=== PATIENT | male | born 1965 | race Caucasian/White ===

== ENCOUNTER 2018-01-03 19:57 | Emergency (ER) | payer MEDICAID, SELFPAY ==
[2018-01-03 19:58] VITALS: BP 124/90; PULSE 113; RESP 25; TEMP 35.9; O2SAT 94; BMI 19.5
--- NOTE | 2018-01-03 20:49 | CT_ITS ---
STUDY: CT ABDOMEN AND PELVIS WITH CONTRAST REASON FOR EXAM: Male, 52 years old. Lower umbilical pain for one week RADIATION DOSAGE (If Supplied By Facility): CTDIvol = ( 18.92 ) mGy, DLP = ( 372.63 ) mGycm TECHNIQUE: Transaxial images were obtained from the dome of the diaphragm to the symphysis pubis with oral contrast. 100ML ml of Isovue 300 contrast was administered. Sagittal and coronal images were reconstructed. Individualized dose optimization techniques were used for this CT. COMPARISON: None. FINDINGS: There are moderate volume bilateral effusions with atelectasis. There is mild cardiac enlargement The liver is inhomogeneous. The common duct measures approximately 8.1 mm. The pancreatic duct measures up to 5 mm. There is intra and extrahepatic ductal dilatation. There is mild ascites. There is fluid in the pericolic gutter compatible with mild ascites. Normal spleen. Normal pancreas. Normal bilateral adrenal glands. Normal right kidney. There is a benign-appearing well-circumscribed cyst in the left kidney measuring 1.6 cm. There is a contrast-filled over distended appearance of the stomach. There are contrast filled mildly distended loops of small bowel. There is equal or greater stool filled ascending colon and transverse colon. There is a decompressed particularly the descending colon and sigmoid. There is non-visualization of the appendix. Word is tortuous and partially calcified. The aorta is partially contrast filled and without contrast within the abdomen and pelvis. There few nonspecific perinephric lymph nodes. Normal urinary bladder. The prostate appears enlarged. There is body wall edema. There are diffuse degenerative changes of the visualized lumbar spine. There is a broad disc bulge at the level of L2 L3 L3 L4 L4 L5 and L5-S1 with moderate neural foramina narrowing. CT/Abdomen/Pelvis WITH Contrast IMPRESSION: Inhomogeneous liver with periportal edema and intra- Mild intra and extrahepatic ductal dilatation. Mild ascites. Upper limits of normal distended common duct for patient's age. Bilateral effusions cardiomegaly body anasarca, could consider cardiac origin. Findings are most consistent with ileus. This is in the setting of constipation. There is diverticulosis without diverticulitis. The appendix is not visualized with certainty. Electronically Signed: Heather Llanos MD at 22:59 EDT Tel , Service support ,
[2018-01-03 21:16] LABS: Absolute Lymphocyte Count 1.76 X10^3/ul (0.83-4.51); Absolute Neutrophil Count 3.7 X10^3/uL (2.0-7.7); Basophil# 0.03 X10^3/uL; Basophil% 0.5 % (0-1); Eosinophil# 0.02 X10^3/uL; Eosinophils% 0.3 % (0-5); Hematocrit 40.5 % (40-54); Hemoglobin 14.7 g/dl (13.0-16.5); Lymphocyte # 1.76 X10^3/ul (4.0); Lymphocyte % 28.6 % (19-41); Mean Corp Hgb Conc 36.3 g/gl (32-36); Mean Corpuscular Hgb 33.3 pg (27.0-32.0); Mean Corpuscular Volume 91.6 fL (80-94); Mean Platelet Vol. 10.2 fl (6.2-12.0); Monocyte# 0.61 X10^3/uL; Monocyte% 9.9 % (0-10); Neutrophil # 3.72 X10^3/uL (2.7-7.7); Neutrophil % 60.5 % (47-70); Platelet Count 197 K/mm3 (150-450); RBC Distribution Width CV 13.3 % (11.6-14.6); RBC Distribution Width SD 43.5 fl (35.1-43.9); Red Blood Count 4.42 M/mm3 (4.6-6.2); White Blood Count 6.2 K/mm3 (4.4-11.0)
[2018-01-03 21:17] LABS: POSITIVE COUNT NO; POSITIVE DIFFERENTIAL NO; POSITIVE MORPHOLOGY NO
[2018-01-03 21:31] LABS: ALB/GLOB Ratio 0.9 RATIO (0.9-2.4); AST(SGOT) 47 U/L (15-37); Alanine Aminotransfer ALT/SGPT 63 U/L (16-61); Albumin, Serum 2.9 g/dL (3.2-5.0); Alkaline Phosphatase 82 U/L (45-117); Anion Gap 8 (5-15); BUN 41 mg/dL (7-18); BUN/Creat Ratio 34.7 RATIO (10-20); Calcium,Total 8.5 mg/dL (8.5-10.1); Chloride 104 mmol/L (98-107); Creatinine, Serum 1.18 mg/dL (0.70-1.30); EST Glomerular Filtration Rate 69 mL/min (>60); Est Glom Filt Rate - Afr Amer 83 mL/min (>60); Globulin 3.3 g/dL (2.2-4.2); Glucose 132 mg/dL (74-106); Lipase 105 U/L (73-393); Potassium 4.3 mmol/L (3.5-5.1); Protein, Total 6.2 g/dL (6.4-8.2); Sodium Level 138 mmol/L (136-145)
[2018-01-03 21:43] LABS: Lactic Acid 1.8 mmol/L (0.4-2.0)
[2018-01-03] MEDS: 0.9% Normal Saline 1,000 ML 125 ML IV (21:59)
[2018-01-03] MEDS: Ondansetron 4 MG/2 ML Vial IV (21:59)
[2018-01-03] MEDS: Morphine 4 MG/ML Syringe IV (21:59)
--- NOTE | 2018-01-03 23:32 | ED.DCSUM_ITS ---
- ER Visit Summary Date of Service: 01/03/18 Chief Complaint: [[place] pain] History of Present Illness: The patient is a 52 M [presents the emergency department complaint of abdominal pain that he said for about 2 weeks. Patient states the pain is intermittent and severe at times in the lower abdomen.] P atient rates the pain a 10 out of 10 currently. Patient also states he has not had a good bowel movement in over 3 days. Patient has just passed some small hard stools. Patient denies any fever or vomiting. Nu[place] any chest pain or significant dyspnea. Patient does have a history of hypertension and COPD and history of tachycardia. Patient states that he injured his left rotator cuff last month and is preparing to have surgery on it and is currently following up with pulmonology and cardiology to get cleared for surgery. Patient has been taking Percocet for the pain in his left shoulder. Patient also noticed some redness around his bellybutton today and he became concerned. Patient states that he is lost about 15 pounds in the last month without trying. Patient has had some night sweats. Physical Examination: [HEENT-PERRLA, EOMI. Cranial nerves II through XII grossly intact. TMs clear. Mucous membranes moist. No adenopathy. Patient does have JVD. Cardiovascular-regular rate and rhythm without murmur or ectopy Lungs-breath sounds in the bases with few rales noted. Patient has some faint expiratory wheezes. Mild tachypnea. No accessory muscle use or retractions. Abdomen-normoactive bowel sounds, soft. Patient does have some tenderness over the suprapubic lower abdomen. No masses noted. Patient does have some faint erythema of the umbilicus. There is no rebound, rigidity, or perineal signs. Extremities-intact ?4, normal range of motion, normal pulses, atraumatic]. No edema noted. Test Results: [CBC with differential obtained showed a normal white blood cell count of 6.2, hemoglobin 14.7, hematocrit 40, platelets 197. Chemistries unremarkable. LFTs did show slightly elevated ALT of 63, AST was 47, alk phos was 82. Lipase was normal at 105. CT scan of the abdomen pelvis with IV and p.o. contrast was obtained which showed an homogenous liver with periportal edema. Patient had mild intra-and extrahepatic ductal dilatation with mild ascites. Patient had upper limit of normal distended common bile duct. Patient had bilateral effusions, cardiomegaly, body anasarca and could consider cardiac origin. Patient also has findings consistent with ileus this is in the setting of constipation. There is diverticulosis without diverticulitis. The appendix was not visualized.] Emergency Department Course and Treatment: [Patient was medicated with 4 mg of morphine initially. Patient had good pain relief. I recommended further workup including EKG, chest x-ray, cardiac enzymes and recommended admission for echocardiogram. Patient does not want to be admitted and is refusing any more testing. 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 Patient advised to follow-up with his garment parts cutter hand as he needs further workup and investigation of the pleural effusions and his dyspnea. Patient also has had weight loss and would have concerned about occult malignancy.] Disposition: [Discharged home in stable condition] Impression: [Abdominal pain Constipation Ileus Cellulitis umbilicus] This note was generated with [employer] dictation software. It may contain incorrect words, spelling, and punctuation that were not noted in review of the chart prior to signing ED Disposition - Plan for ED Patient: Chief Complaint: Abd Pain Referrals: Cesar Arcos DO [Primary Care Provider] -
--- NOTE | 2018-01-03 23:40 | DCINST.ED_ITS ---
ED Disposition - Plan for ED Patient: Chief Complaint: Abd Pain Instructions: ED Abdominal Pain Unkn Cause, ED Constipation, ED Infec Skin Cellulitis Prescriptions: Oxycodone HCl/Acetaminophen [Percocet 5/325] 1 tab PO Q6H PRN PRN 3 Days #12 tab PRN Reason: Pain Cephalexin [Keflex] 500 mg PO Q6 #40 cap Referrals: Cesar Arcos DO [Primary Care Provider] - 3-5 Days Additional Instructions: see your flooring machine feeder for concern of heart failure.
[2018-01-03 23:50] VITALS: BP 123/87; PULSE 68; RESP 18; O2SAT 99
== END 2018-01-03 23:58 | disposition home or self-care (01) ==
LOC: ED 20:55
PROVIDERS: Emergency Provider Emergency Medicine; Family Provider Student in an Organized Health Care Education/Training Program; PCP Student in an Organized Health Care Education/Training Program
DX: R10.30 Lower abdominal pain, unspecified (principal); K59.00 Constipation, unspecified; K56.7 Ileus, unspecified; L03.316 Cellulitis of umbilicus; J90 Pleural effusion, not elsewhere classified; K57.90 Diverticulosis of intestine, part unspecified, without perforation or abscess without bleeding; J44.9 Chronic obstructive pulmonary disease, unspecified; I10 Essential (primary) hypertension; Z79.82 Long term (current) use of aspirin; Z79.899 Other long term (current) drug therapy; Z72.0 Tobacco use
CPT/HCPCS: 74177; 80053; 83605; 83690; 85025; 96361; 96374; 96375; 99285; J7030; Q9967; A4216; J2405

== ENCOUNTER 2018-01-13 16:47 | Inpatient (IN) | payer MEDICAID, SELFPAY ==
[2018-01-13] VITALS (8 sets, daily range): BP systolic 107–126; BP diastolic 87–99; PULSE 54–97; RESP 15–21; TEMP 36.4–36.5; O2SAT 92–97; BMI 21.2; BMI 20.8
--- NOTE | 2018-01-13 17:06 | CT_ITS ---
STUDY: CT ABDOMEN AND PELVIS WITHOUT CONTRAST REASON FOR EXAM: Male, 53 years old. Lower abdominal pain. RADIATION DOSAGE (If Supplied By Facility): CTDIvol = ( 6.25 ) mGy, DLP = ( 281.04 ) mGycm TECHNIQUE: Transaxial images were obtained from the dome of the diaphragm to the symphysis pubis without oral contrast, and without intravenous contrast. Sagittal and coronal images were reconstructed. Individualized dose optimization techniques were used for this CT. COMPARISON: 01/03/2018 FINDINGS: Evaluation of the abdominal viscera is limited in the absence of intravenous contrast. There are moderate bilateral pleural effusions with overlying atelectasis. The visualized portions of the heart and pericardium are within normal limits. There are no calcified gallstones present. The liver demonstrates an unremarkable unenhanced appearance. The spleen is normal in size. The pancreas demonstrates an unremarkable unenhanced appearance. The adrenal glands are within normal limits. There are no renal or ureteral stones. There is no hydronephrosis. Normal visualized stomach. There is no bowel obstruction or inflammation. The appendix is not visualized, but there are no findings to suggest acute appendicitis. The aorta is normal in caliber. There is a small amount of free fluid. There is no free air, fluid collection or lymphadenopathy. There are no destructive osseous lesions. CT/Abdomen/Pelvis without Cont IMPRESSION: Limited study. Moderate bilateral pleural effusions with overlying atelectasis. Small amount of ascites. Otherwise, unremarkable noncontrast CT of the abdomen and pelvis. Electronically Signed: Francis Beatty, at 18:28 EDT Tel , Service support ,
--- NOTE | 2018-01-13 17:06 | EKG12_ITS ---
Test Reason : CP Blood Pressure : / mmHG Vent. Rate : 089 BPM Atrial Rate : 089 BPM P-R Int : 120 ms QRS Dur : 092 ms QT Int : 378 ms P-R-T Axes : 078 078 261 degrees QTc Int : 459 ms Normal sinus rhythm Possible Left atrial enlargement Anterior infarct , age undetermined T wave abnormality, consider inferior ischemia Abnormal ECG Confirmed by JONATHAN VARMA, JILLIAN ([id number]), city editor JUSTO MITTAL ([id number]) on 01/17/2018 12:45:26 PM Referred By: CLEVE Confirmed By:JILLIAN CASTILLO MD
[2018-01-13] MEDS: Ondansetron 4 MG/2 ML Vial IV (17:38)
[2018-01-13] MEDS: Morphine 4 MG/ML Syringe IV ×2 (17:39→22:28)
--- NOTE | 2018-01-13 18:10 | RAD_ITS ---
STUDY: X-RAY CHEST REASON FOR EXAM: Male, 53 years old. Chest pain TECHNIQUE: Frontal view of the chest COMPARISON: 09/23/2015 FINDINGS: There are stable severe emphysematous changes with large biapical bulla. There is no definite pneumothorax. There are moderate bilateral pleural effusions with overlying atelectasis. There are no focal infiltrates. The heart is normal in size. The visualized osseous structures are within normal limits. RAD/Chest PA and Lateral IMPRESSION: Stable severe emphysema with large biapical bulla. No definite pneumothorax. Moderate bilateral pleural effusions with overlying atelectasis. Electronically Signed: Francis Beatty, at 18:33 EDT Tel , Service support ,
[2018-01-13 18:24] LABS: Absolute Lymphocyte Count 1.17 X10^3/ul (0.83-4.51); Absolute Neutrophil Count 5.3 X10^3/uL (2.0-7.7); Basophil# 0.01 X10^3/uL; Basophil% 0.1 % (0-1); Eosinophil# 0.03 X10^3/uL; Eosinophils% 0.4 % (0-5); Hematocrit 40.1 % (40-54); Hemoglobin 13.4 g/dl (13.0-16.5); Lymphocyte # 1.17 X10^3/ul (4.0); Lymphocyte % 16.7 % (19-41); Mean Corp Hgb Conc 33.4 g/gl (32-36); Mean Corpuscular Hgb 32.1 pg (27.0-32.0); Mean Corpuscular Volume 95.9 fL (80-94); Mean Platelet Vol. 10.1 fl (6.2-12.0); Monocyte# 0.51 X10^3/uL; Monocyte% 7.3 % (0-10); Neutrophil # 5.27 X10^3/uL (2.7-7.7); Neutrophil % 75.4 % (47-70); Platelet Count 139 K/mm3 (150-450); RBC Distribution Width CV 13.2 % (11.6-14.6); RBC Distribution Width SD 45.7 fl (35.1-43.9); Red Blood Count 4.18 M/mm3 (4.6-6.2)
[2018-01-13 18:26] LABS: POSITIVE COUNT NO; POSITIVE DIFFERENTIAL NO; POSITIVE MORPHOLOGY NO
[2018-01-13 18:50] LABS: AST(SGOT) 30 U/L (15-37); Alanine Aminotransfer ALT/SGPT 52 U/L (16-61); Albumin, Serum 2.6 g/dL (3.2-5.0); Alkaline Phosphatase 66 U/L (45-117); Anion Gap 6 (5-15); BUN 37 mg/dL (7-18); BUN/Creat Ratio 37.8 RATIO (10-20); Bilirubin, Direct 0.31 mg/dL (0.00-0.30); Calcium,Total 7.5 mg/dL (8.5-10.1); Chloride 108 mmol/L (98-107); Creatinine, Serum 0.98 mg/dL (0.70-1.30); EST Glomerular Filtration Rate 86 mL/min (>60); Est Glom Filt Rate - Afr Amer 104 mL/min (>60); Estimated Creatinine Clearance 76.94 ml/min; Globulin 2.9 g/dL (2.2-4.2); Glucose 96 mg/dL (74-106); Lipase 177 U/L (73-393); Potassium 4.4 mmol/L (3.5-5.1); Protein, Total 5.5 g/dL (6.4-8.2); Sodium Level 141 mmol/L (136-145)
--- NOTE | 2018-01-13 19:57 | CT_ITS ---
STUDY: CT CHEST WITHOUT CONTRAST REASON FOR EXAM: Male, 53 years old. Chest pain. Pleural effusion. RADIATION DOSAGE (If Supplied By Facility): CTDIvol = ( 8.77 ) mGy, DLP = ( 326.63 ) mGycm TECHNIQUE: Transaxial imaging was performed without the administration of intravenous contrast material. Coronal and sagittal reformatted images were created. Individualized dose optimization techniques were used for this CT. COMPARISON: None FINDINGS: There are severe emphysematous changes with large biapical bulla. There is no pneumothorax. There are moderate bilateral pleural effusions with overlying atelectasis. There are no focal infiltrates. There are no pulmonary nodules or masses. There is no pneumothorax. The heart and pericardium are within normal limits. There is no thoracic lymphadenopathy. There is no evidence of thoracic aortic aneurysm. Images through the upper abdomen demonstrate no significant abnormality. There are no destructive osseous lesions. CT/Chest without Contrast IMPRESSION: Severe emphysema with large biapical bulla. No pneumothorax. Moderate bilateral pleural effusions with overlying atelectasis. No focal infiltrates. Electronically Signed: Francis Beatty, at 20:59 EDT Tel , Service support ,
[2018-01-13] MEDS: 0.9% Normal Saline 1,000 ML 999 ML IV (20:11)
[2018-01-13] MEDS: Ipratropium/Albuterol Sulfate 3 ML AMPUL.NEB INHALATION (20:14)
[2018-01-13] MEDS: MethylPREDNISolone 125 MG/2 ML Vial IV (20:28)
[2018-01-13] MEDS: Aspirin 81 MG TAB.CHEW 324 MG PO (22:06)
[2018-01-13 22:12] LABS: Color, Urine Yellow (Yellow); Glucose, Dipstick Normal (Normal); Ketone-Dipstick Negative (Negative); Leukocyte Esterase-Dipstick 25 /ul (Negative); Mucous, Urine 0 SEEN /hpf (<or=2+); Nitrite-Dipstick Negative (Negative); Occult Blood-Urine Negative /ul (Negative); Protein-Dipstick 30 mg/dl (Negative); Red Blood Cells-Urine 0 SEEN /hpf (0-5); Specific Gravity, Urine 1.025 (1.002-1.030); Squamous Epithelial Cells - UA 0 SEEN /hpf (0-5); Urine Bilirubin Dipstick Negative (Negative); Urine Clarity Clear (Clear); Urine Urobilinogen 1 mg/dl (Normal); White Blood Cells 0 SEEN /hpf (0-5)
--- NOTE | 2018-01-13 22:14 | PCM.HP.STD ---
Problem List (1) Prostatitis, acute Status: Acute (2) Pulmonary cachexia due to chronic obstructive pulmonary disease Status: Acute History of Present Illness Date of Admission: 01/13/18 Chief Complaint: suprapubic pain The patient is a 53 year old M with a significant history of hypertension, COPD, former smoker, tachycardia who presents with a 2-3 weeks history of suprapubic excruciating abdominal pain. Patient reports that his abdominal pain increases with urination and defecation. He reports sitophobia because of fear of defecation. Also he reports penile pain with urination. Patient was at our hospital 2 weeks ago for the same symptoms however he refused to be admitted at that time. Patient reports that he has right rotator cuff tear and was supposed to be scheduled for surgery. However he was asked to get a cardiac clearance and pulmonary clearance before the surgery. He saw Dr. Goyal who scheduled a stress test. The stress test was scheduled a day before this admission. However because of shortness of breath he could not go for the stress test. He had a pulmonary function test with Dr. Garland at the [facility]. Patient reports that after the pulmonary function test he was cleared for the surgery but needed to do the stress test as stated above. Patient reported that after her pulmonary function test on December 19 he developed shortness of breath a week thereafter. He reports that he is unable to take a deep breath. He is shortness of breath increases with mild exertion. Patient reports that he is a former smoker. He smoked for over 35 years and used to smoke about 2 packs/year. However he cut down to about 5 cigarettes/day and quit about 4 days ago. At emergency department he received about 1500 mL's of normal saline however his bladder scan was about 37mL. He was straight cath for urine specimen. EKG shows ST inversions in inferior leads that are new since August 2015. His troponin was elevated but it trended down. Abdomen and pelvis CT showed moderately bilateral pleural effusion with overlying atelectasis; and small amount of ascites. Past Medical History Allergies naproxen [From Naprosyn] Adverse Reaction (Verified 01/13/18 16:54) Nausea naproxen sodium [From Aleve] Adverse Reaction (Verified 01/13/18 16:54) Nausea tramadol Adverse Reaction (Verified 01/13/18 16:54) Nausea Home Medications: Ambulatory Orders Medication Instructions Recorded Carvedilol [Coreg] 12.5 mg PO BID 05/29/15 Aspirin 325 mg PO DAILY@0800 01/03/18 Lisinopril [Zestril] 30 mg PO DAILY 01/13/18 Surgical History: - - [place] teeth removal Smoking Status: Former smoker Alcohol: Occasional Drugs: None - *Family History Maternal History Items: Cancer - colon, Heart Disease Paternal History Items: COPD - Emphysema, - Review of Systems Constitutional: Denies: Chills, Fever, Weight Change HEENT: Denies: Head Aches, Sinus Congestion, Sinus Drainage Cardiovascular: Denies: Chest Pain, Palpitations Respiratory: Reports: Shortness of Breath, Shortness of breath at rest, Shortness of breath upon exertion. Denies: Sputum production Gastrointestinal: Reports: Abdominal Pain - Suprapubic pain., Nausea. Denies: Vomiting Genitourinary: Reports: Dysuria Musculoskeletal: Denies: Joint Pain, Joint Tenderness Skin: Denies: Rash, Wounds Neurological: Denies: Numbness, Tingling, Focal weakness Psychiatric: Denies: Anxiety, Depression, Homicidal Ideations, Suicidal Ideations Hematologic/ Lymphatic: Denies: Easy Bruising, Easy Bleeding VTE Information - Inpt Only VTE Present on Admission: No VTE Mechan Device Prophylaxis: None VTE Pharm Prophylaxis ordered?: Yes Patient Problems: Active and Suspected Problems Prostatitis, acute (Acute) Pulmonary cachexia due to chronic obstructive pulmonary disease (Acute) - Physical Exam General: Alert, Oriented x3, Cooperative HEENT: Atraumatic, PERRLA, EOMI, Normocephalic Neck: Supple, No JVD, Negative Carotid Bruits Lungs: Normal air movement, Diminished Cardiovascular: Regular rate, No murmurs Abdomen: Bowel Sounds Present - decreased, Soft, - - Tender prostate Extremities: No edema, Capillary Refill Less than 3 Seconds Skin: No rashes, No breakdown Musculoskeletal: No Tenderness to Palpation of Joints or Extremities Neurological: Cranial nerves II-XII grossly intact Psych/Mental Status: Normal Affect, Appropriate Vital Signs Temp Pulse Resp BP Pulse Ox 97.5 F L 75 18 107/89 H 92 01/13/18 16:48 01/13/18 20:16 01/13/18 20:16 01/13/18 20:00 01/13/18 20:25 Oxygen Flow Rate (L/min) 2 Oxygen Delivery Method Nasal Cannula Weight: 61.689 kg Body Mass Index (BMI) 21.2 Laboratory Tests Past 24 Hrs 01/13/18 01/13/18 17:56 17:56 WBC 7.0 RBC 4.18 L Hgb 13.4 Hct 40.1 MCV 95.9 H MCH 32.1 H MCHC 33.4 RDW 13.2 RDW Differential 45.7 H Plt Count 139 L MPV 10.1 Immature Gran % (Auto) 0.100 Neut % (Auto) 75.4 H Lymph % (Auto) 16.7 L [place] % (Auto) 7.3 Eos % (Auto) 0.4 Baso % (Auto) 0.1 Absolute Neuts (auto) 5.3 Absolute Lymphs (auto) 1.17 Total Counted Not Reportable Sodium 141 Potassium 4.4 Chloride 108 H Carbon Dioxide 27.0 Anion Gap 6 BUN 37 H Creatinine 0.98 Estim Creat Clear Calc 76.94 Est GFR (MDRD) Af Amer 104 Est GFR (MDRD) Non-Af 86 BUN/Creatinine Ratio 37.8 H Glucose 96 Calcium 7.5 L Total Bilirubin 0.90 Direct Bilirubin 0.31 H AST 30 ALT 52 Alkaline Phosphatase 66 Troponin I 0.053 H Total Protein 5.5 L Albumin 2.6 L Globulin 2.9 Lipase 177 Assessment/Plan All Active Problems Prostatitis, acute (Acute) Pulmonary cachexia due to chronic obstructive pulmonary disease (Acute) The patient is a 53 year old M with a significant history of hypertension, COPD, former smoker, tachycardia who presents with suprapubic excruciating abdominal pain; and dyspnea; and found to have radiographic findings of severe emphysema with large biapical bullae; moderate bilateral pleural effusion; abnormal EKG changes and initial elevation of troponin.. Intractable abdominal pain The etiology of his suprapubic pain is unclear at this time. However differential diagnosis includes prostatitis; functional abdominal pain; tumor or other. Urinalysis and urine culture ordered. Discussed with the ED doctor and patient was started on ceftriaxone for probable prostatitis. Patient is 53 years old and he has not had a colonoscopy yet. If his symptoms does not improve consider surgery evaluation for colonoscopy Pulmonary cachexia due to COPD Acute DuoNeb scheduled and albuterol as needed. Importantly patient reports hemoptysis with previous use of Ventolin. Received Solumedrol 125 mg at emergency department. Prednisone 40 mg daily ordered. Rapid flu and respiratory pathogen panel ordered. Mucinex ordered. PEP therapy. Pulmonary consult to optimize management.. Abnormal EKG and elevated troponin Will trend troponin. Due to his poor pulmonary function will consult cardiology to consider whether patient would be a candidate for pharmacological stress test. Received ASA 324 at ED ASA 81mg daily. High intensity statin started Bilateral pleural effusion Looks slightly worse than previous Will defer to Pulmonary recommendations. Hypertension On admission systolic blood pressure is fairly controlled. However diastolic blood pressure is uncontrolled. Lisinopril and Coreg continued. DVT prophylaxis Subcutaneous heparin. Code Visit Inpatient E&M: 79174 Init Hosp L3
--- NOTE | 2018-01-13 22:24 | ED.VISSUMM ---
- ER Visit Summary Date of Service: 01/13/18 Chief Complaint: Abdominal pain and shortness of breath History of Present Illness: The patient is a [address] Arcos, Dr. Goyal, and has seen Dr. Garland once. He reports that his abdominal pain began approximately 2 weeks ago. States this is suprapubic in location. Some aching pain is 10 out of 10 severity. Is worsened by nothing relieved by nothing. He had nausea without vomiting. His last bowel was today. He reports that the there was a small, loose bowel movement. No blood in stools or black tarry stools. Does have dysuria and frequency with small volumes as well. Also complains of subjective fever and chills. Patient complains of chest pain. However, he is a poor informant is unable to define when this began or what it feels like. He has a chronic cough that he reports that 2 weeks ago he is coughing up blood within this is now resolved. He reports that the hemoptysis was after using a Ventolin MDI. He has moderate shortness of breath. States that this is worsened by ambulation or coughing. Physical Examination: Vitals: Stable. Afebrile. General: Well-nourished and well-developed. Head: Normocephalic atraumatic. Neck: Supple, no lymphadenopathy. No JVD. Nontender. Cardiovascular: Regular rate and rhythm. No murmurs. Respiratory: No respiratory distress. Mild diffuse wheezing with decreased air movement.. Abdominal: Soft, mild diffuse tenderness palpation and moderate suprapubic tenderness, nondistended, normal bowel sounds. No guarding, rebound, or peritoneal signs. Back: Nontender. Extremities: Nontender, no edema. Skin: Normal color, no rash. Neurologic: Alert and oriented ?3. Cranial nerves II through XII are intact. Normal strength and sensation. Psych: Normal affect. Test Results: EKG is sinus at 89 with inferolateral T wave inversions that are new since August 2015. CBC is more for platelets 139, 7 neutrophils 75, lymphocytes 17. Chem-7 more for chloride 108, BUN 37, calcium 7.5. LFTs marked for total protein of 5.5, albumin 2.6, direct bili of 0.31, and lipase of 177. Troponin is 0.053. Chest x-ray shows severe emphysematous changes moderate bilateral pleural effusions. CT flank shows moderate bilateral pleural effusions with atelectasis and a small amount of ascites. CT chest shows severe emphysematous changes without a pneumothorax. Does have bilateral pleural effusions. Emergency Department Course and Treatment: Patient was treated with morphine and Zofran IV. He was given albuterol Atrovent aerosols. Is given Solu-Medrol IV. He is given aspirin p.o. A rectal exam was performed by the hospitalist and he feels the patient has prostatitis. He is given a dose of Rocephin IV. He was straight cathed for urine and this is pending. Treatment Plan: Patient will be admitted to the hospital for further evaluation and treatment. Disposition: Admitted in serious condition. Impression: 1. COPD exacerbation. 2. Bilateral pleural effusions. 3. Abdominal pain, uncertain cause. 4. Ascites. 5. Atypical chest pain. This note was generated with [employer] software. It may contain incorrect words, spelling, and punctuation that were not noted in review of the chart prior to signing <Eric Randhawa - Last Filed: 01/13/18 22:27> - ER Visit Summary Date of Service: 01/13/18 Chief Complaint: [] History of Present Illness: The patient is a 53 M [] Physical Examination: [] Test Results: [] Emergency Department Course and Treatment: [] Treatment Plan: [] Disposition: [] Impression: [] This note was generated with [employer] software. It may contain incorrect words, spelling, and punctuation that were not noted in review of the chart prior to signing <Oscar Shrestha - Last Filed: 01/13/18 22:32> ED Disposition <Eric Randhawa - Last Filed: 01/13/18 22:27> <Oscar Shrestha - Last Filed: 01/13/18 22:32> - Plan for ED Patient: Chief Complaint: Abd Pain
[2018-01-13 22:46] LABS: Bacteria RARE /hpf (None Seen)
[2018-01-14] VITALS (12 sets, daily range): BP systolic 110–123; BP diastolic 73–83; PULSE 65–108; RESP 16–30; TEMP 36.5–37.2; O2SAT 86–97
[2018-01-14] MEDS: Ipratropium/Albuterol Sulfate 3 ML AMPUL.NEB INHALATION ×4 (00:19→13:59)
--- NOTE | 2018-01-14 00:20 | EKG12_ITS ---
Test Reason : AM EKG Blood Pressure : / mmHG Vent. Rate : 085 BPM Atrial Rate : 085 BPM P-R Int : 124 ms QRS Dur : 098 ms QT Int : 374 ms P-R-T Axes : 074 079 251 degrees QTc Int : 445 ms Normal sinus rhythm Possible Left atrial enlargement Anterior infarct , age undetermined T wave abnormality, consider inferolateral ischemia Abnormal ECG Confirmed by JONATHAN VARMA, JILLIAN ([id number]), film editor supervisor KIMBERLY MADDOX ([id number]) on 01/19/2018 2:17:22 PM Referred By: DANIEL Confirmed By:JILLIAN CASTILLO MD
[2018-01-14] MEDS: oxyCODONE 5 MG Tablet PO ×3 (03:05→11:43)
[2018-01-14] MEDS: Aspirin 325 MG Tablet PO (05:34)
[2018-01-14] MEDS: Lisinopril 10 MG Tablet 30 MG PO (05:34)
[2018-01-14 05:55] LABS: Absolute Lymphocyte Count 0.52 X10^3/ul (0.83-4.51); Absolute Neutrophil Count 4.9 X10^3/uL (2.0-7.7); Hematocrit 42.5 % (40-54); Hemoglobin 14.2 g/dl (13.0-16.5); Lymphocyte # 0.52 X10^3/ul (4.0); Lymphocyte % 9.6 % (19-41); Mean Corp Hgb Conc 33.4 g/gl (32-36); Mean Corpuscular Hgb 31.9 pg (27.0-32.0); Mean Corpuscular Volume 95.5 fL (80-94); Mean Platelet Vol. 10.5 fl (6.2-12.0); Monocyte# 0.02 X10^3/uL; Monocyte% 0.4 % (0-10); Neutrophil # 4.89 X10^3/uL (2.7-7.7); Platelet Count 155 K/mm3 (150-450); RBC Distribution Width CV 13.2 % (11.6-14.6); RBC Distribution Width SD 45.7 fl (35.1-43.9); Red Blood Count 4.45 M/mm3 (4.6-6.2); White Blood Count 5.4 K/mm3 (4.4-11.0)
--- NOTE | 2018-01-14 05:55 | EKG12_ITS ---
Test Reason : ADMISSION EKG Blood Pressure : / mmHG Vent. Rate : 079 BPM Atrial Rate : 079 BPM P-R Int : 116 ms QRS Dur : 098 ms QT Int : 388 ms P-R-T Axes : 073 079 252 degrees QTc Int : 444 ms Normal sinus rhythm Possible Left atrial enlargement Anterior infarct , age undetermined T wave abnormality, consider inferolateral ischemia Abnormal ECG Confirmed by JONATHAN VARMA, JILLIAN ([id number]), editor sound KIMBERLY MADDOX ([id number]) on 01/19/2018 2:18:57 PM Referred By: DANIEL Confirmed By:JILLIAN CASTILLO MD
[2018-01-14 05:56] LABS: Differential Indicated SCAN CRITERIA MET; POSITIVE COUNT NO; POSITIVE DIFFERENTIAL YES; POSITIVE MORPHOLOGY NO
[2018-01-14 05:58] LABS: Partial Thromboplast Time 35.1 Seconds (24.1-36.2)
[2018-01-14 06:16] LABS: Anion Gap 8 (5-15); BUN 41 mg/dL (7-18); BUN/Creat Ratio 39.4 RATIO (10-20); Calcium,Total 8.3 mg/dL (8.5-10.1); Chloride 107 mmol/L (98-107); Creatinine, Serum 1.04 mg/dL (0.70-1.30); EST Glomerular Filtration Rate 80 mL/min (>60); Est Glom Filt Rate - Afr Amer 96 mL/min (>60); Estimated Creatinine Clearance 70.87 ml/min; Glucose 117 mg/dL (74-106); Sodium Level 139 mmol/L (136-145)
[2018-01-14 06:17] LABS: Differential Comment SCANNED
[2018-01-14 06:36] LABS: International Normalized Ratio 1.7; Prothrombin Time (Protime)PT. 20.4 SECONDS (11.7-14.9)
--- NOTE | 2018-01-14 07:29 | ECHOCS_ITS ---
Reason For Study: Abn EKG Procedure This was a 2D Doppler, Color Flow transthoracic echocardiogram. The exam was of good technical quality. Exam performed portable in patient room. Left Ventricle Severely dilated left ventricle. Apical false tendon noted. Severe segmental systolic dysfunction (see wall motion). The estimated ejection fraction is 10 %. There is evidence of diastolic dysfunction. Anterio-Basal: Severely hypokinetic. Lateral-Basal: Hypokinetic. Posterior-Basal: Severely hypokinetic. Infero-Basal: Severely Hypokinetic. Basal inferoseptal: Akinetic. Basal anteroseptal: Severely Hypokinetic. Mid-Anterior : Akinetic. Mid-Lateral : Akinetic. Mid-Posterior: Akinetic. Mid-Inferior: Severely Hypokinetic. Mid-inferoseptal : Akinetic. Mid-anteroseptal : Severely Hypokinetic. Anterior [place] : Akinetic. Inferior [place] : Severely Hypokinetic. Lateral [place] : Akinetic. Septal [place] : Akinetic. Right Ventricle Normal RV size. Mild global right ventricular systolic dysfunction. Atria The left atrium is moderately enlarged. The right atrium is mildly enlarged. No doppler evidence for ASD. Mitral Valve There is no mitral annular calcification. Moderate papillary muscle dysfunction of the mitral valve. Moderately severe (3+) eccentric mitral valve insufficiency. Tricuspid Valve Normal tricuspid valve. Mild tricuspid valve insufficiency. Right ventricular systolic pressure estimated to be 45 mmHg. Aortic Valve Trisinus/trileaflet aortic valve. Mild diffuse aortic valve thickening. Mild (1+) aortic valve insufficiency. Pulmonic Valve The pulmonic valve is not well visualized. Mild (1+) pulmonic valve insufficiency. Great Vessels Normal sized aortic root. Pericardium/Pleural Trivial pericardial effusion. There are no echocardiographic indications of cardiac tamponade. Echolucency c/w a pleural effusion. Medication Definity0.4ml given slow IV push to enhance endocardial definition. MMode/2D Measurements & Calculations LVIDd: 6.5 cm IVSd: 1.1 cm Ao root diam: 3.2 cm LVIDs: 6.3 cm LVPWd: 0.64 cm RVDd: 4.3 cm FS: 3.5 % LAV(MOD-bp): 70.4 ml LVAd ap4: 46.0 cm2 SV(MOD-sp4): 27.1 ml LAV(MOD-bp) Indexed: 41.4 ml/m2 EDV(MOD-sp4): 206.0 ml LAV(MOD-sp2): 75.2 ml EDV(sp4-el): 214.9 ml LAV(MOD-sp4): 65.7 ml LVAs ap4: 41.3 cm2 ESV(MOD-sp4): 178.9 ml ESV(sp4-el): 185.1 ml EF(MOD-sp4): 13.2 % EF(sp4-el): 13.9 % SV(sp4-el): 29.8 ml LA A4 area: 21.2 cm2 RA A4 area: 16.5 cm2 Doppler Measurements & Calculations MV E max zen: 67.4 cm/sec Lat Peak E' Zen: 5.5 cm/sec Med Peak E' Zen: 2.6 cm/sec MV A max zen: 28.0 cm/sec E/E' lat: 12.3 E/E' med: 25.5 MV E/A: 2.4 Ao V2 max: 77.8 cm/sec LV V1 max: 61.9 cm/sec PA V2 max: 58.7 cm/sec Ao max P.4 mmHg LV V1 max P.5 mmHg Ao V2 mean: 55.7 cm/sec Ao mean P.4 mmHg Ao V2 VTI: 12.0 cm TR max zen: 274.9 cm/sec TR max P.2 mmHg Interpretation Summary Severely dilated left ventricle. Severe segmental systolic dysfunction (see wall motion). The estimated ejection fraction is 10 %. Apical false tendon noted. Mild global right ventricular systolic dysfunction. The left atrium is moderately enlarged. The right atrium is mildly enlarged. Moderate papillary muscle dysfunction of the mitral valve. Moderately severe (3+) eccentric mitral valve insufficiency. Mild tricuspid valve insufficiency. Mild diffuse aortic valve thickening. Mild (1+) aortic valve insufficiency. Mild (1+) pulmonic valve insufficiency. Trivial pericardial effusion. There are no echocardiographic indications of cardiac tamponade. Echolucency c/w a pleural effusion. Right ventricular systolic pressure estimated to be 45 mmHg. There is evidence of diastolic dysfunction. Ordering Physician: Boni Garces Referring Physician: Cesar Meléndez Performed By: Denise Summers, YOGESH, RVT
[2018-01-14] MEDS: Clopidogrel Bisulfate 300 MG Tablet PO (08:13)
[2018-01-14] MEDS: predniSONE 20 MG Tablet 40 MG PO (08:13)
--- NOTE | 2018-01-14 09:10 | PCM.CONS.C ---
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 The patient states he underwent cardiovascular evaluation in [place], [place], approximately 15 years ago. He believes he underwent diagnostic cardiac catheterization. To the best of his knowledge he had no issues with respect to his coronary vasculature. Recently, over the last 1-2 months, he states he has been having issues with alteration in his diet, alteration in his bowel habits, abdominal discomfort, as well as progressive shortness of breath. He presented to the hospital for further evaluation. He was noted to have an abnormal troponin I level and an ECG that suggested sinus rhythm with possible left atrial enlargement, possible anterior WV of indeterminate age, and T wave abnormalities potentially compatible with myocardial ischemia in the inferolateral distribution. He also had radiologic studies with chest x-ray and chest CT scan which did not appear to report any great vessel disease, however, they did report significant underlying pulmonary disease. There is also been concerns as to whether or not he has acute prostatitis. He has been undergoing evaluation with transthoracic echocardiogram. Based upon preliminary evaluation he appears to have left ventricular dilatation with severe left ventricular systolic dysfunction with severely diminished LVEF. The final report is pending. He has denied ongoing chest discomfort. He does get short of breath and dyspneic with activity. He has denied acute orthopnea or PND. He has had no peripheral pitting edema. He states he has had no episodes of near syncope or syncope. He has reportedly been on medical management. He has been on beta-roxana therapy and LAVERN inhibitor therapy. He states he was due to have an outpatient exercise tolerance test through the [facility] system. This was for preoperative evaluation for an upcoming noncardiovascular surgery. [] Past Medical History Allergies/Adverse Reactions: Allergies naproxen [From Naprosyn] Adverse Reaction (Verified 01/13/18 16:54) Nausea naproxen sodium [From Aleve] Adverse Reaction (Verified 01/13/18 16:54) Nausea tramadol Adverse Reaction (Verified 01/13/18 16:54) Nausea Home Medications: Ambulatory Orders Medication Instructions Recorded Carvedilol [Coreg] 12.5 mg PO BID 05/29/15 Aspirin 325 mg PO DAILY@0800 01/03/18 Lisinopril [Zestril] 30 mg PO DAILY 01/13/18 Past Medical History (Chronic Problems): Chronic Problems Pulmonary cachexia due to chronic obstructive pulmonary disease (Chronic) COPD (chronic obstructive pulmonary disease) (Chronic) Surgical History: - - [place] teeth removal - *Family History Maternal History Items: Cancer - colon, Heart Disease Paternal History Items: COPD - Emphysema, - Lives: Alone Smoking Status: Former smoker Alcohol: Occasional Drugs: None Review of Systems - Review of Systems General: Denies: Fever, Night Sweats, Fatigue Cardiovascular: Reports: Shortness of Breath, Shortness of Breath with Exertion. Denies: Chest Discomfort, Orthopnea, PND, Peripheral Edema, Palpitations, Lightheadedness, Dizziness, Near Syncope, Syncope Respiratory: Reports: Shortness of Breath. Denies: Cough, Sputum Production, Hemoptysis Gastrointestinal: Denies: Hematemesis, Hematochezia, Melena Genitourinary: Denies: Dysuria, Hematuria Skin: Denies: Rash Subjectve: This is a 53-year-old white male who appears to be resting comfortably at the moment in no acute distress. Objective: Vital Signs Temp Pulse Resp BP Pulse Ox 98.9 F 90 20 H 110/73 92 01/14/18 08:10 01/14/18 08:10 01/14/18 08:10 01/14/18 08:10 01/14/18 08:10 Oxygen Flow Rate (L/min) 2 Oxygen Delivery Method Room Air Weight: 132 lb 15.02 oz Body Mass Index (BMI) 20.8 Intake and Output for Last 24 Hours 01/12/18 01/13/18 01/14/18 23:59 23:59 23:59 Intake Total 220 / 220 Output Total 200 / 200 Balance General: Awake, Alert, Oriented x 3, No Acute Distress HEENT: Atraumatic, Normocephalic, PERRL, EOMI, Sclera Non Icteric Oral: Moist Mucosa Neck: Supple, Good ROM, No JVD Lungs: Diminished Vinnie Bases Cardiovascular: Regular Rhythm, Normal S1, Normal S2 Murmur Murmur: Grade 2/6, Soft, Holosystolic, LLSB, [place], Axilla Vascular: No Carotid Bruits Abdomen: Bowel Sounds Present, Soft Extremities: No Cyanosis, No Clubbing, No edema Neurological: No Focal Motor or Sensory Deficit 01/13/18 17:56: WBC 7.0, RBC 4.18 L, Hgb 13.4, Hct 40.1, MCV 95.9 H, MCH 32.1 H, MCHC 33.4, RDW 13.2, RDW Differential 45.7 H, Plt Count 139 L, MPV 10.1, Immature Gran % (Auto) 0.100, Neut % (Auto) 75.4 H, Lymph % (Auto) 16.7 L, [place] % (Auto) 7.3, Eos % (Auto) 0.4, Baso % (Auto) 0.1, Absolute Neuts (auto) 5.3, Total Counted Not Reportable 01/13/18 17:56: Sodium 141, Potassium 4.4, Chloride 108 H, Carbon Dioxide 27.0, Anion Gap 6, BUN 37 H, Creatinine 0.98, Est GFR (MDRD) Af Amer 104, Est GFR (MDRD) Non-Af 86, BUN/Creatinine Ratio 37.8 H, Glucose 96, Calcium 7.5 L, Total Bilirubin 0.90, Direct Bilirubin 0.31 H, Troponin I 0.053 H 01/13/18 22:04: Urine Color Yellow, Urine Clarity Clear, Urine pH 5.0, Ur Specific [place] 1.025, Urine Protein 30 H, Urine Glucose (UA) Normal, Urine Ketones Negative, Urine Occult Blood Negative, Urine Nitrite Negative, Urine Bilirubin Negative, Urine Urobilinogen 1 H, Ur Leukocyte Esterase 25 H, Urine RBC 0 SEEN, Urine WBC 0 SEEN 01/14/18 00:12: Troponin I 0.042 01/14/18 02:50: Troponin I 0.028 01/14/18 05:20: WBC 5.4, RBC 4.45 L, Hgb 14.2, Hct 42.5, MCV 95.5 H, MCH 31.9, MCHC 33.4, RDW 13.2, RDW Differential 45.7 H, Plt Count 155, MPV 10.5, Immature Gran % (Auto) 0.000, Neut % (Auto) 90.0 H, Lymph % (Auto) 9.6 L, [place] % (Auto) 0.4, Eos % (Auto) 0.0, Baso % (Auto) 0.0, Absolute Neuts (auto) 4.9, Total Counted Not Reportable 01/14/18 05:20: PT 20.4 H, INR 1.7, APTT 35.1 01/14/18 05:20: Sodium 139, Potassium 5.0, Chloride 107, Carbon Dioxide 24.0, Anion Gap 8, BUN 41 H, Creatinine 1.04, Est GFR (MDRD) Af Amer 96, Est GFR (MDRD) Non-Af 80, BUN/Creatinine Ratio 39.4 H, Glucose 117 H, Calcium 8.3 L, Troponin I 0.032 Rhythm: Sinus rhythm EKG: As noted above ECHO: As noted above: Final report pending CXR: As noted above: Please see official report Chest CT Scan: As noted above: Please see official report Assessment/Plan 1. Abnormal cardiac enzymes/non-ST segment elevation WV The patient presents with abnormal cardiac enzymes/troponin I levels. They are decreasing. He also has an abnormal ECG. These changes have raise concerns about underlying CAD and an acute non-ST segment elevation WV either a primary event or potentially a type II supply demand mismatch event. At the present time the patient is being monitored. He is on medical management which is included aspirin, initiation of antiplatelet therapy with clopidogrel/Plavix, beta-roxana therapy, LAVERN inhibitor therapy, and lipid-lowering therapy. He is undergoing further evaluation with a transthoracic echocardiogram. The preliminary findings are as noted above. The patient's case was discussed with him. It was recommended he remain in the hospital and undergo further cardiovascular evaluation with diagnostic cardiac catheterization to evaluate his cardiovascular status and the need for further diagnostic studies/medical therapy/potential revascularization therapy, etc. The procedure and risks have been discussed with the patient. He does not want to proceed with such a procedure at this time. He states he would prefer to go home, on medical therapy, and after he places his affairs in order, return as an outpatient in the future for additional evaluation and care. 2. Cardiomyopathy The patient does have, on his preliminary echocardiographic images, what appears to be findings compatible with an underlying cardiomyopathy. It is unclear at this time whether this is related to underlying coronary artery disease or a non-CAD related cardiomyopathy. Again it was recommended that he remain in the hospital and undergo further evaluation and care to assist with diagnosis and therapy. This will include the diagnostic cardiac catheterization. He has declined this at this time. Again he wants to go home, take medication, place his affairs in order, and return in the future as an outpatient evaluation and care. 3. Valvular heart disease The patient does have based on his examination and his echocardiogram underlying valvular heart disease which includes mitral valve regurgitation. It is unclear as to whether this is related to what appears to be his left ventricular enlargement/dilatation and systolic dysfunction versus being a separate underlying primary valvular related issue. Again he was asked to remain in the hospital and undergo further medical therapy and diagnostic studies as described above. He declines to do so at this time. 4. COPD Tobacco use. He states he stopped smoking cigarettes 5 days ago. His examination and radiologic studies suggest findings compatible with severe COPD. He has been evaluated by [facility] pulmonology in the past. 5. Cachexia reportedly secondary to COPD The patient is reportedly given his diagnosis. It is unclear whether his cardiovascular status is contributing to concerns of cachexia as well. He does need to continue pulmonary evaluation care with his quarter folder. He does need to continue cardiovascular evaluation care. Again he is declining this at this time. 6. Abdominal discomfort/prostatitis Patient is being evaluated by internal medicine for his abdominal discomfort and concerns of possible prostatitis. It is unclear whether his abdominal discomfort is related to his cardiovascular findings. He will need continue evaluation care per internal medicine. Again he was advised to undergo further cardiovascular evaluation. He has declined to do so at this time. Overall, the patient will continue to be monitored while he is in the hospital. His medications will be adjusted as deemed appropriate. Again he was recommended to remain in the hospital for further evaluation care as described above. He has declined to do so. He was told that based on his cardiovascular concerns that he is at a risk for increased adverse cardiovascular events including the possibility of sudden cardiac which could occur at any time. He acknowledged these concerns. He stated he is willing to accept the risk of these concerns as an outpatient with the hope that he will be able to return in the future for further evaluation and care. Comment: The patient's case was discussed and reviewed with Dr. Calles. This note was generated with [employer] software. It may contain incorrect words, spelling, and punctuation that were not noted in checking the note before signing.
--- NOTE | 2018-01-14 09:15 | CON.PCM_ITS ---
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 The patient states he underwent cardiovascular evaluation in [place], [place], approximately 15 years ago. He believes he underwent diagnostic cardiac catheterization. To the best of his knowledge he had no issues with respect to his coronary vasculature. Recently, over the last 1-2 months, he states he has been having issues with alteration in his diet, alteration in his bowel habits, abdominal discomfort, as well as progressive shortness of breath. He presented to the hospital for further evaluation. He was noted to have an abnormal troponin I level and an ECG that suggested sinus rhythm with possible left atrial enlargement, possible anterior SD of indeterminate age, and T wave abnormalities potentially compatible with myocardial ischemia in the inferolateral distribution. He also had radiologic studies with chest x-ray and chest CT scan which did not appear to report any great vessel disease, however, they did report significant underlying pulmonary disease. There is also been concerns as to whether or not he has acute prostatitis. He has been undergoing evaluation with transthoracic echocardiogram. Based upon preliminary evaluation he appears to have left ventricular dilatation with severe left ventricular systolic dysfunction with severely diminished LVEF. The final report is pending. He has denied ongoing chest discomfort. He does get short of breath and dyspneic with activity. He has denied acute orthopnea or PND. He has had no peripheral pitting edema. He states he has had no episodes of near syncope or syncope. He has reportedly been on medical management. He has been on beta-roxana therapy and LAVERN inhibitor therapy. He states he was due to have an outpatient exercise tolerance test through the [facility] system. This was for preoperative evaluation for an upcoming noncardiovascular surgery. [] Past Medical History Allergies/Adverse Reactions: Allergies naproxen [From Naprosyn] Adverse Reaction (Verified 01/13/18 16:54) Nausea naproxen sodium [From Aleve] Adverse Reaction (Verified 01/13/18 16:54) Nausea tramadol Adverse Reaction (Verified 01/13/18 16:54) Nausea Home Medications: Ambulatory Orders Medication Instructions Recorded Carvedilol [Coreg] 12.5 mg PO BID 05/29/15 Aspirin 325 mg PO DAILY@0800 01/03/18 Lisinopril [Zestril] 30 mg PO DAILY 01/13/18 Past Medical History (Chronic Problems): Chronic Problems Pulmonary cachexia due to chronic obstructive pulmonary disease (Chronic) COPD (chronic obstructive pulmonary disease) (Chronic) Surgical History: - - [place] teeth removal - *Family History Maternal History Items: Cancer - colon, Heart Disease Paternal History Items: COPD - Emphysema, - Lives: Alone Smoking Status: Former smoker Alcohol: Occasional Drugs: None Review of Systems - Review of Systems General: Denies: Fever, Night Sweats, Fatigue Cardiovascular: Reports: Shortness of Breath, Shortness of Breath with Exertion. Denies: Chest Discomfort, Orthopnea, PND, Peripheral Edema, Palpitations, Lightheadedness, Dizziness, Near Syncope, Syncope Respiratory: Reports: Shortness of Breath. Denies: Cough, Sputum Production, Hemoptysis Gastrointestinal: Denies: Hematemesis, Hematochezia, Melena Genitourinary: Denies: Dysuria, Hematuria Skin: Denies: Rash Subjectve: This is a 53-year-old white male who appears to be resting comfortably at the moment in no acute distress. Objective: Vital Signs Temp Pulse Resp BP Pulse Ox 98.9 F 90 20 H 110/73 92 01/14/18 08:10 01/14/18 08:10 01/14/18 08:10 01/14/18 08:10 01/14/18 08:10 Oxygen Flow Rate (L/min) 2 Oxygen Delivery Method Room Air Weight: 132 lb 15.02 oz Body Mass Index (BMI) 20.8 Intake and Output for Last 24 Hours 01/12/18 01/13/18 01/14/18 23:59 23:59 23:59 Intake Total 220 / 220 Output Total 200 / 200 Balance General: Awake, Alert, Oriented x 3, No Acute Distress HEENT: Atraumatic, Normocephalic, PERRL, EOMI, Sclera Non Icteric Oral: Moist Mucosa Neck: Supple, Good ROM, No JVD Lungs: Diminished [place] Bases Cardiovascular: Regular Rhythm, Normal S1, Normal S2 Murmur Murmur: Grade 2/6, Soft, Holosystolic, LLSB, [place], Axilla Vascular: No Carotid Bruits Abdomen: Bowel Sounds Present, Soft Extremities: No Cyanosis, No Clubbing, No edema Neurological: No Focal Motor or Sensory Deficit 01/13/18 17:56: WBC 7.0, RBC 4.18 L, Hgb 13.4, Hct 40.1, MCV 95.9 H, MCH 32.1 H, MCHC 33.4, RDW 13.2, RDW Differential 45.7 H, Plt Count 139 L, MPV 10.1, Immature Gran % (Auto) 0.100, Neut % (Auto) 75.4 H, Lymph % (Auto) 16.7 L, [place] % (Auto) 7.3, Eos % (Auto) 0.4, Baso % (Auto) 0.1, Absolute Neuts (auto) 5.3, Total Counted Not Reportable 01/13/18 17:56: Sodium 141, Potassium 4.4, Chloride 108 H, Carbon Dioxide 27.0, Anion Gap 6, BUN 37 H, Creatinine 0.98, Est GFR (MDRD) Af Amer 104, Est GFR (MDRD) Non-Af 86, BUN/Creatinine Ratio 37.8 H, Glucose 96, Calcium 7.5 L, Total Bilirubin 0.90, Direct Bilirubin 0.31 H, Troponin I 0.053 H 01/13/18 22:04: Urine Color Yellow, Urine Clarity Clear, Urine pH 5.0, Ur Specific [place] 1.025, Urine Protein 30 H, Urine Glucose (UA) Normal, Urine Ketones Negative, Urine Occult Blood Negative, Urine Nitrite Negative, Urine Bilirubin Negative, Urine Urobilinogen 1 H, Ur Leukocyte Esterase 25 H, Urine RBC 0 SEEN, Urine WBC 0 SEEN 01/14/18 00:12: Troponin I 0.042 01/14/18 02:50: Troponin I 0.028 01/14/18 05:20: WBC 5.4, RBC 4.45 L, Hgb 14.2, Hct 42.5, MCV 95.5 H, MCH 31.9, MCHC 33.4, RDW 13.2, RDW Differential 45.7 H, Plt Count 155, MPV 10.5, Immature Gran % (Auto) 0.000, Neut % (Auto) 90.0 H, Lymph % (Auto) 9.6 L, [place] % (Auto) 0.4, Eos % (Auto) 0.0, Baso % (Auto) 0.0, Absolute Neuts (auto) 4.9, Total Counted Not Reportable 01/14/18 05:20: PT 20.4 H, INR 1.7, APTT 35.1 01/14/18 05:20: Sodium 139, Potassium 5.0, Chloride 107, Carbon Dioxide 24.0, Anion Gap 8, BUN 41 H, Creatinine 1.04, Est GFR (MDRD) Af Amer 96, Est GFR (MDRD) Non-Af 80, BUN/Creatinine Ratio 39.4 H, Glucose 117 H, Calcium 8.3 L, Troponin I 0.032 Rhythm: Sinus rhythm EKG: As noted above ECHO: As noted above: Final report pending CXR: As noted above: Please see official report Chest CT Scan: As noted above: Please see official report Assessment/Plan 1. Abnormal cardiac enzymes/non-ST segment elevation SD The patient presents with abnormal cardiac enzymes/troponin I levels. They are decreasing. He also has an abnormal ECG. These changes have raise concerns about underlying CAD and an acute non-ST segment elevation SD either a primary event or potentially a type II supply demand mismatch event. At the present time the patient is being monitored. He is on medical management which is included aspirin, initiation of antiplatelet therapy with clopidogrel/Plavix, beta-roxana therapy, LAVERN inhibitor therapy, and lipid- lowering therapy. He is undergoing further evaluation with a transthoracic echocardiogram. The preliminary findings are as noted above. The patient's case was discussed with him. It was recommended he remain in the hospital and undergo further cardiovascular evaluation with diagnostic cardiac catheterization to evaluate his cardiovascular status and the need for further diagnostic studies/medical therapy/potential revascularization therapy, etc. The procedure and risks have been discussed with the patient. He does not want to proceed with such a procedure at this time. He states he would prefer to go home, on medical therapy, and after he places his affairs in order, return as an outpatient in the future for additional evaluation and care. 2. Cardiomyopathy The patient does have, on his preliminary echocardiographic images, what appears to be findings compatible with an underlying cardiomyopathy. It is unclear at this time whether this is related to underlying coronary artery disease or a non-CAD related cardiomyopathy. Again it was recommended that he remain in the hospital and undergo further evaluation and care to assist with diagnosis and therapy. This will include the diagnostic cardiac catheterization. He has declined this at this time. Again he wants to go home, take medication, place his affairs in order, and return in the future as an outpatient evaluation and care. 3. Valvular heart disease The patient does have based on his examination and his echocardiogram underlying valvular heart disease which includes mitral valve regurgitation. It is unclear as to whether this is related to what appears to be his left ventricular enlargement/dilatation and systolic dysfunction versus being a separate underlying primary valvular related issue. Again he was asked to remain in the hospital and undergo further medical therapy and diagnostic studies as described above. He declines to do so at this time. 4. COPD Tobacco use. He states he stopped smoking cigarettes 5 days ago. His examination and radiologic studies suggest findings compatible with severe COPD. He has been evaluated by [facility] pulmonology in the past. 5. Cachexia reportedly secondary to COPD The patient is reportedly given his diagnosis. It is unclear whether his cardiovascular status is contributing to concerns of cachexia as well. 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 He does need to continue cardiovascular evaluation care. Again he is declining this at this time. 6. Abdominal discomfort/prostatitis Patient is being evaluated by internal medicine for his abdominal discomfort and concerns of possible prostatitis. It is unclear whether his abdominal discomfort is related to his cardiovascular findings. He will need continue evaluation care per internal medicine. Again he was advised to undergo further cardiovascular evaluation. He has declined to do so at this time. Overall, the patient will continue to be monitored while he is in the hospital. His medications will be adjusted as deemed appropriate. Again he was re commended to remain in the hospital for further evaluation care as described above. He has declined to do so. He was told that based on his cardiovascular concerns that he is at a risk for increased adverse cardiovascular events including the possibility of sudden cardiac which could occur at any time. He acknowledged these concerns. He stated he is willing to accept the risk of these concerns as an outpatient with the hope that he will be able to return in the future for further evaluation and care. Comment: The patient's case was discussed and reviewed with Dr. Calles. This note was generated with [employer] software. It may contain incorrect words, spelling, and punctuation that were not noted in checking the note before signing.
[2018-01-14] MEDS: Carvedilol 12.5 MG Tablet PO (10:19)
[2018-01-14] MEDS: guaiFENesin 1,200 MG Tablet 1200 MG PO (10:19)
--- NOTE | 2018-01-14 10:36 | PCM.CONS.GEN ---
Problem List (1) Prostatitis, acute Status: Acute (2) Pulmonary cachexia due to chronic obstructive pulmonary disease Status: Suspected (3) NSTEMI (non-ST elevated myocardial infarction) Status: Acute (4) Cardiomyopathy Status: Acute (5) COPD (chronic obstructive pulmonary disease) Status: Chronic Qualifiers: COPD type: emphysema Emphysema type: centrilobular Qualified Code(s): J43.2 - Centrilobular emphysema (6) Valvular heart disease Status: Acute Reason for Consult Date of Consultation: 01/14/18 Reason for Consultation: COPD History of Present Illness: The patient is a 53 year old M, with past medical history listed below, who presented to [facility] on 01/13/2018 secondary to abdominal pain that presented approximately 2 weeks ago. Patient states this was suprapubic and 10 out of 10 in severity. Patient has had some nausea, but denied any vomiting. Patient states this initially had constipation, but currently is only having small loose bowel movements. Patient denied any melena or hematochezia. Patient did report some dysuria and frequency. Patient reported associated anorexia. Patient had a CT scan while in the emergency room showing significant emphysematous changes without pneumothorax and bilateral pleural effusions. Patient was admitted to the floor for evaluation. Since being on the floor, patient feels his condition is somewhat improved. Patient is still having lower abdominal pain and states that he can get short of breath with ambulation. Patient states that he recently was sent to Dr. Garland in November and completed pulmonary function test. Patient states that he was placed on Ventolin therapy, but patient states he discontinued this and Brio therapy after 5 days secondary to hemoptysis. Patient states that this has since resolved. Patient is unaware of the results of the complete pulmonary function test. Patient currently is using no inhalers at home. Patient states he is never required any supplemental oxygen previously. Patient states he will not be doing another pulmonary function test as he believes this is led to worsening respiratory status. Patient does have a [id number] smoking history and states that he is not smoked in approximately 4 days secondary to his current condition. Review of systems otherwise negative x10 systems. Past Medical History Past Medical History (Chronic Problems): Chronic Problems COPD (chronic obstructive pulmonary disease) (Chronic) Allergies naproxen [From Naprosyn] Adverse Reaction (Verified 01/13/18 16:54) Nausea naproxen sodium [From Aleve] Adverse Reaction (Verified 01/13/18 16:54) Nausea tramadol Adverse Reaction (Verified 01/13/18 16:54) Nausea Home Medications: Ambulatory Orders Medication Instructions Recorded Carvedilol [Coreg] 12.5 mg PO BID 05/29/15 Aspirin 325 mg PO DAILY@0800 01/03/18 Lisinopril [Zestril] 30 mg PO DAILY 01/13/18 Surgical History: - - [place] teeth removal Lives: Alone Smoking Status: Former smoker Alcohol: Occasional Drugs: None - *Family History Maternal History Items: Cancer - colon, Heart Disease Paternal History Items: COPD - Emphysema, - Review of Systems Comment: See HPI Patient Problems: Active and Suspected Problems Prostatitis, acute (Acute) Pulmonary cachexia due to chronic obstructive pulmonary disease (Suspected) NSTEMI (non-ST elevated myocardial infarction) (Acute) Cardiomyopathy (Acute) Valvular heart disease (Acute) Objective: CT scan of the chest abdomen and pelvis was personally reviewed. This does show significant bulla formation at the apices with associated bilateral pleural effusions. Basilar lung parenchyma appears relatively normal with some compressive atelectasis. - Physical Exam General: Alert, Oriented x3, Cooperative, No apparent distress, - - Cachectic. No conversational dyspnea. HEENT: Atraumatic, PERRLA, EOMI, Normocephalic, - - No scleral icterus or injection noted. Oral: Moist Mucosa, No Gingival or Mucosal Lesions/ Ulcerations Neck: Supple, No JVD, No Nodes, Trachea Midline Lungs: No rhonchi, No wheeze, No rales, Diminished, - - Slight dullness to percussion in both bases Cardiovascular: Regular rate, Regular Rhythm, Normal S1, Normal S2, No murmurs, No rub noted, No Gallop Abdomen: Bowel Sounds Present, Soft, Non Tender, Non-Distended Extremities: No cyanosis, No edema, Capillary Refill Less than 3 Seconds, Clubbing Skin: No rashes, No breakdown Musculoskeletal: No Tenderness to Palpation of Joints or Extremities Lymphatic: No Cervical, Supraclavicular, or Inguinal Adenopathy Neurological: Cranial nerves II-XII grossly intact, Neuro grossly intact, Motor Exam 5/5 strength throughout Psych/Mental Status: Alert and oriented to time, place, person, mood and affect Vital Signs Temp Pulse Resp BP Pulse Ox 36.7 C 88 18 115/75 93 01/14/18 10:10 01/14/18 10:10 01/14/18 10:10 01/14/18 10:10 01/14/18 10:10 Oxygen Flow Rate (L/min) 2 Oxygen Delivery Method Nasal Cannula Weight: 60.3 kg Body Mass Index (BMI) 20.8 Intake and Output for Last 24 Hours 01/12/18 01/13/18 01/14/18 23:59 23:59 23:59 Intake Total 220 / 220 Output Total 200 / 200 Balance Microbiology Past 72 Hours 01/13/18 23:50 Respiratory Panel (PCR) - Final Mucosa - Nose 01/13/18 23:50 Influenza Types A,B Direct FA (WENDY) - Final Mucosa - Nose Laboratory Tests Past 24 Hrs 01/13/18 01/13/18 01/13/18 17:56 17:56 22:04 WBC 7.0 RBC 4.18 L Hgb 13.4 Hct 40.1 MCV 95.9 H MCH 32.1 H MCHC 33.4 RDW 13.2 RDW Differential 45.7 H Plt Count 139 L MPV 10.1 Immature Gran % (Auto) 0.100 Neut % (Auto) 75.4 H Lymph % (Auto) 16.7 L [place] % (Auto) 7.3 Eos % (Auto) 0.4 Baso % (Auto) 0.1 Absolute Neuts (auto) 5.3 Absolute Lymphs (auto) 1.17 Total Counted Not Reportable Differential Comment PT INR APTT Sodium 141 Potassium 4.4 Chloride 108 H Carbon Dioxide 27.0 Anion Gap 6 BUN 37 H Creatinine 0.98 Estim Creat Clear Calc 76.94 Est GFR (MDRD) Af Amer 104 Est GFR (MDRD) Non-Af 86 BUN/Creatinine Ratio 37.8 H Glucose 96 Calcium 7.5 L Total Bilirubin 0.90 Direct Bilirubin 0.31 H AST 30 ALT 52 Alkaline Phosphatase 66 Troponin I 0.053 H Total Protein 5.5 L Albumin 2.6 L Globulin 2.9 Lipase 177 Urine Color Yellow Urine Clarity Clear Urine pH 5.0 Ur Specific [place] 1.025 Urine Protein 30 H Urine Glucose (UA) Normal Urine Ketones Negative Urine Occult Blood Negative Urine Nitrite Negative Urine Bilirubin Negative Urine Urobilinogen 1 H Ur Leukocyte Esterase 25 H Urine RBC 0 SEEN Urine WBC 0 SEEN Ur Squamous Epith Cells 0 SEEN Urine Bacteria RARE Urine Mucus 0 SEEN 01/14/18 01/14/18 01/14/18 00:12 02:50 05:20 WBC 5.4 RBC 4.45 L Hgb 14.2 Hct 42.5 MCV 95.5 H MCH 31.9 MCHC 33.4 RDW 13.2 RDW Differential 45.7 H Plt Count 155 MPV 10.5 Immature Gran % (Auto) 0.000 Neut % (Auto) 90.0 H Lymph % (Auto) 9.6 L [place] % (Auto) 0.4 Eos % (Auto) 0.0 Baso % (Auto) 0.0 Absolute Neuts (auto) 4.9 Absolute Lymphs (auto) 0.52 L Total Counted Not Reportable Differential Comment SCANNED PT INR APTT Sodium Potassium Chloride Carbon Dioxide Anion Gap BUN Creatinine Estim Creat Clear Calc Est GFR (MDRD) Af Amer Est GFR (MDRD) Non-Af BUN/Creatinine Ratio Glucose Calcium Total Bilirubin Direct Bilirubin AST ALT Alkaline Phosphatase Troponin I 0.042 0.028 Total Protein Albumin Globulin Lipase Urine Color Urine Clarity Urine pH Ur Specific [place] Urine Protein Urine Glucose (UA) Urine Ketones Urine Occult Blood Urine Nitrite Urine Bilirubin Urine Urobilinogen Ur Leukocyte Esterase Urine RBC Urine WBC Ur Squamous Epith Cells Urine Bacteria Urine Mucus 01/14/18 01/14/18 05:20 05:20 WBC RBC Hgb Hct MCV MCH MCHC RDW RDW Differential Plt Count MPV Immature Gran % (Auto) Neut % (Auto) Lymph % (Auto) [place] % (Auto) Eos % (Auto) Baso % (Auto) Absolute Neuts (auto) Absolute Lymphs (auto) Total Counted Differential Comment PT 20.4 H INR 1.7 APTT 35.1 Sodium 139 Potassium 5.0 Chloride 107 Carbon Dioxide 24.0 Anion Gap 8 BUN 41 H Creatinine 1.04 Estim Creat Clear Calc 70.87 Est GFR (MDRD) Af Amer 96 Est GFR (MDRD) Non-Af 80 BUN/Creatinine Ratio 39.4 H Glucose 117 H Calcium 8.3 L Total Bilirubin Direct Bilirubin AST ALT Alkaline Phosphatase Troponin I 0.032 Total Protein Albumin Globulin Lipase Urine Color Urine Clarity Urine pH Ur Specific [place] Urine Protein Urine Glucose (UA) Urine Ketones Urine Occult Blood Urine Nitrite Urine Bilirubin Urine Urobilinogen Ur Leukocyte Esterase Urine RBC Urine WBC Ur Squamous Epith Cells Urine Bacteria Urine Mucus Clinical Impression(s) from Imaging Studies Abdomen/Pelvis CT 01/13/18 17:06 IMPRESSION: Limited study. Moderate bilateral pleural effusions with overlying atelectasis. Small amount of ascites. Otherwise, unremarkable noncontrast CT of the abdomen and pelvis. Electronically Signed: Francis Baumanmariamjeffry, at 18:28 EDT Tel , Service support , Chest X-Ray 01/13/18 18:10 IMPRESSION: Stable severe emphysema with large biapical bulla. No definite pneumothorax. Moderate bilateral pleural effusions with overlying atelectasis. Electronically Signed: Francis Baumandacia, at 18:33 EDT Tel , Service support , Chest CT 01/13/18 19:57 IMPRESSION: Severe emphysema with large biapical bulla. No pneumothorax. Moderate bilateral pleural effusions with overlying atelectasis. No focal infiltrates. Electronically Signed: Francis Baumandacia, at 20:59 EDT Tel , Service support , Assessment/Plan All Active Problems Prostatitis, acute (Acute) NSTEMI (non-ST elevated myocardial infarction) (Acute) Cardiomyopathy (Acute) Valvular heart disease (Acute) RECOMMENDATIONS: 1. Continue rhonchi dilators while admitted 2. Agree with IV steroids for now 3. Could consider thoracentesis, but transudate suspected 4. Likely benefit from initiation of DuoNeb with nebulizer on discharge 5. Follow-up with [facility] pulmonary following discharge IMPRESSIONS: 1. COPD Unclear if patient is in exacerbation at this time. Patient does have significant emphysematous bulla noted on CT scan of the chest. Patient may be a candidate for lung volume reduction surgery, but pulmonary function testing would need to be evaluated. Patient does have some compressive atelectasis at the basilar segments and it is unclear if this is secondary to the pleural effusions, abdominal splinting or a result of the bulla. Patient can be continued on empiric steroids for now. Patient should continue with bronchodilators. Given amount of air trapping, discharged on DuoNeb therapy with nebulizer may be helpful if patient is able to tolerate in the hospital. Would defer to [facility] for further evaluation as workup has already been initiated there. 2. Hemoptysis Patient does report transient hemoptysis with the use of inhalers. Unclear if this is secondary to epistaxis, but no central masses were appreciated. Patient states this is resolved spontaneously. Do not plan to proceed with bronchoscopy at this time. 3. Protein calorie malnutrition/abnormal EKG/bilateral pleural effusion/hypertension/abdominal pain Complicates care, management, recovery and prognosis. Patient is already started to have a workup at [facility]. Unclear if an echocardiogram would be indicated at this time. It is unlikely that this will be adding to patient's current lower abdominal pain that led to his presentation. Thoracentesis could be considered, but once again this likely has very little to do with patient's presenting symptom of lower abdominal pain. Code Visit Inpatient E&M: 89356 Init Hosp L2
--- NOTE | 2018-01-14 10:41 | CON.PCM_ITS ---
Problem List (1) Prostatitis, acute Status: Acute (2) Pulmonary cachexia due to chronic obstructive pulmonary disease Status: Suspected (3) NSTEMI (non-ST elevated myocardial infarction) Status: Acute (4) Cardiomyopathy Status: Acute (5) COPD (chronic obstructive pulmonary disease) Status: Chronic Qualifiers: COPD type: emphysema Emphysema type: centrilobular Qualified Code(s): J43.2 - Centrilobular emphysema (6) Valvular heart disease Status: Acute Reason for Consult Date of Consultation: 01/14/18 Reason for Consultation: COPD History of Present Illness: The patient is a 53 year old M, with past medical history listed below, who presented to [facility] on 01/13/2018 secondary to abdominal pain that presented approximately 2 weeks ago. Patient states this was suprapubic and 10 out of 10 in severity. Patient has had some nausea, but denied any vomiting. Patient states this initially had constipation, but currently is only having small loose bowel movements. Patient denied any melena or hematochezia. Patient did report some dysuria and frequency. Patient reported associated anorexia. Patient had a CT scan while in the emergency room showing significant emphysematous changes without pneumothorax and bilateral pleural effusions. Patient was admitted to the floor for evaluation. Since being on the floor, patient feels his condition is somewhat improved. Patient is still having lower abdominal pain and states that he can get short of breath with ambulation. Patient states that he recently was sent to Dr. Garland in November and completed pulmonary function test. Patient states that he was placed on Ventolin therapy, but patient states he discontinued this and Brio therapy after 5 days secondary to hemoptysis. Patient states that this has since resolved. Patient is unaware of the results of the complete pulmonary function test. Patient currently is using no inhalers at home. Patient states he is never required any supplemental oxygen previously. Patient states he will not be doing another pulmonary function test as he believes this is led to worsening respiratory status. Patient does have a [id number] smoking history and states that he is not smoked in approximately 4 days secondary to his current condition. Review of systems otherwise negative x10 systems. Past Medical History Past Medical History (Chronic Problems): Chronic Problems COPD (chronic obstructive pulmonary disease) (Chronic) Allergies naproxen [From Naprosyn] Adverse Reaction (Verified 01/13/18 16:54) Nausea naproxen sodium [From Aleve] Adverse Reaction (Verified 01/13/18 16:54) Nausea tramadol Adverse Reaction (Verified 01/13/18 16:54) Nausea Home Medications: Ambulatory Orders Medication Instructions Recorded Carvedilol [Coreg] 12.5 mg PO BID 05/29/15 Aspirin 325 mg PO DAILY@0800 01/03/18 Lisinopril [Zestril] 30 mg PO DAILY 01/13/18 Surgical History: - - [place] teeth removal Lives: Alone Smoking Status: Former smoker Alcohol: Occasional Drugs: None - *Family History Maternal History Items: Cancer - colon, Heart Disease Paternal History Items: COPD - Emphysema, - Review of Systems Comment: See HPI Patient Problems: Active and Suspected Problems Prostatitis, acute (Acute) Pulmonary cachexia due to chronic obstructive pulmonary disease (Suspected) NSTEMI (non-ST elevated myocardial infarction) (Acute) Cardiomyopathy (Acute) Valvular heart disease (Acute) Objective: CT scan of the chest abdomen and pelvis was personally reviewed. This does show significant bulla formation at the apices with associated bilateral pleural effusions. Basilar lung parenchyma appears relatively normal with some compressive atelectasis. - Physical Exam General: Alert, Oriented x3, Cooperative, No apparent distress, - - Cachectic. No conversational dyspnea. HEENT: Atraumatic, PERRLA, EOMI, Normocephalic, - - No scleral icterus or injection noted. Oral: Moist Mucosa, No Gingival or Mucosal Lesions/ Ulcerations Neck: Supple, No JVD, No Nodes, Trachea Midline Lungs: No rhonchi, No wheeze, No rales, Diminished, - - Slight dullness to percussion in both bases Cardiovascular: Regular rate, Regular Rhythm, Normal S1, Normal S2, No murmurs, No rub noted, No Gallop Abdomen: Bowel Sounds Present, Soft, Non Tender, Non-Distended Extremities: No cyanosis, No edema, Capillary Refill Less than 3 Seconds, Clubbing Skin: No rashes, No breakdown Musculoskeletal: No Tenderness to Palpation of Joints or Extremities Lymphatic: No Cervical, Supraclavicular, or Inguinal Adenopathy Neurological: Cranial nerves II-XII grossly intact, Neuro grossly intact, Motor Exam 5/5 strength throughout Psych/Mental Status: Alert and oriented to time, place, person, mood and affect Vital Signs Temp Pulse Resp BP Pulse Ox 36.7 C 88 18 115/75 93 01/14/18 10:10 01/14/18 10:10 01/14/18 10:10 01/14/18 10:10 01/14/18 10:10 Oxygen Flow Rate (L/min) 2 Oxygen Delivery Method Nasal Cannula Weight: 60.3 kg Body Mass Index (BMI) 20.8 Intake and Output for Last 24 Hours 01/12/18 01/13/18 01/14/18 23:59 23:59 23:59 Intake Total 220 / 220 Output Total 200 / 200 Balance Microbiology Past 72 Hours 01/13/18 23:50 Respiratory Panel (PCR) - Final Mucosa - Nose 01/13/18 23:50 Influenza Types A,B Direct FA (WENDY) - Final Mucosa - Nose Laboratory Tests Past 24 Hrs 01/13/18 01/13/18 01/13/18 17:56 17:56 22:04 WBC 7.0 RBC 4.18 L Hgb 13.4 Hct 40.1 MCV 95.9 H MCH 32.1 H MCHC 33.4 RDW 13.2 RDW Differential 45.7 H Plt Count 139 L MPV 10.1 Immature Gran % (Auto) 0.100 Neut % (Auto) 75.4 H Lymph % (Auto) 16.7 L [place] % (Auto) 7.3 Eos % (Auto) 0.4 Baso % (Auto) 0.1 Absolute Neuts (auto) 5.3 Absolute Lymphs (auto) 1.17 Total Counted Not Reportable Differential Comment PT INR APTT Sodium 141 Potassium 4.4 Chloride 108 H Carbon Dioxide 27.0 Anion Gap 6 BUN 37 H Creatinine 0.98 Estim Creat Clear Calc 76.94 Est GFR (MDRD) Af Amer 104 Est GFR (MDRD) Non-Af 86 BUN/Creatinine Ratio 37.8 H Glucose 96 Calcium 7.5 L Total Bilirubin 0.90 Direct Bilirubin 0.31 H AST 30 ALT 52 Alkaline Phosphatase 66 Troponin I 0.053 H Total Protein 5.5 L Albumin 2.6 L Globulin 2.9 Lipase 177 Urine Color Yellow Urine Clarity Clear Urine pH 5.0 Ur Specific [place] 1.025 Urine Protein 30 H Urine Glucose (UA) Normal Urine Ketones Negative Urine Occult Blood Negative Urine Nitrite Negative Urine Bilirubin Negative Urine Urobilinogen 1 H Ur Leukocyte Esterase 25 H Urine RBC 0 SEEN Urine WBC 0 SEEN Ur Squamous Epith Cells 0 SEEN Urine Bacteria RARE Urine Mucus 0 SEEN 01/14/18 01/14/18 01/14/18 00:12 02:50 05:20 WBC 5.4 RBC 4.45 L Hgb 14.2 Hct 42.5 MCV 95.5 H MCH 31.9 MCHC 33.4 RDW 13.2 RDW Differential 45.7 H Plt Count 155 MPV 10.5 Immature Gran % (Auto) 0.000 Neut % (Auto) 90.0 H Lymph % (Auto) 9.6 L [place] % (Auto) 0.4 Eos % (Auto) 0.0 Baso % (Auto) 0.0 Absolute Neuts (auto) 4.9 Absolute Lymphs (auto) 0.52 L Total Counted Not Reportable Differential Comment SCANNED PT INR APTT Sodium Potassium Chloride Carbon Dioxide Anion Gap BUN Creatinine Estim Creat Clear Calc Est GFR (MDRD) Af Amer Est GFR (MDRD) Non-Af BUN/Creatinine Ratio Glucose Calcium Total Bilirubin Direct Bilirubin AST ALT Alkaline Phosphatase Troponin I 0.042 0.028 Total Protein Albumin Globulin Lipase Urine Color Urine Clarity Urine pH Ur Specific [place] Urine Protein Urine Glucose (UA) Urine Ketones Urine Occult Blood Urine Nitrite Urine Bilirubin Urine Urobilinogen Ur Leukocyte Esterase Urine RBC Urine WBC Ur Squamous Epith Cells Urine Bacteria Urine Mucus 01/14/18 01/14/18 05:20 05:20 WBC RBC Hgb Hct MCV MCH MCHC RDW RDW Differential Plt Count MPV Immature Gran % (Auto) Neut % (Auto) Lymph % (Auto) [place] % (Auto) Eos % (Auto) Baso % (Auto) Absolute Neuts (auto) Absolute Lymphs (auto) Total Counted Differential Comment PT 20.4 H INR 1.7 APTT 35.1 Sodium 139 Potassium 5.0 Chloride 107 Carbon Dioxide 24.0 Anion Gap 8 BUN 41 H Creatinine 1.04 Estim Creat Clear Calc 70.87 Est GFR (MDRD) Af Amer 96 Est GFR (MDRD) Non-Af 80 BUN/Creatinine Ratio 39.4 H Glucose 117 H Calcium 8.3 L Total Bilirubin Direct Bilirubin AST ALT Alkaline Phosphatase Troponin I 0.032 Total Protein Albumin Globulin Lipase Urine Color Urine Clarity Urine pH Ur Specific [place] Urine Protein Urine Glucose (UA) Urine Ketones Urine Occult Blood Urine Nitrite Urine Bilirubin Urine Urobilinogen Ur Leukocyte Esterase Urine RBC Urine WBC Ur Squamous Epith Cells Urine Bacteria Urine Mucus Clinical Impression(s) from Imaging Studies Abdomen/Pelvis CT 01/13/18 17:06 IMPRESSION: Limited study. Moderate bilateral pleural effusions with overlying atelectasis. Small amount of ascites. Otherwise, unremarkable noncontrast CT of the abdomen and pelvis. Electronically Signed: Francis Baumanmariamjeffry, at 18:28 EDT Tel , Service support , Chest X-Ray 01/13/18 18:10 IMPRESSION: Stable severe emphysema with large biapical bulla. No definite pneumothorax. Moderate bilateral pleural effusions with overlying atelectasis. Electronically Signed: Francis Baumandacia, at 18:33 EDT Tel , Service support , Chest CT 01/13/18 19:57 IMPRESSION: Severe emphysema with large biapical bulla. No pneumothorax. Moderate bilateral pleural effusions with overlying atelectasis. No focal infiltrates. Electronically Signed: Francis Baumandacia, at 20:59 EDT Tel , Service support , Assessment/Plan All Active Problems Prostatitis, acute (Acute) NSTEMI (non-ST elevated myocardial infarction) (Acute) Cardiomyopathy (Acute) Valvular heart disease (Acute) RECOMMENDATIONS: 1. Continue rhonchi dilators while admitted 2. Agree with IV steroids for now 3. Could consider thoracentesis, but transudate suspected 4. Likely benefit from initiation of DuoNeb with nebulizer on discharge 5. Follow-up with [facility] pulmonary following discharge IMPRESSIONS: 1. COPD Unclear if patient is in exacerbation at this time. Patient does have significant emphysematous bulla noted on CT scan of the chest. Patient may be a candidate for lung volume reduction surgery, but pulmonary function testing would need to be evaluated. Patient does have some compressive atelectasis at the basilar segments and it is unclear if this is secondary to the pleural effusions, abdominal splinting or a result of the bulla. Patient can be continued on empiric steroids for now. Patient should continue with bronchodilators. Given amount of air trapping, discharged on DuoNeb therapy with nebulizer may be helpful if patient is able to tolerate in the hospital. Would defer to [facility] for further evaluation as workup has already been initiated there. 2. Hemoptysis Patient does report transient hemoptysis with the use of inhalers. Unclear if this is secondary to epistaxis, but no central masses were appr eciated. Patient states this is resolved spontaneously. Do not plan to proceed with bronchoscopy at this time. 3. Protein calorie malnutrition/abnormal EKG/bilateral pleural effusio n/hypertension/abdominal pain Complicates care, management, recovery and prognosis. Patient is already started to have a workup at [facility]. Unclear if an echocardiogram would be indicated at this time. It is unlikely that this will be adding to patient's current lower abdominal pain that led to his presentation. Thoracentesis could be considered, but once again this likely has very little to do with patient's presenting symptom of lower abdominal pain. Code Visit Inpatient E&M: 57347 Init Hosp L2
--- NOTE | 2018-01-14 11:34 | CASEMGMT ---
ESTIVEN MITCHELL assessment: Face to Face with patient for initial transition planning/care coordination assessment. ESTIVEN MITCHELL introduced self and role at [facility], pt voices understanding and consents to assessment at this time. Pt is lying in bed in no distress at this time. Pt is A/Ox4 at this time and answers all questions appropriately at this time. Care providers, pharmacy, and demographics verified at this time. PCP: [facility] Specialists: Pt states no current specialists. Preferred [facility]acy: [facility] Insurance: [facility] Prescription Benefit: [facility] Living Will/HPOA: Pt states no LW/HPOA and states no interest in information at this time. LNOK: Rhonda Keyes, mother; Aftab Keyes, brother Living Arrangements: Pt states lives in own home in basement and his mother lives upstairs in home and states no concerns at home at this time. Transportation: Pt states drives self and states no transportation concerns at this time. DME/HHC: Pt states no current DME or need for any at this time. Pt states no preference for DME company if qualifies for home oxygen. Pt is also requesting nebulizer at this time. Pt states has never has HHC or been to SNF. 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 Pt states is attempting to quit smoking and has not had a cigarette in the last 5 days. Pt states does no drink ETOH. Pt voices no further concerns/needs at this time. Advised pt to ask for CM if any further questions/concerns/needs arise, voices understanding. Plan: [place] ESTIVEN MITCHELL
[2018-01-14] MEDS: Nicotine Polacrilex 2 MG GUM PO (11:40)
--- NOTE | 2018-01-14 14:54 | CASEMGMT ---
Per Jose Eduardo JEAN-BAPTISTE, pt qualified for home oxygen at this time. Pt has stated no preference for DME. Dr. Calles also states she is sending pt with script for nebulizer. Referral with signed order faxed to [facility] at this time. [facility] notified that pt to be discharged today, voices understanding. Zeke JEAN-BAPTISTE CM
--- NOTE | 2018-01-14 15:26 | DCINST_ITS ---
- Discharge Diagnoses Current Active Problems: Current Active and Chronic Problems Prostatitis, acute (Acute) NSTEMI (non-ST elevated myocardial infarction) (Acute) Cardiomyopathy (Acute) COPD (chronic obstructive pulmonary disease) (Chronic) Valvular heart disease (Acute) Reason(s) for Visit for Discharge Instructions: Shortness of breath You will use the following diet at home:: Cardiac Your food should be the consistency of: Regular Your liquids should be the consistency of: Regular/Thin Discharge Activity: Return to Normal Activity Allergies/Adverse Reactions: Allergies naproxen [From Naprosyn] Adverse Reaction (Verified 01/13/18 16:54) Nausea naproxen sodium [From Aleve] Adverse Reaction (Verified 01/13/18 16:54) Nausea tramadol Adverse Reaction (Verified 01/13/18 16:54) Nausea Medications to take at Discharge Carvedilol [Coreg (Beta Ngoc)] 12.5 mg PO BID 05/29/15 Lisinopril [Zestril] 30 mg PO DAILY 01/13/18 Aspirin E.C. [Ecotrin] 81 mg PO DAILY@0800 #30 tablet 01/14/18 Clopidogrel Bisulfate [Plavix] 75 mg PO DAILY #30 tablet 01/14/18 Ensure Enlive 120 ml PO 4X/DAY #100 liquid 01/14/18 Guaifenesin [Mucinex] 1,200 mg PO BID #20 tablet 01/14/18 Ipratropium/Albuterol Sulfate [Duoneb] 3 ml INHALATION Q4H.RT #100 ampul.neb 01/14/18 Nicotine Polacrilex [Nicotine Gum] 2 mg PO Q4H PRN PRN #60 gum 01/14/18 Nitroglycerin [Nitrostat] 0.4 mg SUBLINGUAL Q5M PRN #10 tablet 01/14/18 Prednisone 10 mg PO UD #30 tab 01/14/18 The following prescriptions were given: Nicotine Polacrilex [Nicotine Gum] 2 mg PO Q4H PRN PRN #60 gum PRN Reason: Nicotine Craving Aspirin E.C. [Ecotrin] 81 mg PO DAILY@0800 #30 tablet Clopidogrel Bisulfate [Plavix] 75 mg PO DAILY #30 tablet Nitroglycerin [Nitrostat] 0.4 mg SUBLINGUAL Q5M PRN #10 tablet PRN Reason: Angina pain Prednisone 10 mg PO UD #30 tab Guaifenesin [Mucinex] 1,200 mg PO BID #20 tablet Ensure Enlive 120 ml PO 4X/DAY #100 liquid Primary Care Physician: Cesar Arcos DO [Primary Care Provider] - Please follow up with your Primary Care Physician in: within 2 weeks of discharge Test Results: Test results from this visit will be discussed in further detail at your follow- up appointment, if applicable. Please Follow Up With: Rico Grande MD When: within 2 weeks Proposed Discharge Date: 01/14/18
--- NOTE | 2018-01-14 15:26 | PCM.DC.SUM ---
Discharge Date and Diagnosis Date of Admission: 01/13/18 Date of Discharge: 01/14/18 - Primary Discharge Diagnosis Active and Suspected Problems Suspected Prostatitis, acute (Acute) Pulmonary cachexia due to chronic obstructive pulmonary disease (Suspected) NSTEMI (non-ST elevated myocardial infarction) (Acute) Cardiomyopathy (Acute) Valvular heart disease (Acute) Abdominal pain severe malnutrition Bilateral pleural effusions Acute COPD exacerbation Acute hypoxic respiratory failure - Secondary Discharge Diagnosis Chronic Problems COPD (chronic obstructive pulmonary disease) (Chronic) CAD Ischemic cardiomyopathy Hospital Course and Treatment Imaging Results: 01/14/18 07:29 Echo Complete W/ Contrast [ECHO] Routine Cardiology Pulmonology Operations: None Procedures: 2-D Echocardiogram Summary of Care Provided: The patient is a 53 year old M with PMHx of COPD, not on oxygen, CAD, ischemic cardiomyopathy who presented withsuprapubic abdomial pain with no urinalysis suggestive of UTI. Patient also complained of dyspnea and CT chest showed severe emphysema, moderate bilateral effusions, elevated troponins. EKG had shown T wave inversions in inferolateral leads. He was seen by cardiology, 2d-echo was done, EF 10%, severe segmental systolic dysfunction, evidence of some diastolic dysfunction, severe hypokinesis of [place], severe MR +3, left side cardiac cath was recommended, but he refused to have cath. Said he wanted to be discharged home. He wants to come back after the weekend. He was evaluated for home oxygen and qualified. He was hypoxic at 86% on room air. He was discharged on 2L of oxygen. He was given prescriptions for duoneb nebulisers, refused albuterol nebulising as he says it gives him GI bleed. He was given steroids. He signed out against medical advice insisting he had hisbirthday the day of admission, had food that will go bad in the fridge, had to sign his papaerwork. He expresses awareness that he could potentially with that low EF and no work-up. Subjective: On the day of discharge, he complains of SOB, was on 2Loxygen, mild suprapubic pain. Insistent of being discharged, despite cardiology and pulmo recommendations. - Physical Exam General: Alert, Oriented x3, Cooperative, - - on 2 L oxygen, appears in slight dyspnea HEENT: Atraumatic, PERRLA, EOMI, Normocephalic Oral: Moist Mucosa Neck: Supple, No JVD, Negative Carotid Bruits Lungs: Normal air movement, Diminished, - - No wheezes or rales heard Cardiovascular: Regular rate, Regular Rhythm, Normal S1, Normal S2, No murmurs Abdomen: Bowel Sounds Present, Soft, Non-Distended Extremities: No edema, Capillary Refill Less than 3 Seconds Skin: No rashes, No breakdown Musculoskeletal: No Tenderness to Palpation of Joints or Extremities Neurological: Cranial nerves II-XII grossly intact Psych/Mental Status: Normal Affect, Appropriate Vital Signs Temp Pulse Resp BP Pulse Ox 98.0 F 82 26 H 115/75 86 01/14/18 10:10 01/14/18 13:59 01/14/18 13:59 01/14/18 10:10 01/14/18 14:37 Oxygen Flow Rate (L/min) [At 0 REST on Room Air] Oxygen Flow Rate (L/min) 2 Oxygen Delivery Method Nasal Cannula Weight: 60.3 kg Body Mass Index (BMI) 20.8 Intake and Output for Last 24 Hours 01/12/18 01/13/18 01/14/18 23:59 23:59 23:59 Intake Total 900 / 900 Output Total 200 / 200 Balance 700 / 700 Microbiology Past 72 Hours 01/13/18 23:50 Respiratory Panel (PCR) - Final Mucosa - Nose 01/13/18 23:50 Influenza Types A,B Direct FA (WENDY) - Final Mucosa - Nose Laboratory Tests Past 24 Hrs 01/13/18 01/13/18 01/13/18 17:56 17:56 22:04 WBC 7.0 RBC 4.18 L Hgb 13.4 Hct 40.1 MCV 95.9 H MCH 32.1 H MCHC 33.4 RDW 13.2 RDW Differential 45.7 H Plt Count 139 L MPV 10.1 Immature Gran % (Auto) 0.100 Neut % (Auto) 75.4 H Lymph % (Auto) 16.7 L Shannon % (Auto) 7.3 Eos % (Auto) 0.4 Baso % (Auto) 0.1 Absolute Neuts (auto) 5.3 Absolute Lymphs (auto) 1.17 Total Counted Not Reportable Differential Comment PT INR APTT Sodium 141 Potassium 4.4 Chloride 108 H Carbon Dioxide 27.0 Anion Gap 6 BUN 37 H Creatinine 0.98 Estim Creat Clear Calc 76.94 Est GFR (MDRD) Af Amer 104 Est GFR (MDRD) Non-Af 86 BUN/Creatinine Ratio 37.8 H Glucose 96 Calcium 7.5 L Total Bilirubin 0.90 Direct Bilirubin 0.31 H AST 30 ALT 52 Alkaline Phosphatase 66 Troponin I 0.053 H Total Protein 5.5 L Albumin 2.6 L Globulin 2.9 Lipase 177 Urine Color Yellow Urine Clarity Clear Urine pH 5.0 Ur Specific [place] 1.025 Urine Protein 30 H Urine Glucose (UA) Normal Urine Ketones Negative Urine Occult Blood Negative Urine Nitrite Negative Urine Bilirubin Negative Urine Urobilinogen 1 H Ur Leukocyte Esterase 25 H Urine RBC 0 SEEN Urine WBC 0 SEEN Ur Squamous Epith Cells 0 SEEN Urine Bacteria RARE Urine Mucus 0 SEEN 01/14/18 01/14/18 01/14/18 00:12 02:50 05:20 WBC 5.4 RBC 4.45 L Hgb 14.2 Hct 42.5 MCV 95.5 H MCH 31.9 MCHC 33.4 RDW 13.2 RDW Differential 45.7 H Plt Count 155 MPV 10.5 Immature Gran % (Auto) 0.000 Neut % (Auto) 90.0 H Lymph % (Auto) 9.6 L Shannon % (Auto) 0.4 Eos % (Auto) 0.0 Baso % (Auto) 0.0 Absolute Neuts (auto) 4.9 Absolute Lymphs (auto) 0.52 L Total Counted Not Reportable Differential Comment SCANNED PT INR APTT Sodium Potassium Chloride Carbon Dioxide Anion Gap BUN Creatinine Estim Creat Clear Calc Est GFR (MDRD) Af Amer Est GFR (MDRD) Non-Af BUN/Creatinine Ratio Glucose Calcium Total Bilirubin Direct Bilirubin AST ALT Alkaline Phosphatase Troponin I 0.042 0.028 Total Protein Albumin Globulin Lipase Urine Color Urine Clarity Urine pH Ur Specific [place] Urine Protein Urine Glucose (UA) Urine Ketones Urine Occult Blood Urine Nitrite Urine Bilirubin Urine Urobilinogen Ur Leukocyte Esterase Urine RBC Urine WBC Ur Squamous Epith Cells Urine Bacteria Urine Mucus 01/14/18 01/14/18 05:20 05:20 WBC RBC Hgb Hct MCV MCH MCHC RDW RDW Differential Plt Count MPV Immature Gran % (Auto) Neut % (Auto) Lymph % (Auto) Shannon % (Auto) Eos % (Auto) Baso % (Auto) Absolute Neuts (auto) Absolute Lymphs (auto) Total Counted Differential Comment PT 20.4 H INR 1.7 APTT 35.1 Sodium 139 Potassium 5.0 Chloride 107 Carbon Dioxide 24.0 Anion Gap 8 BUN 41 H Creatinine 1.04 Estim Creat Clear Calc 70.87 Est GFR (MDRD) Af Amer 96 Est GFR (MDRD) Non-Af 80 BUN/Creatinine Ratio 39.4 H Glucose 117 H Calcium 8.3 L Total Bilirubin Direct Bilirubin AST ALT Alkaline Phosphatase Troponin I 0.032 Total Protein Albumin Globulin Lipase Urine Color Urine Clarity Urine pH Ur Specific [place] Urine Protein Urine Glucose (UA) Urine Ketones Urine Occult Blood Urine Nitrite Urine Bilirubin Urine Urobilinogen Ur Leukocyte Esterase Urine RBC Urine WBC Ur Squamous Epith Cells Urine Bacteria Urine Mucus Discharge Diet: Low fat/ Low Cholesterol, 2000 mg Sodium Diet Discharge Activity: Return to Normal Activity Home Medications: Medications to take at Discharge Carvedilol [Coreg (Beta Ngoc)] 12.5 mg PO BID 05/29/15 Lisinopril [Zestril] 30 mg PO DAILY 01/13/18 Aspirin E.C. [Ecotrin] 81 mg PO DAILY@0800 #30 tablet 01/14/18 Clopidogrel Bisulfate [Plavix] 75 mg PO DAILY #30 tablet 01/14/18 Ensure Enlive 120 ml PO 4X/DAY #100 liquid 01/14/18 Guaifenesin [Mucinex] 1,200 mg PO BID #20 tablet 01/14/18 Ipratropium/Albuterol Sulfate [Duoneb] 3 ml INHALATION Q4H.RT #100 ampul.neb 01/14/18 Nicotine Polacrilex [Nicotine Gum] 2 mg PO Q4H PRN PRN #60 gum 01/14/18 Nitroglycerin [Nitrostat] 0.4 mg SUBLINGUAL Q5M PRN #10 tablet 01/14/18 Prednisone 10 mg PO UD #30 tab 01/14/18 Following Prescrptions Were Given to Patient: Ipratropium/Albuterol Sulfate [Duoneb] 3 ml INHALATION Q4H.RT #100 ampul.neb Nicotine Polacrilex [Nicotine Gum] 2 mg PO Q4H PRN PRN #60 gum PRN Reason: Nicotine Craving Aspirin E.C. [Ecotrin] 81 mg PO DAILY@0800 #30 tablet Clopidogrel Bisulfate [Plavix] 75 mg PO DAILY #30 tablet Nitroglycerin [Nitrostat] 0.4 mg SUBLINGUAL Q5M PRN #10 tablet PRN Reason: Angina pain Prednisone 10 mg PO UD #30 tab Guaifenesin [Mucinex] 1,200 mg PO BID #20 tablet Ensure Enlive 120 ml PO 4X/DAY #100 liquid Primary Care Physician: Cesar Arcos DO [Primary Care Provider] - Please follow up with your Primary Care Physician in: within 2 weeks of discharge Please Follow Up With: Rico Grande MD When: within 2 weeks Disposition: Against Medical Advice Minutes spent on discharge:: 45 Patient Condition:: Stable Medical Necessity - Tobacco Use Smoking Status: Former smoker Meaningful Use Info Meaningful Use Diagnoses (Choose all that apply): None applicable Code Visit Inpatient E&M: 72770 Disch Hosp
== END 2018-01-14 16:15 | disposition left against medical advice (07) | DRG 501 ==
LOC: ED 17:49 → PCU 22:10
PROVIDERS: Admitting Provider Hospitalist; Emergency Provider Emergency Medicine; Family Provider Student in an Organized Health Care Education/Training Program; PCP Student in an Organized Health Care Education/Training Program; Visit Provider Internal Medicine
DX: N41.0 Acute prostatitis (principal); I10 Essential (primary) hypertension; R64 Cachexia; Z68.20 Body mass index [BMI] 20.0-20.9, adult; I21.4 Non-ST elevation (NSTEMI) myocardial infarction; J44.1 Chronic obstructive pulmonary disease with (acute) exacerbation; E43 Unspecified severe protein-calorie malnutrition; J96.01 Acute respiratory failure with hypoxia; J90 Pleural effusion, not elsewhere classified; I25.10 Atherosclerotic heart disease of native coronary artery without angina pectoris; Z87.891 Personal history of nicotine dependence; I34.0 Nonrheumatic mitral (valve) insufficiency; I42.9 Cardiomyopathy, unspecified
CPT/HCPCS: 36415; 71046; 71250; 74176; 80048; 80076; 81001; 83690; 84484; 85025; 85610; 85730; 87633; 87804; 93005; 93306; 94640; 94667; 97802; 99251; 99285; J7030; J7040; Q9957; A4216; C8929; G0463; J0696; J2405

== ENCOUNTER 2018-01-23 13:42 | Inpatient (IN) | payer MEDICAID, SELFPAY ==
[2018-01-23] VITALS (10 sets, daily range): BP systolic 114–132; BP diastolic 71–93; PULSE 87–99; RESP 18–27; TEMP 36.2–36.9; O2SAT 88–100; BMI 20.3; BMI 22.3
--- NOTE | 2018-01-23 14:00 | EKG12_ITS ---
Test Reason : CP Blood Pressure : / mmHG Vent. Rate : 090 BPM Atrial Rate : 090 BPM P-R Int : 124 ms QRS Dur : 098 ms QT Int : 350 ms P-R-T Axes : 080 074 214 degrees QTc Int : 428 ms Normal sinus rhythm Low voltage QRS (limb leads) T wave abnormality, consider lateral ischemia Poor R wave progression Abnormal ECG Confirmed by JONATHAN VARMA, JILLIAN ([id number]), publishing editor KIMBERLY MADDOX ([id number]) on 01/25/2018 10:16:12 AM Referred By: LISA Confirmed By:JILLIAN CASTILLO MD
--- NOTE | 2018-01-23 14:02 | ED.VISSUMM ---
- ER Visit Summary Date of Service: 01/23/18 Chief Complaint: Shortness of breath History of Present Illness: The patient is a 53 M with COPD and chronic shortness of breath presenting with somewhat worse shortness of breath he also is complaining of lower extremity edema which is worse than normal. He has a history of CHF also. No fever or chills he has only a slight cough which is chronic. This is not productive. Physical Examination: He appears in some distress. He is on home oxygen and is slightly tachypneic. Moist mucous membranes, no obvious facial deformity No C-spine tenderness supple neck. Slight JVD is appreciated Regular rate and rhythm without any obvious murmurs. Lung sounds interfere with heart sounds therefore the exam is limited Patient has coarse breath sounds, they are quite diminished and is slightly tachypneic. Abdomen soft and nontender no guarding or rebound Moves all extremities without any difficulty or pain. Trace edema is present. It is equally bilateral no calf tenderness Skin does not show any obvious rashes or lesions, no trauma. Alert oriented ?3 with no gross focal deficit Emergency Department Course and Treatment: Patient is found to be in CHF, he likely has a COPD exacerbation also he is slightly better but not significantly. He will need admission. He is complaining of decreased urinary output recently, he feels like when he voids he cannot void completely. I did an ultrasound did show a distended bladder, I will put a Perez catheter, he will need a urological consult. In the meantime he will be given Lasix he was given steroids and he will be admitted for further workup. Disposition: Admit to the hospital in stable condition Impression: COPD exacerbation CHF exacerbation Urinary retention This note was generated with [employer] dictation software. It may contain incorrect words, spelling, and punctuation that were not noted in review of the chart prior to signing ED Disposition - Plan for ED Patient: Chief Complaint: Shortness of Breath Referrals: Cesar Arcos DO [Primary Care Provider] -
--- NOTE | 2018-01-23 14:07 | RAD_ITS ---
STUDY: X-RAY CHEST REASON FOR EXAM: Male, 53 years old. Shortness of breath TECHNIQUE: Single AP portable view of the chest. COMPARISON: January 13, 2018 CT chest, chest x-ray January 13 2018, September 04, 2014 FINDINGS: Again there are visualized large bilateral biapical emphysematous blebs. There is increased density in the lung bases. There is trace blunting of the left costophrenic angle. Normal size heart. Normal mediastinum and denise. Normal visualized pulmonary arteries. Normal visualized aortic arch and descending thoracic aorta. Normal visualized thoracic spine. Normal visualized ribs, clavicles, and shoulders. There is no demonstrated abnormality of the visualized soft tissue structures of the upper abdomen. RAD/Chest 1 View (Portable) IMPRESSION: Large emphysematous blebs. Lower lobe atelectasis and/or infiltrates. Given the large blebs and pneumothorax would be difficult to visualize in this patient. Electronically Signed: Heather Llanos MD at 15:13 EDT Tel , Service support ,
[2018-01-23 14:17] LABS: Absolute Lymphocyte Count 1.55 X10^3/ul (0.83-4.51); Absolute Neutrophil Count 5.1 X10^3/uL (2.0-7.7); Basophil# 0.01 X10^3/uL; Basophil% 0.1 % (0-1); Eosinophil# 0.09 X10^3/uL; Eosinophils% 1.2 % (0-5); Hematocrit 42.6 % (40-54); Hemoglobin 13.5 g/dl (13.0-16.5); Lymphocyte # 1.55 X10^3/ul (4.0); Lymphocyte % 20.9 % (19-41); Mean Corp Hgb Conc 31.7 g/gl (32-36); Mean Corpuscular Hgb 32.2 pg (27.0-32.0); Mean Corpuscular Volume 101.7 fL (80-94); Mean Platelet Vol. 10.6 fl (6.2-12.0); Monocyte# 0.69 X10^3/uL; Monocyte% 9.3 % (0-10); Neutrophil # 5.05 X10^3/uL (2.7-7.7); Neutrophil % 68.4 % (47-70); POSITIVE COUNT NO; POSITIVE DIFFERENTIAL NO; POSITIVE MORPHOLOGY NO; Platelet Count 155 K/mm3 (150-450); RBC Distribution Width CV 13.4 % (11.6-14.6); RBC Distribution Width SD 49.8 fl (35.1-43.9); Red Blood Count 4.19 M/mm3 (4.6-6.2); White Blood Count 7.4 K/mm3 (4.4-11.0)
[2018-01-23] MEDS: Albuterol 2.5 MG/3 ML VIAL.NEB. INHALATION (14:19)
[2018-01-23] MEDS: Ipratropium/Albuterol Sulfate 3 ML AMPUL.NEB INHALATION (14:19)
[2018-01-23] MEDS: MethylPREDNISolone 125 MG/2 ML Vial IV (14:23)
[2018-01-23 14:27] LABS: AST(SGOT) 48 U/L (15-37); Alanine Aminotransfer ALT/SGPT 78 U/L (16-61); Alkaline Phosphatase 81 U/L (45-117); Anion Gap 3 (5-15); BUN 36 mg/dL (7-18); Calcium,Total 8.1 mg/dL (8.5-10.1); Chloride 105 mmol/L (98-107); Creatinine, Serum 1.09 mg/dL (0.70-1.30); EST Glomerular Filtration Rate 76 mL/min (>60); Est Glom Filt Rate - Afr Amer 91 mL/min (>60); Estimated Creatinine Clearance 66.12 ml/min; Glucose 114 mg/dL (74-106); Potassium 5.1 mmol/L (3.5-5.1); Sodium Level 139 mmol/L (136-145)
--- NOTE | 2018-01-23 15:35 | HP.PCM_ITS ---
Problem List (1) Shortness of breath Status: Acute (2) Suprapubic abdominal pain Status: Acute History of Present Illness Date of Admission: 01/23/18 Chief Complaint: Shortness of breath, suprapubic lower abdominal pain. The patient is a 53 year old M with a history of chronic respiratory failure due to COPD, on 2 L of oxygen at home, HFR EF and hypertension. He was admitted through the ED on 01/23/2018 with complaint of shortness of breath which was worsening and suprapubic pain. Patient states shortness of breath is worsened by exertion is present at rest with assisted orthopnea and PND and lower extre mity swelling. The suprapubic pain has been present for quite a while and is still not resolving and states he has burning with urination and often does not urinate much at all. He denied any fever chills, any palpitations, any dizziness or lightheadedness, any diarrhea vomiting though he admitted to nausea. Of note, patient was recently admitted and discharged just on 01/14/2018. During that admission, he was diagnosed with HFR EF after he had an echo which showed EF of 10%. He was also treated for prostatitis during that admission. Patient was offered a cardiac cath but he refused and signed himself out. Patient now tells me that he did not think he was that sick to need the cath but has not gotten better and states that he feels very very unwell and so wanted now. In the ED, vitals were significant for respiratory rate of 24 and was saturating at 86% on 2 L of oxygen so this was increased to 3 L of oxygen which increased saturations about 89%. CBC was unremarkable, and BMP was also unremarkable. BNP was 3367.4.EKG showed T wave inversions in V5 and V6 and chest x-ray done showed large emphysematous blebs with lower lobe atelectasis and no infiltrations. He has been admitted to be managed for CHF exacerbation. [] Past Medical History Past Medical History (Chronic Problems): Chronic Problems COPD (chronic obstructive pulmonary disease) (Chronic) Allergies naproxen [From Naprosyn] Adverse Reaction (Verified 01/23/18 13:43) Nausea naproxen sodium [From Aleve] Adverse Reaction (Verified 01/23/18 13:43) Nausea tramadol Adverse Reaction (Verified 01/23/18 13:43) Nausea Home Medications: Ambulatory Orders Medication Instructions Recorded Carvedilol [Coreg (Beta Ngoc)] 12.5 mg PO BID 05/29/15 Lisinopril [Zestril] 30 mg PO DAILY 01/13/18 Aspirin E.C. [Ecotrin] 81 mg PO DAILY@0800 #30 tablet 01/14/18 Ipratropium/Albuterol Sulfate 3 ml INHALATION Q4H.RT #100 01/14/18 [Duoneb] ampul.neb Nicotine Polacrilex [Nicotine Gum] 2 mg PO Q4H PRN PRN #60 gum 01/14/18 Nitroglycerin [Nitrostat] 0.4 mg SUBLINGUAL Q5M PRN #10 01/14/18 tablet Surgical History: - - Bison teeth removal Psychiatric History: No pertinent psych hx Lives: Alone Smoking Status: Former smoker Tobacco Use: Cigarettes - quit 3 weeks ago; smoked one pack daily for ~ 20+ yeras Alcohol: Occasional Drugs: None - *Family History Maternal History Items: Cancer - colon, Heart Disease Paternal History Items: COPD - Emphysema, - Review of Systems Constitutional: Denies: Chills, Fever, Malaise, Weakness, Weight Change Eyes: Denies: Blurred vision HEENT: Denies: Head Aches, Sinus Congestion, Sinus Drainage Cardiovascular: Reports: Edema, Orthopnea, Paroxysmal Noc. Dyspnea. Denies: Chest Pain, Chest Pressure, Chest Tightness, Heaviness, Light Headedness, Palpitations, Syncope Respiratory: Reports: Shortness of Breath, Shortness of breath at rest, Short ness of breath upon exertion, Wheezing. Denies: Cough, Pleuritic Pain, Sputum production Gastrointestinal: Reports: Abdominal Pain - suprapubic pain, Nausea. Denies: Diarrhea, Vomiting Genitourinary: Reports: Dysuria, Urgency. Denies: Frequency, Hesitancy, Retention Musculoskeletal: Denies: Arm Pain Skin: Reports: Rash, - - has papular erythematous rash over chest and abdomen. Denies bedbug infestation. Denies: Wounds Neurological: Denies: Numbness, Tingling, Focal weakness Psychiatric: Denies: Anxiety, Depression, Homicidal Ideations, Suicidal Ideations Hematologic/ Lymphatic: Denies: Easy Bruising, Easy Bleeding VTE Information - Inpt Only VTE Present on Admission: No VTE Pharm Prophylaxis ordered?: Yes Patient Problems: Active and Suspected Problems Shortness of breath (Acute) Suprapubic abdominal pain (Acute) - Physical Exam General: Alert, Oriented x3, Cooperative HEENT: Atraumatic, PERRLA, EOMI, Normocephalic Oral: Moist Mucosa Neck: Supple, Negative Carotid Bruits, JVD, Right Lungs: Short of Breath, Tachypneic, Using Accessory Muscles, - - decreased breath sounds mainly in right upper and mid lung ibrahim; also decreased bibasally, with few crackles and wheezing. on 3L of oxygen at time of review Cardiovascular: Regular rate, Regular Rhythm, Normal S1, Normal S2, No murmurs Abdomen: Bowel Sounds Present, Soft, Non-Distended, - - minimal suprapubic tenderness, no guarding or rebound tenderness Extremities: No clubbing, No cyanosis, Capillary Refill Less than 3 Seconds, - - bilateral LE pitting pedal edema 1+ Skin: - - papular, erythematous rash over chest, back and abdomen Musculoskeletal: No Tenderness to Palpation of Joints or Extremities Lymphatic: No Cervical, Supraclavicular, or Inguinal Adenopathy Neurological: Cranial nerves II-XII grossly intact, Neuro grossly intact, Motor Exam 5/5 strength throughout Psych/Mental Status: Normal Affect, Appropriate, Agitated, Alert and oriented to time, place, person, mood and affect Vital Signs Temp Pulse Resp Pulse Ox 97.2 F L 96 24 H 88 01/23/18 13:42 01/23/18 14:20 01/23/18 14:20 01/23/18 13:42 Oxygen Flow Rate (L/min) 3 Oxygen Delivery Method Nasal Cannula Weight: 130 lb Body Mass Index (BMI) 20.3 Laboratory Tests Past 24 Hrs 01/23/18 01/23/18 01/23/18 13:50 13:50 13:50 WBC 7.4 RBC 4.19 L Hgb 13.5 Hct 42.6 MCV 101.7 H MCH 32.2 H MCHC 31.7 L RDW 13.4 RDW Differential 49.8 H Plt Count 155 MPV 10.6 Immature Gran % (Auto) 0.100 Neut % (Auto) 68.4 Lymph % (Auto) 20.9 [place] % (Auto) 9.3 Eos % (Auto) 1.2 Baso % (Auto) 0.1 Absolute Neuts (auto) 5.1 Absolute Lymphs (auto) 1.55 Total Counted Not Reportable Sodium 139 Potassium 5.1 Chloride 105 Carbon Dioxide 31.0 Anion Gap 3 L BUN 36 H Creatinine 1.09 Estim Creat Clear Calc 66.12 Est GFR (MDRD) Af Amer 91 Est GFR (MDRD) Non-Af 76 BUN/Creatinine Ratio 33.0 H Glucose 114 H Calcium 8.1 L Total Bilirubin 0.70 AST 48 H ALT 78 H Alkaline Phosphatase 81 Troponin I 0.041 B-Natriuretic Peptide 3367.4 H Total Protein 6.0 L Albumin 3.0 L Globulin 3.0 Albumin/Globulin Ratio 1.0 Diagnostic Data Chest X-Ray 01/23/18 14:07 IMPRESSION: Large emphysematous blebs. Lower lobe atelectasis and/or infiltrates. Given the large blebs and pneumothorax would be difficult to visualize in this patient. Electronically Signed: Heather Llanos MD at 15:13 EDT Tel , Service support , Assessment/Plan All Active Problems Prostatitis, acute (Acute) NSTEMI (non-ST elevated myocardial infarction) (Acute) Cardiomyopathy (Acute) Valvular heart disease (Acute) Shortness of breath (Acute) Suprapubic abdominal pain (Acute) 53-year-old male presenting with worsening shortness of breath. 1. Acute systolic CHF exacerbation * worsening SOB; requiring increased amounts of oxygen. * BNP 3367. * echo (EF of 10%, with hypokinesis of LV). * Refused cardiac catheter on last admission. * Admit to PCU with telemetry. Start IV Lasix 40 mg twice daily * EKG showed T wave inversions in leads v5-6 * Patient counseled strongly that he would require cardiac cath during this admission to evaluate for coronary artery disease which may be contributing to CHF. * continue carvedilol and lisinopril * cardiology consult * 2. Hypertension: on carvedilol and lisinopril. Continue 3. Acute on chronic hypoxic respiratory failure due to CHF exacerbation * Usually on 2 L of oxygen at home. Was saturating at 86% on 2 L of oxygen when he arrived and so this was warmed up to over 3 L of oxygen. Now saturating around 89-90%. * breathing treatment with duonebs. Continue oxygen and titrate to saturation of 90%. * 4. COPD: * CXR showed large emphysematous blebs. Breathing treatments. continue oxygen as under 3. * I am not convinced patient really has COPD exacerbation as his symptoms fit in with CHF exacerbation rather. * continue breathing treatments. 5. ?UTI * complains of suprapubic pain and difficulty voiding was present during last admission when he was treated for acute prostatitis * will check UA; if positive, will treat * bladder USG showed distended bladder. Perez inserted in ED. Complains of difficulty with urination. * will consult urology o/a of urinary retention * DVT prophylaxis: heparin Code status: Patient counseled extensively about different types of CODE STATUS including full code, DNR CCA and DNR CCA. Patient elects to be full code. Total [id number] time 16 minutes. Code Visit Inpatient E&M: 60435 Init Hosp L3 Procedures: 93229 Advncd Care Plan 30 Min
[2018-01-23] MEDS: Furosemide 20 MG/2 ML VIAL IV (15:55)
[2018-01-23] MEDS: Clopidogrel Bisulfate 300 MG Tablet PO ×2 (17:56→20:03)
[2018-01-23] MEDS: Furosemide 40 MG/4 ML Vial IV (17:56)
[2018-01-23 18:34] LABS: Bacteria 0 SEEN /hpf (None Seen); Mucous, Urine 0 SEEN /hpf (<or=2+); Squamous Epithelial Cells - UA 0 SEEN /hpf (0-5); White Blood Cells 0 SEEN /hpf (0-5)
[2018-01-23 18:38] LABS: Color, Urine Yellow (Yellow); Glucose, Dipstick Normal (Normal); Ketone-Dipstick Negative (Negative); Leukocyte Esterase-Dipstick Negative /ul (Negative); Nitrite-Dipstick Negative (Negative); Occult Blood-Urine 250 /ul (Negative); Protein-Dipstick Negative (Negative); Specific Gravity, Urine 1.015 (1.002-1.030); Urine Bilirubin Dipstick Negative (Negative); Urine Clarity Clear (Clear); Urine Urobilinogen Normal (Normal)
[2018-01-23 18:50] LABS: Red Blood Cells-Urine 0-5 SEEN /hpf (0-5)
[2018-01-23] MEDS: Ondansetron 4 MG/2 ML Vial IV (19:02)
[2018-01-23] MEDS: Morphine 2 MG/ML Syringe 1 MG IV ×2 (19:02→23:32)
[2018-01-23] MEDS: 0.9% NaCl Peripheral Flush Adult/Peds IV ×2 (19:02→23:31)
[2018-01-23] MEDS: Carvedilol 12.5 MG Tablet PO (21:36)
[2018-01-24] VITALS (24 sets, daily range): BP systolic 99–130; BP diastolic 62–93; PULSE 66–102; RESP 14–26; TEMP 36.6–37.1; O2SAT 86–98
[2018-01-24] MEDS: Aspirin E.C. 81 MG Tablet PO (05:08)
[2018-01-24] MEDS: Lisinopril 10 MG Tablet 30 MG PO (05:08)
[2018-01-24] MEDS: 0.9% NaCl Peripheral Flush Adult/Peds IV ×2 (05:08→20:15)
[2018-01-24] MEDS: Morphine 2 MG/ML Syringe 1 MG IV ×3 (05:11→20:14)
[2018-01-24] MEDS: Clopidogrel Bisulfate 75 MG Tablet PO (05:11)
--- NOTE | 2018-01-24 05:19 | NURSING ---
Pt refusing his Coreg this AM. States he will get sick if he takes it on an empty stomach.
--- NOTE | 2018-01-24 05:55 | EKG12_ITS ---
Test Reason : AM EKG Blood Pressure : / mmHG Vent. Rate : 086 BPM Atrial Rate : 086 BPM P-R Int : 140 ms QRS Dur : 098 ms QT Int : 372 ms P-R-T Axes : 083 080 237 degrees QTc Int : 445 ms Sinus rhythm with occasional Premature ventricular complexes Possible Left atrial enlargement Nonspecific T wave abnormality Poor R wave progression Abnormal ECG Confirmed by JONATHAN VARMA, JILLIAN ([id number]), editor school photograph KIMBERLY MADDOX ([id number]) on 01/27/2018 3:58:18 PM Referred By: SANDRA Confirmed By:JILLIAN CASTILLO MD
[2018-01-24 06:25] LABS: International Normalized Ratio 1.7
[2018-01-24 06:35] LABS: Anion Gap 7 (5-15); BUN 33 mg/dL (7-18); BUN/Creat Ratio 33.5 RATIO (10-20); Calcium,Total 8.2 mg/dL (8.5-10.1); Chloride 103 mmol/L (98-107); Creatinine, Serum 0.98 mg/dL (0.70-1.30); EST Glomerular Filtration Rate 85 mL/min (>60); Est Glom Filt Rate - Afr Amer 103 mL/min (>60); Estimated Creatinine Clearance 76.08 ml/min; Glucose 98 mg/dL (74-106); Potassium 4.2 mmol/L (3.5-5.1); Sodium Level 140 mmol/L (136-145)
[2018-01-24 06:46] LABS: Partial Thromboplast Time 33.7 Seconds (24.1-36.2)
[2018-01-24 07:02] LABS: Absolute Lymphocyte Count 0.33 X10^3/ul (0.83-4.51); Absolute Neutrophil Count 6.3 X10^3/uL (2.0-7.7); Differential Indicated SCAN CRITERIA MET; Hematocrit 39.3 % (40-54); Hemoglobin 12.9 g/dl (13.0-16.5); Lymphocyte # 0.33 X10^3/ul (4.0); Lymphocyte % 4.8 % (19-41); Mean Corp Hgb Conc 32.8 g/gl (32-36); Mean Corpuscular Hgb 32.7 pg (27.0-32.0); Mean Corpuscular Volume 99.7 fL (80-94); Mean Platelet Vol. 10.8 fl (6.2-12.0); Monocyte# 0.22 X10^3/uL; Monocyte% 3.2 % (0-10); Neutrophil # 6.33 X10^3/uL (2.7-7.7); Neutrophil % 91.9 % (47-70); POSITIVE COUNT NO; POSITIVE DIFFERENTIAL YES; POSITIVE MORPHOLOGY NO; Platelet Count 137 K/mm3 (150-450); RBC Distribution Width CV 12.7 % (11.6-14.6); RBC Distribution Width SD 45.1 fl (35.1-43.9); Red Blood Count 3.94 M/mm3 (4.6-6.2); White Blood Count 6.9 K/mm3 (4.4-11.0)
[2018-01-24 07:15] LABS: Differential Comment SCANNED
--- NOTE | 2018-01-24 07:29 | CON.PCM_ITS ---
Reason for Consult Date of Consultation: 01/24/18 Reason for Consultation: Urinary retention History of Present Illness: The patient is a 53 year old male with multiple medical problems, significant cardiac disease presented to the hospital with distended bladder and they put a catheter in he describes pain in the mid abdomen. The urine is clear. He is also has been having problems with constipation. Past Medical History Past Medical History (Chronic Problems): Chronic Problems COPD (chronic obstructive pulmonary disease) (Chronic) Allergies naproxen [From Naprosyn] Adverse Reaction (Verified 01/23/18 13:43) Nausea naproxen sodium [From Aleve] Adverse Reaction (Verified 01/23/18 13:43) Nausea tramadol Adverse Reaction (Verified 01/23/18 13:43) Nausea Home Medications: Ambulatory Orders Medication Instructions Recorded Carvedilol [Coreg (Beta Ngoc)] 12.5 mg PO BID 05/29/15 Lisinopril [Zestril] 30 mg PO DAILY 01/13/18 Aspirin E.C. [Ecotrin] 81 mg PO DAILY@0800 #30 tablet 01/14/18 Ipratropium/Albuterol Sulfate 3 ml INHALATION Q4H.RT #100 01/14/18 [Duoneb] ampul.neb Nicotine Polacrilex [Nicotine Gum] 2 mg PO Q4H PRN PRN #60 gum 01/14/18 Nitroglycerin [Nitrostat] 0.4 mg SUBLINGUAL Q5M PRN #10 01/14/18 tablet Surgical History: - - [place] teeth removal Psychiatric History: No pertinent psych hx Lives: Alone Smoking Status: Former smoker Tobacco Use: Cigarettes Alcohol: Occasional Drugs: None - *Family History Maternal History Items: Cancer - colon, Heart Disease Paternal History Items: COPD - Emphysema, - Review of Systems Constitutional: Denies: Chills, Fever, Weight Change HEENT: Denies: Head Aches, Sinus Congestion, Sinus Drainage Cardiovascular: Denies: Chest Pain, Palpitations Respiratory: Denies: Cough, Shortness of breath at rest, Sputum production Gastrointestinal: Denies: Abdominal Pain, Nausea, Vomiting Genitourinary: Denies: Dysuria Musculoskeletal: Denies: Joint Pain, Joint Tenderness Skin: Denies: Rash, Wounds Neurological: Denies: Numbness, Tingling, Focal weakness Psychiatric: Denies: Anxiety, Depression, Homicidal Ideations, Suicidal Ideations Hematologic/ Lymphatic: Denies: Easy Bruising, Easy Bleeding Physical Exam - Physical Exam Vital Signs Temp 97.8 F 01/24/18 04:20 Pulse 85 01/24/18 04:20 Resp 14 01/24/18 04:20 BP 130/85 H 01/24/18 04:20 Pulse Ox 93 01/24/18 04:20 Intake & Output 01/22/18 01/23/18 01/24/18 23:59 23:59 23:59 Intake Total 510 / 510 40 / 40 Output Total 3500 / 3500 350 / 350 Balance -2990 / -2990 -310 / -310 Weight: 64.6 kg 61 kg Intake: Oral 490 / 490 IV fluid/meds Output: Urine 3500 / 3500 350 / 350 General: Alert, Oriented x3 HEENT: Atraumatic Oral: Moist Mucosa Neck: Supple Lungs: Normal air movement Cardiovascular: Regular rate Rectal: Exam deferred Laboratory Tests Past 24 Hrs 01/23/18 01/23/18 01/23/18 13:50 13:50 13:50 WBC 7.4 RBC 4.19 L Hgb 13.5 Hct 42.6 MCV 101.7 H MCH 32.2 H MCHC 31.7 L RDW 13.4 RDW Differential 49.8 H Plt Count 155 MPV 10.6 Immature Gran % (Auto) 0.100 Neut % (Auto) 68.4 Lymph % (Auto) 20.9 Wells % (Auto) 9.3 Eos % (Auto) 1.2 Baso % (Auto) 0.1 Absolute Neuts (auto) 5.1 Absolute Lymphs (auto) 1.55 Total Counted Not Reportable Differential Comment PT INR APTT Sodium 139 Potassium 5.1 Chloride 105 Carbon Dioxide 31.0 Anion Gap 3 L BUN 36 H Creatinine 1.09 Estim Creat Clear Calc 66.12 Est GFR (MDRD) Af Amer 91 Est GFR (MDRD) Non-Af 76 BUN/Creatinine Ratio 33.0 H Glucose 114 H Calcium 8.1 L Magnesium Total Bilirubin 0.70 AST 48 H ALT 78 H Alkaline Phosphatase 81 Troponin I 0.041 B-Natriuretic Peptide 3367.4 H Total Protein 6.0 L Albumin 3.0 L Globulin 3.0 Albumin/Globulin Ratio 1.0 Urine Color Urine Clarity Urine pH Ur Specific [place] Urine Protein Urine Glucose (UA) Urine Ketones Urine Occult Blood Urine Nitrite Urine Bilirubin Urine Urobilinogen Ur Leukocyte Esterase Urine RBC Urine WBC Ur Squamous Epith Cells Urine Bacteria Urine Mucus 01/23/18 01/24/18 01/24/18 17:30 05:25 05:25 WBC 6.9 RBC 3.94 L Hgb 12.9 L Hct 39.3 L MCV 99.7 H MCH 32.7 H MCHC 32.8 RDW 12.7 RDW Differential 45.1 H Plt Count 137 L MPV 10.8 Immature Gran % (Auto) 0.100 Neut % (Auto) 91.9 H Lymph % (Auto) 4.8 L Wells % (Auto) 3.2 Eos % (Auto) 0.0 Baso % (Auto) 0.0 Absolute Neuts (auto) 6.3 Absolute Lymphs (auto) 0.33 L Total Counted Not Reportable Differential Comment SCANNED PT INR APTT Sodium 140 Potassium 4.2 Chloride 103 Carbon Dioxide 30.0 Anion Gap 7 BUN 33 H Creatinine 0.98 Estim Creat Clear Calc 76.08 Est GFR (MDRD) Af Amer 103 Est GFR (MDRD) Non-Af 85 BUN/Creatinine Ratio 33.5 H Glucose 98 Calcium 8.2 L Magnesium Total Bilirubin AST ALT Alkaline Phosphatase Troponin I B-Natriuretic Peptide Total Protein Albumin Globulin Albumin/Globulin Ratio Urine Color Yellow Urine Clarity Clear Urine pH 6.0 Ur Specific [place] 1.015 Urine Protein Negative Urine Glucose (UA) Normal Urine Ketones Negative Urine Occult Blood 250 H Urine Nitrite Negative Urine Bilirubin Negative Urine Urobilinogen Normal Ur Leukocyte Esterase Negative Urine RBC 0-5 SEEN Urine WBC 0 SEEN Ur Squamous Epith Cells 0 SEEN Urine Bacteria 0 SEEN Urine Mucus 0 SEEN 01/24/18 01/24/18 05:25 05:25 WBC RBC Hgb Hct MCV MCH MCHC RDW RDW Differential Plt Count MPV Immature Gran % (Auto) Neut % (Auto) Lymph % (Auto) Wells % (Auto) Eos % (Auto) Baso % (Auto) Absolute Neuts (auto) Absolute Lymphs (auto) Total Counted Differential Comment PT 20.0 H INR 1.7 APTT 33.7 Sodium Potassium Chloride Carbon Dioxide Anion Gap BUN Creatinine Estim Creat Clear Calc Est GFR (MDRD) Af Amer Est GFR (MDRD) Non-Af BUN/Creatinine Ratio Glucose Calcium Magnesium 2.0 Total Bilirubin AST ALT Alkaline Phosphatase Troponin I B-Natriuretic Peptide Total Protein Albumin Globulin Albumin/Globulin Ratio Urine Color Urine Clarity Urine pH Ur Specific [place] Urine Protein Urine Glucose (UA) Urine Ketones Urine Occult Blood Urine Nitrite Urine Bilirubin Urine Urobilinogen Ur Leukocyte Esterase Urine RBC Urine WBC Ur Squamous Epith Cells Urine Bacteria Urine Mucus Assessment/Plan All Active Problems Prostatitis, acute (Acute) NSTEMI (non-ST elevated myocardial infarction) (Acute) Cardiomyopathy (Acute) Valvular heart disease (Acute) Shortness of breath (Acute) Suprapubic abdominal pain (Acute) 53-year-old male with retention of urine etiology unclear. We can start him on tamsulosin 0.4 mg daily if okay with cardiology and would recommend we remove the catheter for voiding trial after cardiac workup. Call me with questions.
[2018-01-24] MEDS: 0.9% Normal Saline 1,000 ML 15 ML IV (07:45)
[2018-01-24] MEDS: DiphenhydrAMINE 25 MG Capsule 50 MG PO (07:45)
--- NOTE | 2018-01-24 07:57 | NURSING ---
Addendum entered by Roxana Salas 01/24/18 07:58: Notified that patient refused coreg this morning. Wearing 2L satting 92% Original Note: Nursing report called to Meter Tester at this time.
--- NOTE | 2018-01-24 09:48 | CASEMGMT ---
According to the [facility] website, the following are in-network tertiary facilities: [facility], [place], [facility], [facility], [facility], [facility], and . Zeke JEAN-BAPTISTE CM
--- NOTE | 2018-01-24 09:49 | CL.I_ITS ---
Patient Name: HAROON ROSENBAUM Study Date: 01/24/2018 Performing: Vernon Nassar MD Ht: 67 inches 170.18 cm : 1965 Wt: 142.42 lbs 64.6 kg Age: 53 Gender: male BSA: 1.75 PROCEDURE(S) PERFORMED [id number]/COR/LV IC25-CVS, CORONARY OR GRAFT, INITIAL VESSEL CLINICAL PROFILE AND CO-MORBIDITIES Indications: New Onset Angina <= 2 months, Suspected CAD, Cardiomyopathy, LV Dysfunction Heart Failure: NYHA Class: 3, Newly Diagnosed: No, Heart Failure Type: Systolic Stress/Imaging Stress/Image Study Performed: No Angina Classification Anginal Classification w/in 2 Weeks: CCS III CAD Presentations: Unstable angina. Comorbidities/Risk Factors: Hypertension Dyslipidemia Prior CHF CONCLUSIONS Single vessel CAD of the RCA Global LV systolic dysfunction- Severe Elevated Left Ventricular End Diastolic Pressure Non obstructive coronary arteries Cardiac output - Reduced The patient has pulmonary hypertension which is moderate. Right heart pressures - mildly to moderately elevated RECOMMENDATIONS FFR of mid RCA was 1.0 Follow up with primary care physician ASA Indefinitely Management as per referring Door And Arrival Attendant d/c plavix, add aldactone, reduce coreg, continue IV diuresis. Manual sheath removal once ACT<150. DESCRIPTION OF PROCEDURE The patient arrived to the procedure lab. The risks and benefits of the procedure as well as a full d escription of our services here and lack of surgical backup were fully explained to the patient and/o r their significant other prior to the catheterization. The Timeout was completed, verifying the jacquelyn ect patient and procedure. The patient's procedural site was prepped and draped in the usual fashion. Local anesthetic was given subcutaneously to right groin region with Lidocaine 2%. Using a modified Seldinger technique, arterial access was obtained via the right femoral artery, a 4Fr sheath was inse rted. Venous access was obtained via the right femoral vein, a 7Fr sheath was inserted. A 7Fr thermal dilution catheter was inserted and right heart pressures were recorded, it was then advanced to PA p osition for cardiac outputs. Thermal dilution cardiac outputs were then recorded. O2 saturations were then obtained. Left Ventriculography was performed in JOHNSON projection using a 4 Fr. Pigtail catheter. LV to AO pullback pressures were then recorded. The Thermal dilution catheter was t hen removed. Left Coronary Artery selective angiography was performed in multiple views using a 4 Fr. JL5 catheter. Right Coronary Artery selective angiography was then performed in multiple views using a 4 Fr. 3DRC catheterThe images were reviewed and options discussed. A decision was then made to pro ceed with an Intervention, IVUS or other adjunct procedure. Arterial sheath was exchanged for a 6 Fr x 45cm Sheath. HS II Guide catheter was inserted and eng aged into the RCA. The FFR/iFR wire was inserted. Adenosine was then given per protocol. Pressures an d FFR/iFR were then recorded. iFR measurements were performed. FFR Ratio Baseline: 1.0 FFR Ratio post Adenosine: 1.0 The FFR/iFR wire was then removed. Arterial sheath was exchanged for a 6x 11cm Fr She ath. CORONARY ANGIOGRAPHY DOMINANCE: Right Dominant LEFT HEART ASSESSMENT Left Ventricular Ejection Fraction: by LV Gram 10 % Depressed Left Ventricular systolic function LVEDP: 24 mmHg Global Hypokinesis - Severe RIGHT HEART ASSESSMENT Thermal CO: 3.82 Thermal CI: 2.18 Neville CO: 3.79 Neville CI: 2.17 PW: 25 PA: 34/21 22 RV: 18/4 6 RA: 11/06 9 PVR: -63 SVR: 1696 Right Heart pressures - elevated Pulmonary Hypertension Moderate LEFT MAIN: Angiographically normal LEFT ANTERIOR DECENDING ARTERY: No significant disease noted CIRCUMFLEX ARTERY: No significant disease noted RIGHT CORONARY ARTERY: MID RCA: 50 % Stenosis INTERVENTION INFORMATION LESION SITE: RCA (Mid) Lesion Devices: [employer] ( Former[employer] [place]) Coronary FFR Wire Wallmob 6 Fr HSII 100cm Guide Catheter COMPLICATIONS No Complications PROCEDURE MEDICATIONS Oxygen: 2 L/min via nasal cannula Oxygen: 0 L/min via nasal cannula Oxygen: 3 L/min via nasal cannula Adenosine drip for FFR 18 ml IV @ 01/24/2018 09:29:30 Heparin 6000 unit(s) IV 01/24/2018 09:22:12 Nitro 200 mcg IC 01/24/2018 09:24:05 SUMMARY OF HEMODYNAMIC DATA Time AIR REST ECG 08:18:54 RA 11/06 (9) SV 08:50:21 RV 18/4, 6 08:51:05 PA 34/21 (22) PA 08:56:25 PW (25) PV 08:58:31 AO 102/81 (90) SA 09:01:09 PA 44/21 (32) 09:01:09 LV 109/7, 28 09:04:34 LV 109/6, 27 09:04:41 LV 106/6, 28 09:11:20 LVp 105/5, 27 09:11:26 AOp 104/78 (88) 09:11:31 Type SV CO (l/m) CI (l/m/ HR Time AIR REST Thermal 44.40 3.82 2.18 86 08:18:54 Neville 44.10 3.79 2.17 86 08:18:54 Label % O2 Pres/Loc Time AIR REST AO 88 PV 09:12:14 PA 53 PA 09:12:28 Signed By Vernon Nassar MD On 01/24/2018 09:48:25 Vernon Nassar MD
--- NOTE | 2018-01-24 09:57 | CON.PCM_ITS ---
Problem List (1) Pulmonary cachexia due to chronic obstructive pulmonary disease Status: Suspected (2) NSTEMI (non-ST elevated myocardial infarction) Status: Acute (3) Cardiomyopathy Status: Acute Reason for Consult Date of Consultation: 01/24/18 Reason for Consultation: Chest pain, shortness of breath, lower extremity edema, known severe LV dysfunction History of Present Illness: The patient is a 53 year old M, recently seen by Dr. Boni Garces in consultation at [facility] on 01/14/18 for shortness of breath, dyspnea, abdominal discomfort and abnormal troponins. An echocardiogram was performed that demonstrated he had an EF around 10%, and was offered left heart catheterization but declined. His EKG at the time suggested sinus rhythm, left atrial enlargement, possible old anterior wall myocardial infarction and T wave abnormalities possibly consistent with inferolateral ischemia. The patient declined catheterization and was sent home on medical therapy. The patient developed recurrent substernal chest pressure and shortness of breath. Patient was brought to the emergency room last evening and was found to be in heart failure and placed on IV diuretic therapy. His EKG at that time demonstrated normal sinus rhythm, normal axis, PVC, poor R wave progression across the precordium and nonspecific inferolateral ST segment and T wave changes consistent with previous EKG. Patient's initial troponin was negative, and he consented to left heart catheterization evaluation. Apparently had a left her catheterization at [facility] about 15 years ago which was reportedly normal. On further history the patient quit smoking around 4 weeks ago, and used to be a very heavy drinker which may explain his cardiomyopathy. He quit drinking around 4 years ago. Patient had some urinary retention and required a Perez which demonstrated some pink urine. Urology was consulted, which recommended tamsulosin. [] Past Medical History Allergies/Adverse Reactions: Allergies naproxen [From Naprosyn] Adverse Reaction (Verified 01/23/18 13:43) Nausea naproxen sodium [From Aleve] Adverse Reaction (Verified 01/23/18 13:43) Nausea tramadol Adverse Reaction (Verified 01/23/18 13:43) Nausea Home Medications: Ambulatory Orders Medication Instructions Recorded Carvedilol [Coreg (Beta Ngoc)] 12.5 mg PO BID 05/29/15 Lisinopril [Zestril] 30 mg PO DAILY 01/13/18 Aspirin E.C. [Ecotrin] 81 mg PO DAILY@0800 #30 tablet 10/19/18 Ipratropium/Albuterol Sulfate 3 ml INHALATION Q4H.RT #100 01/14/18 [Duoneb] ampul.neb Nicotine Polacrilex [Nicotine Gum] 2 mg PO Q4H PRN PRN #60 gum 01/14/18 Nitroglycerin [Nitrostat] 0.4 mg SUBLINGUAL Q5M PRN #10 01/14/18 tablet Past Medical History (Chronic Problems): Chronic Problems COPD (chronic obstructive pulmonary disease) (Chronic) Surgical History: - - [place] teeth removal Psychiatric History: No pertinent psych hx - *Family History Maternal History Items: Cancer - colon, Heart Disease Paternal History Items: COPD - Emphysema, - Lives: Alone Smoking Status: Former smoker Tobacco Use: Cigarettes Alcohol: Occasional Drugs: None Review of Systems - Review of Systems General: Denies: Fever, Night Sweats, Fatigue Cardiovascular: Reports: Chest Discomfort, Chest Discomfort at Rest, Shortness of Breath at Rest, Shortness of Breath with Exertion, Peripheral Edema. Denies: Shortness of Breath, Orthopnea, PND, Palpitations, Lightheadedness, Dizziness, Near Syncope, Syncope Respiratory: Denies: Cough, Sputum Production, Hemoptysis Gastrointestinal: Denies: Hematemesis, Hematochezia, Melena Genitourinary: Denies: Dysuria, Hematuria Skin: Denies: Rash Subjectve: Patient in no acute distress. Objective: Vital Signs Temp Pulse Resp BP Pulse Ox 98.0 F 88 16 120/73 92 01/24/18 07:46 01/24/18 07:46 01/24/18 07:46 01/24/18 07:46 01/24/18 07:46 Oxygen Flow Rate (L/min) 2 Oxygen Delivery Method Nasal Cannula Weight: 134 lb 7.712 oz Body Mass Index (BMI) 22.3 Intake and Output for Last 24 Hours 01/22/18 01/23/18 01/24/18 23:59 23:59 23:59 Intake Total 510 / 510 40 / 40 Output Total 3500 / 3500 350 / 350 Balance -2990 / -2990 -310 / -310 General: Awake, Alert, Oriented x 3 HEENT: PERRL, EOMI, Sclera Non Icteric Neck: Supple, Good ROM, No Lymph Node Enlargement Lungs: Clear to auscultation Cardiovascular: Regular Rhythm, Normal S1, Normal S2, No Murmurs, No Rubs, No Gallops Vascular: No Carotid Bruits, Normal Femoral Pulses, Normal Radial Pulses, Normal Dorsalis Pedal Pulse, Normal Posterior Tibial Pulses Abdomen: Bowel Sounds Present, Soft, Non Tender, No HSM, No Organomegaly Extremities: No Cyanosis, No Clubbing, Bilateral Edema +1 Neurological: No Focal Motor or Sensory Deficit 01/23/18 13:50: WBC 7.4, RBC 4.19 L, Hgb 13.5, Hct 42.6, MCV 101.7 H, MCH 32.2 H , MCHC 31.7 L, RDW 13.4, RDW Differential 49.8 H, Plt Count 155, MPV 10.6, Immature Gran % (Auto) 0.100, Neut % (Auto) 68.4, Lymph % (Auto) 20.9, Hayes % (Auto) 9.3, Eos % (Auto) 1.2, Baso % (Auto) 0.1, Absolute Neuts (auto) 5.1, Total Counted Not Reportable 01/23/18 13:50: Sodium 139, Potassium 5.1, Chloride 105, Carbon Dioxide 31.0, Anion Gap 3 L, BUN 36 H, Creatinine 1.09, Est GFR (MDRD) Af Amer 91, Est GFR (MDRD) Non-Af 76, BUN/Creatinine Ratio 33.0 H, Glucose 114 H, Calcium 8.1 L, Total Bilirubin 0.70, Troponin I 0.041 01/23/18 13:50: B-Natriuretic Peptide 3367.4 H 01/23/18 17:30: Urine Color Yellow, Urine Clarity Clear, Urine pH 6.0, Ur Specific [place] 1.015, Urine Protein Negative, Urine Glucose (UA) Normal, Urine Ketones Negative, Urine Occult Blood 250 H, Urine Nitrite Negative, Urine Bilirubin Negative, Urine Urobilinogen Normal, Ur Leukocyte Esterase Negative, Urine RBC 0-5 SEEN, Urine WBC 0 SEEN 01/24/18 05:25: WBC 6.9, RBC 3.94 L, Hgb 12.9 L, Hct 39.3 L, MCV 99.7 H, MCH 32.7 H, MCHC 32.8, RDW 12.7, RDW Differential 45.1 H, Plt Count 137 L, MPV 10.8, Immature Gran % (Auto) 0.100, Neut % (Auto) 91.9 H, Lymph % (Auto) 4.8 L, Hayes % (Auto) 3.2, Eos % (Auto) 0.0, Baso % (Auto) 0.0, Absolute Neuts (auto) 6.3, Total Counted Not Reportable 01/24/18 05:25: Sodium 140, Potassium 4.2, Chloride 103, Carbon Dioxide 30.0, Anion Gap 7, BUN 33 H, Creatinine 0.98, Est GFR (MDRD) Af Amer 103, Est GFR (MDRD) Non-Af 85, BUN/Creatinine Ratio 33.5 H, Glucose 98, Calcium 8.2 L 01/24/18 05:25: PT 20.0 H, INR 1.7, APTT 33.7 01/24/18 05:25: Magnesium 2.0 Rhythm: EKG: ECHO: Stress Test: Cardiac Cath: PCI: CT Surgery: Holter monitor: EPS: PPM: CXR: Chest CT Scan: Assessment/Plan 1. LV dysfunction: The patient has severe LV dysfunction as demonstrated by echocardiogram with an EF around 10%. Patient had agreed to left and right heart catheterization which was performed this morning by myself which demonstrated mild to moderate pulmonary hypertension, severe LV dysfunction with an EF around 10%, nonobstructive coronary disease of his LAD, left main and left circumflex, and a questionably significant long mid RCA stenosis. This was evaluated with FFR flow wire which was found to be 1.0 with adenosine augmentation. This was not found to be significant, so no additional stenting was performed. At this point I would recommend discontinuation of his Plavix given his recent hematuria, and continuing baby aspirin. The patient may require anticoagulation therapy given his severe LV dysfunction to avoid LV thrombus formation. This will need to be adjudicated with respect to his hematuria. In the meantime we will decrease his Coreg to 6.25 mg p.o. twice daily as he has had some heart failure with the eventual plan to increase it as he becomes more optimized. Recommend 1 more day of IV Lasix therapy followed by transitioning to Lasix 40 mg a day. The patient reports he was on no diuretic therapy upon discharge to his knowledge. In addition I would recommend adding Aldactone 25 mg p.o. daily to his diuretic regimen. He is already on lisinopril 30 mg a day and would recommend continuing this. In addition I recommend a 1500 cc fluid restriction. Now that the patient appears to have nonobstructive coronary disease and does not require intervention, he may proceed with cardiac rehab. Once this is been completed I would repeat his echocardiogram to determine if he is guarded any benefit from exercise and medical management. If his LV function has not improved he may require a prophylactic AICD for sudden cardiac prevention. 2. Hyperlipidemia: Given the patient's coronary disease would recommend statin based medications in the form of Lipitor 20 mg p.o. nightly and repeating lipid profile in 6 weeks time. 3. Patient has declined to follow-up with Dr. Garces and wishes to follow-up with Dr. Nassar. Discussed with Dr. Minaya. Thank you very much for the opportunity to precipitate the cardiac care of your patient. If all goes well and the patient is medically optimized he may be discharged home tomorrow 01/25/18. Code Visit Inpatient E&M: 84129 Init Hosp L2
[2018-01-24 10:31] LABS: Cholesterol 123 mg/dL (200); High Density Lipoprotein 34 mg/dL; Triglycerides 76 mg/dL; Very Low Density Lipoprotein 15 mg/dL (5-40)
--- NOTE | 2018-01-24 11:00 | CASEMGMT ---
Readmission chart review: Pt was admitted 01/13/18-01/14/18 for COPD/prostatitis. See RN CM assessment completed by this RN CM on 01/14/18. Pt was sent home with nebulizer and home oxygen from [facility]. Pt readmitted 01/23/18 with SOB/suprapubic pain and diagnosed with acute systolic CHF exacerbation. Pt had refused heart cath during 1st admission and was strongly encouraged to have heart cath which was completed today. CM to follow for any further discharge planning/needs. SStaten ESTIVEN MITCHELL
[2018-01-24 11:01] LABS: Blood Gas Specimen Type VEN; VBG BASE EXCESS 6 mmol/L (-1.0-3.5); VBG Bicarbonate 30 mmol/L (22-26); VBG Oxygen Content 32 mmol/L (23-33); VBG PO2 30 mmHg (25-40); VBG SO2 59 % (50-70); VBG pCO2 43.6 mmHg (41-51); VBG pH 7.45 (7.32-7.42)
[2018-01-24 11:01] LABS: ACT Activated Clotting Time 208 sec (74-137)
[2018-01-24 11:01] LABS: Blood Gas Specimen Type VEN; VBG BASE EXCESS 7 mmol/L (-1.0-3.5); VBG Bicarbonate 32 mmol/L (22-26); VBG Oxygen Content 33 mmol/L (23-33); VBG PO2 25 mmHg (25-40); VBG SO2 47 % (50-70); VBG pCO2 48.4 mmHg (41-51); VBG pH 7.42 (7.32-7.42)
[2018-01-24 11:01] LABS: Base Excess 5 mmol/L (-2 to +2); Bicarbonate 27.7 mmol/L (22-26); Blood Gas Specimen Type ART; PO2 48 mmHG (75-100); SO2 88 % (95-99); Total Carbon Dioxide 29 mmol/L; pCO2 33.4 mmHg (35-45); pH 7.53 (7.35-7.45)
[2018-01-24 11:35] LABS: ACT Activated Clotting Time 164 sec (74-137)
--- NOTE | 2018-01-24 13:30 | NURSING ---
Dr. Minaya at bedside. Bleeding noted from right groin cath site at this time. Sand bag removed and Manual pressure immediately applied. BP obtained. Patient supine. Charge nurse ESTIVEN Michelle called and notified. Acid Conditioning Worker called to come and assess patient. Oxygen applied at 3L via nasal cannula. Will continue to monitor and assess patient.
--- NOTE | 2018-01-24 13:48 | NURSING ---
Nursing report called to ESTIVEN Lu in ICU at this time.
--- NOTE | 2018-01-24 14:09 | PCM.PROGNOTE ---
Subjective: Chief complaint: Follow-up after admission for acute systolic CHF and acute hypoxic respiratory failure. Patient seen and examined. No acute events overnight. He just came from the heart cath. He mentioned that his breathing is okay while improved to the patient, I looked at his groin and he has active bleeding at the catheterization site. He is afebrile, blood pressure and heart rate stable, pulse ox is 93% on 3 L. - Physical Exam General: Alert, Oriented x3, Cooperative, - - Moderately short of breath. HEENT: Atraumatic, PERRLA, EOMI, Normocephalic Oral: Moist Mucosa, No Gingival or Mucosal Lesions/ Ulcerations Neck: Supple, No JVD, Negative Carotid Bruits, Trachea Midline, Thyroid Normal Size and Texture Lungs: Clear to auscultation, No rhonchi, No wheeze, No rales, Diminished Cardiovascular: Regular rate, Regular Rhythm, Normal S1, Normal S2, PMI Normal Abdomen: Bowel Sounds Present, Soft, Non Tender, Non-Distended, No Hepato-splenomegaly Extremities: No clubbing, No cyanosis, Edema - + Edema. Skin: No rashes, No breakdown Lymphatic: No Cervical, Supraclavicular, or Inguinal Adenopathy Neurological: Cranial nerves II-XII grossly intact, Motor Exam 5/5 strength throughout Psych/Mental Status: Normal Affect, Appropriate, Alert and oriented to time, place, person, mood and affect Vital Signs Temp Pulse Resp BP Pulse Ox 98.7 F 85 16 99/65 92 01/24/18 13:45 01/24/18 13:45 01/24/18 13:45 01/24/18 13:45 01/24/18 13:45 Oxygen Flow Rate (L/min) 3 Oxygen Delivery Method Nasal Cannula Weight: 134 lb 7.712 oz Body Mass Index (BMI) 22.3 Intake and Output for Last 24 Hours 01/22/18 01/23/18 01/24/18 23:59 23:59 23:59 Intake Total 510 / 510 40 / 40 Output Total 3500 / 3500 600 / 600 Balance -2990 / -2990 -560 / -560 Laboratory Tests Past 24 Hrs 01/23/18 01/23/18 01/23/18 13:50 13:50 13:50 WBC 7.4 RBC 4.19 L Hgb 13.5 Hct 42.6 MCV 101.7 H MCH 32.2 H MCHC 31.7 L RDW 13.4 RDW Differential 49.8 H Plt Count 155 MPV 10.6 Immature Gran % (Auto) 0.100 Neut % (Auto) 68.4 Lymph % (Auto) 20.9 [place] % (Auto) 9.3 Eos % (Auto) 1.2 Baso % (Auto) 0.1 Absolute Neuts (auto) 5.1 Absolute Lymphs (auto) 1.55 Total Counted Not Reportable Differential Comment PT INR APTT Activated Clotting Time Specimen Type pH Bicarbonate Actual POC Total CO2 Base Excess O2 Saturation ABG pCO2 ABG pO2 VBG pH VBG pO2 VBG O2 Sat (Calc) VBG O2 Content VBG Base Excess POC Mix VBG pCO2 Pt Tmp Sodium 139 Potassium 5.1 Chloride 105 Carbon Dioxide 31.0 Anion Gap 3 L BUN 36 H Creatinine 1.09 Estim Creat Clear Calc 66.12 Est GFR (MDRD) Af Amer 91 Est GFR (MDRD) Non-Af 76 BUN/Creatinine Ratio 33.0 H Glucose 114 H Calcium 8.1 L Magnesium Total Bilirubin 0.70 AST 48 H ALT 78 H Alkaline Phosphatase 81 Troponin I 0.041 B-Natriuretic Peptide 3367.4 H Total Protein 6.0 L Albumin 3.0 L Globulin 3.0 Albumin/Globulin Ratio 1.0 Triglycerides Cholesterol LDL Cholesterol VLDL Cholesterol HDL Cholesterol Urine Color Urine Clarity Urine pH Ur Specific [place] Urine Protein Urine Glucose (UA) Urine Ketones Urine Occult Blood Urine Nitrite Urine Bilirubin Urine Urobilinogen Ur Leukocyte Esterase Urine RBC Urine WBC Ur Squamous Epith Cells Urine Bacteria Urine Mucus 01/23/18 01/24/18 01/24/18 17:30 05:25 05:25 WBC 6.9 RBC 3.94 L Hgb 12.9 L Hct 39.3 L MCV 99.7 H MCH 32.7 H MCHC 32.8 RDW 12.7 RDW Differential 45.1 H Plt Count 137 L MPV 10.8 Immature Gran % (Auto) 0.100 Neut % (Auto) 91.9 H Lymph % (Auto) 4.8 L [place] % (Auto) 3.2 Eos % (Auto) 0.0 Baso % (Auto) 0.0 Absolute Neuts (auto) 6.3 Absolute Lymphs (auto) 0.33 L Total Counted Not Reportable Differential Comment SCANNED PT INR APTT Activated Clotting Time Specimen Type pH Bicarbonate Actual POC Total CO2 Base Excess O2 Saturation ABG pCO2 ABG pO2 VBG pH VBG pO2 VBG O2 Sat (Calc) VBG O2 Content VBG Base Excess POC Mix VBG pCO2 Pt Tmp Sodium 140 Potassium 4.2 Chloride 103 Carbon Dioxide 30.0 Anion Gap 7 BUN 33 H Creatinine 0.98 Estim Creat Clear Calc 76.08 Est GFR (MDRD) Af Amer 103 Est GFR (MDRD) Non-Af 85 BUN/Creatinine Ratio 33.5 H Glucose 98 Calcium 8.2 L Magnesium Total Bilirubin AST ALT Alkaline Phosphatase Troponin I B-Natriuretic Peptide Total Protein Albumin Globulin Albumin/Globulin Ratio Triglycerides Cholesterol LDL Cholesterol VLDL Cholesterol HDL Cholesterol Urine Color Yellow Urine Clarity Clear Urine pH 6.0 Ur Specific [place] 1.015 Urine Protein Negative Urine Glucose (UA) Normal Urine Ketones Negative Urine Occult Blood 250 H Urine Nitrite Negative Urine Bilirubin Negative Urine Urobilinogen Normal Ur Leukocyte Esterase Negative Urine RBC 0-5 SEEN Urine WBC 0 SEEN Ur Squamous Epith Cells 0 SEEN Urine Bacteria 0 SEEN Urine Mucus 0 SEEN 01/24/18 01/24/18 01/24/18 05:25 05:25 05:25 WBC RBC Hgb Hct MCV MCH MCHC RDW RDW Differential Plt Count MPV Immature Gran % (Auto) Neut % (Auto) Lymph % (Auto) [place] % (Auto) Eos % (Auto) Baso % (Auto) Absolute Neuts (auto) Absolute Lymphs (auto) Total Counted Differential Comment PT 20.0 H INR 1.7 APTT 33.7 Activated Clotting Time Specimen Type pH Bicarbonate Actual POC Total CO2 Base Excess O2 Saturation ABG pCO2 ABG pO2 VBG pH VBG pO2 VBG O2 Sat (Calc) VBG O2 Content VBG Base Excess POC Mix VBG pCO2 Pt Tmp Sodium Potassium Chloride Carbon Dioxide Anion Gap BUN Creatinine Estim Creat Clear Calc Est GFR (MDRD) Af Amer Est GFR (MDRD) Non-Af BUN/Creatinine Ratio Glucose Calcium Magnesium 2.0 Total Bilirubin AST ALT Alkaline Phosphatase Troponin I B-Natriuretic Peptide Total Protein Albumin Globulin Albumin/Globulin Ratio Triglycerides 76 Cholesterol 123 LDL Cholesterol 74 VLDL Cholesterol 15 HDL Cholesterol 34 L Urine Color Urine Clarity Urine pH Ur Specific [place] Urine Protein Urine Glucose (UA) Urine Ketones Urine Occult Blood Urine Nitrite Urine Bilirubin Urine Urobilinogen Ur Leukocyte Esterase Urine RBC Urine WBC Ur Squamous Epith Cells Urine Bacteria Urine Mucus 01/24/18 01/24/18 01/24/18 08:59 09:02 09:06 WBC RBC Hgb Hct MCV MCH MCHC RDW RDW Differential Plt Count MPV Immature Gran % (Auto) Neut % (Auto) Lymph % (Auto) [place] % (Auto) Eos % (Auto) Baso % (Auto) Absolute Neuts (auto) Absolute Lymphs (auto) Total Counted Differential Comment PT INR APTT Activated Clotting Time Specimen Type DAVIDA DAVIDA ART pH 7.53 H Bicarbonate Actual 27.7 H POC Total CO2 29 Base Excess 5 H O2 Saturation 88 L ABG pCO2 33.4 L ABG pO2 48 L VBG pH 7.45 H 7.42 VBG pO2 30 25 VBG O2 Sat (Calc) 59 47 L VBG O2 Content 32 33 VBG Base Excess 6 H 7 H POC Mix VBG pCO2 Pt Tmp 43.6 48.4 Sodium Potassium Chloride Carbon Dioxide Anion Gap BUN Creatinine Estim Creat Clear Calc Est GFR (MDRD) Af Amer Est GFR (MDRD) Non-Af BUN/Creatinine Ratio Glucose Calcium Magnesium Total Bilirubin AST ALT Alkaline Phosphatase Troponin I B-Natriuretic Peptide Total Protein Albumin Globulin Albumin/Globulin Ratio Triglycerides Cholesterol LDL Cholesterol VLDL Cholesterol HDL Cholesterol Urine Color Urine Clarity Urine pH Ur Specific [place] Urine Protein Urine Glucose (UA) Urine Ketones Urine Occult Blood Urine Nitrite Urine Bilirubin Urine Urobilinogen Ur Leukocyte Esterase Urine RBC Urine WBC Ur Squamous Epith Cells Urine Bacteria Urine Mucus 01/24/18 01/24/18 09:32 11:29 WBC RBC Hgb Hct MCV MCH MCHC RDW RDW Differential Plt Count MPV Immature Gran % (Auto) Neut % (Auto) Lymph % (Auto) [place] % (Auto) Eos % (Auto) Baso % (Auto) Absolute Neuts (auto) Absolute Lymphs (auto) Total Counted Differential Comment PT INR APTT Activated Clotting Time 208 H 164 H Specimen Type pH Bicarbonate Actual POC Total CO2 Base Excess O2 Saturation ABG pCO2 ABG pO2 VBG pH VBG pO2 VBG O2 Sat (Calc) VBG O2 Content VBG Base Excess POC Mix VBG pCO2 Pt Tmp Sodium Potassium Chloride Carbon Dioxide Anion Gap BUN Creatinine Estim Creat Clear Calc Est GFR (MDRD) Af Amer Est GFR (MDRD) Non-Af BUN/Creatinine Ratio Glucose Calcium Magnesium Total Bilirubin AST ALT Alkaline Phosphatase Troponin I B-Natriuretic Peptide Total Protein Albumin Globulin Albumin/Globulin Ratio Triglycerides Cholesterol LDL Cholesterol VLDL Cholesterol HDL Cholesterol Urine Color Urine Clarity Urine pH Ur Specific [place] Urine Protein Urine Glucose (UA) Urine Ketones Urine Occult Blood Urine Nitrite Urine Bilirubin Urine Urobilinogen Ur Leukocyte Esterase Urine RBC Urine WBC Ur Squamous Epith Cells Urine Bacteria Urine Mucus Medical Necessity - Tobacco Use Smoking Status: Former smoker Tobacco Use: Cigarettes Assessment/Plan This is a 53 years old male patient presented to the emergency room because of chest pain, found to have acute systolic CHF complicated by acute hypoxic respiratory failure, underwent cardiac catheterization today. #1 acute systolic CHF: This is secondary to nonischemic cardiomyopathy. He underwent cardiac catheterization today that revealed single-vessel disease of the RCA, no interventions performed. He had 2D echocardiogram 10 days ago that revealed ejection fraction of 10%. He is on IV Lasix, Coreg, statins, lisinopril and Aldactone. Cardiology on the case. Plan to continue same treatment, repeat CBC and BMP tomorrow. #2 cardiomyopathy: Probably nonischemic, likely alcoholic. Patient never history of CAD. Ejection fraction is 10%. Status post cardiac catheterization today as above, no interventions performed. Plan to continue IV diuresis, LAVERN inhibitors and beta-blockers. #3 acute hypoxic respiratory failure: Secondary to acute CHF in addition to underlying COPD. Patient never been oxygen at home. He is on IV Lasix for diuresis, on bronchodilators. Plan to continue same treatment, incentive spirometer, chest physiotherapy. #4 urinary retention/hematuria: Status post insertion of the urine catheter. Urinalysis revealed no evidence of acute cystitis. Urology consulted, recommended to start Flomax. Flomax started. #5 catheterization site bleeding: Actively bleeding, [employer] team is taking care of the active bleeding. Plan to do H&H after bleeding stopped, repeat CBC tomorrow morning. #6 COPD: Continue with DuoNeb every 4 hours, oxygen by nasal cannula to keep him to service more than 92%. #7 hypertension: Blood pressure stable, continue Coreg, lisinopril and Aldactone. #8 DVT prophylaxis: SCDs, no chemical prophylaxis. This note was generated with [employer] dictation software. It may contain incorrect words, spelling, and punctuation that were not noted in checking the note before signing. Code Visit Inpatient E&M: 40217 Subs Hosp L2
[2018-01-24] MEDS: Nicotine Polacrilex 2 MG GUM PO (14:38)
[2018-01-24] MEDS: Carvedilol 6.25 MG Tablet PO ×2 (14:41→21:27)
[2018-01-24] MEDS: Spironolactone 25 MG Tablet PO (14:41)
[2018-01-24] MEDS: Furosemide 40 MG/4 ML Vial IV ×2 (14:42→17:54)
[2018-01-24 16:27] LABS: Hematocrit 39.7 % (40-54); Hemoglobin 13.1 g/dl (13.0-16.5)
[2018-01-24] MEDS: Tamsulosin HCl 0.4 MG Capsule PO (17:54)
[2018-01-24] MEDS: Atorvastatin Calcium 20 MG Tablet PO (21:27)
[2018-01-25] VITALS (10 sets, daily range): BP systolic 102–120; BP diastolic 74–98; PULSE 93–114; RESP 6–27; TEMP 36.6–37.1; O2SAT 92–98
[2018-01-25] MEDS: 0.9% NaCl Peripheral Flush Adult/Peds IV ×3 (00:31→07:32)
[2018-01-25] MEDS: Morphine 2 MG/ML Syringe 1 MG IV ×2 (00:31→04:51)
[2018-01-25] MEDS: Nicotine Polacrilex 2 MG GUM PO (04:46)
[2018-01-25 04:48] LABS: Absolute Lymphocyte Count 1.99 X10^3/ul (0.83-4.51); Absolute Neutrophil Count 7.6 X10^3/uL (2.0-7.7); Basophil# 0.01 X10^3/uL; Basophil% 0.1 % (0-1); Eosinophil# 0.02 X10^3/uL; Eosinophils% 0.2 % (0-5); Hemoglobin 13.7 g/dl (13.0-16.5); Lymphocyte # 1.99 X10^3/ul (4.0); Lymphocyte % 19.3 % (19-41); Mean Corp Hgb Conc 33.4 g/gl (32-36); Mean Corpuscular Hgb 33.3 pg (27.0-32.0); Mean Corpuscular Volume 99.5 fL (80-94); Mean Platelet Vol. 10.4 fl (6.2-12.0); Monocyte# 0.69 X10^3/uL; Monocyte% 6.7 % (0-10); Neutrophil # 7.57 X10^3/uL (2.7-7.7); Neutrophil % 73.6 % (47-70); Platelet Count 140 K/mm3 (150-450); RBC Distribution Width SD 46.4 fl (35.1-43.9); Red Blood Count 4.12 M/mm3 (4.6-6.2); White Blood Count 10.3 K/mm3 (4.4-11.0)
[2018-01-25 04:56] LABS: International Normalized Ratio 1.7; Prothrombin Time (Protime)PT. 19.6 SECONDS (11.7-14.9)
[2018-01-25 04:57] LABS: BUN 35 mg/dL (7-18); Creatinine, Serum 1.17 mg/dL (0.70-1.30); Estimated Creatinine Clearance 63.72 ml/min; Glucose 88 mg/dL (74-106)
[2018-01-25 04:58] LABS: Anion Gap 9 (5-15); BUN/Creat Ratio 29.9 RATIO (10-20); Chloride 103 mmol/L (98-107); EST Glomerular Filtration Rate 70 mL/min (>60); Est Glom Filt Rate - Afr Amer 84 mL/min (>60); Potassium 4.2 mmol/L (3.5-5.1); Sodium Level 144 mmol/L (136-145)
[2018-01-25 05:03] LABS: POSITIVE COUNT NO; POSITIVE DIFFERENTIAL NO; POSITIVE MORPHOLOGY NO
[2018-01-25] MEDS: Aspirin E.C. 81 MG Tablet PO (07:32)
--- NOTE | 2018-01-25 09:07 | PCM.PROGNOTE ---
Subjective: Chief complaint: Follow-up after admission for acute systolic CHF and acute hypoxic failure. Patient seen and examined. No acute events overnight. Today, he mentioned his breathing is okay. Denies chest pain or palpitations. He has no bleeding in the right groin. Pulse ox is maintained on 2 L, other vital signs are stable. - Physical Exam General: Alert, Oriented x3, Cooperative, No apparent distress HEENT: Atraumatic, PERRLA, EOMI, Normocephalic Oral: Moist Mucosa, No Gingival or Mucosal Lesions/ Ulcerations Neck: Supple, No JVD, Negative Carotid Bruits, Trachea Midline, Thyroid Normal Size and Texture Lungs: Clear to auscultation, No rhonchi, No wheeze, No rales, Diminished Cardiovascular: Regular rate, Regular Rhythm, Normal S1, Normal S2, PMI Normal Abdomen: Bowel Sounds Present, Soft, Non Tender, Non-Distended, No Hepato-splenomegaly Extremities: No clubbing, No cyanosis, Edema - Trace edema. Skin: No rashes, No breakdown Lymphatic: No Cervical, Supraclavicular, or Inguinal Adenopathy Neurological: Cranial nerves II-XII grossly intact, Motor Exam 5/5 strength throughout Psych/Mental Status: Normal Affect, Appropriate, Alert and oriented to time, place, person, mood and affect Vital Signs Temp Pulse Resp BP Pulse Ox 97.9 F 101 H 20 H 120/98 H 92 01/25/18 04:00 01/25/18 07:03 01/25/18 06:00 01/25/18 06:00 01/25/18 07:30 Oxygen Flow Rate (L/min) 2 Oxygen Delivery Method Nasal Cannula Weight: 134 lb 11.239 oz Body Mass Index (BMI) 22.3 Intake and Output for Last 24 Hours 01/23/18 01/24/18 01/25/18 23:59 23:59 23:59 Intake Total 510 / 510 970 / 970 60 / 60 Output Total 3500 / 3500 4175 / 4175 200 / 200 Balance -2990 / -2990 -3205 / -3205 -140 / -140 Laboratory Tests Past 24 Hrs 01/24/18 01/24/18 01/24/18 05:25 08:59 09:02 WBC RBC Hgb Hct MCV MCH MCHC RDW RDW Differential Plt Count MPV Immature Gran % (Auto) Neut % (Auto) Lymph % (Auto) [place] % (Auto) Eos % (Auto) Baso % (Auto) Absolute Neuts (auto) Absolute Lymphs (auto) Total Counted PT INR Activated Clotting Time Specimen Type DAVIDA DAVIDA pH Bicarbonate Actual POC Total CO2 Base Excess O2 Saturation ABG pCO2 ABG pO2 VBG pH 7.45 H 7.42 VBG pO2 30 25 VBG O2 Sat (Calc) 59 47 L VBG O2 Content 32 33 VBG Base Excess 6 H 7 H POC Mix VBG pCO2 Pt Tmp 43.6 48.4 Sodium Potassium Chloride Carbon Dioxide Anion Gap BUN Creatinine Estim Creat Clear Calc Est GFR (MDRD) Af Amer Est GFR (MDRD) Non-Af BUN/Creatinine Ratio Glucose Calcium Triglycerides 76 Cholesterol 123 LDL Cholesterol 74 VLDL Cholesterol 15 HDL Cholesterol 34 L 01/24/18 01/24/18 01/24/18 09:06 09:32 11:29 WBC RBC Hgb Hct MCV MCH MCHC RDW RDW Differential Plt Count MPV Immature Gran % (Auto) Neut % (Auto) Lymph % (Auto) [place] % (Auto) Eos % (Auto) Baso % (Auto) Absolute Neuts (auto) Absolute Lymphs (auto) Total Counted PT INR Activated Clotting Time 208 H 164 H Specimen Type ART pH 7.53 H Bicarbonate Actual 27.7 H POC Total CO2 29 Base Excess 5 H O2 Saturation 88 L ABG pCO2 33.4 L ABG pO2 48 L VBG pH VBG pO2 VBG O2 Sat (Calc) VBG O2 Content VBG Base Excess POC Mix VBG pCO2 Pt Tmp Sodium Potassium Chloride Carbon Dioxide Anion Gap BUN Creatinine Estim Creat Clear Calc Est GFR (MDRD) Af Amer Est GFR (MDRD) Non-Af BUN/Creatinine Ratio Glucose Calcium Triglycerides Cholesterol LDL Cholesterol VLDL Cholesterol HDL Cholesterol 01/24/18 01/25/18 01/25/18 16:15 04:35 04:35 WBC 10.3 RBC 4.12 L Hgb 13.1 13.7 Hct 39.7 L 41.0 MCV 99.5 H MCH 33.3 H MCHC 33.4 RDW 13.0 RDW Differential 46.4 H Plt Count 140 L MPV 10.4 Immature Gran % (Auto) 0.100 Neut % (Auto) 73.6 H Lymph % (Auto) 19.3 [place] % (Auto) 6.7 Eos % (Auto) 0.2 Baso % (Auto) 0.1 Absolute Neuts (auto) 7.6 Absolute Lymphs (auto) 1.99 Total Counted Not Reportable PT 19.6 H INR 1.7 Activated Clotting Time Specimen Type pH Bicarbonate Actual POC Total CO2 Base Excess O2 Saturation ABG pCO2 ABG pO2 VBG pH VBG pO2 VBG O2 Sat (Calc) VBG O2 Content VBG Base Excess POC Mix VBG pCO2 Pt Tmp Sodium Potassium Chloride Carbon Dioxide Anion Gap BUN Creatinine Estim Creat Clear Calc Est GFR (MDRD) Af Amer Est GFR (MDRD) Non-Af BUN/Creatinine Ratio Glucose Calcium Triglycerides Cholesterol LDL Cholesterol VLDL Cholesterol HDL Cholesterol 01/25/18 04:35 WBC RBC Hgb Hct MCV MCH MCHC RDW RDW Differential Plt Count MPV Immature Gran % (Auto) Neut % (Auto) Lymph % (Auto) [place] % (Auto) Eos % (Auto) Baso % (Auto) Absolute Neuts (auto) Absolute Lymphs (auto) Total Counted PT INR Activated Clotting Time Specimen Type pH Bicarbonate Actual POC Total CO2 Base Excess O2 Saturation ABG pCO2 ABG pO2 VBG pH VBG pO2 VBG O2 Sat (Calc) VBG O2 Content VBG Base Excess POC Mix VBG pCO2 Pt Tmp Sodium 144 Potassium 4.2 Chloride 103 Carbon Dioxide 32.0 Anion Gap 9 BUN 35 H Creatinine 1.17 Estim Creat Clear Calc 63.72 Est GFR (MDRD) Af Amer 84 Est GFR (MDRD) Non-Af 70 BUN/Creatinine Ratio 29.9 H Glucose 88 Calcium 8.0 L Triglycerides Cholesterol LDL Cholesterol VLDL Cholesterol HDL Cholesterol Medical Necessity - Tobacco Use Smoking Status: Former smoker Tobacco Use: Cigarettes Assessment/Plan This is a 53 years old male patient presented to the emergency room because of chest pain, found to have acute systolic CHF complicated by acute hypoxic respiratory failure. #1 acute systolic CHF: This is secondary to nonischemic cardiomyopathy. He is on IV Lasix, Aldactone, Coreg and lisinopril. He underwent cardiac catheterization yesterday that revealed single-vessel disease of the RCA, no interventions performed. He had 2D echocardiogram 10 days ago that revealed ejection fraction of 10%. Cardiology on the case. Plan to continue same treatment, ambulate. #2 cardiomyopathy: Probably nonischemic, likely alcoholic. Patient never history of CAD. Ejection fraction is 10%. Status post cardiac catheterization as above, no interventions performed. Plan as above. #3 acute hypoxic respiratory failure: Secondary to acute CHF in addition to underlying COPD. Patient never been oxygen at home. He is on IV Lasix for diuresis, on bronchodilators. #4 urinary retention/hematuria: Status post insertion of the urine catheter. Urinalysis revealed no evidence of acute cystitis. He is on Flomax. Urine is clearing up from blood but still dark. We may need to do a voiding trial today. Urology on the case. #5 catheterization site bleeding: This morning, he has no more bleeding. No evidence of localized hematoma on the right groin. Hemoglobin and hematocrit are stable. #6 COPD: Continue with DuoNeb every 4 hours, oxygen by nasal cannula to keep him to service more than 92%. #7 hypertension: Blood pressure stable, continue Coreg, lisinopril and Aldactone. #8 DVT prophylaxis: SCDs, no chemical prophylaxis. This note was generated with [employer] dictation software. It may contain incorrect words, spelling, and punctuation that were not noted in checking the note before signing. Code Visit Inpatient E&M: 41666 Subs Hosp L2
[2018-01-25] MEDS: Carvedilol 6.25 MG Tablet PO (10:03)
[2018-01-25] MEDS: Spironolactone 25 MG Tablet PO (10:03)
[2018-01-25] MEDS: Furosemide 40 MG/4 ML Vial IV (10:04)
[2018-01-25] MEDS: Lisinopril 10 MG Tablet 30 MG PO (10:04)
--- NOTE | 2018-01-25 10:09 | PCM.PN.CARD ---
Subjectve: Patient doing very well this morning, and wishes to go home. Appears to be somewhat agitated and anxious, but fairly lucid. Right groin is clean/dry/intact without evidence of thrills, bruits or hematoma. FFR evaluation of mid RCA yesterday was negative. Objective: Vital Signs Temp Pulse Resp BP Pulse Ox 97.9 F 101 H 20 H 120/98 H 92 01/25/18 04:00 01/25/18 07:03 01/25/18 06:00 01/25/18 06:00 01/25/18 07:30 Oxygen Flow Rate (L/min) 2 Oxygen Delivery Method Nasal Cannula Weight: 134 lb 11.239 oz Body Mass Index (BMI) 22.3 Intake and Output for Last 24 Hours 01/23/18 01/24/18 01/25/18 23:59 23:59 23:59 Intake Total 510 / 510 970 / 970 60 / 60 Output Total 3500 / 3500 4175 / 4175 200 / 200 Balance -2990 / -2990 -3205 / -3205 -140 / -140 General: Awake, Alert, Oriented x 3 HEENT: PERRL, EOMI, Sclera Non Icteric Neck: Supple, Good ROM, No Lymph Node Enlargement Lungs: Clear to auscultation Cardiovascular: Regular Rhythm, Normal S1, Normal S2, No Murmurs, No Rubs, No Gallops Vascular: No Carotid Bruits, Normal Femoral Pulses, Normal Radial Pulses, Normal Dorsalis Pedal Pulse, Normal Posterior Tibial Pulses Abdomen: Bowel Sounds Present, Soft, Non Tender, No HSM, No Organomegaly Extremities: No Cyanosis, No Clubbing, No edema Neurological: No Focal Motor or Sensory Deficit 01/24/18 05:25: Triglycerides 76, Cholesterol 123, LDL Cholesterol 74, VLDL Cholesterol 15, HDL Cholesterol 34 L 01/24/18 08:59: VBG pH 7.45 H, VBG pO2 30, VBG O2 Sat (Calc) 59, VBG O2 Content 32, VBG Base Excess 6 H 01/24/18 09:02: VBG pH 7.42, VBG pO2 25, VBG O2 Sat (Calc) 47 L, VBG O2 Content 33, VBG Base Excess 7 H 01/24/18 09:06: pH 7.53 H, Bicarbonate Actual 27.7 H, POC Total CO2 29, Base Excess 5 H, O2 Saturation 88 L, ABG pCO2 33.4 L, ABG pO2 48 L 01/24/18 16:15: Hgb 13.1, Hct 39.7 L 01/25/18 04:35: WBC 10.3, RBC 4.12 L, Hgb 13.7, Hct 41.0, MCV 99.5 H, MCH 33.3 H, MCHC 33.4, RDW 13.0, RDW Differential 46.4 H, Plt Count 140 L, MPV 10.4, Immature Gran % (Auto) 0.100, Neut % (Auto) 73.6 H, Lymph % (Auto) 19.3, [place] % (Auto) 6.7, Eos % (Auto) 0.2, Baso % (Auto) 0.1, Absolute Neuts (auto) 7.6, Total Counted Not Reportable 01/25/18 04:35: PT 19.6 H, INR 1.7 01/25/18 04:35: Sodium 144, Potassium 4.2, Chloride 103, Carbon Dioxide 32.0, Anion Gap 9, BUN 35 H, Creatinine 1.17, Est GFR (MDRD) Af Amer 84, Est GFR (MDRD) Non-Af 70, BUN/Creatinine Ratio 29.9 H, Glucose 88, Calcium 8.0 L Rhythm: EKG: ECHO: Stress Test: Cardiac Cath: PCI: CT Surgery: Holter monitor: EPS: PPM: CXR: Chest CT Scan: Medical Necessity - Tobacco Use Smoking Status: Former smoker Tobacco Use: Cigarettes Assessment/Plan 1. LV dysfunction: The patient has severe LV dysfunction as demonstrated by echocardiogram with an EF around 10%. Patient had agreed to left and right heart catheterization which was performed on 01/24/18 by myself which demonstrated mild to moderate pulmonary hypertension, severe LV dysfunction with an EF around 10%, nonobstructive coronary disease of his LAD, left main and left circumflex, and a questionably significant long mid RCA stenosis. This was evaluated with FFR flow wire which was found to be 1.0 with adenosine augmentation. This was not found to be significant, so no additional stenting was performed. At this point I would recommend discontinuation of his Plavix given his recent hematuria, and continuing baby aspirin. The patient may require anticoagulation therapy given his severe LV dysfunction to avoid LV thrombus formation. This will need to be adjudicated with respect to his hematuria. In the meantime we will decrease his Coreg to 6.25 mg p.o. twice daily as he has had some heart failure with the eventual plan to increase it as he becomes more optimized. Recommend switching him to Lasix 40 mg p.o. daily. The patient reports he was on no diuretic therapy upon discharge to his knowledge. In addition I would recommend adding Aldactone 25 mg p.o. daily to his diuretic regimen. He is already on lisinopril 30 mg a day and would recommend continuing this. In addition I recommend a 1500 cc fluid restriction. Now that the patient appears to have nonobstructive coronary disease and does not require intervention, he may proceed with cardiac rehab. Once this is been completed I would repeat his echocardiogram to determine if he is guarded any benefit from exercise and medical management. If his LV function has not improved he may require a prophylactic AICD for sudden cardiac prevention. 2. Hyperlipidemia: Given the patient's coronary disease would recommend statin based medications in the form of Lipitor 20 mg p.o. nightly and repeating lipid profile in 6 weeks time. 3. Patient has declined to follow-up with Dr. Garces and wishes to follow-up with Dr. Nassar. Discussed with Dr. Minaya. Thank you very much for the opportunity to precipitate the cardiac care of your patient. If all goes well and the patient is medically optimized he may be discharged home today 01/25/18. Code Visit Inpatient E&M: 59912 Subs Hosp L2
--- NOTE | 2018-01-25 10:13 | PN.CARD_ITS ---
Subjectve: Patient doing very well this morning, and wishes to go home. Appears to be somewhat agitated and anxious, but fairly lucid. Right groin is clean/dry /intact without evidence of thrills, bruits or hematoma. FFR evaluation of mid RCA yesterday was negative. Objective: Vital Signs Temp Pulse Resp BP Pulse Ox 97.9 F 101 H 20 H 120/98 H 92 01/25/18 04:00 01/25/18 07:03 01/25/18 06:00 01/25/18 06:00 01/25/18 07:30 Oxygen Flow Rate (L/min) 2 Oxygen Delivery Method Nasal Cannula Weight: 134 lb 11.239 oz Body Mass Index (BMI) 22.3 Intake and Output for Last 24 Hours 01/23/18 01/24/18 01/25/18 23:59 23:59 23:59 Intake Total 510 / 510 970 / 970 60 / 60 Output Total 3500 / 3500 4175 / 4175 200 / 200 Balance -2990 / -2990 -3205 / -3205 -140 / -140 General: Awake, Alert, Oriented x 3 HEENT: PERRL, EOMI, Sclera Non Icteric Neck: Supple, Good ROM, No Lymph Node Enlargement Lungs: Clear to auscultation Cardiovascular: Regular Rhythm, Normal S1, Normal S2, No Murmurs, No Rubs, No Gallops Vascular: No Carotid Bruits, Normal Femoral Pulses, Normal Radial Pulses, Normal Dorsalis Pedal Pulse, Normal Posterior Tibial Pulses Abdomen: Bowel Sounds Present, Soft, Non Tender, No HSM, No Organomegaly Extremities: No Cyanosis, No Clubbing, No edema Neurological: No Focal Motor or Sensory Deficit 01/24/18 05:25: Triglycerides 76, Cholesterol 123, LDL Cholesterol 74, VLDL Cholesterol 15, HDL Cholesterol 34 L 01/24/18 08:59: VBG pH 7.45 H, VBG pO2 30, VBG O2 Sat (Calc) 59, VBG O2 Content 32, VBG Base Excess 6 H 01/24/18 09:02: VBG pH 7.42, VBG pO2 25, VBG O2 Sat (Calc) 47 L, VBG O2 Content 33, VBG Base Excess 7 H 01/24/18 09:06: pH 7.53 H, Bicarbonate Actual 27.7 H, POC Total CO2 29, Base Excess 5 H, O2 Saturation 88 L, ABG pCO2 33.4 L, ABG pO2 48 L 01/24/18 16:15: Hgb 13.1, Hct 39.7 L 01/25/18 04:35: WBC 10.3, RBC 4.12 L, Hgb 13.7, Hct 41.0, MCV 99.5 H, MCH 33.3 H , MCHC 33.4, RDW 13.0, RDW Differential 46.4 H, Plt Count 140 L, MPV 10.4, Immature Gran % (Auto) 0.100, Neut % (Auto) 73.6 H, Lymph % (Auto) 19.3, [place] % (Auto) 6.7, Eos % (Auto) 0.2, Baso % (Auto) 0.1, Absolute Neuts (auto) 7.6, Total Counted Not Reportable 01/25/18 04:35: PT 19.6 H, INR 1.7 01/25/18 04:35: Sodium 144, Potassium 4.2, Chloride 103, Carbon Dioxide 32.0, Anion Gap 9, BUN 35 H, Creatinine 1.17, Est GFR (MDRD) Af Amer 84, Est GFR (MDRD) Non-Af 70, BUN/Creatinine Ratio 29.9 H, Glucose 88, Calcium 8.0 L Rhythm: EKG: ECHO: Stress Test: Cardiac Cath: PCI: CT Surgery: Holter monitor: EPS: PPM: CXR: Chest CT Scan: Medical Necessity - Tobacco Use Smoking Status: Former smoker Tobacco Use: Cigarettes Assessment/Plan 1. LV dysfunction: The patient has severe LV dysfunction as demonstrated by echocardiogram with an EF around 10%. Patient had agreed to left and right heart catheterization which was performed on 01/24/18 by myself which demonstrated mild to moderate pulmonary hypertension, severe LV dysfunction with an EF around 10%, nonobstructive coronary disease of his LAD, left main and left circumflex, and a questionably significant long mid RCA stenosis. This was evaluated with FFR flow wire which was found to be 1.0 with adenosine augmen tation. This was not found to be significant, so no additional stenting was performed. At this point I would recommend discontinuation of his Plavix given his recent hematuria, and continuing baby aspirin. The patient may require anticoagulation therapy given his severe LV dysfunction to avoid LV thrombus formation. This will need to be adjudicated with respect to his hematuria. In the meantime we will decrease his Coreg to 6.25 mg p.o. twice daily as he has had some heart failure with the eventual plan to increase it as he becomes more optimized. Recommend switching him to Lasix 40 mg p.o. daily. The patient reports he was on no diuretic therapy upon discharge to his knowledge. In addition I would recommend adding Aldactone 25 mg p.o. daily to his diuretic regimen. He is already on lisinopril 30 mg a day and would recommend continuing this. In addition I recommend a 1500 cc fluid restriction. Now that the patient appears to have nonobstructive coronary disease and does not require intervention, he may proceed with cardiac rehab. Once this is been completed I would repeat his echocardiogram to determine if he is guarded any benefit from exercise and medical management. If his LV function has not improved he may require a prophylactic AICD for sudden cardiac prevention. 2. Hyperlipidemia: Given the patient's coronary disease would recommend statin based medications in the form of Lipitor 20 mg p.o. nightly and repeating lipid profile in 6 weeks time. 3. Patient has declined to follow-up with Dr. Garces and wishes to follow-up with Dr. Nassar. Discussed with Dr. Minaya. Thank you very much for the opportunity to precipitate the cardiac care of your patient. If all goes well and the patient is medically optimized he may be discharged home today 01/25/18. Code Visit Inpatient E&M: 66037 Subs Hosp L2
--- NOTE | 2018-01-25 11:00 | CASEMGMT ---
RN CM Assessment Intro role of CM to patient in room. Pt presented with shortness of breath, hx of COPD. Pt wears home oxygen. Pt states he has no discharge needs, not willing to participate in CM assessment. Did state he has transportation as he drives or can get through [employer]. Verified pharmacy, and PCP. Pt has prescription coverage through [employer]. Radha MOTAN RN ACM
--- NOTE | 2018-01-25 11:36 | DCINST_ITS ---
You will use the following diet at home:: Cardiac, Fluid restricted (specify 2000 mls, 1500 mls) - Less than 1500 cc daily. Your food should be the consistency of: Regular Discharge Activity: Return to Normal Activity Weight Bearing Status: Weight bearing as tolerated Call your doctor if you observe: Fever of 101 or Higher, Inability to urinate, Shortness of breath, Dizziness, Fainting spells, Swelling in the ankles, Chest pain, Increased palpitations (irregular heartbeat), Uncontrolled pain Instructions: Discharge Instructions for Heart Failure, What Is Heart Failure?, Heart Failure: Making Changes to Your Diet, Discharge Instructions: Using Oxygen at Home Allergies/Adverse Reactions: Allergies naproxen [From Naprosyn] Adverse Reaction (Verified 01/23/18 13:43) Nausea naproxen sodium [From Aleve] Adverse Reaction (Verified 01/23/18 13:43) Nausea tramadol Adverse Reaction (Verified 01/23/18 13:43) Nausea Medications to take at Discharge Lisinopril [Zestril] 30 mg PO DAILY 01/13/18 Aspirin E.C. [Ecotrin] 81 mg PO DAILY@0800 #30 tablet 01/14/18 Ipratropium/Albuterol Sulfate [Duoneb] 3 ml INHALATION Q4H.RT #100 ampul.neb 01/14/18 Nicotine Polacrilex [Nicotine Gum] 2 mg PO Q4H PRN PRN #60 gum 01/14/18 Nitroglycerin [Nitrostat] 0.4 mg SUBLINGUAL Q5M PRN #10 tablet 01/14/18 Atorvastatin Calcium [Lipitor] 20 mg PO QHS #90 tab 01/25/18 Carvedilol [Coreg (Beta Ngoc)] 6.25 mg PO BID #90 tab 01/25/18 Furosemide [Lasix] 40 mg PO DAILY #30 tab 01/25/18 Spironolactone [Aldactone] 25 mg PO DAILY #30 tab 01/25/18 Tamsulosin HCl [Flomax] 0.4 mg PO DAILY@1730 #90 cap 01/25/18 The following prescriptions were given: Atorvastatin Calcium [Lipitor] 20 mg PO QHS #90 tab Furosemide [Lasix] 40 mg PO DAILY #30 tab Spironolactone [Aldactone] 25 mg PO DAILY #30 tab Tamsulosin HCl [Flomax] 0.4 mg PO DAILY@1730 #90 cap Carvedilol [Coreg (Beta Ngoc)] 6.25 mg PO BID #90 tab Primary Care Physician: Cesar Arcos DO [Primary Care Provider] - Please follow up with your Primary Care Physician in: 1 week. Test Results: Test results from this visit will be discussed in further detail at your follow- up appointment, if applicable. Please Follow Up With: Vernon Nassar MD When: 2 weeks.
--- NOTE | 2018-01-25 12:14 | DS.PCM_ITS ---
Discharge Date and Diagnosis Date of Admission: 01/23/18 Date of Discharge: 01/25/18 - Primary Discharge Diagnosis #1 acute systolic congestive heart failure. 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 #3 acute on chronic hypoxic respiratory failure. #4 urinary retention/hematuria. - Secondary Discharge Diagnosis Chronic Problems NSTEMI (non-ST elevated myocardial infarction) (Chronic) Cardiomyopathy (Chronic) COPD (chronic obstructive pulmonary disease) (Chronic) Valvular heart disease (Chronic) Hospital Course and Treatment Imaging Results: Clinical Impression(s) from Imaging Studies Chest X-Ray 01/23/18 14:07 IMPRESSION: Large emphysematous blebs. Lower lobe atelectasis and/or infiltrates. Given the large blebs and pneumothorax would be difficult to visualize in this patient. Electronically Signed: Heather Llanos MD at 15:13 EDT Tel , Service support , Dr. Nassar, cardiology. Dr. De Santiago, urology. Procedures: Cardiac catheterization, EKG Summary of Care Provided: The patient is a 53 year old M admitted because of chest pain and shortness of breath and was found to have acute systolic congestive heart failure secondary to nonischemic cardiomyopathy, complicated by acute on chronic hypoxic respiratory failure and also found to have urinary retention and hematuria. He was treated with IV Lasix for diuresis, started on beta-blockers and LAVERN inhibitors as well as Aldactone. He had 2D echocardiogram that was done on January 14, 2018 during the last admission that revealed ejection fraction of 10%. He underwent cardiac catheterization during this admission that revealed single vessel disease of the RCA and no interventions performed. 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 Patient admitted drinking alcohol for long time but he quit drinking 4 years ago. He does have evidence of chronic liver disease based on slightly elevated liver transaminases as well as pro time and INR. Patient has been on oxygen at home and he required more oxygen upon admission but with IV diuresis, his symptoms improved and he was able to be down to 2-3 days of oxygen and maintain his pulse ox. Upon admission, patient had urinary retention, Perez catheter inserted and he had mild hematuria. Urology consulted and recommended to start patient on Flomax and do a voiding trial. Today, Perez catheter was taken out and patient was able to urinate on his own and he has no more hematuria. After the cardiac catheterization, patient developed right groin bleeding without evidence of hematoma. Today, bleeding stopped and his hemoglobin and hematocrit remained stable. His routine blood work was unremarkable. Patient discharged home in a stable medical condition, discharged on home oxygen at 2-3 L, discharged on Aldactone, Coreg, aspirin, Lasix, statins, lisinopril and Flomax, recommended to follow-up with cardiology in 2 weeks, follow-up with PCP in 1 week and follow-up with urology if needed. Discharge instructions for CHF given to the patient. - Physical Exam General: Alert, Oriented x3, Cooperative, No apparent distress HEENT: Atraumatic, PERRLA, EOMI, Normocephalic Oral: Moist Mucosa, No Gingival or Mucosal Lesions/ Ulcerations Neck: Supple, No JVD, Negative Carotid Bruits, Trachea Midline, Thyroid Normal Size and Texture Lungs: Clear to auscultation, No rhonchi, No wheeze, No rales, Diminished Cardiovascular: Regular rate, Regular Rhythm, Normal S1, Normal S2, PMI Normal Abdomen: Bowel Sounds Present, Soft, Non Tender, Non-Distended, No Hepato- splenomegaly Extremities: No clubbing, No cyanosis, Edema - Trace edema. Skin: No rashes, No breakdown Lymphatic: No Cervical, Supraclavicular, or Inguinal Adenopathy Neurological: Cranial nerves II-XII grossly intact, Neuro grossly intact Psych/Mental Status: Normal Affect, Appropriate Vital Signs Temp Pulse Resp BP Pulse Ox 98.7 F 114 H 18 115/78 94 01/25/18 11:35 01/25/18 11:35 01/25/18 11:35 01/25/18 11:35 01/25/18 11:35 Oxygen Flow Rate (L/min) 3 Oxygen Delivery Method Nasal Cannula Weight: 134 lb 11.239 oz Body Mass Index (BMI) 22.3 Intake and Output for Last 24 Hours 01/23/18 01/24/18 01/25/18 23:59 23:59 23:59 Intake Total 510 / 510 970 / 970 60 / 60 Output Total 3500 / 3500 4175 / 4175 200 / 200 Balance -2990 / -2990 -3205 / -3205 -140 / -140 Laboratory Tests Past 24 Hrs 01/24/18 01/25/18 01/25/18 16:15 04:35 04:35 WBC 10.3 RBC 4.12 L Hgb 13.1 13.7 Hct 39.7 L 41.0 MCV 99.5 H MCH 33.3 H MCHC 33.4 RDW 13.0 RDW Differential 46.4 H Plt Count 140 L MPV 10.4 Immature Gran % (Auto) 0.100 Neut % (Auto) 73.6 H Lymph % (Auto) 19.3 [place] % (Auto) 6.7 Eos % (Auto) 0.2 Baso % (Auto) 0.1 Absolute Neuts (auto) 7.6 Absolute Lymphs (auto) 1.99 Total Counted Not Reportable PT 19.6 H INR 1.7 Sodium Potassium Chloride Carbon Dioxide Anion Gap BUN Creatinine Estim Creat Clear Calc Est GFR (MDRD) Af Amer Est GFR (MDRD) Non-Af BUN/Creatinine Ratio Glucose Calcium 01/25/18 04:35 WBC RBC Hgb Hct MCV MCH MCHC RDW RDW Differential Plt Count MPV Immature Gran % (Auto) Neut % (Auto) Lymph % (Auto) [place] % (Auto) Eos % (Auto) Baso % (Auto) Absolute Neuts (auto) Absolute Lymphs (auto) Total Counted PT INR Sodium 144 Potassium 4.2 Chloride 103 Carbon Dioxide 32.0 Anion Gap 9 BUN 35 H Creatinine 1.17 Estim Creat Clear Calc 63.72 Est GFR (MDRD) Af Amer 84 Est GFR (MDRD) Non-Af 70 BUN/Creatinine Ratio 29.9 H Glucose 88 Calcium 8.0 L Discharge Activity: Return to Normal Activity Weight Bearing Status: Weight bearing as tolerated Call your doctor if you observe: Fever of 101 or Higher, Inability to urinate, Shortness of breath, Dizziness, Fainting spells, Swelling in the ankles, Chest pain, Increased palpitations (irregular heartbeat), Uncontrolled pain Home Medications: Medications to take at Discharge Lisinopril [Zestril] 30 mg PO DAILY 01/13/18 Aspirin E.C. [Ecotrin] 81 mg PO DAILY@0800 #30 tablet 01/14/18 Ipratropium/Albuterol Sulfate [Duoneb] 3 ml INHALATION Q4H.RT #100 ampul.neb 01/14/18 Nicotine Polacrilex [Nicotine Gum] 2 mg PO Q4H PRN PRN #60 gum 01/14/18 Nitroglycerin [Nitrostat] 0.4 mg SUBLINGUAL Q5M PRN #10 tablet 01/14/18 Atorvastatin Calcium [Lipitor] 20 mg PO QHS #90 tab 01/25/18 Carvedilol [Coreg (Beta Ngoc)] 6.25 mg PO BID #90 tab 01/25/18 Furosemide [Lasix] 40 mg PO DAILY #30 tab 01/25/18 Spironolactone [Aldactone] 25 mg PO DAILY #30 tab 01/25/18 Tamsulosin HCl [Flomax] 0.4 mg PO DAILY@1730 #90 cap 01/25/18 Following Prescrptions Were Given to Patient: Atorvastatin Calcium [Lipitor] 20 mg PO QHS #90 tab Furosemide [Lasix] 40 mg PO DAILY #30 tab Spironolactone [Aldactone] 25 mg PO DAILY #30 tab Tamsulosin HCl [Flomax] 0.4 mg PO DAILY@1730 #90 cap Carvedilol [Coreg (Beta Ngoc)] 6.25 mg PO BID #90 tab Primary Care Physician: Cesar Arcos DO [Primary Care Provider] - Please follow up with your Primary Care Physician in: 1 week. Please Follow Up With: Vernon Nassar MD When: 2 weeks. Patient Instructions: What Is Heart Failure?, Heart Failure: Making Changes to Your Diet, Discharge Instructions for Heart Failure, Discharge Instructions: Using Oxygen at Home Medical Necessity - Tobacco Use Smoking Status: Former smoker Tobacco Use: Cigarettes Meaningful Use Info Meaningful Use Diagnoses (Choose all that apply): CHF - CHF LAVERN/ARB ordered at discharge?: Yes Documented LVEF (%): 10 Code Visit Inpatient E&M: 27933 Disch Hosp
--- NOTE | 2018-01-27 13:26 | CASEMGMT ---
RN CM DC phone call. DC Date: 01/25/18 DC Disposition: home LACE 4 DC Call: no answer
== END 2018-01-25 12:00 | disposition home or self-care (01) | DRG 192 ==
LOC: ED 14:02 → PCU 16:24 → ICU 01-24 13:53
PROVIDERS: Family Medicine; Internal Medicine Cardiovascular Disease; Admitting Provider Student in an Organized Health Care Education/Training Program; Emergency Provider Emergency Medicine; Family Provider Student in an Organized Health Care Education/Training Program; PCP Student in an Organized Health Care Education/Training Program; Visit Provider Hospitalist
DX: I11.0 Hypertensive heart disease with heart failure (principal); I50.23 Acute on chronic systolic (congestive) heart failure; J96.21 Acute and chronic respiratory failure with hypoxia; Z99.81 Dependence on supplemental oxygen; I42.6 Alcoholic cardiomyopathy; R33.9 Retention of urine, unspecified; R31.9 Hematuria, unspecified; J43.9 Emphysema, unspecified; I27.20 Pulmonary hypertension, unspecified; E78.5 Hyperlipidemia, unspecified; I25.10 Atherosclerotic heart disease of native coronary artery without angina pectoris; Z87.891 Personal history of nicotine dependence
CPT/HCPCS: 36415; 51702; 71045; 80048; 80053; 80061; 81001; 82803; 83735; 83880; 84484; 85014; 85018; 85025; 85347; 85610; 85730; 93005; 93460; 93571; 94640; 97162; 97165; 97802; 99283; 99406; J0153; J7030; A4216; C1751; C1769; C1887; C1894; J1940; J2405; Q9967

== ENCOUNTER 2018-03-28 17:27 | Emergency (ER) | payer MEDICAID, SELFPAY ==
[2018-03-28 17:28] VITALS: BP 109/63; PULSE 110; RESP 18; TEMP 36.9; O2SAT 98; BMI 20.3
--- NOTE | 2018-03-28 19:41 | ED.DCSUM_ITS ---
- ER Visit Summary Date of Service: 03/28/18 Chief Complaint: Dental pain History of Present Illness: The patient is a 53 M presenting with dental pain. He states that this started yesterday. He states he bit down on pizza and broke his right lower tooth. He has had pain since that time. He tried ibuprofen at home. He does not currently have a dentist. He denies other complaints. Physical Examination: Vitals are stable. Patient is afebrile. Alert no acute distress. HEENT exam right lower molar fracture, no sublingual edema. No surrounding fluctuance. Neck is supple. Lungs are clear and equal bilaterally. Heart is regular rate and rhythm. Extremities are unremarkable. Skin is warm and dry. No focal neurologic deficit. Remainder of exam is unremarkable. Emergency Department Course and Treatment: Cavit was applied. He was given a short course of [place] for pain. Advised to follow-up with dentist. Advised return to ED for worsening complaints. Disposition: Discharge home Impression: Right lower molar fracture This note was generated with [employer] dictation software. It may contain incorrect words, spelling, and punctuation that were not noted in review of the chart prio r to signing ED Disposition - Plan for ED Patient: Chief Complaint: Dental Instructions: Dental Trauma Prescriptions: Hydrocodone Bitart/Apap 5-325 [[place] 5MG-325MG] 1 tablet PO Q6H PRN PRN 3 Days #10 tablet PRN Reason: Pain Referrals: Cesar Arcos DO [Primary Care Provider] -
--- NOTE | 2018-03-28 19:53 | ED.DEP ---
ED Disposition - Plan for ED Patient: Chief Complaint: Dental Instructions: Dental Trauma Prescriptions: Hydrocodone Bitart/Apap 5-325 [[place] 5MG-325MG] 1 tablet PO Q6H PRN PRN 3 Days #10 tablet PRN Reason: Pain Referrals: Cesar Arcos DO [Primary Care Provider] -
[2018-03-28] MEDS: HYDROcodone Bitartrate/Apap 5/325 Tablet PO (20:11)
[2018-03-28 20:13] VITALS: BP 109/64; PULSE 67; RESP 15; O2SAT 98
== END 2018-03-28 20:13 | disposition home or self-care (01) ==
LOC: ED 18:51
PROVIDERS: Emergency Provider Emergency Medicine; Family Provider Student in an Organized Health Care Education/Training Program; PCP Student in an Organized Health Care Education/Training Program
DX: S02.5XXA Fracture of tooth (traumatic), initial encounter for closed fracture (principal); X58.XXXA Exposure to other specified factors, initial encounter; Y93.9 Activity, unspecified; Y92.9 Unspecified place or not applicable; I50.9 Heart failure, unspecified; J44.9 Chronic obstructive pulmonary disease, unspecified; Z79.82 Long term (current) use of aspirin; Z79.899 Other long term (current) drug therapy; Z87.891 Personal history of nicotine dependence
CPT/HCPCS: 99282

== ENCOUNTER → 2018-06-09 12:01 | Outpatient (CLI) | payer MEDICAID, SELFPAY ==
[2018-06-09 14:07] VITALS: BMI 21.6
--- NOTE | 2018-06-09 15:00 | RAD_ITS ---
STUDY: X-RAY CHEST REASON FOR EXAM: Male, 53 years old. Shortness of breath. TECHNIQUE: Frontal and lateral views of the chest. COMPARISON: January 23, 2018 FINDINGS: There is emphysema of the lungs. There are large blebs in the upper chest. There are interstitial and groundglass opacities in the lower chest. Small right pleural effusion. Normal size heart. Normal mediastinum and deinse. Normal visualized pulmonary arteries. Normal visualized aortic arch and descending thoracic aorta. Normal visualized thoracic spine. Normal visualized ribs, clavicles, and shoulders. There is no demonstrated abnormality of the visualized soft tissue structures of the upper abdomen. RAD/Chest PA and Lateral IMPRESSION: Severe emphysema. Lower lung edema or infiltrates. Right pleural effusion. Electronically Signed: Andriy Rojas MD at 15:23 EDT , Service support ,
[2018-06-09 16:21] LABS: Hematocrit 40.6 % (40-54); Hemoglobin 12.8 g/dl (13.0-16.5); Mean Corp Hgb Conc 31.5 g/gl (32-36); Mean Corpuscular Hgb 29.1 pg (27.0-32.0); Mean Corpuscular Volume 92.3 fL (80-94); Mean Platelet Vol. 10.4 fl (6.2-12.0); Platelet Count 140 K/mm3 (150-450); RBC Distribution Width CV 14.6 % (11.6-14.6); RBC Distribution Width SD 49.3 fl (35.1-43.9); White Blood Count 6.9 K/mm3 (4.4-11.0)
[2018-06-09 16:34] LABS: Anion Gap 6 (5-15); BUN 31 mg/dL (7-18); BUN/Creat Ratio 23.1 RATIO (10-20); Chloride 97 mmol/L (98-107); Creatinine, Serum 1.34 mg/dL (0.70-1.30); EST Glomerular Filtration Rate 59 mL/min (>60); Est Glom Filt Rate - Afr Amer 72 mL/min (>60); Glucose 99 mg/dL (74-106); Potassium 3.6 mmol/L (3.5-5.1); Sodium Level 136 mmol/L (136-145)
[2018-06-09 16:47] LABS: Scan Indicated on CBC? Y/N NO
[2018-06-09 17:22] LABS: International Normalized Ratio 1.9
[2018-06-09 17:23] LABS: Partial Thromboplast Time 36.1 Seconds (24.1-36.2)
[2018-06-14 08:09] VITALS: BMI 21.6
[2018-06-15 10:56] VITALS: BMI 23.6
== END ==
PROVIDERS: Family Provider Student in an Organized Health Care Education/Training Program; PCP Student in an Organized Health Care Education/Training Program; Referring Provider Internal Medicine Cardiovascular Disease; Visit Provider Internal Medicine Cardiovascular Disease
DX: R07.9 Chest pain, unspecified (principal)
CPT/HCPCS: 36415; 71046; 80048; 85027; 85610; 85730

== ENCOUNTER 2018-06-15 10:55 | Observation (INO) | payer MEDICAID, SELFPAY ==
[2018-06-14 08:09] VITALS: BMI 21.6
[2018-06-15] VITALS (23 sets, daily range): BP systolic 106–134; BP diastolic 64–106; PULSE 74–117; RESP 11–33; TEMP 36.4–37.3; O2SAT 89–99; BMI 23.6; BMI 21.7; BMI 21.8
--- NOTE | 2018-06-15 11:04 | RAD_ITS ---
STUDY: X-RAY CHEST REASON FOR EXAM: Male, 53 years old. Left-sided chest pain. COPD. Emphysema. Myocardial infarction. CHF. TECHNIQUE: Single AP portable view of the chest. COMPARISON: June 09, 2018. FINDINGS: Cardiomegaly. Pulmonary vascularity borderline. Aorta minimally calcified. Severe emphysematous/bullous changes predominating at the apices. Bibasilar coarse lung markings. New increasing right lower lung airspace disease. Blunting of the right costophrenic angle. Slightly elevated right hemidiaphragm. Left hemidiaphragm unremarkable. Upper abdomen unremarkable. Osseous structures intact. No pneumothorax. RAD/Chest 1 View (Portable) IMPRESSION: Slightly increased right lower lung airspace disease (possible early infection versus asymmetric edema) Small right pleural effusion versus costophrenic angle blunting Severe emphysematous/bullous changes at the apices Cardiomegaly Electronically Signed: Piyush Aguilar DO at 11:30 EDT Tel , Service support ,
[2018-06-15 11:10] LABS: Absolute Lymphocyte Count 1.24 X10^3/ul (0.83-4.51); Absolute Neutrophil Count 4.5 X10^3/uL (2.0-7.7); Basophil# 0.03 X10^3/uL; Basophil% 0.5 % (0-1); Eosinophil# 0.01 X10^3/uL; Eosinophils% 0.2 % (0-5); Hematocrit 44.4 % (40-54); Hemoglobin 14.3 g/dl (13.0-16.5); Lymphocyte # 1.24 X10^3/ul (4.0); Lymphocyte % 19.2 % (19-41); Mean Corp Hgb Conc 32.2 g/gl (32-36); Mean Corpuscular Hgb 29.1 pg (27.0-32.0); Mean Corpuscular Volume 90.4 fL (80-94); Mean Platelet Vol. 10.5 fl (6.2-12.0); Monocyte# 0.66 X10^3/uL; Monocyte% 10.2 % (0-10); Neutrophil % 69.7 % (47-70); POSITIVE COUNT NO; POSITIVE DIFFERENTIAL NO; POSITIVE MORPHOLOGY NO; Platelet Count 140 K/mm3 (150-450); RBC Distribution Width CV 14.9 % (11.6-14.6); Red Blood Count 4.91 M/mm3 (4.6-6.2); White Blood Count 6.5 K/mm3 (4.4-11.0)
--- NOTE | 2018-06-15 11:19 | ED.VISSUMM ---
- ER Visit Summary Date of Service: 06/15/18 Chief Complaint: [Chest pain] History of Present Illness: The patient is a 53 M [presents to the emergency department and episode of chest discomfort that started this morning patient states that he had tachycardia that lasted about a half an hour and thinks his heart rate was over 220. Patient also had a discomfort in his chest without any real radiation. Patient states the pain was underneath his left breast. Currently he just has some mild intermittent sharp discomfort. Patient was scheduled to have a cardiac stent placed today here at the hospital by Dr. Nassar. Patient has history of tachycardia. He has been complaining of exertional dyspnea. Patient has history of COPD, cardiomyopathy with CHF, GERD, SVT. Patient also states he has been having abdominal pain off and on for several months. He describes it as kind of all over in his intestines. Patient did have episode of vomiting today. He denies any diarrhea. He denies any fevers. He denies urinary symptoms.] Physical Examination: [HEENT-PERRLA, EOMI. Cranial nerves II through XII grossly intact. TMs clear. Mucous membranes moist. No adenopathy. Cardiovascular-regular rate and rhythm without murmur or ectopy Lungs-clear to auscultation, chest wall stable without crepitus or subcu emphysema Abdomen-normoactive bowel sounds, soft. Patient has diffuse tenderness palpation. There is no rebound, rigidity, or perineal signs. Extremities-intact ?4, normal range of motion, normal pulses, atraumatic] Test Results: [EKG obtained showed a sinus rhythm with a ventricular rate of [address] changes noted. Patient appears to have had an old septal infarct. When compared with prior EKG from December 2017 no significant new changes noted. CBC with differential obtained showed white blood cell count 6.5, hemoglobin 14, hematocrit 44, placed 140.] Emergency Department Course and Treatment: [Patient was discussed with Dr. Vernon Nassar who was on for cardiology who would like to take the patient directly to the Clinical Science Liaison to proceed with the planned intervention. Patient will then be admitted under his service. I did order a CT scan of the abdomen pelvis as well including all the blood work which is currently pending. I do not feel that patient has an acute abdomen.] Treatment Plan: [Admit to Clinical Science Liaison] Disposition: [Admit] Impression: [Chest pain Tachycardia by history Abdominal pain-etiology uncertain] This note was generated with [employer] dictation software. It may contain incorrect words, spelling, and punctuation that were not noted in review of the chart prior to signing ED Disposition - Plan for ED Patient: Referrals: Cesar Arcos DO [Primary Care Provider] -
[2018-06-15] MEDS: 0.9% Normal Saline 1,000 ML 15 ML IV (11:24)
[2018-06-15 11:30] LABS: AST(SGOT) 38 U/L (15-37); Alanine Aminotransfer ALT/SGPT 35 U/L (16-61); Albumin, Serum 3.3 g/dL (3.2-5.0); Alkaline Phosphatase 81 U/L (45-117); Anion Gap 6 (5-15); BUN 29 mg/dL (7-18); BUN/Creat Ratio 21.8 RATIO (10-20); Bilirubin, Direct 0.69 mg/dL (0.00-0.30); Calcium,Total 8.5 mg/dL (8.5-10.1); Chloride 100 mmol/L (98-107); Creatinine, Serum 1.33 mg/dL (0.70-1.30); EST Glomerular Filtration Rate 60 mL/min (>60); Est Glom Filt Rate - Afr Amer 73 mL/min (>60); Estimated Creatinine Clearance 60.74 ml/min; Globulin 3.6 g/dL (2.2-4.2); Glucose 122 mg/dL (74-106); Lipase 90 U/L (73-393); Potassium 3.3 mmol/L (3.5-5.1); Protein, Total 6.9 g/dL (6.4-8.2); Sodium Level 135 mmol/L (136-145)
--- NOTE | 2018-06-15 11:50 | CT_ITS ---
STUDY: CT ABDOMEN AND PELVIS WITHOUT CONTRAST REASON FOR EXAM: Male, 53 years old. Lower abdominal pain. Chest pain at the left axilla. Shortness of breath. RADIATION DOSAGE (If Supplied By Facility): CTDIvol = ( 6.98 ) mGy, DLP = ( 327.60 ) mGycm TECHNIQUE: Transaxial images were obtained from the dome of the diaphragm to the symphysis pubis without oral contrast, and without intravenous contrast. Sagittal and coronal images were reconstructed. Individualized dose optimization techniques were used for this CT. COMPARISON: January 13, 2018. FINDINGS: Lung bases: Moderate sized left pleural effusion with compressive changes (axial image 1 series 2). Bibasilar subpleural airspace disease (axial image 17 series 2). Heart: Trace pericardial effusion. Cardiomegaly. Coronary artery disease. Liver: Perihepatic ascites. Unremarkable noncontrast hepatic features. Gallbladder/biliary ducts: No biliary ductal dilatation. Edema at the gallbladder fossa. No acute gallbladder abnormality. Pancreas: Punctate calcification at the pancreatic tail (axial image 40 series 2). Remainder the noncontrast pancreatic parenchyma unremarkable. Spleen: Slightly atrophic spleen. Adrenal glands: Unremarkable. Kidneys/ureters/bladder: Left renal cyst (axial image 44 series 2). Punctate nonobstructing right renal stone (axial image 57 series 2). Nondistended ureters. Normal urinary bladder. Prostate: Normal volume prostate. Large bowel/small bowel: Colonic diverticulosis without obvious signs of infection (axial image 121 series 2). No perforation. No pneumatosis. No obstruction. Appendix: Unremarkable (axial image 105 series 2). Gastroesophageal junction/stomach: Tiny hiatal hernia. Retroperitoneum/lymph nodes: No intra-abdominal free air. Moderate/severe ascites. No obvious pathologically enlarged lymph nodes. Vascular: Vascular calcifications. No aneurysm. Osseous structures: Mild degenerative changes. No acute process. Subcutaneous/soft tissues: Body wall edema. CT/Abdomen/Pelvis without Cont IMPRESSION: Anasarca with moderate/severe intra-abdominal/pelvic ascites, moderate sized right pleural effusion and body wall edema Bibasilar subpleural airspace disease/atelectasis Cardiomegaly and small pericardial effusion Punctate nonobstructing right renal stone Left renal cyst Colonic diverticulosis Electronically Signed: Piyush Aguilar DO at 12:15 EDT Tel , Service support ,
[2018-06-15] MEDS: Morphine 4 MG/ML Syringe IV ×3 (12:10→20:59)
[2018-06-15] MEDS: Ondansetron 4 MG/2 ML Vial IV (12:10)
--- NOTE | 2018-06-15 12:18 | NURSING ---
ICU MCKAY CP, TACHYCARDIA
[2018-06-15 12:40] LABS: Prothrombin Time Fingerstick 13.9 SEC (11.9-14.4)
--- NOTE | 2018-06-15 12:56 | CASEMGMT ---
RN CM Assessment Introduced role of RN CM to patient and mother Rhonda Keyes at bedside. Patient is alert, oriented and able to participate in RN CM Assessment. Care providers, pharmacy, and demographics verified. Presentation: C/o CP, SOB, Abd pain. Patient has not taken Home Meds the past couple days d/t abd pain. States otherwise compliant with home medication. Discussed h/o CHF and states that he is managed by Dr Nassar but unsure if he has a fluid restriction/management of CHF. CM encouraged patient to discuss with his doctor at next f/u visit. PCP: Dr Cesar Arcos Specialists: Cardio- Dr Nassar Preferred Pharmacy: [facility] Insurance: [employer] Prescription Benefit: Yes LNOK: Brother Aftab Keyes. LW/POA: Denies, refused offered info/services. Living Arrangements: Lives in a 1.5 story house in basement, mother lives up stairs. Independent with ambulation and ADL's. Transportation: Patient drives, Brother Aftab to drive on [place]. DME: Home O2 2LNC PRN- [employer], Nebulizer. HHC: None SNF: None Goal: Home and back to doing things around the house. DC PLAN: Home with no anticipated needs identified at this time. LIBAN Fuentes
--- NOTE | 2018-06-15 14:50 | CL.I_ITS ---
Patient Name: HAROON ROSENBAUM Study Date: 06/15/2018 Performing: Vernon Nassar MD Ht: 66.92 inches 170 cm : 1965 Wt: 152.12 lbs 69 kg Age: 53 Gender: male BSA: 1.8 PROCEDURE(S) PERFORMED [id number] W OR WO PTCA, SINGLE CORONARY ARTERY CLINICAL PROFILE AND CO-MORBIDITIES Indications: Worsening Angina, Stable Known CAD, Cardiomyopathy, LV Dysfunction Heart Failure: NYHA Class: 2, Newly Diagnosed: No, Heart Failure Type: Systolic Stress/Imaging Stress/Image Study Performed: No Angina Classification Anginal Classification w/in 2 Weeks: CCS III CAD Presentations: Unstable angina. Other: Dyspnea on exertion. Comorbidities/Risk Factors: Current/Recent Smoker (< 1year) Hypertension Dyslipidemia Prior CHF CONCLUSIONS Successful PTCA/CARLOZ of mid RCA with a 3.5 x 38 Promus Synergy, post dilated with a 3.5 and 4.0 NC bal loon in proximal 2/3; 75%-->0%, no dissection. Pt had identical CP during balloon inflation as he amin s had at home with exertion and despite recent negative FFR of RCA. RECOMMENDATIONS Highly recommend quitting all tobacco products Follow up with primary bakery deliverer Risk factor modification ASA Indefinitley Plavix for at least 12 months Routine post interventional care Refer for Outpatient Cardiac Rehab Manual sheath removal per protocol Follow up with Dr. Nassar Manual sheath removal given very shallow RFA. Consider AICD if LV function does not improve with PCI, medical management and cardiac rehab. DESCRIPTION OF PROCEDURE The patient arrived to the procedure lab. The risks and benefits of the procedure as well as a full d escription of our services here and current unavailability of surgical backup were fully explained to the patient and/or their significant other prior to the catheterization. The Timeout was completed, verifying the correct patient and procedure. The patient's procedural site was prepped and draped in the usual fashion. Local anesthetic was given subcutaneously to right groin region with Lidocaine 2%. Using a modified Seldinger technique, arterial access was obtained via the right femoral artery, a 6 Fr sheath was inserted.. HS 2 Guide catheter was inserted and engaged into the RCA. BMW Guide wire was advanced to the RCA . 2 x 12 Emerge Balloon catheter was inserted. Balloon catheter was advanced across lesion in the rig ht coronary, mid. Angiogram performed pre balloon dilatation. PTCA balloon inflated at 8 atms for 8 s ecs. PTCA balloon inflated at 12 atms for 10 secs. Angiogram performed post balloon dilatation. 3.5 x 38 Synergy Drug Eluting stent was inserted. Drug Eluting stent was advanced across the lesion in the right coronary, mid. Angiogram performed post stent deployment. 3.5 x 12 NC Emerge Balloon catheter was inserted. Balloon catheter was inserted post stent. Angiogram performed post balloon dilatation. 4 x 8 NC Emerge Balloon catheter was inserted. Balloon catheter was inserted post stent. Angiogram pe rformed post balloon dilatation. The arterial sheath was sutured in place and capped INTERVENTION INFORMATION LESION SITE: RCA (Mid) Lesion Complexity: High/C, lesion at bifurcation: No, thrombus present: No, lesion length: 38 mm, cul prit lesion: Yes Pre Stenosis: 75 % Pre intervention NASRIN flow: 3 PROCEDURE: Drug Eluting Stent with pre and post dilatation Post Stenosis: 0 % Post intervention NASRIN flow: 3 Lesion Devices: Cruz .014 BMW [place] Straight 190cm ihijitronic 6 Fr HSII 100cm Guide Catheter Kailash Sci EMERGE MR 2.00x12 BALLOON Kailash Sci Synergy MR CARLOZ 3.50x38 Kailash Sci NC EMERGE MR 3.50x12 BALLOON Kailash Sci NC EMERGE MR 4.00x08 BALLOON COMPLICATIONS No Complications PROCEDURE MEDICATIONS Oxygen: 2 L/min via nasal cannula Brilinta 180 mg PO @ 06/15/2018 13:03:04 Heparin 6000 unit(s) IV 06/15/2018 14:20:14 Nitro 200 mcg IC 06/15/2018 14:20:59 Nitro 200 mcg IC 06/15/2018 14:20:59 IV Bolus: .9 NaCl 1100 ml total 06/15/2018 14:38:24 IV Fluids: .9 NaCl increased to WO ml/hr 06/15/2018 14:20:21 SUMMARY OF HEMODYNAMIC DATA Time AIR REST ECG 14:00:46 AO 100/81 (90) SA 14:21:04 Signed By Vernon Nassar MD On 06/15/2018 14:50:00 Vernon Nassar MD
--- NOTE | 2018-06-15 14:53 | EKG12_ITS ---
Test Reason : PCI Blood Pressure : / mmHG Vent. Rate : 099 BPM Atrial Rate : 099 BPM P-R Int : 138 ms QRS Dur : 100 ms QT Int : 356 ms P-R-T Axes : 082 079 270 degrees QTc Int : 456 ms Normal sinus rhythm Septal infarct (cited on or before 15-JUN-2018) ST & T wave abnormality, consider lateral ischemia Abnormal ECG When compared with ECG of 15-JUN-2018 11:05, No significant change was found Confirmed by GEORGIANA VARMA, ANTONIETTA ([id number]), research editor CALLIE ZAPIEN ([id number]) on 06/21/2018 1:17:26 PM Referred By: Vernon Nassar Confirmed By:ANTONIETTA STONER MD
[2018-06-15] MEDS: 0.9% Normal Saline 1,000 ML 150 ML IV (15:33)
[2018-06-15] MEDS: Acetaminophen 325 MG Tablet 650 MG PO (15:33)
[2018-06-15] MEDS: Furosemide 40 MG/4 ML Vial IV (15:33)
[2018-06-15 15:36] LABS: ACT Activated Clotting Time 246 sec (74-137)
--- NOTE | 2018-06-15 16:35 | PCM.DC.CCA ---
Discharge Diet: Low fat/ Low Cholesterol Discharge Activity: Return to Normal Activity May shower in (days): 1 - No tub baths for 5 days May resume sexual activity in: 1-2 weeks Lifting Restrictions: Do not lift anything greater than 10 pounds for 3 days Call your doctor if your incision/area has: Continuous Slow Oozing, Sudden Increased Bleeding, Increased Pain/ Swelling, Increased Redness, Foul Smelling Discharge, Swelling at the incision site Call your doctor if you observe: Fever of 101 or Higher, Shortness of breath, Chest pain Remove Dressing in (days):: 1 Cleanse incision/area with: Soap & Water Additional Instructions: You will continue with Aspirin therapy. You will remain on Brilinta therapy for one month. After that you will return to Plavix 75mg by mouth daily. If anyone asks you to stop your Plavix or Brilinta please call the [facility] first at [phone]. You are scheduled for an office appointment with Dr. Nassar on 06/30/2018 at 3:00 PM. Allergies/Adverse Reactions: Allergies naproxen [From Naprosyn] Adverse Reaction (Verified 06/09/18 14:18) Nausea naproxen sodium [From Aleve] Adverse Reaction (Verified 06/09/18 14:18) Nausea tramadol Adverse Reaction (Verified 06/09/18 14:18) Nausea Medications to take at Discharge Aspirin 81 mg PO DAILY 06/15/18 Carvedilol [Coreg (Beta Ngoc)] 6.25 mg PO BID 06/15/18 Furosemide [Lasix] 40 mg PO DAILY 06/15/18 Lisinopril 40 mg PO DAILY 06/15/18 Potassium Chloride [K-Dur] 20 meq PO DAILYCM tablet 06/16/18 atorvastatin 20 mg tablet 20 mg PO DAILY #30 tab 06/16/18 ticagrelor 90 mg tablet 90 mg PO BID #60 tab 06/16/18 Orders to be completed after discharge: Phase II, Outpatient Cardiac Rehab Location: None Selected Primary Care Physician: Cesar Arcos DO [Primary Care Provider] - Test Results: Test results from this visit will be discussed in further detail at your follow-up appointment, if applicable. Please Follow Up With: Dr. Nassar When: 06/30/2018 at 3:00 PM Proposed Discharge Date: 06/16/18 Cardiac Rehabilitation Info Cardiac Rehabilitation Program Information: Cardiac Rehabilitation is important for patients like you who are recovering from a heart problem. Cardiac rehabilitation programs are recognized as integral to the continued care of the patient with coronary heart disease. The cardiac rehabilitation program is designed to optimize a patient's physical, psychological, and social functioning. Health care transition mgr work in cardiac rehabilitation programs and assist you with getting the treatments you need to get stronger and healthier - like exercise, healthy eating habits, and medications. Cardiac rehabilitation has been show to help people with heart problems live longer and have better life enjoyment than people who do not go to cardiac rehabilitation. Please contact the Cardiac Rehabilitation Program at [facility] at in two weeks if you have not heard from them.
--- NOTE | 2018-06-15 16:39 | DCINST_ITS ---
Discharge Diet: Low fat/ Low Cholesterol Discharge Activity: Return to Normal Activity May shower in (days): 1 - No tub baths for 5 days May resume sexual activity in: 1-2 weeks Lifting Restrictions: Do not lift anything greater than 10 pounds for 3 days Call your doctor if your incision/area has: Continuous Slow Oozing, Sudden Increased Bleeding, Increased Pain/ Swelling, Increased Redness, Foul Smelling Discharge, Swelling at the incision site Call your doctor if you observe: Fever of 101 or Higher, Shortness of breath, Chest pain Remove Dressing in (days):: 1 Cleanse incision/area with: Soap & Water Additional Instructions: You will continue with Aspirin therapy. You will remain on Brilinta therapy for one month. After that you will return to Plavix 75mg by mouth daily. If anyone asks you to stop your Plavix or Brilinta please call the [facility] first at [phone]. You are scheduled for an office appointment with Dr. Nassar on 06/30/2018 at 3:00 PM. Allergies/Adverse Reactions: Allergies naproxen [From Naprosyn] Adverse Reaction (Verified 06/09/18 14:18) Nausea naproxen sodium [From Aleve] Adverse Reaction (Verified 06/09/18 14:18) Nausea tramadol Adverse Reaction (Verified 06/09/18 14:18) Nausea Medications to take at Discharge Aspirin 81 mg PO DAILY 06/15/18 Carvedilol [Coreg (Beta Ngoc)] 6.25 mg PO BID 06/15/18 Furosemide [Lasix] 40 mg PO DAILY 06/15/18 Lisinopril 40 mg PO DAILY 06/15/18 Potassium Chloride [K-Dur] 20 meq PO DAILYCM tablet 06/16/18 atorvastatin 20 mg tablet 20 mg PO DAILY #30 tab 06/16/18 ticagrelor 90 mg tablet 90 mg PO BID #60 tab 06/16/18 Orders to be completed after discharge: Phase II, Outpatient Cardiac Rehab Location: None Selected Primary Care Physician: Cesar Arcos DO [Primary Care Provider] - Test Results: Test results from this visit will be discussed in further detail at your follow- up appointment, if applicable. Please Follow Up With: Dr. Nassar When: 06/30/2018 at 3:00 PM Proposed Discharge Date: 06/16/18 Cardiac Rehabilitation Info Cardiac Rehabilitation Program Information: Cardiac Rehabilitation is important for patients like you who are recovering from a heart problem. Cardiac rehabilitation programs are recognized as integral to the continued care of the patient with coronary heart disease. The cardiac rehabilitation program is designed to optimize a patient's physical, psychological, and social functioning. Health managed care director work in cardiac rehabilitation programs and assist you with getting the treatments you need to get stronger and healthier - like exercise, healthy eating habits, and medications. Cardiac rehabilitation has been show to help people with heart problems live longer and have better life enjoyment than people who do not go to cardiac rehabilitation. Please contact the Cardiac Rehabilitation Program at [facility] at in two weeks if you have not heard from them.
[2018-06-15] MEDS: Lisinopril 40 MG Tablet PO (17:05)
[2018-06-15] MEDS: Carvedilol 6.25 MG Tablet PO (17:05)
[2018-06-15] MEDS: 0.9% NaCl Peripheral Flush Adult/Peds IV (21:00)
[2018-06-15] MEDS: TICAGRELOR 90 MG TABLET PO (21:00)
[2018-06-16] VITALS (11 sets, daily range): BP systolic 88–125; BP diastolic 58–93; PULSE 62–105; RESP 21–35; TEMP 36.8–37.4; O2SAT 90–98; BMI 23.6
[2018-06-16] MEDS: Morphine 4 MG/ML Syringe IV ×2 (01:33→05:37)
[2018-06-16] MEDS: 0.9% NaCl Peripheral Flush Adult/Peds IV ×2 (01:34→05:37)
[2018-06-16 05:19] LABS: Hematocrit 42.8 % (40-54); Hemoglobin 13.5 g/dl (13.0-16.5); Mean Corp Hgb Conc 31.5 g/gl (32-36); Mean Corpuscular Hgb 29.2 pg (27.0-32.0); Mean Corpuscular Volume 92.6 fL (80-94); Mean Platelet Vol. 10.9 fl (6.2-12.0); Platelet Count 145 K/mm3 (150-450); RBC Distribution Width SD 49.1 fl (35.1-43.9); Red Blood Count 4.62 M/mm3 (4.6-6.2); White Blood Count 5.4 K/mm3 (4.4-11.0)
[2018-06-16 05:22] LABS: Scan Indicated on CBC? Y/N NO
[2018-06-16 05:34] LABS: Anion Gap 6 (5-15); BUN 34 mg/dL (7-18); BUN/Creat Ratio 22.1 RATIO (10-20); Calcium,Total 8.5 mg/dL (8.5-10.1); Chloride 101 mmol/L (98-107); Cholesterol 111 mg/dL (200); Creatinine, Serum 1.54 mg/dL (0.70-1.30); EST Glomerular Filtration Rate 51 mL/min (>60); Est Glom Filt Rate - Afr Amer 61 mL/min (>60); Estimated Creatinine Clearance 50.08 ml/min; Glucose 100 mg/dL (74-106); High Density Lipoprotein 29 mg/dL; Sodium Level 139 mmol/L (136-145); Triglycerides 66 mg/dL; Very Low Density Lipoprotein 13 mg/dL (5-40)
[2018-06-16] MEDS: TICAGRELOR 90 MG TABLET PO (07:43)
[2018-06-16] MEDS: Carvedilol 6.25 MG Tablet PO (07:43)
[2018-06-16] MEDS: Furosemide 40 MG Tablet PO (07:43)
[2018-06-16] MEDS: Lisinopril 40 MG Tablet PO (07:43)
[2018-06-16] MEDS: Aspirin 81 MG TAB.CHEW PO (09:55)
--- NOTE | 2018-06-16 10:00 | EKG12_ITS ---
Test Reason : CP Blood Pressure : / mmHG Vent. Rate : 108 BPM Atrial Rate : 108 BPM P-R Int : 128 ms QRS Dur : 100 ms QT Int : 358 ms P-R-T Axes : 083 087 -73 degrees QTc Int : 479 ms Sinus tachycardia Anterior infarct , age undetermined T wave abnormality, consider inferior ischemia Abnormal ECG Confirmed by GEORGIANA VARMA, ANTONIETTA ([id number]), editor greeting card CALLIE ZAPIEN ([id number]) on 06/17/2018 9:28:05 AM Referred By: Vernon Nassar Confirmed By:ANTONIETTA STONER MD
--- NOTE | 2018-06-16 10:07 | PCM.PN.CARD ---
Subjectve: Patient feeling better this morning, no 24-hour events. Telemetry normal sinus rhythm with rare PVCs. Several beats of ventricular triplets. No sustained ventricular tachycardia. Right groin is clean/dry/intact, no thrills or bruits. No hematoma. EKG shows normal sinus rhythm, diffuse inferolateral ST segment depression. Objective: Vital Signs Temp Pulse Resp BP Pulse Ox 98.9 F 105 H 29 H 110/93 H 98 06/16/18 04:00 06/16/18 07:05 06/16/18 07:00 06/16/18 07:00 06/16/18 09:28 Oxygen Flow Rate (L/min) 2 Oxygen Delivery Method Nasal Cannula Weight: 139 lb 1.787 oz Body Mass Index (BMI) 21.7 Intake and Output for Last 24 Hours 06/14/18 06/15/18 06/16/18 23:59 23:59 23:59 Intake Total 1911 / 1911 240 / 240 Output Total 675 / 675 Balance 1236 / 1236 240 / 240 General: Awake, Alert, Oriented x 3 HEENT: PERRL, EOMI, Sclera Non Icteric Neck: Supple, Good ROM, No Lymph Node Enlargement Lungs: Clear to auscultation Cardiovascular: Regular Rhythm, Normal S1, Normal S2, No Murmurs, No Rubs, No Gallops Vascular: No Carotid Bruits, Normal Femoral Pulses, Normal Radial Pulses, Normal Dorsalis Pedal Pulse, Normal Posterior Tibial Pulses Abdomen: Bowel Sounds Present, Soft, Non Tender, No HSM, No Organomegaly Extremities: No Cyanosis, No Clubbing, No edema Neurological: No Focal Motor or Sensory Deficit 06/15/18 11:03: WBC 6.5, RBC 4.91, Hgb 14.3, Hct 44.4, MCV 90.4, MCH 29.1, MCHC 32.2, RDW 14.9 H, RDW Differential 48.0 H, Plt Count 140 L, MPV 10.5, Immature Gran % (Auto) 0.200, Neut % (Auto) 69.7, Lymph % (Auto) 19.2, [place] % (Auto) 10.2 H, Eos % (Auto) 0.2, Baso % (Auto) 0.5, Absolute Neuts (auto) 4.5, Total Counted Not Reportable 06/15/18 11:03: Sodium 135 L, Potassium 3.3 L, Chloride 100, Carbon Dioxide 29.0, Anion Gap 6, BUN 29 H, Creatinine 1.33 H, Est GFR (MDRD) Af Amer 73, Est GFR (MDRD) Non-Af 60, BUN/Creatinine Ratio 21.8 H, Glucose 122 H, Calcium 8.5, Total Bilirubin 1.70 H, Direct Bilirubin 0.69 H, Troponin I 0.292 H 06/15/18 11:03: B-Natriuretic Peptide 4741.4 H 06/15/18 12:33: INR 1.20 06/16/18 04:55: Sodium 139, Potassium 4.0, Chloride 101, Carbon Dioxide 32.0, Anion Gap 6, BUN 34 H, Creatinine 1.54 H, Est GFR (MDRD) Af Amer 61, Est GFR (MDRD) Non-Af 51 L, BUN/Creatinine Ratio 22.1 H, Glucose 100, Calcium 8.5, Triglycerides 66, Cholesterol 111, LDL Cholesterol 69, VLDL Cholesterol 13, HDL Cholesterol 29 L 06/16/18 04:55: WBC 5.4, RBC 4.62, Hgb 13.5, Hct 42.8, MCV 92.6, MCH 29.2, MCHC 31.5 L, RDW 15.0 H, RDW Differential 49.1 H, Plt Count 145 L, MPV 10.9 Rhythm: EKG: ECHO: Stress Test: Cardiac Cath: PCI: CT Surgery: Holter monitor: EPS: PPM: CXR: Chest CT Scan: Medical Necessity - Tobacco Use Smoking Status: Light Smoker (<10/day) Assessment/Plan 1. Cardiomyopathy: The patient underwent successful angioplasty and drug-eluting stenting to his mid right coronary artery without complications yesterday. His remaining coronary arteries do not require further intervention. Recommend to continue baby aspirin for life, and Brilinta at least for 1 month at which time we will then switch him to Plavix. In addition he will continue Coreg, Lasix, lisinopril and potassium. We will repeat his echocardiogram after he is completed cardiac rehab to determine if his LV function has improved with cessation of alcohol, tobacco, medical management, intervention, and exercise. If his LV dysfunction does not improve, he may need to consider AICD placement. 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 2. Tobacco cessation: I had a long thorough discussion regarding tobacco cessation with the patient, and highly recommended that he discontinue all tobacco products. 3. Hyperlipidemia: We will start low-dose Lipitor 20 mill grams p.o. nightly, and repeat lipid profile in 6 weeks time. 4. Patient may be discharged home and follow-up with Dr. Nassar going forward. Code Visit Inpatient E&M: 21539 Subs Hosp L2
--- NOTE | 2018-06-16 10:11 | PN.CARD_ITS ---
Subjectve: Patient feeling better this morning, no 24-hour events. Telemetry normal sinus rhythm with rare PVCs. Several beats of ventricular triplets. No sustained ventricular tachycardia. Right groin is clean/dry/intact, no thrills or bruits. No hematoma. EKG shows normal sinus rhythm, diffuse inferolateral ST segment depression. Objective: Vital Signs Temp Pulse Resp BP Pulse Ox 98.9 F 105 H 29 H 110/93 H 98 06/16/18 04:00 06/16/18 07:05 06/16/18 07:00 06/16/18 07:00 06/16/18 09:28 Oxygen Flow Rate (L/min) 2 Oxygen Delivery Method Nasal Cannula Weight: 139 lb 1.787 oz Body Mass Index (BMI) 21.7 Intake and Output for Last 24 Hours 06/14/18 06/15/18 06/16/18 23:59 23:59 23:59 Intake Total 1911 / 1911 240 / 240 Output Total 675 / 675 Balance 1236 / 1236 240 / 240 General: Awake, Alert, Oriented x 3 HEENT: PERRL, EOMI, Sclera Non Icteric Neck: Supple, Good ROM, No Lymph Node Enlargement Lungs: Clear to auscultation Cardiovascular: Regular Rhythm, Normal S1, Normal S2, No Murmurs, No Rubs, No Gallops Vascular: No Carotid Bruits, Normal Femoral Pulses, Normal Radial Pulses, Normal Dorsalis Pedal Pulse, Normal Posterior Tibial Pulses Abdomen: Bowel Sounds Present, Soft, Non Tender, No HSM, No Organomegaly Extremities: No Cyanosis, No Clubbing, No edema Neurological: No Focal Motor or Sensory Deficit 06/15/18 11:03: WBC 6.5, RBC 4.91, Hgb 14.3, Hct 44.4, MCV 90.4, MCH 29.1, MCHC 32.2, RDW 14.9 H, RDW Differential 48.0 H, Plt Count 140 L, MPV 10.5, Immature Gran % (Auto) 0.200, Neut % (Auto) 69.7, Lymph % (Auto) 19.2, [place] % (Auto) 10.2 H, Eos % (Auto) 0.2, Baso % (Auto) 0.5, Absolute Neuts (auto) 4.5, Total Counted Not Reportable 06/15/18 11:03: Sodium 135 L, Potassium 3.3 L, Chloride 100, Carbon Dioxide 29.0, Anion Gap 6, BUN 29 H, Creatinine 1.33 H, Est GFR (MDRD) Af Amer 73, Est GFR (MDRD) Non-Af 60, BUN/Creatinine Ratio 21.8 H, Glucose 122 H, Calcium 8.5, Total Bilirubin 1.70 H, Direct Bilirubin 0.69 H, Troponin I 0.292 H 06/15/18 11:03: B-Natriuretic Peptide 4741.4 H 06/15/18 12:33: INR 1.20 06/16/18 04:55: Sodium 139, Potassium 4.0, Chloride 101, Carbon Dioxide 32.0, Anion Gap 6, BUN 34 H, Creatinine 1.54 H, Est GFR (MDRD) Af Amer 61, Est GFR (MDRD) Non-Af 51 L, BUN/Creatinine Ratio 22.1 H, Glucose 100, Calcium 8.5, Triglycerides 66, Cholesterol 111, LDL Cholesterol 69, VLDL Cholesterol 13, HDL Cholesterol 29 L 06/16/18 04:55: WBC 5.4, RBC 4.62, Hgb 13.5, Hct 42.8, MCV 92.6, MCH 29.2, MCHC 31.5 L, RDW 15.0 H, RDW Differential 49.1 H, Plt Count 145 L, MPV 10.9 Rhythm: EKG: ECHO: Stress Test: Cardiac Cath: PCI: CT Surgery: Holter monitor: EPS: PPM: CXR: Chest CT Scan: Medical Necessity - Tobacco Use Smoking Status: Light Smoker (<10/day) Assessment/Plan 1. Cardiomyopathy: The patient underwent successful angioplasty and drug- eluting stenting to his mid right coronary artery without complications yesterday. His remaining coronary arteries do not require further intervention. Recommend to continue baby aspirin for life, and Brilinta at least for 1 month at which time we will then switch him to Plavix. In addition he will continue Coreg, Lasix, lisinopril and potassium. We will repeat his echocardiogram after he is completed cardiac rehab to determine if his LV function has improved with cessation of alcohol, tobacco, medical management, intervention, and exercise. If his LV dysfunction does not improve, he may need to consider AICD placement. 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 2. Tobacco cessation: I had a long thorough discussion regarding tobacco cessation with the patient, and highly recommended that he discontinue all tobacco products. 3. Hyperlipidemia: We will start low-dose Lipitor 20 mill grams p.o. nightly, and repeat lipid profile in 6 weeks time. 4. Patient may be discharged home and follow-up with Dr. Nassar going forward. Code Visit Inpatient E&M: 47575 Subs Hosp L2
--- NOTE | 2018-06-16 10:26 | CASEMGMT ---
ESTIVEN MITCHELL NOTE: Call placed to [facility] for stallings check on Brilinta. Pt's co-pay is zero dollars and does not need the Brilinta savings card. ESTIVEN MITCHELL to room and informed pt of this. Pt states has home O2 @ 2 L/M and states he uses PRN. Gets through [employer]. Bao GREEN RN, CM
--- NOTE | 2018-06-16 11:08 | CRPHASE1 ---
Patient Data/Charges Emery Grinder:: Vernon Nassar Refer Phase II:: Yes Discharge Date:: 06/16/18 Phase II Referral:: [facility] Start Phase II:: After follow up visit with Cardiology Phase I Charge:: Level I - Education - Pt given handout on other Cardiac Rehab facilities in [place], and explained this info to him. Risk Factors/Lifestyle Smoking Status: Current some day smoker - occas 1-2 cigs daily Hx Hypertension: Yes Hx Diabetes Mellitus Type 1: No Hx Diabetes Mellitus Type 2: No Hx Dyslipidemia: Yes Hx Obesity: No Height: 5 ft 7 in Weight:: 151 lb BMI: 23.6 Stress: Long-standing - health ETOH: Yes Risk Factor for Sedentary Lifestyle: Highest Risk Family History: Family History (Last Reviewed 06/09/18 @ 14:07 by Carolina Mcallister) Other COPD (chronic obstructive pulmonary disease) Heart disease Hypertension Past Cardiac Illness: Other - Cardiomyopathy Laboratory Values: Cardiac Rehab Phase I Labs Triglycerides 66 mg/dL (-199) 06/16/18 04:55 Cholesterol 111 mg/dL (200) 06/16/18 04:55 LDL Cholesterol 69 mg/dL (0-130) 06/16/18 04:55 HDL Cholesterol 29 mg/dL (40-) L 06/16/18 04:55 Phase I Education Given On:: [place], Nutrition, Antiplatelet medication, CHF, Smoking cessation - States has occas cig parker when stressed. Also, drinks a beer or other alcohol on holidays. Issues Affecting Care:: Physical Knowledge of Condition:: Yes Learning Preferences: Verbal, Written, Audio/Visual, Demonstration Medical/Surgical History [place]:: Yes - NSTEMI Cardiomyopathy:: Yes - EF 10% 2018 COPD:: Yes GERD:: Yes Discharge/Home/Social Eval Discharge Disposition: Home
--- NOTE | 2018-06-16 11:12 | CRPHASE1_ITS ---
Patient Data/Charges Transportation Aid:: Vernon Nassar Refer Phase II:: Yes Discharge Date:: 06/16/18 Phase II Referral:: [facility] Start Phase II:: After follow up visit with Cardiology Phase I Charge:: Level I - Education - Pt given handout on other Cardiac Rehab facilities in [place], and explained this info to him. Risk Factors/Lifestyle Smoking Status: Current some day smoker - occas 1-2 cigs daily Hx Hypertension: Yes Hx Diabetes Mellitus Type 1: No Hx Diabetes Mellitus Type 2: No Hx Dyslipidemia: Yes Hx Obesity: No Height: 5 ft 7 in Weight:: 151 lb BMI: 23.6 Stress: Long-standing - health ETOH: Yes Risk Factor for Sedentary Lifestyle: Highest Risk Family History: Family History (Last Reviewed 06/09/18 @ 14:07 by Carolina Mcallister) Other COPD (chronic obstructive pulmonary disease) Heart disease Hypertension Past Cardiac Illness: Other - Cardiomyopathy Laboratory Values: Cardiac Rehab Phase I Labs Triglycerides 66 mg/dL (-199) 06/16/18 04:55 Cholesterol 111 mg/dL (200) 06/16/18 04:55 LDL Cholesterol 69 mg/dL (0-130) 06/16/18 04:55 HDL Cholesterol 29 mg/dL (40-) L 06/16/18 04:55 Phase I Education Given On:: [place], Nutrition, Antiplatelet medication, CHF, Smoking cessation - States has occas cig parker when stressed. Also, drinks a beer or other alcohol on holidays. Issues Affecting Care:: Physical Knowledge of Condition:: Yes Learning Preferences: Verbal, Written, Audio/Visual, Demonstration Medical/Surgical History [place]:: Yes - NSTEMI Cardiomyopathy:: Yes - EF 10% 2018 COPD:: Yes GERD:: Yes Discharge/Home/Social Eval Discharge Disposition: Home
--- NOTE | 2018-06-16 11:19 | CRPH1.INSTRU ---
General Education CAD and cardiac anatomy and function:: Patient communicates acknowledgment - Pt given handout on other Cardiac Rehab facilities in [place], and explained this info to him., Needs reinforcement Explanation of diagnoses and procedures:: Patient communicates acknowledgment, Needs reinforcement Sign/Symptoms of [place]:: Patient communicates acknowledgment, Needs reinforcement Antiplatelet therapy: Patient communicates acknowledgment, Needs reinforcement Proper use of NTG-SL: Patient communicates acknowledgment, Needs reinforcement Emergency procedures and activation of EMS: Patient communicates acknowledgment, Needs reinforcement Compliance of all prescribed medications: Patient communicates acknowledgment, Needs reinforcement Smoking Patient Nicotine/Smoking Risk Factors Are:: Cigarettes Recommendations Include:: Smoking cessation strategies/Smoking packet, Second-hand smoke recommendation, Participation in a smoking cessation program Nicotine/Smoking Response Code:: Patient communicates acknowledgment, Needs reinforcement Dyslipidemia Patient Dyslipidemia Risk Factors Are:: Total Cholesterol, Triglycerides, HDL, LDL Recommendations Include:: Lipid profile provided, Reviewed NCEP/ATP guidelines, Therapeutic Lifestyle Change dietary guidelines Dyslipidemia Response Code:: Patient communicates acknowledgment, Needs reinforcement Overweight/Obesity Patient Overweight/Obesity Risk Factors Are:: BMI Normal [18-25 & < 65 years old] Recommendations Include:: Exercise 5-7 times/week Overweight/Obesity:: Patient communicates acknowledgment, Needs reinforcement Hypertension Recommendations Include:: Maintain BP <130/85, DASH dietary guidelines, Decrease/maintain normal body weight Hypertension:: Patient communicates acknowledgment, Needs reinforcement Heart Disease Patient Heart Disease Risk Factors Are:: Previous cardiac event Recommendations Include:: Educated family members of their risk, Educated family members of importance of prevention of heart disease Heart Disease Response Code:: Patient communicates acknowledgment, Needs reinforcement Diabetes Patient Diabetes Risk Factors Are:: No documented hx of diabetes Diabetes:: Not instructed Metabolic Syndrome Patient Metabolic Syndrome Risk Factors Are [3 of 5]:: Hypertension, Low HDL <40 [male] or < 50 [female] Recommendations Include:: Does not meet criteria Metabolic Syndrome Response Code:: Not instructed Sedentary Patient Sedentary Risk Factors Are:: Lack of regular exercise Recommendations Include:: Aerobic exercise 5-7 times/week for 20-30 minutes continuously, Benefits of regular exercise, Discussed home walking program, Monitored Outpatient Cardiac Rehab Sedentary Response Code:: Patient communicates acknowledgment, Needs reinforcement Stress Recommendations Include:: Identification of stressors, and assessment of coping skills, Stress management techniques Stress Response Code:: Patient communicates acknowledgment, Needs reinforcement
--- NOTE | 2018-06-16 11:23 | CRPH1.INST_ITS ---
General Education CAD and cardiac anatomy and function:: Patient communicates acknowledgment - Pt given handout on other Cardiac Rehab facilities in [place], and explained this info to him., Needs reinforcement Explanation of diagnoses and procedures:: Patient communicates acknowledgment, Needs reinforcement Sign/Symptoms of [place]:: Patient communicates acknowledgment, Needs reinforcement Antiplatelet therapy: Patient communicates acknowledgment, Needs reinforcement Proper use of NTG-SL: Patient communicates acknowledgment, Needs reinforcement Emergency procedures and activation of EMS: Patient communicates acknowledgment, Needs reinforcement Compliance of all prescribed medications: Patient communicates acknowledgment, Needs reinforcement Smoking Patient Nicotine/Smoking Risk Factors Are:: Cigarettes Recommendations Include:: Smoking cessation strategies/Smoking packet, Second- hand smoke recommendation, Participation in a smoking cessation program Nicotine/Smoking Response Code:: Patient communicates acknowledgment, Needs reinforcement Dyslipidemia Patient Dyslipidemia Risk Factors Are:: Total Cholesterol, Triglycerides, HDL, LDL Recommendations Include:: Lipid profile provided, Reviewed NCEP/ATP guidelines, Therapeutic Lifestyle Change dietary guidelines Dyslipidemia Response Code:: Patient communicates acknowledgment, Needs reinforcement Overweight/Obesity Patient Overweight/Obesity Risk Factors Are:: BMI Normal [18-25 & < 65 years old] Recommendations Include:: Exercise 5-7 times/week Overweight/Obesity:: Patient communicates acknowledgment, Needs reinforcement Hypertension Recommendations Include:: Maintain BP <130/85, DASH dietary guidelines, Decrease/maintain normal body weight Hypertension:: Patient communicates acknowledgment, Needs reinforcement Heart Disease Patient Heart Disease Risk Factors Are:: Previous cardiac event Recommendations Include:: Educated family members of their risk, Educated family members of importance of prevention of heart disease Heart Disease Response Code:: Patient communicates acknowledgment, Needs reinforcement Diabetes Patient Diabetes Risk Factors Are:: No documented hx of diabetes Diabetes:: Not instructed Metabolic Syndrome Patient Metabolic Syndrome Risk Factors Are [3 of 5]:: Hypertension, Low HDL <40 [male] or < 50 [female] Recommendations Include:: Does not meet criteria Metabolic Syndrome Response Code:: Not instructed Sedentary Patient Sedentary Risk Factors Are:: Lack of regular exercise Recommendations Include:: Aerobic exercise 5-7 times/week for 20-30 minutes co ntinuously, Benefits of regular exercise, Discussed home walking program, Monitored Outpatient Cardiac Rehab Sedentary Response Code:: Patient communicates acknowledgment, Needs reinforcement Stress Recommendations Include:: Identification of stressors, and assessment of coping skills, Stress management techniques Stress Response Code:: Patient communicates acknowledgment, Needs reinforcement
--- NOTE | 2018-06-16 14:53 | EKG12_ITS ---
Test Reason : ARRYTHMIA Blood Pressure : / mmHG Vent. Rate : 100 BPM Atrial Rate : 100 BPM P-R Int : 136 ms QRS Dur : 102 ms QT Int : 362 ms P-R-T Axes : 085 081 267 degrees QTc Int : 466 ms Normal sinus rhythm ST & T wave abnormality, consider lateral ischemia Prolonged QT Abnormal ECG When compared with ECG of 15-JUN-2018 15:04, MANUAL COMPARISON REQUIRED, DATA IS UNCONFIRMED Confirmed by GEORGIANA VARMA, ANTONIETTA ([id number]), editorial project manager CALLIE ZAPIEN ([id number]) on 06/21/2018 1:17:05 PM Referred By: Vernon Nassar Confirmed By:ANTONIETTA STONER MD
[2018-06-29 09:25] LABS: ACT Activated Clotting Time 169 sec (74-137)
== END 2018-06-16 10:30 | disposition home or self-care (01) ==
LOC: ED 12:00 → ICU 13:34
PROVIDERS: Admitting Provider Internal Medicine Cardiovascular Disease; Emergency Provider Emergency Medicine; Family Provider Student in an Organized Health Care Education/Training Program; PCP Student in an Organized Health Care Education/Training Program; Visit Provider Internal Medicine Cardiovascular Disease
DX: I25.110 Atherosclerotic heart disease of native coronary artery with unstable angina pectoris (principal); I11.0 Hypertensive heart disease with heart failure; I50.9 Heart failure, unspecified; E78.5 Hyperlipidemia, unspecified; J44.9 Chronic obstructive pulmonary disease, unspecified; I25.2 Old myocardial infarction; K21.9 Gastro-esophageal reflux disease without esophagitis; I47.1 Supraventricular tachycardia; Z79.02 Long term (current) use of antithrombotics/antiplatelets; Z79.899 Other long term (current) drug therapy; Z79.82 Long term (current) use of aspirin; F17.200 Nicotine dependence, unspecified, uncomplicated
CPT/HCPCS: 36415; 36416; 71045; 74176; 80048; 80061; 80076; 83690; 83880; 84484; 85025; 85027; 85347; 85610; 92928; 93005; 96361; 96374; 96375; 96376; 97802; 99218; 99285; J7030; J7040; A4216; C1725; C1769; C1874; C1887; C9600; G0378; J1940; J2405; Q9967

== ENCOUNTER 2018-06-18 13:15 | Emergency (ER) | payer MEDICAID, SELFPAY ==
[2018-06-15 15:12] VITALS: BMI 21.7
[2018-06-18 13:16] VITALS: BP 130/94; PULSE 96; RESP 14; TEMP 36.5; O2SAT 94; BMI 22.6
--- NOTE | 2018-06-18 13:51 | EKG12_ITS ---
Test Reason : ABD PAIN Blood Pressure : / mmHG Vent. Rate : 095 BPM Atrial Rate : 095 BPM P-R Int : 136 ms QRS Dur : 098 ms QT Int : 366 ms P-R-T Axes : 085 088 -83 degrees QTc Int : 459 ms Sinus rhythm with frequent Premature ventricular complexes Septal infarct , age undetermined T wave abnormality, consider inferior ischemia Abnormal ECG Confirmed by GEORGIANA VARMA, ANTONIETTA ([id number]), greeting card editor CALLIE ZAPIEN ([id number]) on 06/20/2018 11:26:40 AM Referred By: Vernon Nassar Confirmed By:ANTONIETTA STONER MD
--- NOTE | 2018-06-18 13:52 | CT_ITS ---
STUDY: CT ABDOMEN AND PELVIS WITHOUT CONTRAST REASON FOR EXAM: Male, 53 years old. Abdominal pain RADIATION DOSAGE (If Supplied By Facility): CTDIvol = ( 6.43 ) mGy, DLP = ( 300.45 ) mGycm TECHNIQUE: Transaxial images were obtained from the lower chest to the upper thighs without oral contrast, and without intravenous contrast. Sagittal and coronal images were reconstructed. Individualized dose optimization techniques were used for this CT. COMPARISON: June 15, 2018 FINDINGS: Lower chest: Lower lungs: Stable bullous changes in the right middle lobe medially. Minimal dense opacities in the posterior segments of both lower lobes. Focal round opacity in the posterior segment of the right lower lobe measuring 1.7 cm on series 2 image 23. Pleura: Marked fluid in the right pleural margin. Trace fluid in the left pleural margin. Cardiac: Mild cardiomegaly. New stent in the right coronary artery. Minimal pericardial fluid. Liver: No discrete masses. Spleen: Normal in appearance. Gallbladder and biliary system: No discrete abnormality. Pancreas: Within normal limits on limited visualization. Adrenal glands: Normal in appearance. Kidneys and collecting systems: Right: Stable punctate nonobstructing calyceal stone in the midpole. No dilatation of collecting system. Left: Stable cyst in the midpole. No dilatation of collecting system. Gastrointestinal: Stomach: Normal in appearance. Small bowel: Normal in appearance. Colon: Diverticula distally without adjacent stranding. Appendix: Normal in appearance. Axial images 102-107. Vessels: Arterial: Marked scattered vascular calcifications. Venous: Unremarkable. Retroperitoneum/mesentery: Lymph nodes: Small retroperitoneal nodes. These are likely reactive. Fluid/free air: Moderate diffuse free fluid. No free air. Pelvis: Bladder: Normal in appearance. Reproductive organs: Normal appearing prostate. Minimal fluid in the pelvis. Soft tissues: Diffuse anasarca. Bones: Mild degenerative changes. CT/Abdomen/Pelvis without Cont IMPRESSION: Extremely limited study without intravenous contrast. Evaluation for solid organ infarcts cannot be made without contrast. No significant change in moderate ascites and diffuse anasarca. There is diverticulosis of the distal colon without obvious findings of diverticulitis. There is no free air. Unchanged large right pleural effusion with improved atelectasis in the right lower lobe. A round opacity in the posterior segment of the right lower lobe either represents a small focus of consolidation, a small area of round atelectasis, or a mass. A follow-up CT of the chest is recommended in three months. There is a trace left pleural effusion with minimal atelectasis in the left lung base left lower lobe. There is stable mild cardiomegaly with a small pericardial effusion. Electronically Signed: Hayde Bolanos MD at 16:21 EDT , Service support ,
[2018-06-18] MEDS: Morphine 4 MG/ML Syringe IV ×2 (14:15→17:21)
[2018-06-18] MEDS: 0.9% Normal Saline 1,000 ML 150 ML IV (14:16)
[2018-06-18] MEDS: Ondansetron 4 MG/2 ML Vial IV ×2 (14:16→17:21)
[2018-06-18 14:23] LABS: Absolute Neutrophil Count 10.9 X10^3/uL (2.0-7.7); Basophil# 0.01 X10^3/uL; Basophil% 0.1 % (0-1); Differential Indicated SCAN CRITERIA MET; Hematocrit 42.7 % (40-54); Hemoglobin 13.6 g/dl (13.0-16.5); Mean Corp Hgb Conc 31.9 g/gl (32-36); Mean Corpuscular Hgb 29.1 pg (27.0-32.0); Mean Corpuscular Volume 91.4 fL (80-94); Mean Platelet Vol. 10.5 fl (6.2-12.0); Monocyte# 0.89 X10^3/uL; Monocyte% 7.2 % (0-10); Neutrophil # 10.94 X10^3/uL (2.7-7.7); Neutrophil % 88.6 % (47-70); POSITIVE COUNT NO; POSITIVE DIFFERENTIAL YES; POSITIVE MORPHOLOGY NO; Platelet Count 157 K/mm3 (150-450); RBC Distribution Width CV 15.1 % (11.6-14.6); RBC Distribution Width SD 49.4 fl (35.1-43.9); Red Blood Count 4.67 M/mm3 (4.6-6.2); White Blood Count 12.4 K/mm3 (4.4-11.0)
[2018-06-18 14:27] LABS: Anion Gap 6 (5-15); BUN 29 mg/dL (7-18); BUN/Creat Ratio 26.9 RATIO (10-20); Calcium,Total 8.4 mg/dL (8.5-10.1); Chloride 103 mmol/L (98-107); Creatinine, Serum 1.08 mg/dL (0.70-1.30); EST Glomerular Filtration Rate 76 mL/min (>60); Est Glom Filt Rate - Afr Amer 92 mL/min (>60); Estimated Creatinine Clearance 74.35 ml/min; Glucose 130 mg/dL (74-106); Potassium 3.8 mmol/L (3.5-5.1); Sodium Level 137 mmol/L (136-145)
[2018-06-18 14:52] LABS: Differential Comment SCANNED
[2018-06-18 15:03] LABS: Mucous, Urine 0 SEEN /hpf (<or=2+); Squamous Epithelial Cells - UA 0 SEEN /hpf (0-5)
[2018-06-18 15:10] LABS: Color, Urine Amber (Yellow); Glucose, Dipstick Normal (Normal); Ketone-Dipstick Negative (Negative); Leukocyte Esterase-Dipstick 500 /ul (Negative); Nitrite-Dipstick Positive (Negative); Occult Blood-Urine 250 /ul (Negative); Protein-Dipstick 100 mg/dl (Negative); Specific Gravity, Urine 1.025 (1.002-1.030); Urine Clarity Cloudy (Clear); Urine Urobilinogen 1 mg/dl (Normal)
[2018-06-18 15:17] LABS: Urine Bilirubin Dipstick 1 mg/dL (Negative)
[2018-06-18 15:18] LABS: Red Blood Cells-Urine 25-50 SEEN /hpf (0-5); Transitional Epithelial - Ur 0 SEEN /hpf (0-5); White Blood Cells 50-100 SEEN /hpf (0-5)
[2018-06-18 15:19] LABS: Bacteria 1+ /hpf (None Seen)
[2018-06-18 15:40] VITALS: BP 124/96; PULSE 68; RESP 30; O2SAT 95
[2018-06-18] MEDS: Ceftriaxone 1 GM/50 ML BAG IV (17:14)
--- NOTE | 2018-06-18 18:35 | ED.DCSUM_ITS ---
- ER Visit Summary Date of Service: 06/18/18 Chief Complaint: Flank pain History of Present Illness: The patient is a 53 M who had a recent heart cath and a stent placed on June 15. He reports having intermittent lower abdominal pain since last fall. He states when he was in the hospital for his recent h eart cath CT scan showed a small kidney stone in his right kidney and it is not sure if this may be the cause of his pain. Today the pain was so bad he could not take it. He has no pain at the cath site in the right groin. He states his urine is dark and he feels constipated. Physical Examination: Vital signs unremarkable. Patient sitting upright in bed. He appears uncomfortable but in no distress. Head neck examination normal. Heart is regular rate and rhythm. Lung sounds are clear. Abdomen is soft with lower abdominal tenderness. There is no guarding or rebound. Hypoactive bowel sounds are present. Extremity examination reveals the right groin cath site to be clean and nontender. Test Results: EKG is sinus at 95 with occasional PVCs. He has lateral T inversions that is unchanged. CBC reveals a white count 12.4 with 88% neutrophils. Chemistry studies significant only for a BUN of 29. Creatinine is normal. Urinalysis is positive for nitrites with 50-100 white cells and 1+ bacteria. CT flank shows ascites that is unchanged. He has diverticulosis of the distal colon. There is an unchanged large right pleural effusion. Emergency Department Course and Treatment: Patient received 2 doses of morphine and Zofran for pain. Upon completion of studies he was given IV Rocephin. Patient continues to have significant bladder spasm and is given a B&O suppository. Urine culture has been sent. At this time patient be discharged with Cipro, BNO suppositories, and a few [place] for breakthrough pain. Treatment Plan: [] Disposition: Discharge Impression: Cystitis with bladder spasms This note was generated with [employer] dictation software. It may contain incorrect words, spelling, and punctuation that were not noted in review of the chart prior to signing ED Disposition - Plan for ED Patient: Referrals: Cesar Arcos DO [Primary Care Provider] -
--- NOTE | 2018-06-18 18:35 | ED.DEP ---
ED Disposition - Plan for ED Patient: Disposition: Home or Assisted Living Instructions: ED UTI Cystitis Male Prescriptions: Hydrocodone Bitart/Apap 5-325 [[place] 5MG-325MG] 1 tablet PO Q6H PRN PRN 3 Days #10 tablet PRN Reason: Pain Opium/Belladonna Alkaloids [B & O] 60 mg RECTAL BID PRN 3 Days #6 suppos. PRN Reason: Spasms Smz/Tmp Ds [Bactrim Ds] 1 tablet PO BID #6 tablet Referrals: Cesar Arcos DO [Primary Care Provider] - 5-7 Days
[2018-06-18 18:38] VITALS: BP 112/88; PULSE 105; RESP 20; O2SAT 96
--- NOTE | 2018-06-18 18:43 | DCINST.ED_ITS ---
ED Disposition - Plan for ED Patient: Disposition: Home or Assisted Living Instructions: ED UTI Cystitis Male Prescriptions: Hydrocodone Bitart/Apap 5-325 [[place] 5MG-325MG] 1 tablet PO Q6H PRN PRN 3 Days #10 tablet PRN Reason: Pain Opium/Belladonna Alkaloids [B & O] 60 mg RECTAL BID PRN 3 Days #6 suppos. PRN Reason: Spasms Smz/Tmp Ds [Bactrim Ds] 1 tablet PO BID #6 tablet Referrals: Cesar Arcos DO [Primary Care Provider] - 5-7 Days
== END 2018-06-18 18:54 | disposition home or self-care (01) ==
PROVIDERS: Emergency Provider Emergency Medicine; Family Provider Student in an Organized Health Care Education/Training Program; PCP Student in an Organized Health Care Education/Training Program
DX: N30.90 Cystitis, unspecified without hematuria (principal); N32.89 Other specified disorders of bladder; I25.2 Old myocardial infarction; J44.9 Chronic obstructive pulmonary disease, unspecified; K21.9 Gastro-esophageal reflux disease without esophagitis; I10 Essential (primary) hypertension; E78.00 Pure hypercholesterolemia, unspecified; Z72.0 Tobacco use; Z79.82 Long term (current) use of aspirin; Z79.899 Other long term (current) drug therapy
CPT/HCPCS: 36415; 74176; 80048; 81001; 85025; 87086; 87088; 87186; 93005; 96361; 96365; 96366; 96375; 96376; 99285; J7030; P9612; A4216; J2405

== ENCOUNTER 2018-06-22 18:56 | Emergency (ER) | payer MEDICAID, SELFPAY ==
[2018-06-22 19:22] VITALS: BP 107/71; PULSE 88; RESP 20; TEMP 36.7; O2SAT 91; BMI 21.9
[2018-06-22 20:36] VITALS: BP 114/92; PULSE 92; RESP 16; O2SAT 95
--- NOTE | 2018-06-22 21:37 | ED.RN ---
pt reports being unable to urinate and that he needs pain medication and a catheter to urinate
[2018-06-22] MEDS: HYDROcodone Bitartrate/Apap 5/325 Tablet PO (21:45)
[2018-06-22 22:07] VITALS: O2SAT 87
[2018-06-22 22:08] LABS: Bacteria 0 SEEN /hpf (None Seen); Mucous, Urine 0 SEEN /hpf (<or=2+); Red Blood Cells-Urine 0 SEEN /hpf (0-5); Squamous Epithelial Cells - UA 0 SEEN /hpf (0-5)
[2018-06-22 22:22] LABS: Absolute Lymphocyte Count 0.63 X10^3/ul (0.83-4.51); Absolute Neutrophil Count 4.3 X10^3/uL (2.0-7.7); Basophil# 0.02 X10^3/uL; Basophil% 0.4 % (0-1); Eosinophil# 0.05 X10^3/uL; Eosinophils% 0.9 % (0-5); Hematocrit 41.5 % (40-54); Hemoglobin 13.2 g/dl (13.0-16.5); Lymphocyte # 0.63 X10^3/ul (4.0); Lymphocyte % 11.4 % (19-41); Mean Corp Hgb Conc 31.8 g/gl (32-36); Mean Corpuscular Hgb 28.6 pg (27.0-32.0); Mean Platelet Vol. 9.9 fl (6.2-12.0); Monocyte# 0.57 X10^3/uL; Monocyte% 10.3 % (0-10); Neutrophil # 4.26 X10^3/uL (2.7-7.7); Platelet Count 155 K/mm3 (150-450); RBC Distribution Width CV 15.6 % (11.6-14.6); RBC Distribution Width SD 50.7 fl (35.1-43.9); Red Blood Count 4.61 M/mm3 (4.6-6.2); White Blood Count 5.5 K/mm3 (4.4-11.0)
[2018-06-22 22:23] LABS: Color, Urine Yellow (Yellow); Glucose, Dipstick Normal (Normal); Ketone-Dipstick Negative (Negative); Leukocyte Esterase-Dipstick Negative /ul (Negative); Nitrite-Dipstick Negative (Negative); Occult Blood-Urine Negative /ul (Negative); POSITIVE COUNT NO; POSITIVE DIFFERENTIAL NO; POSITIVE MORPHOLOGY NO; Protein-Dipstick 15 mg/dl (Negative); Urine Bilirubin Dipstick Negative (Negative); Urine Clarity Clear (Clear); Urine Urobilinogen 4 mg/dl (Normal)
[2018-06-22 22:26] LABS: Anion Gap 4 (5-15); BUN 25 mg/dL (7-18); Calcium,Total 8.4 mg/dL (8.5-10.1); Chloride 104 mmol/L (98-107); Creatinine, Serum 1.25 mg/dL (0.70-1.30); EST Glomerular Filtration Rate 64 mL/min (>60); Est Glom Filt Rate - Afr Amer 78 mL/min (>60); Estimated Creatinine Clearance 62.09 ml/min; Glucose 97 mg/dL (74-106); Potassium 3.8 mmol/L (3.5-5.1); Sodium Level 136 mmol/L (136-145)
[2018-06-22 22:34] LABS: White Blood Cells 0-5 SEEN /hpf (0-5)
--- NOTE | 2018-06-22 23:15 | ED.VISSUMM ---
- ER Visit Summary Date of Service: 06/22/18 Chief Complaint: Suprapubic pain and dysuria History of Present Illness: The patient is a 53 M history of CAD, [place], CHF, COPD with cardiac stent hypertension. Patient states he was recently treated for UTI. He has been having bladder spasms. States his insurance will not pay for further OMB suppositories. He denies any fever. Denies any hematuria. States he is able to urinate. Denies any prior urologic procedures. Denies any trauma. Physical Examination: Middle-aged male no acute distress. Vital signs are stable. He is afebrile. He does not look septic or toxic. HEENT exam unremarkable. Poor dentition. Neck nontender no lymphadenopathy. Lungs coarse breath sounds consistent with COPD but no rales, rhonchi or wheezing. Equal symmetrical. Heart regular rhythm rate about 90 no murmur. Abdomen soft. Nondistended normal bowel sounds no peritoneal signs. No hernias or masses no signs of obstruction. He complains of tenderness suprapubically. External exam unremarkable. No swelling or tenderness. No discoloration. No torsion. Patient is moving all 4 extremities. They are neurovascular intact. Calves are nontender. Back nontender. Neurologically is awake alert with no focal motor deficits. Test Results: CBC normal white count of 5. Hemoglobin 13. Chemistries normal gap of 4. Creatinine 1.2. Urinalysis normal no white cells. No red cells. No nitrates. Bladder scan was 150. Patient told the nursing staff he cannot urinate to get a urine sample he had a Perez placed which he requested. There were no signs of urinary retention. No gross hematuria. And the urine was clear yellow. Patient had a recent abdominal pelvic CAT scans were basically unremarkable. Emergency Department Course and Treatment: Repeat exam patient is doing well at 2315. His abdomen is benign. I explained to him there is no reason for him to leave the Perez catheter at this time. He can be discharged home without it. He is requesting narcotics which I explained to him I did not feel was appropriate for his complaint or his workup. Treatment Plan: Follow-up with a local urologist. Disposition: Discharge Impression: Suprapubic abdominal pain and dysuria of uncertain etiology This note was generated with [employer] dictation software. It may contain incorrect words, spelling, and punctuation that were not noted in review of the chart prior to signing ED Disposition - Plan for ED Patient: Referrals: Cesar Arcos DO [Primary Care Provider] -
--- NOTE | 2018-06-22 23:19 | ED.DEP ---
ED Disposition - Plan for ED Patient: Disposition: Home or Assisted Living Instructions: ED Dysuria Uncertain Cause Referrals: Cesar Arcos DO [Primary Care Provider] - As soon as possible Additional Instructions: Your workup was normal tonight. No signs of urinary tract infection. No specific reason for your pain. Call for your primary care physician they may have to have you be evaluated by urologist.
[2018-06-22 23:31] VITALS: BP 122/64; PULSE 70; RESP 22; O2SAT 93
--- NOTE | 2018-06-22 23:32 | ED.RN ---
light meal provided. pt using room phone to try and make ride arrangements.
== END 2018-06-22 23:40 | disposition home or self-care (01) ==
PROVIDERS: Emergency Provider Emergency Medicine; Family Provider Student in an Organized Health Care Education/Training Program; PCP Student in an Organized Health Care Education/Training Program
DX: R10.9 Unspecified abdominal pain (principal); R30.0 Dysuria; J44.9 Chronic obstructive pulmonary disease, unspecified; I25.10 Atherosclerotic heart disease of native coronary artery without angina pectoris; I25.2 Old myocardial infarction; I10 Essential (primary) hypertension; Z95.5 Presence of coronary angioplasty implant and graft; Z72.0 Tobacco use; I50.9 Heart failure, unspecified; Z87.440 Personal history of urinary (tract) infections
CPT/HCPCS: 51702; 80048; 81001; 85025; 99285

== ENCOUNTER 2018-07-07 12:25 | Emergency (ER) | payer MEDICAID, SELFPAY ==
[2018-07-07 12:26] VITALS: BP 111/79; PULSE 120; RESP 24; TEMP 36.2; O2SAT 99; BMI 21.1
--- NOTE | 2018-07-07 12:48 | CT_ITS ---
STUDY: CT ABDOMEN AND PELVIS WITHOUT CONTRAST REASON FOR EXAM: Male, 53 years old. Abdominal pain. Perez complications. RADIATION DOSAGE (If Supplied By Facility): CTDIvol = ( 7.52 ) mGy, DLP = ( 323.83 ) mGycm TECHNIQUE: Transaxial images were obtained from the dome of the diaphragm to the symphysis pubis without oral contrast, and without intravenous contrast. Sagittal and coronal images were reconstructed. Individualized dose optimization techniques were used for this CT. COMPARISON: June 18, 2018. FINDINGS: Lung bases: Moderate size right pleural effusion. Small left pleural effusion. Cyst formation at the middle lobe and lingular segments. Minimal lingular airspace disease. Heart: Cardiomegaly. Trace pericardial effusion. Coronary artery disease. Liver: Mild hepatic congestion. Perihepatic ascites. Gallbladder/biliary ducts: Fluid at the gallbladder fossa. Nondilated biliary ducts. Pancreas: Unremarkable. Spleen: Unremarkable. Adrenal glands: Unremarkable. Kidneys/ureters/bladder: Left renal cyst. Left lower pole focal milk of calcium versus faint stone (axial image 52 series 1002). Urinary bladder slightly thick-walled. Prostate: Prostatomegaly with posterior indentation of the bladder. Large bowel/small bowel: Colonic diverticulosis. No significant bowel wall thickening. No perforation. No pneumatosis. No obstruction. Appendix: Normal (axial image 104 series 1002). Gastroesophageal junction/stomach: Tiny hiatal hernia. Retroperitoneum/lymph nodes: No intra-abdominal free air. No ascites. Stable small retroperitoneal lymph nodes. Vascular: Extensive vascular calcifications. No aneurysm. Osseous structures: Mild degenerative changes. No acute process. Subcutaneous/soft tissues: Mild body wall edema. No organized collection. CT/Abdomen/Pelvis without Cont IMPRESSION: No obstructive uropathy or acute bowel findings Anasarca with pleural effusions, ascites and body wall edema Extensive cardiovascular disease and trace pericardial effusion Mildly thick walled bladder (correlate urinalysis) Stable cystic/bullous changes at the right middle lobe and lingular segment with minimal airspace disease Stable shotty retroperitoneal lymph nodes Electronically Signed: Piyush Aguilar DO at 14:08 EDT Tel , Service support ,
--- NOTE | 2018-07-07 12:52 | ED.DCSUM_ITS ---
- ER Visit Summary Date of Service: 07/07/18 Chief Complaint: Wants Perez catheter removed History of Present Illness: The patient is a 53 M who presents with suprapubic abdominal pain that has been getting worse over the past few days. Patient states she has had a Perez catheter in place. Patient states she wants the Perez catheter removed. Patient also admits to pain in his back. Patient states he has been taking pain medication with some relief of his pain. Patient describes the pain as aching. Patient states pain is over the suprapubic area. Patient also admits to some lightheadedness. Physical Examination: Vital signs are stable except for tachycardia of 120 and a mild tachypnea of 24. Patient is afebrile. Patient is in no acute distress. Oral mucosa is pink and moist. Neck is supple. Trachea is midline. There is no JVD noted. Heart was regular and tachycardic. Lungs are clear and equal bilateral. Abdomen is soft. Bowel sounds are normal. There is some mild suprapubic tenderness. There is no rebound or guarding noted. There is no CVA tenderness. No midline lumbar tenderness. Cranial nerves II through XII are intact. There are no focal motor or sensory deficits noted. Test Results: CBC showed a mild anemia with a hemoglobin of 12.8 and hematocrit 39.5. BUN and creatinine were 29 and 1.51. These are stable compared to previous results. Total bilirubin was slightly elevated at 1.2. Urinalysis showed leukocyte esterase of 500 with positive nitrites and occult blood of 250. There were 10-25 white blood cells, 50-100 red blood cells, and 4+ bacteria. Urine culture was sent. Lactate was normal at 1.4. The skin of the abdomen and pelvis showed pleural effusion, ascites, and trace pericardial effusion. There is no acute intra-abdominal abnormality. The appendix was visualized and was normal. Emergency Department Course and Treatment: Perez catheter was removed. Patient was given an initial dose of Toradol. Patient states he had no relief of his pain with this. Patient was given a dose of morphine. Patient was given a dose of Rocephin for his urinary tract infection. Patient states he wants to go home and does not want to stay in the hospital. Patient was given a prescription for Bactrim and a short course of Tylenol with codeine. Patient was instructed to follow-up with his primary care physician in 5-7 days. Patient understood and was agreeable with the plan. All questions were answered. Disposition: Discharge home Impression: 1. Urinary tract infection 2. Ascites 3. Pleural effusion 4. Suprapubic abdominal pain This note was generated with [employer] dictation software. It may contain incorrect words, spelling, and punctuation that were not noted in review of the chart prior to signing ED Disposition - Plan for ED Patient: Disposition: Home or Assisted Living Diagnosis: Urinary tract infection, Ascites, Pleural effusion, Suprapubic abdominal pain Instructions: ED UTI Cystitis Male, ED Ascites, ED Effusion Pleural Prescriptions: Acetaminophen/Codeine #3 [Tylenol#3] 1 tab PO Q6H PRN PRN #12 tab PRN Reason: Pain Smz/Tmp Ds [Bactrim Ds] 1 tab PO BID #10 tab Referrals: Cesar Arcos DO [Primary Care Provider] - 3-5 Days
[2018-07-07] MEDS: Ketorolac 30 MG/ML Syringe IV (13:14)
[2018-07-07] MEDS: 0.9% Normal Saline 1,000 ML 1000 ML IV (13:14)
[2018-07-07 13:17] LABS: Absolute Lymphocyte Count 0.66 X10^3/ul (0.83-4.51); Absolute Neutrophil Count 3.4 X10^3/uL (2.0-7.7); Basophil# 0.02 X10^3/uL; Basophil% 0.4 % (0-1); Eosinophil# 0.01 X10^3/uL; Eosinophils% 0.2 % (0-5); Hematocrit 39.5 % (40-54); Hemoglobin 12.8 g/dl (13.0-16.5); Lymphocyte # 0.66 X10^3/ul (4.0); Lymphocyte % 13.9 % (19-41); Mean Corp Hgb Conc 32.4 g/gl (32-36); Mean Corpuscular Hgb 28.4 pg (27.0-32.0); Mean Corpuscular Volume 87.6 fL (80-94); Monocyte# 0.65 X10^3/uL; Monocyte% 13.7 % (0-10); Neutrophil # 3.41 X10^3/uL (2.7-7.7); Neutrophil % 71.6 % (47-70); Platelet Count 134 K/mm3 (150-450); RBC Distribution Width CV 16.2 % (11.6-14.6); RBC Distribution Width SD 51.6 fl (35.1-43.9); Red Blood Count 4.51 M/mm3 (4.6-6.2); White Blood Count 4.8 K/mm3 (4.4-11.0)
[2018-07-07 13:19] LABS: POSITIVE COUNT NO; POSITIVE DIFFERENTIAL NO; POSITIVE MORPHOLOGY NO
[2018-07-07 13:20] VITALS: BP 99/62; PULSE 108; RESP 28; O2SAT 98
[2018-07-07 13:20] LABS: Color, Urine Brown (Yellow); Glucose, Dipstick Normal (Normal); Ketone-Dipstick 5 mg/dl (Negative); Leukocyte Esterase-Dipstick 500 /ul (Negative); Nitrite-Dipstick Positive (Negative); Occult Blood-Urine 250 /ul (Negative); Protein-Dipstick 500 mg/dl (Negative); Specific Gravity, Urine 1.025 (1.002-1.030); Urine Clarity Turbid (Clear); Urine Urobilinogen 4 mg/dl (Normal)
[2018-07-07 13:21] LABS: Urine Bilirubin Dipstick 3 mg/dL (Negative)
[2018-07-07 13:28] LABS: Red Blood Cells-Urine 50-100 SEEN /hpf (0-5); White Blood Cells 10-25 SEEN /hpf (0-5)
[2018-07-07 13:29] LABS: AST(SGOT) 30 U/L (15-37); Alanine Aminotransfer ALT/SGPT 26 U/L (16-61); Albumin, Serum 3.4 g/dL (3.2-5.0); Alkaline Phosphatase 83 U/L (45-117); Anion Gap 10 (5-15); BUN 29 mg/dL (7-18); BUN/Creat Ratio 19.2 RATIO (10-20); Calcium,Total 8.8 mg/dL (8.5-10.1); Chloride 99 mmol/L (98-107); Creatinine, Serum 1.51 mg/dL (0.70-1.30); EST Glomerular Filtration Rate 52 mL/min (>60); Est Glom Filt Rate - Afr Amer 63 mL/min (>60); Estimated Creatinine Clearance 49.56 ml/min; Globulin 3.3 g/dL (2.2-4.2); Glucose 108 mg/dL (74-106); Potassium 3.9 mmol/L (3.5-5.1); Protein, Total 6.7 g/dL (6.4-8.2); Sodium Level 132 mmol/L (136-145)
[2018-07-07 13:29] LABS: Mucous, Urine 1+ /hpf (<or=2+); Squamous Epithelial Cells - UA 0-5 SEEN /hpf (0-5)
[2018-07-07 13:30] LABS: Amorphous Sediment 1+; Bacteria 4+ /hpf (None Seen)
[2018-07-07 14:41] VITALS: BP 152/104; PULSE 155; RESP 19; TEMP 36.5; O2SAT 94
--- NOTE | 2018-07-07 14:43 | ED.RN ---
pt on threat monitoring analyst, pt have short three beat runs of non sustained v-tach, dr. mcdonough made aware. dr. mcdonough in to see pt.
[2018-07-07 15:40] LABS: Lactic Acid 1.4 mmol/L (0.4-2.0)
[2018-07-07] MEDS: Ceftriaxone 1 GM/50 ML BAG IV (15:54)
[2018-07-07] MEDS: 0.9% Normal Saline 1,000 ML 250 ML IV (15:54)
[2018-07-07 16:31] VITALS: PULSE 121; RESP 15; O2SAT 96
[2018-07-07] MEDS: Morphine 2 MG/ML Syringe IV (16:43)
[2018-07-07 17:06] VITALS: BP 146/92; PULSE 113; RESP 19; TEMP 36.6; O2SAT 96
== END 2018-07-07 17:07 | disposition home or self-care (01) ==
PROVIDERS: Emergency Provider Emergency Medicine; Family Provider Student in an Organized Health Care Education/Training Program; PCP Student in an Organized Health Care Education/Training Program
DX: N39.0 Urinary tract infection, site not specified (principal); R18.8 Other ascites; J90 Pleural effusion, not elsewhere classified; I11.0 Hypertensive heart disease with heart failure; I25.10 Atherosclerotic heart disease of native coronary artery without angina pectoris; I50.9 Heart failure, unspecified; J44.9 Chronic obstructive pulmonary disease, unspecified; E78.00 Pure hypercholesterolemia, unspecified; K21.9 Gastro-esophageal reflux disease without esophagitis; Z72.0 Tobacco use; Z95.5 Presence of coronary angioplasty implant and graft
CPT/HCPCS: 71275; 74176; 80053; 81001; 83605; 85025; 87077; 87086; 87088; 87186; 96361; 96365; 96375; 99284; J7030; P9612; A4216

== ENCOUNTER 2018-07-25 09:18 | Observation (INO) | payer MEDICAID, SELFPAY ==
[2018-07-25] VITALS (13 sets, daily range): BP systolic 86–110; BP diastolic 52–98; PULSE 53–94; RESP 15–24; TEMP 36.3–36.8; O2SAT 93–98; BMI 19.2; BMI 17.9
--- NOTE | 2018-07-25 09:28 | EKG12_ITS ---
Test Reason : SOB Blood Pressure : / mmHG Vent. Rate : 085 BPM Atrial Rate : 085 BPM P-R Int : 150 ms QRS Dur : 110 ms QT Int : 402 ms P-R-T Axes : 085 052 212 degrees QTc Int : 478 ms Sinus rhythm with frequent Premature ventricular complexes ST & T wave abnormality, consider lateral ischemia Prolonged QT Abnormal ECG Confirmed by JONATHAN VARMA, JILLIAN ([id number]), assistant editor CALLIE ZAPIEN ([id number]) on 07/28/2018 9:03:36 AM Referred By: Piyush Nick Confirmed By:JILLIAN CASTILLO MD
--- NOTE | 2018-07-25 09:30 | RAD_ITS ---
STUDY: X-RAY - ACUTE ABDOMINAL SERIES REASON FOR EXAM: Male, 53 years old. Abdominal pain. Constipation. TECHNIQUE: Single view of the chest. Supine, and erect view(s) of the abdomen were obtained. COMPARISON: Comparison is made with prior chest radiograph dated June 15, 2018. FINDINGS: EKG electrodes are seen. Hyperinflation. Once again, there is evidence of lack of bronchovascular markings in the upper lobes suggestive of severe emphysema and possible bullous changes. There is also evidence of scarring at the lung bases. Normal size heart. Normal mediastinum and denise. Normal visualized pulmonary arteries. Normal visualized aortic arch and descending thoracic aorta. There is an abundance of fecal material throughout the colon. The soft tissue structures of the abdomen and pelvis are unremarkable. There are degenerative changes of the visualized lumbar spine. Atherosclerotic calcification of the abdominal aorta. RAD/Acute Abdomen Inc Chest IMPRESSION: Large amount of fecal material is seen in the colon. Electronically Signed: Amari Good, at 12:21 EDT , Service support ,
--- NOTE | 2018-07-25 09:41 | ED.DCSUM_ITS ---
- ER Visit Summary Date of Service: 07/25/18 Chief Complaint: Shortness of breath History of Present Illness: The patient is a 53 M presenting with shortness of breath. Past medical history of CAD, CHF, COPD, cardiomyopathy. Echocardiogram December 2017 showed EF of 10%. He states this has been ongoing over the weekend. He says he has had constant chest pain associated with this. He has had constipation and difficulty urinating. He states he did have a bowel movement last night that was dark/black. He was able to urinate 3 times yesterday. He states typically he urinates more because he is on Lasix. He states when straining to have a bowel movement he becomes very short of breath. He was recently admitted to [facility] [place] from July 12 to July 19 for pneumonia and left AMA. Physical Examination: Vitals are stable. Patient is afebrile. Alert no acute distress. HEENT exam is unremarkable. Neck is supple. Lungs are diminished bilaterally. Heart is regular rate and rhythm. Abdomen is soft nontender nondistended. No guarding or rebound Extremities are unremarkable. Skin is warm and dry. No focal neurologic deficit. Remainder of exam is unremarkable. Emergency Department Course and Treatment: CBC shows hemoglobin 8.1, platelet 91. Previous hemoglobin 12.8. Chemistries show potassium 3.0, BUN 37. ALT 81, AST 39. Urinalysis unremarkable. EKG is sinus rate of 85 with PVCs. Stool is guaiac positive. Abdominal series shows large amount of fecal material. His blood pressure has remained in the 90s. He is typed and crossed for PRBC transfusion. Discussed with the hospitalist for admission. Disposition: Admission Impression: GI bleed This note was generated with [employer] dictation software. It may contain incorrect words, spelling, and punctuation that were not noted in review of the chart prior to signing ED Disposition - Plan for ED Patient: Disposition: Acute Care Hospital [facility]
[2018-07-25 10:23] LABS: Absolute Lymphocyte Count 1.09 X10^3/ul (0.83-4.51); Absolute Neutrophil Count 3.8 X10^3/uL (2.0-7.7); Eosinophil# 0.03 X10^3/uL; Eosinophils% 0.6 % (0-5); Hematocrit 24.7 % (40-54); Hemoglobin 8.1 g/dl (13.0-16.5); Lymphocyte # 1.09 X10^3/ul (4.0); Lymphocyte % 20.6 % (19-41); Mean Corp Hgb Conc 32.8 g/gl (32-36); Mean Corpuscular Hgb 27.3 pg (27.0-32.0); Mean Corpuscular Volume 83.2 fL (80-94); Mean Platelet Vol. 10.1 fl (6.2-12.0); Monocyte# 0.38 X10^3/uL; Monocyte% 7.2 % (0-10); Neutrophil # 3.79 X10^3/uL (2.7-7.7); Neutrophil % 71.4 % (47-70); Platelet Count 91 K/mm3 (150-450); RBC Distribution Width CV 17.8 % (11.6-14.6); RBC Distribution Width SD 53.9 fl (35.1-43.9); Red Blood Count 2.97 M/mm3 (4.6-6.2); White Blood Count 5.3 K/mm3 (4.4-11.0)
[2018-07-25 10:24] LABS: ALB/GLOB Ratio 0.8 RATIO (0.9-2.4); AST(SGOT) 39 U/L (15-37); Alanine Aminotransfer ALT/SGPT 81 U/L (16-61); Albumin, Serum 2.2 g/dL (3.2-5.0); Alkaline Phosphatase 62 U/L (45-117); Anion Gap 8 (5-15); BUN 37 mg/dL (7-18); BUN/Creat Ratio 47.3 RATIO (10-20); Calcium,Total 7.3 mg/dL (8.5-10.1); Chloride 102 mmol/L (98-107); Creatinine, Serum 0.78 mg/dL (0.70-1.30); EST Glomerular Filtration Rate 110 mL/min (>60); Est Glom Filt Rate - Afr Amer 134 mL/min (>60); Estimated Creatinine Clearance 87.12 ml/min; Globulin 2.8 g/dL (2.2-4.2); Glucose 97 mg/dL (74-106); Sodium Level 138 mmol/L (136-145)
[2018-07-25 10:24] LABS: POSITIVE COUNT NO; POSITIVE DIFFERENTIAL NO; POSITIVE MORPHOLOGY NO
[2018-07-25 10:26] LABS: Bacteria 0 SEEN /hpf (None Seen); Mucous, Urine 0 SEEN /hpf (<or=2+); Red Blood Cells-Urine 0 SEEN /hpf (0-5); Squamous Epithelial Cells - UA 0 SEEN /hpf (0-5); White Blood Cells 0 SEEN /hpf (0-5)
[2018-07-25 10:27] LABS: Color, Urine Yellow (Yellow); Glucose, Dipstick Normal (Normal); Ketone-Dipstick Negative (Negative); Leukocyte Esterase-Dipstick Negative /ul (Negative); Nitrite-Dipstick Negative (Negative); Occult Blood-Urine Negative /ul (Negative); Protein-Dipstick Negative (Negative); Urine Bilirubin Dipstick Negative (Negative); Urine Clarity Clear (Clear); Urine Urobilinogen 4 mg/dl (Normal)
[2018-07-25] MEDS: Ondansetron 4 MG/2 ML Vial IV (11:13)
[2018-07-25 11:59] LABS: BNP,B-Type NATRIURETIC PEPTIDE 569.1 pg/mL (0-100)
[2018-07-25] MEDS: fentaNYL 100 MCG/2 ML Ampul 50 MCG IV (12:31)
--- NOTE | 2018-07-25 13:13 | NURSING ---
PCU GI BLEED JORGE ALBERTO
--- NOTE | 2018-07-25 14:57 | PCM.HP.STD ---
<Rafia Wakefield - Last Filed: 07/25/18 15:52> Problem List (1) Stented coronary artery Status: Chronic Comment: Successful PTCA/CARLOZ of mid RCA with a 3.5 x 38 Promus Synergy 06/15/2018 per [facility] @ [facility] (2) Abnormal EKG Status: Chronic (3) Hyperlipidemia Status: Chronic (4) Lower leg edema Status: Chronic (5) Bilateral pleural effusion Status: Chronic Comment: Per chest CT 01/13/2018 (6) Alcohol abuse, in remission Status: Chronic Comment: Patient stopped in 2013 (7) Hypertension Status: Chronic (8) GERD (gastroesophageal reflux disease) Status: Chronic (9) Premature ventricular contractions Status: Chronic (10) Left ventricular hypertrophy Status: Chronic (11) Tobacco abuse Status: Chronic (12) Hx of supraventricular tachycardia Status: Chronic (13) History of left heart catheterization Status: Chronic Comment: 09/09/2011 @ [facility] per Dr. Garces; 01/24/18 @ [facility] per Dr. Nassar (14) Atherosclerotic heart disease of [place] coronary artery without angina pectoris Status: Chronic Comment: per [facility] 01/24/18: 50% stenosis mid RCA, all other coronaries normal. 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 (17) COPD (chronic obstructive pulmonary disease) Status: Chronic (18) Valvular heart disease Status: Chronic History of Present Illness Date of Admission: 07/25/18 Chief Complaint: Abdominal pain, black stools. The patient is a 53 year old M who presents emergency room due to abdominal pain, black stools. Patient reports he has had abdominal pain ongoing for a few months. Over the weekend he noticed his stools were black in color. Denies soniya blood in stool. Reports his stools were very firm. Denies nausea, vomiting. Today he complains of mild dizziness and shortness of breath. Denies chest pain. Patient had recent stent to mid right coronary artery 06/15/18. His other past medical history includes hypertension, hyperlipidemia, chronic COPD, cardiomyopathy with EF 10%, GERD, history of alcohol and tobacco use. Past Medical History Past Medical History (Chronic Problems): Chronic Problems (Last Reviewed 06/29/18 @ 10:58 by Carolina Mcallister) Stented coronary artery (Chronic 06/15/18) Successful PTCA/CARLOZ of mid RCA with a 3.5 x 38 Promus Synergy 06/15/2018 per [facility] @ [facility] Abnormal EKG (Chronic) Hyperlipidemia (Chronic) Lower leg edema (Chronic) Bilateral pleural effusion (Chronic 01/13/18) Per chest CT 01/13/2018 Alcohol abuse, in remission (Chronic) Patient stopped in 2013 Hypertension (Chronic) GERD (gastroesophageal reflux disease) (Chronic) Premature ventricular contractions (Chronic) Left ventricular hypertrophy (Chronic) Tobacco abuse (Chronic) Hx of supraventricular tachycardia (Chronic) History of left heart catheterization (Chronic 01/24/18) 09/09/2011 @ [facility] per Dr. Garces; 01/24/18 @ [facility] per Dr. Nassar Atherosclerotic heart disease of [place] coronary artery without angina pectoris (Chronic) per [facility] 01/24/18: 50% stenosis mid RCA, all other coronaries normal. 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 COPD (chronic obstructive pulmonary disease) (Chronic) Valvular heart disease (Chronic) Medical History: Medical History (Last Reviewed 06/29/18 @ 10:58 by Carolina Mcallister) Abnormal EKG (Chronic) R94.31 Hyperlipidemia (Chronic) E78.5 Lower leg edema (Chronic) R60.0 Bilateral pleural effusion (Chronic) Onset Date: 01/13/[address] 01/13/2018 Alcohol abuse, in remission (Chronic) F10.11 Patient stopped in 2013 Hypertension (Chronic) I10 GERD (gastroesophageal reflux disease) (Chronic) K21.9 Premature ventricular contractions (Chronic) I49.3 Left ventricular hypertrophy (Chronic) I51.7 Tobacco abuse (Chronic) Z72.0 Hx of supraventricular tachycardia (Chronic) Z86.79 Atherosclerotic heart disease of [place] coronary artery without angina pectoris (Chronic) I25.10 per [facility] 01/24/18: 50% stenosis mid RCA, all other coronaries normal. 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 COPD (chronic obstructive pulmonary disease) (Chronic) J44.9 Allergies ibuprofen Adverse Reaction (Verified 07/25/18 09:27) Nausea naproxen [From Naprosyn] Adverse Reaction (Verified 07/25/18 09:27) Nausea naproxen sodium [From Aleve] Adverse Reaction (Verified 07/25/18 09:27) Nausea tramadol Adverse Reaction (Verified 07/25/18 09:27) Nausea Home Medications: Ambulatory Orders Medication Instructions Recorded Furosemide [Lasix] 40 mg PO DAILY 06/15/18 Lisinopril 40 mg PO DAILY 06/15/18 Aspirin E.C. [Ecotrin] 81 mg PO DAILY@0800 07/25/18 Nitroglycerin [Nitrostat] 0.4 mg PO PRN PRN 07/25/18 Omeprazole 20 mg PO DAILY 07/25/18 Potassium Chloride [K-Dur] 20 meq PO DAILYCM 07/25/18 Ticagrelor [Brilinta] 90 mg PO BID 07/25/18 Surgical History: Surgical History (Last Reviewed 06/29/18 @ 10:58 by Carolina Mcallister) Stented coronary artery (Chronic) Onset Date: 06/15/18 Z95.5 Successful PTCA/CARLOZ of mid RCA with a 3.5 x 38 Promus Synergy 06/15/2018 per [facility] @ [facility] History of left heart catheterization (Chronic) Onset Date: 01/24/18 Z98.890 09/09/2011 @ [facility] per Dr. Garces; 01/24/18 @ [facility] per Dr. Nassar H/O wisdom tooth extraction K08.409 History of mandibular surgery Z98.890 Surgical History: - - [place] teeth removal, stent placement Psychiatric History: No pertinent psych hx Lives: With Family Smoking Status: Former smoker Tobacco Use: Cigarettes Alcohol: Sober Drugs: None - *Family History Maternal Family History: Family History (Last Reviewed 06/29/18 @ 10:58 by Carolina Mcallister) Other COPD (chronic obstructive pulmonary disease) Heart disease Hypertension History Items: Cancer - colon, Heart Disease, Hypertension Paternal Family History: Family History (Last Reviewed 06/29/18 @ 10:58 by Carolina Mcallister) Other COPD (chronic obstructive pulmonary disease) Heart disease Hypertension History Items: COPD - Emphysema Review of Systems Constitutional: Denies: Chills, Fever, Weight Change HEENT: Denies: Head Aches, Sinus Congestion, Sinus Drainage Cardiovascular: Reports: Light Headedness. Denies: Chest Pain, Edema, Palpitations, Syncope Respiratory: Reports: Shortness of Breath - Mild. Denies: Cough, Shortness of breath at rest, Sputum production Gastrointestinal: Reports: Abdominal Pain, - - Black stools. Denies: Diarrhea, Nausea, Vomiting Genitourinary: Denies: Dysuria Musculoskeletal: Denies: Joint Pain, Joint Tenderness Skin: Denies: Rash, Wounds Neurological: Denies: Numbness, Tingling, Focal weakness Psychiatric: Denies: Anxiety, Depression, Homicidal Ideations, Suicidal Ideations Hematologic/ Lymphatic: Denies: Easy Bruising, Easy Bleeding VTE Information - Inpt Only VTE Present on Admission: No VTE Mechan Device Prophylaxis: SCD's, None VTE Pharm Prophylaxis ordered?: No Reason prophylaxis not ordered:: Medical Contraindication Patient Problems: Active and Suspected Problems (Last Reviewed 06/29/18 @ 10:58 by Carolina Mcallister) GI bleed (Acute) Acute blood loss anemia (Acute) - Physical Exam General: Alert, Oriented x3, Cooperative HEENT: Atraumatic, PERRLA, EOMI, Normocephalic Neck: Supple, No JVD, Negative Carotid Bruits Lungs: Clear to auscultation, Diminished Cardiovascular: Regular rate, Regular Rhythm, Normal S1, Normal S2, No murmurs Abdomen: Bowel Sounds Present, Soft, Non-Distended, Tender Extremities: No clubbing, No cyanosis, No edema, Capillary Refill Less than 3 Seconds Skin: No rashes, No breakdown Musculoskeletal: No Tenderness to Palpation of Joints or Extremities Neurological: Cranial nerves II-XII grossly intact, Neuro grossly intact Psych/Mental Status: Normal Affect, Appropriate Vital Signs Temp Pulse Resp BP Pulse Ox 98.0 F 93 24 H 93/60 93 07/25/18 09:20 07/25/18 13:30 07/25/18 13:30 07/25/18 13:30 07/25/18 13:30 Oxygen Delivery Method Room Air Weight: 114 lb 3.191 oz Body Mass Index (BMI) 17.9 Microbiology Past 72 Hours 07/25/18 09:40 Stool Occult Blood (WENDY) - Final Stool Occult Blood Positive Laboratory Tests Past 24 Hrs 07/25/18 07/25/18 07/25/18 09:28 10:00 10:00 WBC 5.3 RBC 2.97 L Hgb 8.1 L Hct 24.7 L MCV 83.2 MCH 27.3 MCHC 32.8 RDW 17.8 H RDW Differential 53.9 H Plt Count 91 L MPV 10.1 Immature Gran % (Auto) 0.200 Neut % (Auto) 71.4 H Lymph % (Auto) 20.6 [place] % (Auto) 7.2 Eos % (Auto) 0.6 Baso % (Auto) 0.0 Absolute Neuts (auto) 3.8 Absolute Lymphs (auto) 1.09 Total Counted Not Reportable Sodium 138 Potassium 3.0 L Chloride 102 Carbon Dioxide 28.0 Anion Gap 8 BUN 37 H Creatinine 0.78 Estim Creat Clear Calc 87.12 Est GFR (MDRD) Af Amer 134 Est GFR (MDRD) Non-Af 110 BUN/Creatinine Ratio 47.3 H Glucose 97 Calcium 7.3 L Total Bilirubin 1.00 AST 39 H ALT 81 H Alkaline Phosphatase 62 Troponin I 0.065 H B-Natriuretic Peptide 569.1 H Total Protein 5.0 L Albumin 2.2 L Globulin 2.8 Albumin/Globulin Ratio 0.8 L Urine Color Urine Clarity Urine pH Ur Specific [place] Urine Protein Urine Glucose (UA) Urine Ketones Urine Occult Blood Urine Nitrite Urine Bilirubin Urine Urobilinogen Ur Leukocyte Esterase Urine RBC Urine WBC Ur Squamous Epith Cells Urine Bacteria Urine Mucus Blood Type Antibody Screen Crossmatch 07/25/18 07/25/18 10:15 13:20 WBC RBC Hgb Hct MCV MCH MCHC RDW RDW Differential Plt Count MPV Immature Gran % (Auto) Neut % (Auto) Lymph % (Auto) [place] % (Auto) Eos % (Auto) Baso % (Auto) Absolute Neuts (auto) Absolute Lymphs (auto) Total Counted Sodium Potassium Chloride Carbon Dioxide Anion Gap BUN Creatinine Estim Creat Clear Calc Est GFR (MDRD) Af Amer Est GFR (MDRD) Non-Af BUN/Creatinine Ratio Glucose Calcium Total Bilirubin AST ALT Alkaline Phosphatase Troponin I B-Natriuretic Peptide Total Protein Albumin Globulin Albumin/Globulin Ratio Urine Color Yellow Urine Clarity Clear Urine pH 7.0 Ur Specific [place] 1.010 Urine Protein Negative Urine Glucose (UA) Normal Urine Ketones Negative Urine Occult Blood Negative Urine Nitrite Negative Urine Bilirubin Negative Urine Urobilinogen 4 H Ur Leukocyte Esterase Negative Urine RBC 0 SEEN Urine WBC 0 SEEN Ur Squamous Epith Cells 0 SEEN Urine Bacteria 0 SEEN Urine Mucus 0 SEEN Blood Type A POSITIVE Antibody Screen NEGATIVE Crossmatch See Detail Assessment/Plan All Active Problems (Last Reviewed 06/29/18 @ 10:58 by Carolina Mcallister) GI bleed (Acute) Acute blood loss anemia (Acute) 1. Acute GI bleed with associated acute blood loss anemia- 1 unit PRBC ordered. Trend CBC. Dr. Joseph consulted. Plan for EGD/Colonoscopy tomorrow. Abdominal x-ray with large amount of stool. 2. Elevated troponin- suspect demand ischemia secondary to #1. Trend enzymes. 3. Hypokalemia- Replace per protocol. Trend BMP. 4. CAD s/p stent to mid right coronary artery 06/15/18- 5. Hypertension-hold lisinopril regimen given hypotension. 6. Hyperlipidemia- not on statin? 7. Chronic COPD-no acute exacerbation. 8. Cardiomyopathy with EF 10%- echo December 2017 with EF 10%. Continue Lasix, LAVERN inhibitor. 9. Chronic elevated LFTs-outpatient follow up. 10. GERD- IV PPI. 11. History of alcohol and tobacco use- denies current use. DVT prophylaxis-SCDs This patient was seen by Rafia Wakefield NP-[place] under the supervision of Dr. Nick. <Piyush Nick - Last Filed: 07/25/18 16:17> Problem List (1) GI bleed Status: Acute Qualifiers: GI bleed type/associated pathology: unspecified gastrointestinal hemorrhage type Qualified Code(s): K92.2 - Gastrointestinal hemorrhage, unspecified (2) Acute blood loss anemia Status: Acute History of Present Illness The patient is a 53 year old M presents with several day history of dark tarry stool. Was preceded by the previous week of hemoptysis. Presented to the emergency room where he was heme positive in stool and his hemoglobin was 8.1, down from 12.8 from July 07. Patient did undergo a left heart catheterization in June 15, where he had a drug-eluting stent to the mid RCA. Patient was put on aspirin and Brilinta at that time. [] Past Medical History Medical History: Medical History (Last Reviewed 07/25/18 @ 16:12 by Piyush Nick DO) Abnormal EKG (Chronic) R94.31 Hyperlipidemia (Chronic) E78.5 Lower leg edema (Chronic) R60.0 Bilateral pleural effusion (Chronic) Onset Date: 01/13/[address] 01/13/2018 Alcohol abuse, in remission (Chronic) F10.11 Patient stopped in 2013 Hypertension (Chronic) I10 GERD (gastroesophageal reflux disease) (Chronic) K21.9 Premature ventricular contractions (Chronic) I49.3 Left ventricular hypertrophy (Chronic) I51.7 Tobacco abuse (Chronic) Z72.0 Hx of supraventricular tachycardia (Chronic) Z86.79 Atherosclerotic heart disease of [place] coronary artery without angina pectoris (Chronic) I25.10 per [facility] 01/24/18: 50% stenosis mid RCA, all other coronaries normal. 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 COPD (chronic obstructive pulmonary disease) (Chronic) J44.9 Allergies ibuprofen Adverse Reaction (Verified 07/25/18 09:27) Nausea naproxen [From Naprosyn] Adverse Reaction (Verified 07/25/18 09:27) Nausea naproxen sodium [From Aleve] Adverse Reaction (Verified 07/25/18 09:27) Nausea tramadol Adverse Reaction (Verified 07/25/18 09:27) Nausea Surgical History: Surgical History (Last Reviewed 07/25/18 @ 16:12 by Piyush Nick DO) Stented coronary artery (Chronic) Onset Date: 06/15/18 Z95.5 Successful PTCA/CARLOZ of mid RCA with a 3.5 x 38 Promus Synergy 06/15/2018 per [facility] @ [facility] History of left heart catheterization (Chronic) Onset Date: 01/24/18 Z98.890 09/09/2011 @ [facility] per Dr. Garces; 01/24/18 @ [facility] per Dr. Nassar H/O wisdom tooth extraction K08.409 History of mandibular surgery Z98.890 Surgical History: - Psychiatric History: No pertinent psych hx Lives: With Family Smoking Status: Former smoker Tobacco Use: Cigarettes Alcohol: Sober Drugs: None - *Family History Maternal Family History: Family History (Last Reviewed 07/25/18 @ 16:12 by Piyush Nick DO) Other COPD (chronic obstructive pulmonary disease) Heart disease Hypertension History Items: Cancer, Heart Disease, Hypertension Paternal Family History: Family History (Last Reviewed 07/25/18 @ 16:12 by Piyush Nick DO) Other COPD (chronic obstructive pulmonary disease) Heart disease Hypertension History Items: COPD Review of Systems Constitutional: Denies: Chills, Fever, Weight Change HEENT: Denies: Head Aches, Sinus Congestion, Sinus Drainage Cardiovascular: Reports: Light Headedness. Denies: Chest Pain, Edema, Palpitations, Syncope Respiratory: Reports: Shortness of Breath. Denies: Shortness of breath at rest Gastrointestinal: Reports: Abdominal Pain, Hematemesis, Melena, -. Denies: Diarrhea, Hematochezia, Nausea, Vomiting Genitourinary: Denies: Dysuria Musculoskeletal: Denies: Joint Pain, Joint Tenderness Skin: Denies: Rash Neurological: Denies: Focal weakness, Numbness, Tingling Psychiatric: Denies: Anxiety, Depression, Homicidal Ideations, Suicidal Ideations Hematologic/ Lymphatic: Denies: Easy Bruising, Easy Bleeding VTE Information - Inpt Only VTE Present on Admission: No VTE Mechan Device Prophylaxis: SCD's VTE Pharm Prophylaxis ordered?: No Reason prophylaxis not ordered:: Medical Contraindication - Physical Exam General: Alert, Cooperative HEENT: Atraumatic, Normocephalic Lungs: Clear to auscultation, Diminished Cardiovascular: Regular rate, Regular Rhythm, Normal S1, Normal S2, No murmurs Abdomen: Bowel Sounds Present, Soft, Non-Distended, Tender Extremities: No clubbing, No edema, Capillary Refill Less than 3 Seconds Skin: No rashes, No breakdown Neurological: Cranial nerves II-XII grossly intact, Neuro grossly intact Psych/Mental Status: Normal Affect, Appropriate Vital Signs Temp Pulse Resp BP Pulse Ox 36.7 C 87 24 H 93/60 93 07/25/18 09:20 07/25/18 16:03 07/25/18 13:30 07/25/18 13:30 07/25/18 13:30 Oxygen Delivery Method Room Air Weight: 51.8 kg Body Mass Index (BMI) 17.9 Microbiology Past 72 Hours 07/25/18 09:40 Stool Occult Blood (WENDY) - Final Stool Occult Blood Positive Laboratory Tests Past 24 Hrs 07/25/18 07/25/18 07/25/18 09:28 10:00 10:00 WBC 5.3 RBC 2.97 L Hgb 8.1 L Hct 24.7 L MCV 83.2 MCH 27.3 MCHC 32.8 RDW 17.8 H RDW Differential 53.9 H Plt Count 91 L MPV 10.1 Immature Gran % (Auto) 0.200 Neut % (Auto) 71.4 H Lymph % (Auto) 20.6 [place] % (Auto) 7.2 Eos % (Auto) 0.6 Baso % (Auto) 0.0 Absolute Neuts (auto) 3.8 Absolute Lymphs (auto) 1.09 Total Counted Not Reportable Sodium 138 Potassium 3.0 L Chloride 102 Carbon Dioxide 28.0 Anion Gap 8 BUN 37 H Creatinine 0.78 Estim Creat Clear Calc 87.12 Est GFR (MDRD) Af Amer 134 Est GFR (MDRD) Non-Af 110 BUN/Creatinine Ratio 47.3 H Glucose 97 Calcium 7.3 L Total Bilirubin 1.00 AST 39 H ALT 81 H Alkaline Phosphatase 62 Troponin I 0.065 H B-Natriuretic Peptide 569.1 H Total Protein 5.0 L Albumin 2.2 L Globulin 2.8 Albumin/Globulin Ratio 0.8 L Urine Color Urine Clarity Urine pH Ur Specific [place] Urine Protein Urine Glucose (UA) Urine Ketones Urine Occult Blood Urine Nitrite Urine Bilirubin Urine Urobilinogen Ur Leukocyte Esterase Urine RBC Urine WBC Ur Squamous Epith Cells Urine Bacteria Urine Mucus Blood Type Antibody Screen Crossmatch 07/25/18 07/25/18 10:15 13:20 WBC RBC Hgb Hct MCV MCH MCHC RDW RDW Differential Plt Count MPV Immature Gran % (Auto) Neut % (Auto) Lymph % (Auto) [place] % (Auto) Eos % (Auto) Baso % (Auto) Absolute Neuts (auto) Absolute Lymphs (auto) Total Counted Sodium Potassium Chloride Carbon Dioxide Anion Gap BUN Creatinine Estim Creat Clear Calc Est GFR (MDRD) Af Amer Est GFR (MDRD) Non-Af BUN/Creatinine Ratio Glucose Calcium Total Bilirubin AST ALT Alkaline Phosphatase Troponin I B-Natriuretic Peptide Total Protein Albumin Globulin Albumin/Globulin Ratio Urine Color Yellow Urine Clarity Clear Urine pH 7.0 Ur Specific [place] 1.010 Urine Protein Negative Urine Glucose (UA) Normal Urine Ketones Negative Urine Occult Blood Negative Urine Nitrite Negative Urine Bilirubin Negative Urine Urobilinogen 4 H Ur Leukocyte Esterase Negative Urine RBC 0 SEEN Urine WBC 0 SEEN Ur Squamous Epith Cells 0 SEEN Urine Bacteria 0 SEEN Urine Mucus 0 SEEN Blood Type A POSITIVE Antibody Screen NEGATIVE Crossmatch See Detail Assessment/Plan Patient seen and examined independently. Data reviewed. I agree with the above note by the nurse practitioner. 1. GI bleed Unclear etiology plan is for endoscopy, both EGD and colonoscopy on the Patient will be on IV Protonix, general surgery is on consultation. possible this could be upper as patient was having hemoptysis about a week ago. Possible this could be PUD versus Lesly-Flynn tear versus other 2. Acute blood loss anemia Secondary to above. Patient typed and crossed and will be transfused 1 unit packed red blood cells Monitor 3. Elevated troponin Scarcely elevated No chest pain Monitor 4. Coronary artery disease Patient had percutaneous intervention on [id number] of June Hold aspirin, continue with Brilinta Follow-up with cardiology as outpatient 5. VTE prophylaxis: SCDs. Chemical prophylaxis contraindicated in light of the acute blood loss anemia. Code Visit Inpatient E&M: 28344 Init Hosp L2
[2018-07-25] MEDS: Acetaminophen 325 MG Tablet 650 MG PO (15:31)
[2018-07-25] MEDS: 0.9% NaCl Peripheral Flush Adult/Peds IV (15:31)
[2018-07-25] MEDS: Ensure Clear 120 ML Liquid PO (17:38)
[2018-07-25] MEDS: Electrolyte Solution/Peg's 4000 ML PO (18:45)
--- NOTE | 2018-07-25 21:33 | PCM.CONS.GEN ---
Reason for Consult Date of Consultation: 07/25/18 Reason for Consultation: emesis, melena History of Present Illness: The patient is a 53 year old M who admits to having thrown up blood a few days previously. He then noted black tarry stools and a feeling of increased lethargyand weakness. He is noted mild diffuse to upper abdominal pain for the past few months. He complained of increasing shortness of breath and mild dizziness compared to his baseline and presented to [facility] today. The patient was found of a hemoglobinof 8.1, down from 12.8 on July 07. The patient was admitted for GI bleed and our service was contacted for endoscopy. The patient has a history of COPD, previous alcohol abuse now in remission, previous hypertension reflux and severe ischemic cardiomyopathy with a cardiac ejection fraction of 10% and significant akinetic areas following at least 1 myocardial infarction. He had successful PTCA of the right circumflex artery on 06/15/2018 and is currently on Brillenta and aspirin. he has undergone previous upper endoscopy. He has not had previous colonoscopy. Past Medical History Past Medical History (Chronic Problems): Chronic Problems (Last Reviewed 07/25/18 @ 16:12 by Piyush Nick DO) Stented coronary artery (Chronic 06/15/18) Successful PTCA/CARLOZ of mid RCA with a 3.5 x 38 Promus Synergy 06/15/2018 per [employer] @ [facility] Abnormal EKG (Chronic) Hyperlipidemia (Chronic) Lower leg edema (Chronic) Bilateral pleural effusion (Chronic 01/13/18) Per chest CT 01/13/2018 Alcohol abuse, in remission (Chronic) Patient stopped in 2013 Hypertension (Chronic) GERD (gastroesophageal reflux disease) (Chronic) Premature ventricular contractions (Chronic) Left ventricular hypertrophy (Chronic) Tobacco abuse (Chronic) Hx of supraventricular tachycardia (Chronic) History of left heart catheterization (Chronic 01/24/18) 09/09/2011 @ [facility] per Dr. Garces; 01/24/18 @ [facility] per Dr. Nassar Atherosclerotic heart disease of [place] coronary artery without angina pectoris (Chronic) per [facility] 01/24/18: 50% stenosis mid RCA, all other coronaries normal. Pulmonary hypertension Successful PTCA/CALROZ of mid RCA with a 3.5 x 38 Promus Synergy 06/15/2018 per [employer] @ [facility] NSTEMI (non-ST elevated myocardial infarction) (Chronic 01/24/18) Cardiomyopathy (Chronic) EF 10% per echo December 2017:possibly alcoholic CMP, not likely ischemic. COPD (chronic obstructive pulmonary disease) (Chronic) Valvular heart disease (Chronic) Medical History: Medical History (Last Reviewed 07/25/18 @ 16:12 by Piyush Nick DO) Abnormal EKG (Chronic) R94.31 Hyperlipidemia (Chronic) E78.5 Lower leg edema (Chronic) R60.0 Bilateral pleural effusion (Chronic) Onset Date: 01/13/[address] 01/13/2018 Alcohol abuse, in remission (Chronic) F10.11 Patient stopped in 2013 Hypertension (Chronic) I10 GERD (gastroesophageal reflux disease) (Chronic) K21.9 Premature ventricular contractions (Chronic) I49.3 Left ventricular hypertrophy (Chronic) I51.7 Tobacco abuse (Chronic) Z72.0 Hx of supraventricular tachycardia (Chronic) Z86.79 Atherosclerotic heart disease of [place] coronary artery without angina pectoris (Chronic) I25.10 per [facility] 01/24/18: 50% stenosis mid RCA, all other coronaries normal. Pulmonary hypertension Successful PTCA/CARLOZ of mid RCA with a 3.5 x 38 Promus Synergy 06/15/2018 per [employer] @ [facility] NSTEMI (non-ST elevated myocardial infarction) (Chronic) Onset Date: 01/24/18 I21.4 Cardiomyopathy (Chronic) I42.9 EF 10% per echo December 2017:possibly alcoholic CMP, not likely ischemic. COPD (chronic obstructive pulmonary disease) (Chronic) J44.9 Allergies ibuprofen Adverse Reaction (Verified 07/25/18 09:27) Nausea naproxen [From Naprosyn] Adverse Reaction (Verified 07/25/18 09:27) Nausea naproxen sodium [From Aleve] Adverse Reaction (Verified 07/25/18 09:27) Nausea tramadol Adverse Reaction (Verified 07/25/18 09:27) Nausea Home Medications: Ambulatory Orders Medication Instructions Recorded Furosemide [Lasix] 40 mg PO DAILY 06/15/18 Lisinopril 40 mg PO DAILY 06/15/18 Aspirin E.C. [Ecotrin] 81 mg PO DAILY@0800 07/25/18 Nitroglycerin [Nitrostat] 0.4 mg PO PRN PRN 07/25/18 Omeprazole 20 mg PO DAILY 07/25/18 Potassium Chloride [K-Dur] 20 meq PO DAILYCM 07/25/18 Ticagrelor [Brilinta] 90 mg PO BID 07/25/18 Surgical History: Surgical History (Last Reviewed 07/25/18 @ 16:12 by Piyush Nick DO) Stented coronary artery (Chronic) Onset Date: 06/15/18 Z95.5 Successful PTCA/CARLOZ of mid RCA with a 3.5 x 38 Promus Synergy 06/15/2018 per [employer] @ [facility] History of left heart catheterization (Chronic) Onset Date: 01/24/18 Z98.890 09/09/2011 @ [facility] per Dr. Garces; 01/24/18 @ [facility] per Dr. Nassar H/O wisdom tooth extraction K08.409 History of mandibular surgery Z Surgical History: - Psychiatric History: No pertinent psych hx Lives: With Family Smoking Status: Former smoker Tobacco Use: Cigarettes Alcohol: Sober Drugs: None - *Family History Maternal Family History: Family History (Last Reviewed 07/25/18 @ 16:12 by Piyush Nick DO) Other COPD (chronic obstructive pulmonary disease) Heart disease Hypertension History Items: Cancer, Heart Disease, Hypertension Paternal Family History: Family History (Last Reviewed 07/25/18 @ 16:12 by Piyush Ncik DO) Other COPD (chronic obstructive pulmonary disease) Heart disease Hypertension History Items: COPD Review of Systems Constitutional: Reports: Fatigue. Denies: Chills, Fever, Weight Change Respiratory: Reports: Shortness of Breath, Shortness of breath upon exertion Gastrointestinal: Reports: Abdominal Pain, Hematemesis, Melena Genitourinary: Denies: Dysuria Musculoskeletal: Denies: Joint Pain, Joint Tenderness Neurological: Denies: Numbness, Tingling, Focal weakness Patient Problems: Active and Suspected Problems (Last Reviewed 07/25/18 @ 16:12 by Piyush Nick DO) GI bleed (Acute) Acute blood loss anemia (Acute) - Physical Exam General: Alert, Oriented x3, Cooperative Lungs: Clear to auscultation, Diminished Cardiovascular: Irregular Rate Abdomen: Bowel Sounds Present, Soft, Non Tender Vital Signs Temp Pulse Resp BP Pulse Ox 98.2 F 83 18 93/57 L 94 07/25/18 17:36 07/25/18 17:36 07/25/18 17:36 07/25/18 17:36 07/25/18 17:36 Oxygen Delivery Method Room Air Weight: 51.8 kg Body Mass Index (BMI) 17.9 Intake and Output for Last 24 Hours 07/23/18 07/24/18 07/25/18 23:59 23:59 23:59 Intake Total 959 / 959 Output Total 700 / 700 Balance 259 / 259 Microbiology Past 72 Hours 07/25/18 09:40 Stool Occult Blood (WENDY) - Final Stool Occult Blood Positive Laboratory Tests Past 24 Hrs 07/25/18 07/25/18 07/25/18 09:28 10:00 10:00 WBC 5.3 RBC 2.97 L Hgb 8.1 L Hct 24.7 L MCV 83.2 MCH 27.3 MCHC 32.8 RDW 17.8 H RDW Differential 53.9 H Plt Count 91 L MPV 10.1 Immature Gran % (Auto) 0.200 Neut % (Auto) 71.4 H Lymph % (Auto) 20.6 [place] % (Auto) 7.2 Eos % (Auto) 0.6 Baso % (Auto) 0.0 Absolute Neuts (auto) 3.8 Absolute Lymphs (auto) 1.09 Total Counted Not Reportable Sodium 138 Potassium 3.0 L Chloride 102 Carbon Dioxide 28.0 Anion Gap 8 BUN 37 H Creatinine 0.78 Estim Creat Clear Calc 87.12 Est GFR (MDRD) Af Amer 134 Est GFR (MDRD) Non-Af 110 BUN/Creatinine Ratio 47.3 H Glucose 97 Calcium 7.3 L Total Bilirubin 1.00 AST 39 H ALT 81 H Alkaline Phosphatase 62 Troponin I 0.065 H B-Natriuretic Peptide 569.1 H Total Protein 5.0 L Albumin 2.2 L Globulin 2.8 Albumin/Globulin Ratio 0.8 L Urine Color Urine Clarity Urine pH Ur Specific [place] Urine Protein Urine Glucose (UA) Urine Ketones Urine Occult Blood Urine Nitrite Urine Bilirubin Urine Urobilinogen Ur Leukocyte Esterase Urine RBC Urine WBC Ur Squamous Epith Cells Urine Bacteria Urine Mucus Blood Type Antibody Screen Crossmatch 07/25/18 07/25/18 07/25/18 10:15 13:20 16:30 WBC RBC Hgb Hct MCV MCH MCHC RDW RDW Differential Plt Count MPV Immature Gran % (Auto) Neut % (Auto) Lymph % (Auto) [place] % (Auto) Eos % (Auto) Baso % (Auto) Absolute Neuts (auto) Absolute Lymphs (auto) Total Counted Sodium Potassium Chloride Carbon Dioxide Anion Gap BUN Creatinine Estim Creat Clear Calc Est GFR (MDRD) Af Amer Est GFR (MDRD) Non-Af BUN/Creatinine Ratio Glucose Calcium Total Bilirubin AST ALT Alkaline Phosphatase Troponin I 0.057 H B-Natriuretic Peptide Total Protein Albumin Globulin Albumin/Globulin Ratio Urine Color Yellow Urine Clarity Clear Urine pH 7.0 Ur Specific [place] 1.010 Urine Protein Negative Urine Glucose (UA) Normal Urine Ketones Negative Urine Occult Blood Negative Urine Nitrite Negative Urine Bilirubin Negative Urine Urobilinogen 4 H Ur Leukocyte Esterase Negative Urine RBC 0 SEEN Urine WBC 0 SEEN Ur Squamous Epith Cells 0 SEEN Urine Bacteria 0 SEEN Urine Mucus 0 SEEN Blood Type A POSITIVE Antibody Screen NEGATIVE Crossmatch See Detail 07/25/18 18:39 WBC RBC Hgb Hct MCV MCH MCHC RDW RDW Differential Plt Count MPV Immature Gran % (Auto) Neut % (Auto) Lymph % (Auto) [place] % (Auto) Eos % (Auto) Baso % (Auto) Absolute Neuts (auto) Absolute Lymphs (auto) Total Counted Sodium Potassium Chloride Carbon Dioxide Anion Gap BUN Creatinine Estim Creat Clear Calc Est GFR (MDRD) Af Amer Est GFR (MDRD) Non-Af BUN/Creatinine Ratio Glucose Calcium Total Bilirubin AST ALT Alkaline Phosphatase Troponin I 0.052 H B-Natriuretic Peptide Total Protein Albumin Globulin Albumin/Globulin Ratio Urine Color Urine Clarity Urine pH Ur Specific [place] Urine Protein Urine Glucose (UA) Urine Ketones Urine Occult Blood Urine Nitrite Urine Bilirubin Urine Urobilinogen Ur Leukocyte Esterase Urine RBC Urine WBC Ur Squamous Epith Cells Urine Bacteria Urine Mucus Blood Type Antibody Screen Crossmatch Assessment/Plan All Active Problems (Last Reviewed 07/25/18 @ 16:12 by Piyush Nick DO) GI bleed (Acute) Acute blood loss anemia (Acute) anemia, hematemesis, melena, likely upper GI bleed, severe cardiomyopathy previous myocardial infarction we plan to perform upper and lower endoscopy tomorrow. this will likely performed by Dr. Joseph. the patient sent the risks, benefits, possible complications for endoscopy including increased risk of cardiovascular complications secondary severe cardiomyopathy. The patient consents to the procedure. We'll plan for monitored anesthetic care given his COPD and severe cardiomyopathy. The patient will be transfused tonight. He will be given GoLYTELY with plans for endoscopy tomorrow.
--- NOTE | 2018-07-25 21:37 | CON.PCM_ITS ---
Reason for Consult Date of Consultation: 07/25/18 Reason for Consultation: emesis, melena History of Present Illness: The patient is a 53 year old M who admits to having thrown up blood a few days previously. He then noted black tarry stools and a feeling of increased lethargyand weakness. He is noted mild diffuse to upper abdominal pain for the past few months. He complained of increasing shortness of breath and mild dizziness compared to his baseline and presented to [facility] today. The patient was found of a hemoglobinof 8.1, down from 12.8 on July 07. The patient was admitted for GI bleed and our service was contacted for endoscopy. The patient has a history of COPD, previous alcohol abuse now in remission, previous hypertension reflux and severe ischemic cardiomyopathy with a cardiac ejection fraction of 10% and significant akinetic areas following at least 1 myocardial infarction. He had successful PTCA of the right circumflex artery on 06/15/2018 and is currently on Brillenta and aspirin. he has undergone previous upper endoscopy. He has not had previous colonoscopy. Past Medical History Past Medical History (Chronic Problems): Chronic Problems (Last Reviewed 07/25/18 @ 16:12 by Piyush Nick DO) Stented coronary artery (Chronic 06/15/18) Successful PTCA/CARLOZ of mid RCA with a 3.5 x 38 Promus Synergy 06/15/2018 per [employer] @ [facility] Abnormal EKG (Chronic) Hyperlipidemia (Chronic) Lower leg edema (Chronic) Bilateral pleural effusion (Chronic 01/13/18) Per chest CT 01/13/2018 Alcohol abuse, in remission (Chronic) Patient stopped in 2013 Hypertension (Chronic) GERD (gastroesophageal reflux disease) (Chronic) Premature ventricular contractions (Chronic) Left ventricular hypertrophy (Chronic) Tobacco abuse (Chronic) Hx of supraventricular tachycardia (Chronic) History of left heart catheterization (Chronic 01/24/18) 09/09/2011 @ [facility] per Dr. Garces; 01/24/18 @ [facility] per Dr. Nassar Atherosclerotic heart disease of [place] coronary artery without angina pectoris (Chronic) per [facility] 01/24/18: 50% stenosis mid RCA, all other coronaries normal. 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 COPD (chronic obstructive pulmonary disease) (Chronic) Valvular heart disease (Chronic) Medical History: Medical History (Last Reviewed 07/25/18 @ 16:12 by Piuysh Nick DO) Abnormal EKG (Chronic) R94.31 Hyperlipidemia (Chronic) E78.5 Lower leg edema (Chronic) R60.0 Bilateral pleural effusion (Chronic) Onset Date: 01/13/[address] 01/13/2018 Alcohol abuse, in remission (Chronic) F10.11 Patient stopped in 2013 Hypertension (Chronic) I10 GERD (gastroesophageal reflux disease) (Chronic) K21.9 Premature ventricular contractions (Chronic) I49.3 Left ventricular hypertrophy (Chronic) I51.7 Tobacco abuse (Chronic) Z72.0 Hx of supraventricular tachycardia (Chronic) Z86.79 Atherosclerotic heart disease of [place] coronary artery without angina pectoris (Chronic) I25.10 per [facility] 01/24/18: 50% stenosis mid RCA, all other coronaries normal. 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 COPD (chronic obstructive pulmonary disease) (Chronic) J44.9 Allergies ibuprofen Adverse Reaction (Verified 07/25/18 09:27) Nausea naproxen [From Naprosyn] Adverse Reaction (Verified 07/25/18 09:27) Nausea naproxen sodium [From Aleve] Adverse Reaction (Verified 07/25/18 09:27) Nausea tramadol Adverse Reaction (Verified 07/25/18 09:27) Nausea Home Medications: Ambulatory Orders Medication Instructions Recorded Furosemide [Lasix] 40 mg PO DAILY 06/15/18 Lisinopril 40 mg PO DAILY 06/15/18 Aspirin E.C. [Ecotrin] 81 mg PO DAILY@0800 07/25/18 Nitroglycerin [Nitrostat] 0.4 mg PO PRN PRN 07/25/18 Omeprazole 20 mg PO DAILY 07/25/18 Potassium Chloride [K-Dur] 20 meq PO DAILYCM 07/25/18 Ticagrelor [Brilinta] 90 mg PO BID 07/25/18 Surgical History: Surgical History (Last Reviewed 07/25/18 @ 16:12 by Piyush Nick DO) Stented coronary artery (Chronic) Onset Date: 06/15/18 Z95.5 Successful PTCA/CARLOZ of mid RCA with a 3.5 x 38 Promus Synergy 06/15/2018 per [employer] @ [facility] History of left heart catheterization (Chronic) Onset Date: 01/24/18 Z98.890 09/09/2011 @ [facility] per Dr. Garces; 01/24/18 @ [facility] per Dr. Nassar H/O wisdom tooth extraction K08.409 History of mandibular surgery Z Surgical History: - Psychiatric History: No pertinent psych hx Lives: With Family Smoking Status: Former smoker Tobacco Use: Cigarettes Alcohol: Sober Drugs: None - *Family History Maternal Family History: Family History (Last Reviewed 07/25/18 @ 16:12 by Piyush Nick DO) Other COPD (chronic obstructive pulmonary disease) Heart disease Hypertension History Items: Cancer, Heart Disease, Hypertension Paternal Family History: Family History (Last Reviewed 07/25/18 @ 16:12 by Piyush Nick DO) Other COPD (chronic obstructive pulmonary disease) Heart disease Hypertension History Items: COPD Review of Systems Constitutional: Reports: Fatigue. Denies: Chills, Fever, Weight Change Respiratory: Reports: Shortness of Breath, Shortness of breath upon exertion Gastrointestinal: Reports: Abdominal Pain, Hematemesis, Melena Genitourinary: Denies: Dysuria Musculoskeletal: Denies: Joint Pain, Joint Tenderness Neurological: Denies: Numbness, Tingling, Focal weakness Patient Problems: Active and Suspected Problems (Last Reviewed 07/25/18 @ 16:12 by Piyush Nick DO) GI bleed (Acute) Acute blood loss anemia (Acute) - Physical Exam General: Alert, Oriented x3, Cooperative Lungs: Clear to auscultation, Diminished Cardiovascular: Irregular Rate Abdomen: Bowel Sounds Present, Soft, Non Tender Vital Signs Temp Pulse Resp BP Pulse Ox 98.2 F 83 18 93/57 L 94 07/25/18 17:36 07/25/18 17:36 07/25/18 17:36 07/25/18 17:36 07/25/18 17:36 Oxygen Delivery Method Room Air Weight: 51.8 kg Body Mass Index (BMI) 17.9 Intake and Output for Last 24 Hours 07/23/18 07/24/18 07/25/18 23:59 23:59 23:59 Intake Total 959 / 959 Output Total 700 / 700 Balance 259 / 259 Microbiology Past 72 Hours 07/25/18 09:40 Stool Occult Blood (WENDY) - Final Stool Occult Blood Positive Laboratory Tests Past 24 Hrs 07/25/18 07/25/18 07/25/18 09:28 10:00 10:00 WBC 5.3 RBC 2.97 L Hgb 8.1 L Hct 24.7 L MCV 83.2 MCH 27.3 MCHC 32.8 RDW 17.8 H RDW Differential 53.9 H Plt Count 91 L MPV 10.1 Immature Gran % (Auto) 0.200 Neut % (Auto) 71.4 H Lymph % (Auto) 20.6 [place] % (Auto) 7.2 Eos % (Auto) 0.6 Baso % (Auto) 0.0 Absolute Neuts (auto) 3.8 Absolute Lymphs (auto) 1.09 Total Counted Not Reportable Sodium 138 Potassium 3.0 L Chloride 102 Carbon Dioxide 28.0 Anion Gap 8 BUN 37 H Creatinine 0.78 Estim Creat Clear Calc 87.12 Est GFR (MDRD) Af Amer 134 Est GFR (MDRD) Non-Af 110 BUN/Creatinine Ratio 47.3 H Glucose 97 Calcium 7.3 L Total Bilirubin 1.00 AST 39 H ALT 81 H Alkaline Phosphatase 62 Troponin I 0.065 H B-Natriuretic Peptide 569.1 H Total Protein 5.0 L Albumin 2.2 L Globulin 2.8 Albumin/Globulin Ratio 0.8 L Urine Color Urine Clarity Urine pH Ur Specific [place] Urine Protein Urine Glucose (UA) Urine Ketones Urine Occult Blood Urine Nitrite Urine Bilirubin Urine Urobilinogen Ur Leukocyte Esterase Urine RBC Urine WBC Ur Squamous Epith Cells Urine Bacteria Urine Mucus Blood Type Antibody Screen Crossmatch 07/25/18 07/25/18 07/25/18 10:15 13:20 16:30 WBC RBC Hgb Hct MCV MCH MCHC RDW RDW Differential Plt Count MPV Immature Gran % (Auto) Neut % (Auto) Lymph % (Auto) [place] % (Auto) Eos % (Auto) Baso % (Auto) Absolute Neuts (auto) Absolute Lymphs (auto) Total Counted Sodium Potassium Chloride Carbon Dioxide Anion Gap BUN Creatinine Estim Creat Clear Calc Est GFR (MDRD) Af Amer Est GFR (MDRD) Non-Af BUN/Creatinine Ratio Glucose Calcium Total Bilirubin AST ALT Alkaline Phosphatase Troponin I 0.057 H B-Natriuretic Peptide Total Protein Albumin Globulin Albumin/Globulin Ratio Urine Color Yellow Urine Clarity Clear Urine pH 7.0 Ur Specific [place] 1.010 Urine Protein Negative Urine Glucose (UA) Normal Urine Ketones Negative Urine Occult Blood Negative Urine Nitrite Negative Urine Bilirubin Negative Urine Urobilinogen 4 H Ur Leukocyte Esterase Negative Urine RBC 0 SEEN Urine WBC 0 SEEN Ur Squamous Epith Cells 0 SEEN Urine Bacteria 0 SEEN Urine Mucus 0 SEEN Blood Type A POSITIVE Antibody Screen NEGATIVE Crossmatch See Detail 07/25/18 18:39 WBC RBC Hgb Hct MCV MCH MCHC RDW RDW Differential Plt Count MPV Immature Gran % (Auto) Neut % (Auto) Lymph % (Auto) [place] % (Auto) Eos % (Auto) Baso % (Auto) Absolute Neuts (auto) Absolute Lymphs (auto) Total Counted Sodium Potassium Chloride Carbon Dioxide Anion Gap BUN Creatinine Estim Creat Clear Calc Est GFR (MDRD) Af Amer Est GFR (MDRD) Non-Af BUN/Creatinine Ratio Glucose Calcium Total Bilirubin AST ALT Alkaline Phosphatase Troponin I 0.052 H B-Natriuretic Peptide Total Protein Albumin Globulin Albumin/Globulin Ratio Urine Color Urine Clarity Urine pH Ur Specific [place] Urine Protein Urine Glucose (UA) Urine Ketones Urine Occult Blood Urine Nitrite Urine Bilirubin Urine Urobilinogen Ur Leukocyte Esterase Urine RBC Urine WBC Ur Squamous Epith Cells Urine Bacteria Urine Mucus Blood Type Antibody Screen Crossmatch Assessment/Plan All Active Problems (Last Reviewed 07/25/18 @ 16:12 by Piyush Nick DO) GI bleed (Acute) Acute blood loss anemia (Acute) anemia, hematemesis, melena, likely upper GI bleed, severe cardiomyopathy previous myocardial infarction we plan to perform upper and lower endoscopy tomorrow. this will likely performed by Dr. Joseph. the patient sent the risks, benefits, possible complications for endoscopy including increased risk of cardiovascular complications secondary severe cardiomyopathy. The patient consents to the procedure. We'll plan for monitored anesthetic care given his COPD and severe cardiomyopathy. The patient will be transfused tonight. He will be given GoLYTELY with plans for endoscopy tomorrow.
[2018-07-25] MEDS: TICAGRELOR 90 MG TABLET PO (21:40)
[2018-07-26] VITALS (10 sets, daily range): BP systolic 92–104; BP diastolic 55–77; PULSE 73–89; RESP 16–32; TEMP 36.1–36.9; O2SAT 91–100; BMI 17.9
--- NOTE | 2018-07-26 | IMM_PTH ---
PATIENT: HAROON ROSENBAUM LOC: PCU U#:[id number] AGE/SX: 53/M ROOM: [facility] RE07/25/[address]: Dr. Piyush Nick DO : 1965 BED: 1 DIS: 07/26/2018 SPEC #: [id number] RECD: 07/27/18 15:11 STATUS: LAURA REQ #: [id number] RENEA: 07/26/18 00:[address]: [place] DEPT: IMMUNOHISTOCHEMISTRY RECD BY: Sandy Mccabe ENTERED: 07/27/18 15:12 SP TYPE: IMMUNO OTHR DR: DO Dr. Cesar Nichols DO Tissues: B - Stomach, NOS Procedures: H Pylori (initial) PHYSICIAN & INSTITUTION [place] [id number] SPECIMEN INFORMATION: Tissue Source: B - Antral biopsy Clinical Info: Abdominal pain, black, tarry stools Specimen Number: [id number] CPT code: 37645 METHODOLOGY: Deparaffinized sections of prefer/formalin-fixed tissue or PAP/DQ stained slides are incubated with monoclonal/polyclonal antibodies/oligonucleotide probes. Localization is made via biotin free immunoperoxidase method. Appropriate controls are performed and reacted as expected. Results on target cell population are indicated in the following table: RESULTS: ANTIBODY / CLONE RESULT Block B H Pylori (polyclonal) negative These tests were developed and their performance characteristics determined by [facility]. They may not have been cleared or approved by the [place]. Food and Drug Administration. The FDA has determined that such clearance or approval is not necessary. INTERPRETATION: B. Antral biopsy: Negative for Helicobacter pylori organisms. SJ:samir 07/28/18
--- NOTE | 2018-07-26 00:14 | NURSING ---
pt drank a liter of the golytely very fast, now is having cramping, nausea and abd pain.
--- NOTE | 2018-07-26 00:44 | NURSING ---
pt in severe abd pain since drinking the golytley, abd hard and distended, called the hospitalist and got an order for morphine and zofran
[2018-07-26] MEDS: Ondansetron 4 MG/2 ML Vial IV (00:50)
[2018-07-26] MEDS: Morphine 2 MG/ML Syringe 1 MG IV (00:50)
[2018-07-26 06:22] LABS: International Normalized Ratio 1.5; Prothrombin Time (Protime)PT. 17.7 SECONDS (11.7-14.9)
[2018-07-26 06:32] LABS: Anion Gap 4 (5-15); BUN 30 mg/dL (7-18); BUN/Creat Ratio 38.7 RATIO (10-20); Calcium,Total 7.6 mg/dL (8.5-10.1); Chloride 104 mmol/L (98-107); Creatinine, Serum 0.78 mg/dL (0.70-1.30); EST Glomerular Filtration Rate 112 mL/min (>60); Est Glom Filt Rate - Afr Amer 135 mL/min (>60); Estimated Creatinine Clearance 81.17 ml/min; Glucose 77 mg/dL (74-106); Potassium 3.7 mmol/L (3.5-5.1); Sodium Level 135 mmol/L (136-145)
[2018-07-26 08:07] LABS: Absolute Lymphocyte Count 1.07 X10^3/ul (0.83-4.51); Absolute Neutrophil Count 4.2 X10^3/uL (2.0-7.7); Eosinophil# 0.01 X10^3/uL; Eosinophils% 0.2 % (0-5); Hematocrit 27.2 % (40-54); Hemoglobin 8.9 g/dl (13.0-16.5); Lymphocyte # 1.07 X10^3/ul (4.0); Lymphocyte % 18.1 % (19-41); Mean Corp Hgb Conc 32.7 g/gl (32-36); Mean Corpuscular Hgb 27.8 pg (27.0-32.0); Mean Platelet Vol. 10.1 fl (6.2-12.0); Monocyte# 0.65 X10^3/uL; Neutrophil # 4.17 X10^3/uL (2.7-7.7); Neutrophil % 70.5 % (47-70); Platelet Count 102 K/mm3 (150-450); RBC Distribution Width CV 17.4 % (11.6-14.6); RBC Distribution Width SD 53.4 fl (35.1-43.9); White Blood Count 5.9 K/mm3 (4.4-11.0)
[2018-07-26 08:12] LABS: POSITIVE COUNT NO; POSITIVE DIFFERENTIAL NO; POSITIVE MORPHOLOGY NO
--- NOTE | 2018-07-26 08:40 | PCM.PN.SRG ---
Patient Problems: Active and Suspected Problems (Last Reviewed 07/25/18 @ 16:12 by Piyush Nick DO) GI bleed (Acute) Acute blood loss anemia (Acute) Subjective: having liquid stools this morning - Physical Exam General: Alert, Oriented x3 Lungs: Clear to auscultation, Normal air movement Cardiovascular: Regular rate, No murmurs Abdomen: Bowel Sounds Present, Soft, Non Tender Vital Signs Temp Pulse Resp BP Pulse Ox 98.4 F 85 16 93/60 96 07/26/18 08:26 07/26/18 08:26 07/26/18 08:26 07/26/18 08:26 07/26/18 08:26 Oxygen Delivery Method Room Air Weight: 51.8 kg Body Mass Index (BMI) 17.9 Intake and Output for Last 24 Hours 07/24/18 07/25/18 07/26/18 23:59 23:59 23:59 Intake Total 959 / 959 2800 / 2800 Output Total 700 / 700 350 / 350 Balance 259 / 259 2450 / 2450 Microbiology Past 72 Hours 07/25/18 09:40 Stool Occult Blood (WENDY) - Final Stool Occult Blood Positive Laboratory Tests Past 24 Hrs 07/25/18 07/25/18 07/25/18 09:28 10:00 10:00 WBC 5.3 RBC 2.97 L Hgb 8.1 L Hct 24.7 L MCV 83.2 MCH 27.3 MCHC 32.8 RDW 17.8 H RDW Differential 53.9 H Plt Count 91 L MPV 10.1 Immature Gran % (Auto) 0.200 Neut % (Auto) 71.4 H Lymph % (Auto) 20.6 [place] % (Auto) 7.2 Eos % (Auto) 0.6 Baso % (Auto) 0.0 Absolute Neuts (auto) 3.8 Absolute Lymphs (auto) 1.09 Total Counted Not Reportable PT INR Sodium 138 Potassium 3.0 L Chloride 102 Carbon Dioxide 28.0 Anion Gap 8 BUN 37 H Creatinine 0.78 Estim Creat Clear Calc 87.12 Est GFR (MDRD) Af Amer 134 Est GFR (MDRD) Non-Af 110 BUN/Creatinine Ratio 47.3 H Glucose 97 Calcium 7.3 L Total Bilirubin 1.00 AST 39 H ALT 81 H Alkaline Phosphatase 62 Troponin I 0.065 H B-Natriuretic Peptide 569.1 H Total Protein 5.0 L Albumin 2.2 L Globulin 2.8 Albumin/Globulin Ratio 0.8 L Urine Color Urine Clarity Urine pH Ur Specific [place] Urine Protein Urine Glucose (UA) Urine Ketones Urine Occult Blood Urine Nitrite Urine Bilirubin Urine Urobilinogen Ur Leukocyte Esterase Urine RBC Urine WBC Ur Squamous Epith Cells Urine Bacteria Urine Mucus Blood Type Antibody Screen Crossmatch 07/25/18 07/25/18 07/25/18 10:15 13:20 16:30 WBC RBC Hgb Hct MCV MCH MCHC RDW RDW Differential Plt Count MPV Immature Gran % (Auto) Neut % (Auto) Lymph % (Auto) [place] % (Auto) Eos % (Auto) Baso % (Auto) Absolute Neuts (auto) Absolute Lymphs (auto) Total Counted PT INR Sodium Potassium Chloride Carbon Dioxide Anion Gap BUN Creatinine Estim Creat Clear Calc Est GFR (MDRD) Af Amer Est GFR (MDRD) Non-Af BUN/Creatinine Ratio Glucose Calcium Total Bilirubin AST ALT Alkaline Phosphatase Troponin I 0.057 H B-Natriuretic Peptide Total Protein Albumin Globulin Albumin/Globulin Ratio Urine Color Yellow Urine Clarity Clear Urine pH 7.0 Ur Specific [place] 1.010 Urine Protein Negative Urine Glucose (UA) Normal Urine Ketones Negative Urine Occult Blood Negative Urine Nitrite Negative Urine Bilirubin Negative Urine Urobilinogen 4 H Ur Leukocyte Esterase Negative Urine RBC 0 SEEN Urine WBC 0 SEEN Ur Squamous Epith Cells 0 SEEN Urine Bacteria 0 SEEN Urine Mucus 0 SEEN Blood Type A POSITIVE Antibody Screen NEGATIVE Crossmatch See Detail 07/25/18 07/26/18 07/26/18 18:39 05:50 05:50 WBC RBC Hgb Hct MCV MCH MCHC RDW RDW Differential Plt Count MPV Immature Gran % (Auto) Neut % (Auto) Lymph % (Auto) [place] % (Auto) Eos % (Auto) Baso % (Auto) Absolute Neuts (auto) Absolute Lymphs (auto) Total Counted PT 17.7 H INR 1.5 Sodium 135 L Potassium 3.7 Chloride 104 Carbon Dioxide 27.0 Anion Gap 4 L BUN 30 H Creatinine 0.78 Estim Creat Clear Calc 81.17 Est GFR (MDRD) Af Amer 135 Est GFR (MDRD) Non-Af 112 BUN/Creatinine Ratio 38.7 H Glucose 77 Calcium 7.6 L Total Bilirubin AST ALT Alkaline Phosphatase Troponin I 0.052 H B-Natriuretic Peptide Total Protein Albumin Globulin Albumin/Globulin Ratio Urine Color Urine Clarity Urine pH Ur Specific [place] Urine Protein Urine Glucose (UA) Urine Ketones Urine Occult Blood Urine Nitrite Urine Bilirubin Urine Urobilinogen Ur Leukocyte Esterase Urine RBC Urine WBC Ur Squamous Epith Cells Urine Bacteria Urine Mucus Blood Type Antibody Screen Crossmatch 07/26/18 05:50 WBC 5.9 RBC 3.20 L Hgb 8.9 L Hct 27.2 L MCV 85.0 MCH 27.8 MCHC 32.7 RDW 17.4 H RDW Differential 53.4 H Plt Count 102 L MPV 10.1 Immature Gran % (Auto) 0.200 Neut % (Auto) 70.5 H Lymph % (Auto) 18.1 L [place] % (Auto) 11.0 H Eos % (Auto) 0.2 Baso % (Auto) 0.0 Absolute Neuts (auto) 4.2 Absolute Lymphs (auto) 1.07 Total Counted Not Reportable PT INR Sodium Potassium Chloride Carbon Dioxide Anion Gap BUN Creatinine Estim Creat Clear Calc Est GFR (MDRD) Af Amer Est GFR (MDRD) Non-Af BUN/Creatinine Ratio Glucose Calcium Total Bilirubin AST ALT Alkaline Phosphatase Troponin I B-Natriuretic Peptide Total Protein Albumin Globulin Albumin/Globulin Ratio Urine Color Urine Clarity Urine pH Ur Specific [place] Urine Protein Urine Glucose (UA) Urine Ketones Urine Occult Blood Urine Nitrite Urine Bilirubin Urine Urobilinogen Ur Leukocyte Esterase Urine RBC Urine WBC Ur Squamous Epith Cells Urine Bacteria Urine Mucus Blood Type Antibody Screen Crossmatch Medical Necessity - Tobacco Use Smoking Status: Former smoker Tobacco Use: Cigarettes Assessment/Plan All Active Problems (Last Reviewed 07/25/18 @ 16:12 by Piyush Nick DO) GI bleed (Acute) Acute blood loss anemia (Acute) anemia, hematemesis, melena, likely upper GI bleed, severe cardiomyopathy previous myocardial infarction we plan to perform upper and lower endoscopy today. current plan is for me to perform the endoscopy at 11:30. the patient sent the risks, benefits, possible complications for endoscopy including increased risk of cardiovascular complications secondary severe cardiomyopathy. The patient consents to the procedure. We'll plan for monitored anesthetic care given his COPD and severe cardiomyopathy. The patient was transfused 1 unit of packed red cells. hemoglobin responded appropriately.
--- NOTE | 2018-07-26 09:50 | CASEMGMT ---
Addendum entered by Tootie López 07/26/18 11:50: 1017 This RN CM back to bedside and pt is being prepped for transport for endoscopy at this time. This RN CM will try to see pt later this afternoon after he returns from scope. Zeke JEAN-BAPTISTE CM Original Note: Addendum entered by Tootie López 07/26/18 11:49: 1000 This RN CM again to bedside to complete CM assessment and pt is getting care with tech at this time. Will attempt again later. Zeke JEAN-BAPTISTE CM Original Note: This RN CM to room to complete CM assessment and pt is in the bathroom at this time. Will attempt again later. Zeke JEAN-BAPTISTE CM
--- NOTE | 2018-07-26 10:45 | PCM.PROGNOTE ---
<Rafia Wakefield - Last Filed: 07/26/18 10:49> Patient Problems: Active and Suspected Problems (Last Reviewed 07/25/18 @ 16:12 by Piyush Nick DO) GI bleed (Acute) Acute blood loss anemia (Acute) Subjective: Patient seen and examined. No acute events overnight. Abdominal pain the same. Plan for EGD/colonoscopy this morning. - Physical Exam General: Alert, Oriented x3, Cooperative HEENT: Atraumatic, PERRLA, EOMI, Normocephalic Neck: Supple, No JVD, Negative Carotid Bruits Lungs: Clear to auscultation, Diminished Cardiovascular: Regular rate, Regular Rhythm, Normal S1, Normal S2, No murmurs Abdomen: Bowel Sounds Present, Soft, Non Tender, Non-Distended Extremities: No clubbing, No cyanosis, No edema, Capillary Refill Less than 3 Seconds Skin: No rashes, No breakdown Musculoskeletal: No Tenderness to Palpation of Joints or Extremities Neurological: Cranial nerves II-XII grossly intact, Neuro grossly intact Psych/Mental Status: Normal Affect, Appropriate Vital Signs Temp Pulse Resp BP Pulse Ox 98.4 F 85 16 93/60 96 07/26/18 08:26 07/26/18 08:26 07/26/18 08:26 07/26/18 08:26 07/26/18 08:26 Oxygen Delivery Method Room Air Weight: 114 lb 3.191 oz Body Mass Index (BMI) 17.9 Intake and Output for Last 24 Hours 07/24/18 07/25/18 07/26/18 23:59 23:59 23:59 Intake Total 959 / 959 2800 / 2800 Output Total 700 / 700 350 / 350 Balance 259 / 259 2450 / 2450 Microbiology Past 72 Hours 07/25/18 09:40 Stool Occult Blood (WENDY) - Final Stool Occult Blood Positive Laboratory Tests Past 24 Hrs 07/25/18 07/25/18 07/25/18 10:00 13:20 16:30 WBC RBC Hgb Hct MCV MCH MCHC RDW RDW Differential Plt Count MPV Immature Gran % (Auto) Neut % (Auto) Lymph % (Auto) [place] % (Auto) Eos % (Auto) Baso % (Auto) Absolute Neuts (auto) Absolute Lymphs (auto) Total Counted PT INR Sodium Potassium Chloride Carbon Dioxide Anion Gap BUN Creatinine Estim Creat Clear Calc Est GFR (MDRD) Af Amer Est GFR (MDRD) Non-Af BUN/Creatinine Ratio Glucose Calcium Troponin I 0.057 H B-Natriuretic Peptide 569.1 H Blood Type A POSITIVE Antibody Screen NEGATIVE Crossmatch See Detail 07/25/18 07/26/18 07/26/18 18:39 05:50 05:50 WBC RBC Hgb Hct MCV MCH MCHC RDW RDW Differential Plt Count MPV Immature Gran % (Auto) Neut % (Auto) Lymph % (Auto) [place] % (Auto) Eos % (Auto) Baso % (Auto) Absolute Neuts (auto) Absolute Lymphs (auto) Total Counted PT 17.7 H INR 1.5 Sodium 135 L Potassium 3.7 Chloride 104 Carbon Dioxide 27.0 Anion Gap 4 L BUN 30 H Creatinine 0.78 Estim Creat Clear Calc 81.17 Est GFR (MDRD) Af Amer 135 Est GFR (MDRD) Non-Af 112 BUN/Creatinine Ratio 38.7 H Glucose 77 Calcium 7.6 L Troponin I 0.052 H B-Natriuretic Peptide Blood Type Antibody Screen Crossmatch 07/26/18 05:50 WBC 5.9 RBC 3.20 L Hgb 8.9 L Hct 27.2 L MCV 85.0 MCH 27.8 MCHC 32.7 RDW 17.4 H RDW Differential 53.4 H Plt Count 102 L MPV 10.1 Immature Gran % (Auto) 0.200 Neut % (Auto) 70.5 H Lymph % (Auto) 18.1 L [place] % (Auto) 11.0 H Eos % (Auto) 0.2 Baso % (Auto) 0.0 Absolute Neuts (auto) 4.2 Absolute Lymphs (auto) 1.07 Total Counted Not Reportable PT INR Sodium Potassium Chloride Carbon Dioxide Anion Gap BUN Creatinine Estim Creat Clear Calc Est GFR (MDRD) Af Amer Est GFR (MDRD) Non-Af BUN/Creatinine Ratio Glucose Calcium Troponin I B-Natriuretic Peptide Blood Type Antibody Screen Crossmatch Medical Necessity - Tobacco Use Smoking Status: Former smoker Tobacco Use: Cigarettes Assessment/Plan All Active Problems (Last Reviewed 07/25/18 @ 16:12 by Piyush Nick DO) GI bleed (Acute) Acute blood loss anemia (Acute) 1. Acute GI bleed with associated acute blood loss anemia- S/P 1 unit PRBC ordered. Stool + OB. Hgb stable. Trend CBC. General surgery consulted. Plan for EGD/Colonoscopy today. Abdominal x-ray with large amount of stool. 2. Elevated troponin- suspect demand ischemia secondary to #1. Troponin is mildly elevated and did not trend. 3. Hypokalemia- Replaced per protocol. Trend BMP. 4. CAD s/p stent to mid right coronary artery 06/15/18-continue Brilinta, lisinopril. 5. Hypertension-lisinopril regimen on hold due to low blood pressure on admission. Continue to monitor. 6. Hyperlipidemia- not on statin? 7. Chronic COPD-no acute exacerbation. 8. Cardiomyopathy with EF 10%- echo December 2017 with EF 10%. 9. Chronic elevated LFTs-outpatient follow up. 10. GERD- IV PPI. 11. History of alcohol and tobacco use- denies current use. DVT prophylaxis-SCDs This patient was seen by LAKESHA Connor under the supervision of Dr. Nick. <Piyush Nick - Last Filed: 07/26/18 13:34> Subjective: Still with melena. Hungry and wants to eat. - Physical Exam General: Alert, Cooperative HEENT: Atraumatic, Normocephalic Lungs: Clear to auscultation, Diminished Cardiovascular: Regular rate, Regular Rhythm, Normal S1, Normal S2, No murmurs Abdomen: Bowel Sounds Present, Soft, Non Tender, Non-Distended Skin: No rashes, No breakdown Psych/Mental Status: Normal Affect, Appropriate Vital Signs Temp Pulse Resp BP Pulse Ox 36.9 C 73 16 101/67 96 07/26/18 13:11 07/26/18 13:11 07/26/18 13:11 07/26/18 13:11 07/26/18 13:11 Oxygen Flow Rate (L/min) 2 Oxygen Delivery Method Nasal Cannula Weight: 51.8 kg Body Mass Index (BMI) 17.9 Intake and Output for Last 24 Hours 07/24/18 07/25/18 07/26/18 23:59 23:59 23:59 Intake Total 959 / 959 3400 / 3400 Output Total 700 / 700 535 / 535 Balance 259 / 259 2865 / 2865 Microbiology Past 72 Hours 07/25/18 09:40 Stool Occult Blood (WENDY) - Final Stool Occult Blood Positive Laboratory Tests Past 24 Hrs 07/25/18 07/25/18 07/25/18 13:20 16:30 18:39 WBC RBC Hgb Hct MCV MCH MCHC RDW RDW Differential Plt Count MPV Immature Gran % (Auto) Neut % (Auto) Lymph % (Auto) [place] % (Auto) Eos % (Auto) Baso % (Auto) Absolute Neuts (auto) Absolute Lymphs (auto) Total Counted PT INR Sodium Potassium Chloride Carbon Dioxide Anion Gap BUN Creatinine Estim Creat Clear Calc Est GFR (MDRD) Af Amer Est GFR (MDRD) Non-Af BUN/Creatinine Ratio Glucose Calcium Troponin I 0.057 H 0.052 H Blood Type A POSITIVE Antibody Screen NEGATIVE Crossmatch See Detail 07/26/18 07/26/18 07/26/18 05:50 05:50 05:50 WBC 5.9 RBC 3.20 L Hgb 8.9 L Hct 27.2 L MCV 85.0 MCH 27.8 MCHC 32.7 RDW 17.4 H RDW Differential 53.4 H Plt Count 102 L MPV 10.1 Immature Gran % (Auto) 0.200 Neut % (Auto) 70.5 H Lymph % (Auto) 18.1 L [place] % (Auto) 11.0 H Eos % (Auto) 0.2 Baso % (Auto) 0.0 Absolute Neuts (auto) 4.2 Absolute Lymphs (auto) 1.07 Total Counted Not Reportable PT 17.7 H INR 1.5 Sodium 135 L Potassium 3.7 Chloride 104 Carbon Dioxide 27.0 Anion Gap 4 L BUN 30 H Creatinine 0.78 Estim Creat Clear Calc 81.17 Est GFR (MDRD) Af Amer 135 Est GFR (MDRD) Non-Af 112 BUN/Creatinine Ratio 38.7 H Glucose 77 Calcium 7.6 L Troponin I Blood Type Antibody Screen Crossmatch Assessment/Plan Patient seen and examined independently. Data reviewed. I agree with the above note by the nurse practitioner. 1. GI bleed Unclear etiology plan is for endoscopy, both EGD and colonoscopy on the Patient will be on IV Protonix, general surgery is on consultation. possible this could be upper as patient was having hemoptysis about a week ago. Possible this could be PUD versus Lesly-Flynn tear versus other Still with melena, but this could be residual. 2. Acute blood loss anemia Secondary to above. Patient typed and crossed and will be transfused 1 unit packed red blood cells Stable 3. Elevated troponin Scarcely elevated No chest pain 0.065-->0.057-->0.0052 no further work up 4. Coronary artery disease Patient had percutaneous intervention on [id number] of June Hold aspirin, continue with Brilinta Follow-up with cardiology as outpatient 5. VTE prophylaxis: SCDs. Chemical prophylaxis contraindicated in light of the acute blood loss anemia. Code Visit Inpatient E&M: 17277 Subs Hosp L2
--- NOTE | 2018-07-26 10:46 | NURSING ---
report called to Jerrica in AC at this time, pt off floor at 1020
--- NOTE | 2018-07-26 10:49 | PN_ITS ---
<Rafia Wakefield - Last Filed: 07/26/18 10:49> Patient Problems: Active and Suspected Problems (Last Reviewed 07/25/18 @ 16:12 by Piyush Nick DO) GI bleed (Acute) Acute blood loss anemia (Acute) Subjective: Patient seen and examined. No acute events overnight. Abdominal pain the same. Plan for EGD/colonoscopy this morning. - Physical Exam General: Alert, Oriented x3, Cooperative HEENT: Atraumatic, PERRLA, EOMI, Normocephalic Neck: Supple, No JVD, Negative Carotid Bruits Lungs: Clear to auscultation, Diminished Cardiovascular: Regular rate, Regular Rhythm, Normal S1, Normal S2, No murmurs Abdomen: Bowel Sounds Present, Soft, Non Tender, Non-Distended Extremities: No clubbing, No cyanosis, No edema, Capillary Refill Less than 3 Seconds Skin: No rashes, No breakdown Musculoskeletal: No Tenderness to Palpation of Joints or Extremities Neurological: Cranial nerves II-XII grossly intact, Neuro grossly intact Psych/Mental Status: Normal Affect, Appropriate Vital Signs Temp Pulse Resp BP Pulse Ox 98.4 F 85 16 93/60 96 07/26/18 08:26 07/26/18 08:26 07/26/18 08:26 07/26/18 08:26 07/26/18 08:26 Oxygen Delivery Method Room Air Weight: 114 lb 3.191 oz Body Mass Index (BMI) 17.9 Intake and Output for Last 24 Hours 07/24/18 07/25/18 07/26/18 23:59 23:59 23:59 Intake Total 959 / 959 2800 / 2800 Output Total 700 / 700 350 / 350 Balance 259 / 259 2450 / 2450 Microbiology Past 72 Hours 07/25/18 09:40 Stool Occult Blood (WENDY) - Final Stool Occult Blood Positive Laboratory Tests Past 24 Hrs 07/25/18 07/25/18 07/25/18 10:00 13:20 16:30 WBC RBC Hgb Hct MCV MCH MCHC RDW RDW Differential Plt Count MPV Immature Gran % (Auto) Neut % (Auto) Lymph % (Auto) [place] % (Auto) Eos % (Auto) Baso % (Auto) Absolute Neuts (auto) Absolute Lymphs (auto) Total Counted PT INR Sodium Potassium Chloride Carbon Dioxide Anion Gap BUN Creatinine Estim Creat Clear Calc Est GFR (MDRD) Af Amer Est GFR (MDRD) Non-Af BUN/Creatinine Ratio Glucose Calcium Troponin I 0.057 H B-Natriuretic Peptide 569.1 H Blood Type A POSITIVE Antibody Screen NEGATIVE Crossmatch See Detail 07/25/18 07/26/18 07/26/18 18:39 05:50 05:50 WBC RBC Hgb Hct MCV MCH MCHC RDW RDW Differential Plt Count MPV Immature Gran % (Auto) Neut % (Auto) Lymph % (Auto) [place] % (Auto) Eos % (Auto) Baso % (Auto) Absolute Neuts (auto) Absolute Lymphs (auto) Total Counted PT 17.7 H INR 1.5 Sodium 135 L Potassium 3.7 Chloride 104 Carbon Dioxide 27.0 Anion Gap 4 L BUN 30 H Creatinine 0.78 Estim Creat Clear Calc 81.17 Est GFR (MDRD) Af Amer 135 Est GFR (MDRD) Non-Af 112 BUN/Creatinine Ratio 38.7 H Glucose 77 Calcium 7.6 L Troponin I 0.052 H B-Natriuretic Peptide Blood Type Antibody Screen Crossmatch 07/26/18 05:50 WBC 5.9 RBC 3.20 L Hgb 8.9 L Hct 27.2 L MCV 85.0 MCH 27.8 MCHC 32.7 RDW 17.4 H RDW Differential 53.4 H Plt Count 102 L MPV 10.1 Immature Gran % (Auto) 0.200 Neut % (Auto) 70.5 H Lymph % (Auto) 18.1 L [place] % (Auto) 11.0 H Eos % (Auto) 0.2 Baso % (Auto) 0.0 Absolute Neuts (auto) 4.2 Absolute Lymphs (auto) 1.07 Total Counted Not Reportable PT INR Sodium Potassium Chloride Carbon Dioxide Anion Gap BUN Creatinine Estim Creat Clear Calc Est GFR (MDRD) Af Amer Est GFR (MDRD) Non-Af BUN/Creatinine Ratio Glucose Calcium Troponin I B-Natriuretic Peptide Blood Type Antibody Screen Crossmatch Medical Necessity - Tobacco Use Smoking Status: Former smoker Tobacco Use: Cigarettes Assessment/Plan All Active Problems (Last Reviewed 07/25/18 @ 16:12 by Piyush Nick DO) GI bleed (Acute) Acute blood loss anemia (Acute) 1. Acute GI bleed with associated acute blood loss anemia- S/P 1 unit PRBC ordered. Stool + OB. Hgb stable. Trend CBC. General surgery consulted. Plan for EGD/Colonoscopy today. Abdominal x-ray with large amount of stool. 2. Elevated troponin- suspect demand ischemia secondary to #1. Troponin is mildly elevated and did not trend. 3. Hypokalemia- Replaced per protocol. Trend BMP. 4. CAD s/p stent to mid right coronary artery 06/15/18-continue Brilinta, lisinopril. 5. Hypertension-lisinopril regimen on hold due to low blood pressure on admission. Continue to monitor. 6. Hyperlipidemia- not on statin? 7. Chronic COPD-no acute exacerbation. 8. Cardiomyopathy with EF 10%- echo December 2017 with EF 10%. 9. Chronic elevated LFTs-outpatient follow up. 10. GERD- IV PPI. 11. History of alcohol and tobacco use- denies current use. DVT prophylaxis-SCDs This patient was seen by LAKESHA Connor under the supervision of Dr. Nick. <Piyush Nick - Last Filed: 07/26/18 13:34> Subjective: Still with melena. Hungry and wants to eat. - Physical Exam General: Alert, Cooperative HEENT: Atraumatic, Normocephalic Lungs: Clear to auscultation, Diminished Cardiovascular: Regular rate, Regular Rhythm, Normal S1, Normal S2, No murmurs Abdomen: Bowel Sounds Present, Soft, Non Tender, Non-Distended Skin: No rashes, No breakdown Psych/Mental Status: Normal Affect, Appropriate Vital Signs Temp Pulse Resp BP Pulse Ox 36.9 C 73 16 101/67 96 07/26/18 13:11 07/26/18 13:11 07/26/18 13:11 07/26/18 13:11 07/26/18 13:11 Oxygen Flow Rate (L/min) 2 Oxygen Delivery Method Nasal Cannula Weight: 51.8 kg Body Mass Index (BMI) 17.9 Intake and Output for Last 24 Hours 07/24/18 07/25/18 07/26/18 23:59 23:59 23:59 Intake Total 959 / 959 3400 / 3400 Output Total 700 / 700 535 / 535 Balance 259 / 259 2865 / 2865 Microbiology Past 72 Hours 07/25/18 09:40 Stool Occult Blood (WENDY) - Final Stool Occult Blood Positive Laboratory Tests Past 24 Hrs 07/25/18 07/25/18 07/25/18 13:20 16:30 18:39 WBC RBC Hgb Hct MCV MCH MCHC RDW RDW Differential Plt Count MPV Immature Gran % (Auto) Neut % (Auto) Lymph % (Auto) [place] % (Auto) Eos % (Auto) Baso % (Auto) Absolute Neuts (auto) Absolute Lymphs (auto) Total Counted PT INR Sodium Potassium Chloride Carbon Dioxide Anion Gap BUN Creatinine Estim Creat Clear Calc Est GFR (MDRD) Af Amer Est GFR (MDRD) Non-Af BUN/Creatinine Ratio Glucose Calcium Troponin I 0.057 H 0.052 H Blood Type A POSITIVE Antibody Screen NEGATIVE Crossmatch See Detail 07/26/18 07/26/18 07/26/18 05:50 05:50 05:50 WBC 5.9 RBC 3.20 L Hgb 8.9 L Hct 27.2 L MCV 85.0 MCH 27.8 MCHC 32.7 RDW 17.4 H RDW Differential 53.4 H Plt Count 102 L MPV 10.1 Immature Gran % (Auto) 0.200 Neut % (Auto) 70.5 H Lymph % (Auto) 18.1 L [place] % (Auto) 11.0 H Eos % (Auto) 0.2 Baso % (Auto) 0.0 Absolute Neuts (auto) 4.2 Absolute Lymphs (auto) 1.07 Total Counted Not Reportable PT 17.7 H INR 1.5 Sodium 135 L Potassium 3.7 Chloride 104 Carbon Dioxide 27.0 Anion Gap 4 L BUN 30 H Creatinine 0.78 Estim Creat Clear Calc 81.17 Est GFR (MDRD) Af Amer 135 Est GFR (MDRD) Non-Af 112 BUN/Creatinine Ratio 38.7 H Glucose 77 Calcium 7.6 L Troponin I Blood Type Antibody Screen Crossmatch Assessment/Plan Patient seen and examined independently. Data reviewed. I agree with the above note by the nurse practitioner. 1. GI bleed * Unclear etiology plan is for endoscopy, both EGD and colonoscopy on the * Patient will be on IV Protonix, general surgery is on consultation. * possible this could be upper as patient was having hemoptysis about a week ago . Possible this could be PUD versus Lesly-Flynn tear versus other * Still with melena, but this could be residual. 2. Acute blood loss anemia * Secondary to above. Patient typed and crossed and will be transfused 1 unit packed red blood cells * Stable 3. Elevated troponin * Scarcely elevated * No chest pain * 0.065-->0.057-->0.0052 * no further work up 4. Coronary artery disease * Patient had percutaneous intervention on [id number] of June * Hold aspirin, continue with Brilinta * Follow-up with cardiology as outpatient 5. VTE prophylaxis: SCDs. Chemical prophylaxis contraindicated in light of the acute blood loss anemia. Code Visit Inpatient E&M: 50362 Subs Hosp L2
--- NOTE | 2018-07-26 11:00 | COLBX_PTH ---
PATIENT: HAROON ROSENBAUM LOC: PCU U#:[id number] AGE/SX: 53/M ROOM: [facility] RE07/25/[address]: Dr. Piyush Nick DO : 1965 BED: 1 DIS: 07/26/2018 SPEC #: [id number] RECD: 07/26/18 12:40 STATUS: LAURA REPraveen #: [id number] RENEA: 07/26/18 11:[address]: Te Salas DEPT: SURGICAL PATHOLOGY RECD BY: Clif Allen ENTERED: 07/26/18 13:29 SP TYPE: COLON BX OTHR DR: DO Dr. Cesar Nichols DO Tissues: A - Duodenum, NOS B - Gastric mucous membrane C - Esophageal mucous membrane D - Descending colon E - Sigmoid colon biopsy Procedures: PAS Fungus (control) Special Stain Group I Surgery Specimen Level IV HEADER OPERATION: Colonoscopy, EGD ([facility] [place]) PRE-OP DIAGNOSIS: Abdominal pain; black, tarry stools TISSUE SUBMITTED: A - Duodenal biopsy, B - Antral biopsy, C - Mid esophageal biopsy, D - Descending colon polyps, E - Rectosigmoid colon polyps MICROSCOPIC DIAGNOSIS A. Duodenal biopsy: Fragments of duodenal mucosa with focal mild blunting of villi. See comment. B. Antral biopsy: Mild gastritis. See microscopic description and comment. C. Mid esophagus, biopsy: Minute fragments of squamous mucosa with ulceration and acute and chronic inflammation. Reactive epithelial changes. Special stain for fungi is negative for organisms; matched control is appropriate. See comment. D. Descending colon polyps, biopsy: Fragments of tubular adenoma. E. Rectosigmoid colon polyps, biopsy: Fragments of hyperplastic polyp. SJ:samir 07/27/18 COMMENT A. The findings are nonspecific. Correlation with clinical, endoscopic findings and appropriate follow up are necessary. B. The results of immunohistochemistry for Helicobacter pylori will be reported separately ([id number]). C. The entire specimen consists of ulcerated mucosa. MICROSCOPIC DESCRIPTION Slides are reviewed. B. The specimen shows fragments of gastric mucosa with chronic inflammatory cell infiltrates in the lamina propria consisting of lymphocytes and plasma cells, consistent with mild chronic gastritis. GROSS DESCRIPTION A - Received in fixative is one container labeled with the patient's name and designated duodenal biopsy. The specimen consists of two irregular fragments of light anaya soft tissue that in aggregate measure 0.5 x 0.3 x 0.1 cm. The specimen is totally submitted in one cassette. B - Received in fixative is one container labeled with the patient's name and designated antral biopsy. The specimen consists of two irregular fragments of light anaya soft tissue that in aggregate measure 0.4 x 0.3 x 0.1 cm. The specimen is totally submitted in one cassette. C - Received in fixative is one container labeled with the patient's name and designated mid esophageal biopsy. The specimen consists of two minute fragments of light anaya soft tissue that in aggregate measure 0.2 x 0.1 x 0.1 cm. The specimen is totally submitted in one cassette. D - Received in fixative is one container labeled with the patient's name and designated descending colon polyps. The specimen consists of multiple irregular fragments of light anaya soft tissue mixed with fecal material that in aggregate measure 1 x 0.5 x 0.1 cm. The specimen is totally submitted in one cassette. E - Received in fixative is one container labeled with the patient's name and designated rectosigmoid colon polyps. The specimen consists of two pieces of anaya-pink polyp that in aggregate measure 0.6 x 0.6 x 0.3 cm. The specimen is totally submitted in one cassette. / SJ:rg 07/26/18 TC:2 CPT: 59165 x5, 17409
--- NOTE | 2018-07-26 12:26 | OP.ENDO_ITS ---
07/26/2018 Cesar Arcos [address] [id number] Re : Upper GI endoscopy procedure for [place] Wali Dear Dr. Arcos This procedure was performed on Thursday, July 26, 2018. My impressions and recommendations are as follows: Impressions : - Normal examined jejunum. - Duodenitis. Biopsied. - Gastritis. Biopsied. - Moderately severe reflux esophagitis. Rule out Boone's esophagus. Biopsied. Recommendations : - [facility]. - Use Protonix (pantoprazole) 40 mg PO BID. - Use sucralfate tablets 1 gram PO QID. - Continue present medications. My findings are described in the full procedure note, which is enclosed. If I can be of further assistance, please feel free to contact me at Doctor phone number(s): , Work: . Sincerely, Te Salas MD 07/26/2018 12:25:44 PM This report has been signed electronically.
--- NOTE | 2018-07-26 12:28 | OP.ENDO_ITS ---
07/26/2018 Cesar Arcos [address] [id number] Re : Colonoscopy procedure for [place] Keyes Dear Dr. Arcos This procedure was performed on Thursday, July 26, 2018. My impressions and recommendations are as follows: Impressions : - Five small polyps at the recto-sigmoid colon and in the descending colon, removed with a hot snare. Resected and retrieved. - Diverticulosis in the sigmoid colon. - The distal rectum and anal verge are normal on retroflexion view. Recommendations : - [facility]. - Repeat colonoscopy in 3 years for surveillance. - Continue present medications. My findings are described in the full procedure note, which is enclosed. If I can be of further assistance, please feel free to contact me at Doctor phone number(s): , Work: . Sincerely, Te Salas MD 07/26/2018 12:28:01 PM This report has been signed electronically.
[2018-07-26] MEDS: TICAGRELOR 90 MG TABLET PO (13:34)
--- NOTE | 2018-07-26 14:40 | CASEMGMT ---
ESTIVEN MITCHELL assessment: Face to Face with patient for initial transition planning/care coordination assessment. ESTIVEN MITCHELL introduced self and role at [facility], pt voices understanding and consents to assessment at this time. Pt is sitting up in bed in no distress at this time. Pt is A/Ox4 at this time and answers all questions appropriately at this time. Pt's mother at bedside during assessment. Care providers, pharmacy, and demographics verified at this time. PCP: Isrrael Specialists: esvin Nassar Pharmacy: [facility] Insurance: [facility] Prescription Benefit: CRS Living Will/HPOA: Pt states does not currently have LW/HPOA but is interested in paperwork at this time. Yuki SW aware, voices understanding. LNOK: Rhonda Keyes, mother; Aftab Keyes, brother Living Arrangements: Pt states lives with mother on main level of 1.5story home and states no concerns at home at this time. Pt states is independent with ADL's. Transportation: Pt states drives self and states no transportation concerns at this time. DME/HHC: Pt states has home oxygen prn 2 liters thru [employer] as well as nebulizer and also has pulse ox. Pt states no need for any further DME at this time. Pt states no hx of HHC or SNF in the past. Pt states no concerns with going home at time of discharge. Pt states is currently unemployed and trying to get on disability. Pt states does not smoke or drink ETOH. Pt states no further concerns/needs at this time. CM to follow for any further discharge planning/needs. Advised pt to ask for CM if any further questions/concerns/needs arise, voices understanding. Pt Goal: Home Plan: [place] ESTIVEN IMTCHELL
--- NOTE | 2018-07-26 15:53 | CHAPLAIN ---
Type of Pastoral Visit _x__ Initial Visit ___ Follow-up Visit ___ On-call Visit ___ General Patient Visit ___ Spiritual Assessment ___ Family Conference ___ Bereavement ___ Rapid Response ___ Code Blue ___ Other (describe below) Pastoral Care Referral From _x__ Patient ___ Family ___ Nurse ___ Physician ___ Private Branch Exchange Operator ___ Dairy Manufacturing Technologist ___ Other (describe below) Sacrament/Intervention _x__ Active listening ___ Anointing ___ Cheondoism ___ Bereavement ___ Communion _x__ Elsa exploration ___ _x__ Life review _x__ Prayer ___ Reconciliation ___ Sacrament of Sick _x__ Supportive presence ___ Wedding ___ Other (describe below) Pastoral Comments patient had requested a Bible and one was given to him by this manager entry; pt expresses fear about dying but says today he is relieved because he is doing much better; pt identifies spiritual concerns which were addressed; mother of pt is in the room; prayer welcomed
--- NOTE | 2018-07-26 16:38 | DCINST_ITS ---
- Discharge Diagnoses Current Active Problems: Current Active and Chronic Problems (Last Reviewed 07/25/18 @ 16:12 by Piyush Nick DO) GI bleed (Acute) Acute blood loss anemia (Acute) You will use the following diet at home:: Cardiac Discharge Activity: Return to Normal Activity Call your doctor if you observe: Shortness of breath, Dizziness, Fainting spells, Chest pain Additional Instructions: May continue Brilinta. Continue to hold aspirin, may resume 07/29/2018. Allergies/Adverse Reactions: Allergies ibuprofen Adverse Reaction (Verified 07/25/18 09:27) Nausea naproxen [From Naprosyn] Adverse Reaction (Verified 07/25/18 09:27) Nausea naproxen sodium [From Aleve] Adverse Reaction (Verified 07/25/18 09:27) Nausea tramadol Adverse Reaction (Verified 07/25/18 09:27) Nausea Medications to take at Discharge Furosemide [Lasix] 40 mg PO DAILY 06/15/18 Lisinopril 40 mg PO DAILY 06/15/18 Aspirin E.C. [Ecotrin] 81 mg PO DAILY@0800 07/25/18 Nitroglycerin [Nitrostat] 0.4 mg PO PRN PRN 07/25/18 Potassium Chloride [K-Dur] 20 meq PO DAILYCM 07/25/18 Ticagrelor [Brilinta] 90 mg PO BID 07/25/18 Pantoprazole Sodium [Protonix] 40 mg PO BID #60 tablet 07/26/18 Sucralfate [Carafate] 1 gm PO 4X/DAY #120 tablet 07/26/18 The following prescriptions were given: Pantoprazole Sodium [Protonix] 40 mg PO BID #60 tablet Sucralfate [Carafate] 1 gm PO 4X/DAY #120 tablet Primary Care Physician: Cesar Arcos DO [Primary Care Provider] - Please follow up with your Primary Care Physician in: 1 Week Test Results: Test results from this visit will be discussed in further detail at your follow- up appointment, if applicable. Please Follow Up With: Te Salas MD When: 1 Week Please Follow Up With: Vernon Nassar MD When: As scheduled Proposed Discharge Date: 07/26/18
--- NOTE | 2018-07-26 16:38 | PCM.DC.SUM ---
<Rafia Wakefield - Last Filed: 07/26/18 16:51> Discharge Date and Diagnosis Date of Admission: 07/25/18 Date of Discharge: 07/26/18 - Primary Discharge Diagnosis Active and Suspected Problems (Last Reviewed 07/25/18 @ 16:12 by Piyush Nick DO) 1. Acute GI bleed with associated acute blood loss anemia 2. Elevated troponin, ACS ruled out 3. Hypokalemia 4. CAD s/p stent to mid right coronary artery 06/15/18 5. Hypertension 6. Hyperlipidemia 7. Chronic COPD 8. Cardiomyopathy with EF 10% 9. Chronic elevated LFTs 10. GERD 11. History of alcohol and tobacco use - Secondary Discharge Diagnosis Chronic Problems (Last Reviewed 07/25/18 @ 16:12 by Piyush Nick DO) Stented coronary artery (Chronic 06/15/18) Successful PTCA/CARLOZ of mid RCA with a 3.5 x 38 Promus Synergy 06/15/2018 per [facility] @ [facility] Abnormal EKG (Chronic) Hyperlipidemia (Chronic) Lower leg edema (Chronic) Bilateral pleural effusion (Chronic 01/13/18) Per chest CT 01/13/2018 Alcohol abuse, in remission (Chronic) Patient stopped in 2013 Hypertension (Chronic) GERD (gastroesophageal reflux disease) (Chronic) Premature ventricular contractions (Chronic) Left ventricular hypertrophy (Chronic) Tobacco abuse (Chronic) Hx of supraventricular tachycardia (Chronic) History of left heart catheterization (Chronic 01/24/18) 09/09/2011 @ [facility] per Dr. Garces; 01/24/18 @ [facility] per Dr. Nassar Atherosclerotic heart disease of [place] coronary artery without angina pectoris (Chronic) per [facility] 01/24/18: 50% stenosis mid RCA, all other coronaries normal. 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 COPD (chronic obstructive pulmonary disease) (Chronic) Valvular heart disease (Chronic) Hospital Course and Treatment Imaging Results: Diagnostic Data Acute Abdomen Series 07/25/18 09:30 IMPRESSION: Large amount of fecal material is seen in the colon. Electronically Signed: Amari Good, at 12:21 EDT , Service support , Dr. Salas- General Surgery Operations: None Procedures: Colonoscopy, EGD Summary of Care Provided: The patient is a 53 year old M admitted 07/25/2018 due to abdominal pain, black stools. 1. Acute GI bleed with associated acute blood loss anemia- S/P 1 unit PRBC. Stool + OB. Hgb stable. Abdominal x-ray with large amount of stool. Dr. Salas consulted, colonoscopy showed 5 small polyps at the rectosigmoid colon and in the descending colon removed. Diverticulosis in the sigmoid colon. EGD showed duodenitis and gastritis, moderately severe reflux esophagitis, biopsied to rule out Boone's esophagitis. Patient will be discharged with Protonix 40 mg twice daily and sucralfate 1 g p.o. 4 times daily. Follow-up with Dr. Salas in 1 week. Follow-up with primary care physician in 1 week. Recommend to repeat H&H in 3 to 5 days by primary care provider. Patient can continue Brilinta at discharge. Hold aspirin for 2 days following discharge. 2. Elevated troponin- suspect demand ischemia secondary to #1. Troponin mildly elevated and did not trend. No further cardiac work-up. Follow-up with Dr. Nassar, cardiology as scheduled. 3. Hypokalemia-resolved. 4. CAD s/p stent to mid right coronary artery 06/15/18-continue Brilinta, lisinopril. 5. Hypertension-continue lisinopril regimen. 6. Hyperlipidemia- not on statin? 7. Chronic COPD-no acute exacerbation. 8. Cardiomyopathy with EF 10%- echo December 2017 with EF 10%. 9. Chronic elevated LFTs-outpatient follow up. 10. GERD-continue PPI. 11. History of alcohol and tobacco use- denies current use. General: Alert, Oriented x3, Cooperative HEENT: Atraumatic, PERRLA, EOMI, Normocephalic Neck: Supple, No JVD, Negative Carotid Bruits Lungs: Clear to auscultation, Diminished Cardiovascular: Regular rate, Regular Rhythm, Normal S1, Normal S2, No murmurs Abdomen: Bowel Sounds Present, Soft, Non Tender, Non-Distended Extremities: No clubbing, No cyanosis, No edema, Capillary Refill Less than 3 Seconds Skin: No rashes, No breakdown Musculoskeletal: No Tenderness to Palpation of Joints or Extremities Neurological: Cranial nerves II-XII grossly intact, Neuro grossly intact Psych/Mental Status: Normal Affect, Appropriate Patient seen and examined prior to discharge. Physical assessment as noted above. Patient is stable for discharge with follow up recommendations as noted above. This patient was seen by LAKESHA Connor under the supervision of Dr. Nick. - Physical Exam Vital Signs Temp Pulse Resp BP Pulse Ox 98.4 F 73 16 101/67 96 07/26/18 13:11 07/26/18 13:11 07/26/18 13:11 07/26/18 13:11 07/26/18 13:11 Oxygen Flow Rate (L/min) 2 Oxygen Delivery Method Nasal Cannula Weight: 114 lb 3.191 oz Body Mass Index (BMI) 17.9 Intake and Output for Last 24 Hours 07/24/18 07/25/18 07/26/18 23:59 23:59 23:59 Intake Total 959 / 959 3400 / 3400 Output Total 700 / 700 535 / 535 Balance 259 / 259 2865 / 2865 Microbiology Past 72 Hours 07/25/18 09:40 Stool Occult Blood (WENDY) - Final Stool Occult Blood Positive Laboratory Tests Past 24 Hrs 07/25/18 07/25/18 07/25/18 13:20 16:30 18:39 WBC RBC Hgb Hct MCV MCH MCHC RDW RDW Differential Plt Count MPV Immature Gran % (Auto) Neut % (Auto) Lymph % (Auto) Pepin % (Auto) Eos % (Auto) Baso % (Auto) Absolute Neuts (auto) Absolute Lymphs (auto) Total Counted PT INR Sodium Potassium Chloride Carbon Dioxide Anion Gap BUN Creatinine Estim Creat Clear Calc Est GFR (MDRD) Af Amer Est GFR (MDRD) Non-Af BUN/Creatinine Ratio Glucose Calcium Troponin I 0.057 H 0.052 H Crossmatch See Detail 07/26/18 07/26/18 07/26/18 05:50 05:50 05:50 WBC 5.9 RBC 3.20 L Hgb 8.9 L Hct 27.2 L MCV 85.0 MCH 27.8 MCHC 32.7 RDW 17.4 H RDW Differential 53.4 H Plt Count 102 L MPV 10.1 Immature Gran % (Auto) 0.200 Neut % (Auto) 70.5 H Lymph % (Auto) 18.1 L Pepin % (Auto) 11.0 H Eos % (Auto) 0.2 Baso % (Auto) 0.0 Absolute Neuts (auto) 4.2 Absolute Lymphs (auto) 1.07 Total Counted Not Reportable PT 17.7 H INR 1.5 Sodium 135 L Potassium 3.7 Chloride 104 Carbon Dioxide 27.0 Anion Gap 4 L BUN 30 H Creatinine 0.78 Estim Creat Clear Calc 81.17 Est GFR (MDRD) Af Amer 135 Est GFR (MDRD) Non-Af 112 BUN/Creatinine Ratio 38.7 H Glucose 77 Calcium 7.6 L Troponin I Crossmatch Discharge Diet: Low fat/ Low Cholesterol Discharge Activity: Return to Normal Activity Call your doctor if you observe: Shortness of breath, Dizziness, Fainting spells, Chest pain Home Medications: Medications to take at Discharge Furosemide [Lasix] 40 mg PO DAILY 06/15/18 Lisinopril 40 mg PO DAILY 06/15/18 Aspirin E.C. [Ecotrin] 81 mg PO DAILY@0800 07/25/18 Nitroglycerin [Nitrostat] 0.4 mg PO PRN PRN 07/25/18 Potassium Chloride [K-Dur] 20 meq PO DAILYCM 07/25/18 Ticagrelor [Brilinta] 90 mg PO BID 07/25/18 Pantoprazole Sodium [Protonix] 40 mg PO BID #60 tablet 07/26/18 Sucralfate [Carafate] 1 gm PO 4X/DAY #120 tablet 07/26/18 Following Prescrptions Were Given to Patient: Pantoprazole Sodium [Protonix] 40 mg PO BID #60 tablet Sucralfate [Carafate] 1 gm PO 4X/DAY #120 tablet Primary Care Physician: Cesar Arcos DO [Primary Care Provider] - Please follow up with your Primary Care Physician in: 1 Week Please Follow Up With: Te Salas MD When: 1 Week Disposition: Home Minutes spent on discharge:: 35 Patient Condition:: Stable Medical Necessity - Tobacco Use Smoking Status: Former smoker Tobacco Use: Cigarettes Meaningful Use Info Meaningful Use Diagnoses (Choose all that apply): None applicable <Piyush Nick - Last Filed: 07/26/18 17:17> Discharge Date and Diagnosis - Secondary Discharge Diagnosis Chronic Problems (Last Reviewed 07/25/18 @ 16:12 by Piyush Nick DO) Stented coronary artery (Chronic 06/15/18) Successful PTCA/CARLOZ of mid RCA with a 3.5 x 38 Promus Synergy 06/15/2018 per [facility] @ [facility] Abnormal EKG (Chronic) Hyperlipidemia (Chronic) Lower leg edema (Chronic) Bilateral pleural effusion (Chronic 01/13/18) Per chest CT 01/13/2018 Alcohol abuse, in remission (Chronic) Patient stopped in 2013 Hypertension (Chronic) GERD (gastroesophageal reflux disease) (Chronic) Premature ventricular contractions (Chronic) Left ventricular hypertrophy (Chronic) Tobacco abuse (Chronic) Hx of supraventricular tachycardia (Chronic) History of left heart catheterization (Chronic 01/24/18) 09/09/2011 @ [facility] per Dr. Garces; 01/24/18 @ [facility] per Dr. Nassar Atherosclerotic heart disease of [place] coronary artery without angina pectoris (Chronic) per [facility] 01/24/18: 50% stenosis mid RCA, all other coronaries normal. 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 COPD (chronic obstructive pulmonary disease) (Chronic) Valvular heart disease (Chronic) Hospital Course and Treatment Operations: None Procedures: Colonoscopy, EGD Summary of Care Provided: Patient seen and examined independently. Data reviewed. I agree with the above note by the nurse practitioner. This is a 53-year-old white male that presents with melena. Also had acute blood loss anemia and was transfused 1 unit packed red blood cells. Patient underwent EGD and colonoscopy that showed duodenitis, gastritis and moderately severe reflux esophagitis. Likely the bleeding was attributable to the duodenitis, gastritis and esophagitis compounded by the dual antiplatelet therapy that the patient had for his recent drug-eluting stent. Patient's aspirin was held during the course of his hospitalization and will be held for 48 hours more than to resume thereafter. Patient did have some melena that may have been just residual but overall patient is stable and will be discharged with Protonix 40 mg twice daily plus Carafate. The patient is a 53 year old M [] - Physical Exam Vital Signs Temp Pulse Resp BP Pulse Ox 36.9 C 73 16 101/67 96 07/26/18 13:11 07/26/18 13:11 07/26/18 13:11 07/26/18 13:11 07/26/18 13:11 Oxygen Flow Rate (L/min) 2 Oxygen Delivery Method Nasal Cannula Weight: 51.8 kg Body Mass Index (BMI) 17.9 Intake and Output for Last 24 Hours 07/24/18 07/25/18 07/26/18 23:59 23:59 23:59 Intake Total 959 / 959 3400 / 3400 Output Total 700 / 700 535 / 535 Balance 259 / 259 2865 / 2865 Microbiology Past 72 Hours 07/25/18 09:40 Stool Occult Blood (WENDY) - Final Stool Occult Blood Positive Laboratory Tests Past 24 Hrs 07/25/18 07/25/18 07/25/18 13:20 16:30 18:39 WBC RBC Hgb Hct MCV MCH MCHC RDW RDW Differential Plt Count MPV Immature Gran % (Auto) Neut % (Auto) Lymph % (Auto) Pepin % (Auto) Eos % (Auto) Baso % (Auto) Absolute Neuts (auto) Absolute Lymphs (auto) Total Counted PT INR Sodium Potassium Chloride Carbon Dioxide Anion Gap BUN Creatinine Estim Creat Clear Calc Est GFR (MDRD) Af Amer Est GFR (MDRD) Non-Af BUN/Creatinine Ratio Glucose Calcium Troponin I 0.057 H 0.052 H Crossmatch See Detail 07/26/18 07/26/18 07/26/18 05:50 05:50 05:50 WBC 5.9 RBC 3.20 L Hgb 8.9 L Hct 27.2 L MCV 85.0 MCH 27.8 MCHC 32.7 RDW 17.4 H RDW Differential 53.4 H Plt Count 102 L MPV 10.1 Immature Gran % (Auto) 0.200 Neut % (Auto) 70.5 H Lymph % (Auto) 18.1 L Pepin % (Auto) 11.0 H Eos % (Auto) 0.2 Baso % (Auto) 0.0 Absolute Neuts (auto) 4.2 Absolute Lymphs (auto) 1.07 Total Counted Not Reportable PT 17.7 H INR 1.5 Sodium 135 L Potassium 3.7 Chloride 104 Carbon Dioxide 27.0 Anion Gap 4 L BUN 30 H Creatinine 0.78 Estim Creat Clear Calc 81.17 Est GFR (MDRD) Af Amer 135 Est GFR (MDRD) Non-Af 112 BUN/Creatinine Ratio 38.7 H Glucose 77 Calcium 7.6 L Troponin I Crossmatch Discharge Diet: Low fat/ Low Cholesterol Call your doctor if you observe: Shortness of breath, Dizziness, Fainting spells, Chest pain Disposition: Home Patient Condition:: Stable Medical Necessity - Tobacco Use Smoking Status: Former smoker Tobacco Use: Cigarettes Meaningful Use Info Meaningful Use Diagnoses (Choose all that apply): None applicable Code Visit Inpatient E&M: 26574 Disch Hosp
--- NOTE | 2018-07-26 16:45 | DS.PCM_ITS ---
<Rafia Wakefield - Last Filed: 07/26/18 16:51> Discharge Date and Diagnosis Date of Admission: 07/25/18 Date of Discharge: 07/26/18 - Primary Discharge Diagnosis Active and Suspected Problems (Last Reviewed 07/25/18 @ 16:12 by Piyush Nick DO) 1. Acute GI bleed with associated acute blood loss anemia 2. Elevated troponin, ACS ruled out 3. Hypokalemia 4. CAD s/p stent to mid right coronary artery 06/15/18 5. Hypertension 6. Hyperlipidemia 7. Chronic COPD 8. Cardiomyopathy with EF 10% 9. Chronic elevated LFTs 10. GERD 11. History of alcohol and tobacco use - Secondary Discharge Diagnosis Chronic Problems (Last Reviewed 07/25/18 @ 16:12 by Piyush Nick DO) Stented coronary artery (Chronic 06/15/18) Successful PTCA/CARLOZ of mid RCA with a 3.5 x 38 Promus Synergy 06/15/2018 per [facility] @ [facility] Abnormal EKG (Chronic) Hyperlipidemia (Chronic) Lower leg edema (Chronic) Bilateral pleural effusion (Chronic 01/13/18) Per chest CT 01/13/2018 Alcohol abuse, in remission (Chronic) Patient stopped in 2013 Hypertension (Chronic) GERD (gastroesophageal reflux disease) (Chronic) Premature ventricular contractions (Chronic) Left ventricular hypertrophy (Chronic) Tobacco abuse (Chronic) Hx of supraventricular tachycardia (Chronic) History of left heart catheterization (Chronic 01/24/18) 09/09/2011 @ [facility] per Dr. Garces; 01/24/18 @ [facility] per Dr. Nassar Atherosclerotic heart disease of [place] coronary artery without angina pectoris (Chronic) per [facility] 01/24/18: 50% stenosis mid RCA, all other coronaries normal. 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 COPD (chronic obstructive pulmonary disease) (Chronic) Valvular heart disease (Chronic) Hospital Course and Treatment Imaging Results: Diagnostic Data Acute Abdomen Series 07/25/18 09:30 IMPRESSION: Large amount of fecal material is seen in the colon. Electronically Signed: Amari Good, at 12:21 EDT , Service support , Dr. Salas- General Surgery Operations: None Procedures: Colonoscopy, EGD Summary of Care Provided: The patient is a 53 year old M admitted 07/25/2018 due to abdominal pain, black stools. 1. Acute GI bleed with associated acute blood loss anemia- S/P 1 unit PRBC. Sto ol + OB. Hgb stable. Abdominal x-ray with large amount of stool. Dr. Salas consulted, colonoscopy showed 5 small polyps at the rectosigmoid colon and in the descending colon removed. Diverticulosis in the sigmoid colon. EGD showed duodenitis and gastritis, moderately severe reflux esophagitis, biopsied to rule out Boone's esophagitis. Patient will be discharged with Protonix 40 mg twice daily and sucralfate 1 g p.o. 4 times daily. Follow-up with Dr. Salas in 1 week. Follow-up with primary care physician in 1 week. Recommend to repeat H&H in 3 to 5 days by primary care provider. Patient can continue Brilinta at discharge. Hold aspirin for 2 days following discharge. 2. Elevated troponin- suspect demand ischemia secondary to #1. Troponin mildly elevated and did not trend. No further cardiac work-up. Follow-up with Dr. Nassar, cardiology as scheduled. 3. Hypokalemia-resolved. 4. CAD s/p stent to mid right coronary artery 06/15/18-continue Brilinta, lisinopril. 5. Hypertension-continue lisinopril regimen. 6. Hyperlipidemia- not on statin? 7. Chronic COPD-no acute exacerbation. 8. Cardiomyopathy with EF 10%- echo December 2017 with EF 10%. 9. Chronic elevated LFTs-outpatient follow up. 10. GERD-continue PPI. 11. History of alcohol and tobacco use- denies current use. General: Alert, Oriented x3, Cooperative HEENT: Atraumatic, PERRLA, EOMI, Normocephalic Neck: Supple, No JVD, Negative Carotid Bruits Lungs: Clear to auscultation, Diminished Cardiovascular: Regular rate, Regular Rhythm, Normal S1, Normal S2, No murmurs Abdomen: Bowel Sounds Present, Soft, Non Tender, Non-Distended Extremities: No clubbing, No cyanosis, No edema, Capillary Refill Less than 3 Seconds Skin: No rashes, No breakdown Musculoskeletal: No Tenderness to Palpation of Joints or Extremities Neurological: Cranial nerves II-XII grossly intact, Neuro grossly intact Psych/Mental Status: Normal Affect, Appropriate Patient seen and examined prior to discharge. Physical assessment as noted above. Patient is stable for discharge with follow up recommendations as noted above. This patient was seen by LAKESHA Connor under the supervision of Dr. Nick. - Physical Exam Vital Signs Temp Pulse Resp BP Pulse Ox 98.4 F 73 16 101/67 96 07/26/18 13:11 07/26/18 13:11 07/26/18 13:11 07/26/18 13:11 07/26/18 13:11 Oxygen Flow Rate (L/min) 2 Oxygen Delivery Method Nasal Cannula Weight: 114 lb 3.191 oz Body Mass Index (BMI) 17.9 Intake and Output for Last 24 Hours 07/24/18 07/25/18 07/26/18 23:59 23:59 23:59 Intake Total 959 / 959 3400 / 3400 Output Total 700 / 700 535 / 535 Balance 259 / 259 2865 / 2865 Microbiology Past 72 Hours 07/25/18 09:40 Stool Occult Blood (WENDY) - Final Stool Occult Blood Positive Laboratory Tests Past 24 Hrs 07/25/18 07/25/18 07/25/18 13:20 16:30 18:39 WBC RBC Hgb Hct MCV MCH MCHC RDW RDW Differential Plt Count MPV Immature Gran % (Auto) Neut % (Auto) Lymph % (Auto) Kent % (Auto) Eos % (Auto) Baso % (Auto) Absolute Neuts (auto) Absolute Lymphs (auto) Total Counted PT INR Sodium Potassium Chloride Carbon Dioxide Anion Gap BUN Creatinine Estim Creat Clear Calc Est GFR (MDRD) Af Amer Est GFR (MDRD) Non-Af BUN/Creatinine Ratio Glucose Calcium Troponin I 0.057 H 0.052 H Crossmatch See Detail 07/26/18 07/26/18 07/26/18 05:50 05:50 05:50 WBC 5.9 RBC 3.20 L Hgb 8.9 L Hct 27.2 L MCV 85.0 MCH 27.8 MCHC 32.7 RDW 17.4 H RDW Differential 53.4 H Plt Count 102 L MPV 10.1 Immature Gran % (Auto) 0.200 Neut % (Auto) 70.5 H Lymph % (Auto) 18.1 L Kent % (Auto) 11.0 H Eos % (Auto) 0.2 Baso % (Auto) 0.0 Absolute Neuts (auto) 4.2 Absolute Lymphs (auto) 1.07 Total Counted Not Reportable PT 17.7 H INR 1.5 Sodium 135 L Potassium 3.7 Chloride 104 Carbon Dioxide 27.0 Anion Gap 4 L BUN 30 H Creatinine 0.78 Estim Creat Clear Calc 81.17 Est GFR (MDRD) Af Amer 135 Est GFR (MDRD) Non-Af 112 BUN/Creatinine Ratio 38.7 H Glucose 77 Calcium 7.6 L Troponin I Crossmatch Discharge Diet: Low fat/ Low Cholesterol Discharge Activity: Return to Normal Activity Call your doctor if you observe: Shortness of breath, Dizziness, Fainting spells, Chest pain Home Medications: Medications to take at Discharge Furosemide [Lasix] 40 mg PO DAILY 06/15/18 Lisinopril 40 mg PO DAILY 06/15/18 Aspirin E.C. [Ecotrin] 81 mg PO DAILY@0800 07/25/18 Nitroglycerin [Nitrostat] 0.4 mg PO PRN PRN 07/25/18 Potassium Chloride [K-Dur] 20 meq PO DAILYCM 07/25/18 Ticagrelor [Brilinta] 90 mg PO BID 07/25/18 Pantoprazole Sodium [Protonix] 40 mg PO BID #60 tablet 07/26/18 Sucralfate [Carafate] 1 gm PO 4X/DAY #120 tablet 07/26/18 Following Prescrptions Were Given to Patient: Pantoprazole Sodium [Protonix] 40 mg PO BID #60 tablet Sucralfate [Carafate] 1 gm PO 4X/DAY #120 tablet Primary Care Physician: Cesar Arcos DO [Primary Care Provider] - Please follow up with your Primary Care Physician in: 1 Week Please Follow Up With: Te Salas MD When: 1 Week Disposition: Home Minutes spent on discharge:: 35 Patient Condition:: Stable Medical Necessity - Tobacco Use Smoking Status: Former smoker Tobacco Use: Cigarettes Meaningful Use Info Meaningful Use Diagnoses (Choose all that apply): None applicable <Piyush Nick - Last Filed: 07/26/18 17:17> Discharge Date and Diagnosis - Secondary Discharge Diagnosis Chronic Problems (Last Reviewed 07/25/18 @ 16:12 by Piyush Nick DO) Stented coronary artery (Chronic 06/15/18) Successful PTCA/CARLOZ of mid RCA with a 3.5 x 38 Promus Synergy 06/15/2018 per [facility] @ [facility] Abnormal EKG (Chronic) Hyperlipidemia (Chronic) Lower leg edema (Chronic) Bilateral pleural effusion (Chronic 01/13/18) Per chest CT 01/13/2018 Alcohol abuse, in remission (Chronic) Patient stopped in 2013 Hypertension (Chronic) GERD (gastroesophageal reflux disease) (Chronic) Premature ventricular contractions (Chronic) Left ventricular hypertrophy (Chronic) Tobacco abuse (Chronic) Hx of supraventricular tachycardia (Chronic) History of left heart catheterization (Chronic 01/24/18) 09/09/2011 @ [facility] per Dr. Garces; 01/24/18 @ [facility] per Dr. Nassar Atherosclerotic heart disease of [place] coronary artery without angina pectoris (Chronic) per [facility] 01/24/18: 50% stenosis mid RCA, all other coronaries normal. 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 COPD (chronic obstructive pulmonary disease) (Chronic) Valvular heart disease (Chronic) Hospital Course and Treatment Operations: None Procedures: Colonoscopy, EGD Summary of Care Provided: Patient seen and examined independently. Data reviewed. I agree with the above note by the nurse practitioner. This is a 53-year-old white male that presents with melena. Also had acute blood loss anemia and was transfused 1 unit packed red blood cells. Patient u nderwent EGD and colonoscopy that showed duodenitis, gastritis and moderately severe reflux esophagitis. Likely the bleeding was attributable to the duodenitis, gastritis and esophagitis compounded by the dual antiplatelet therapy that the patient had for his recent drug-eluting stent. Patient's aspirin was held during the course of his hospitalization and will be held for 48 hours more than to resume thereafter. Patient did have some melena that may have been just residual but overall patient is stable and will be discharged with Protonix 40 mg twice daily plus Carafate. The patient is a 53 year old M [] - Physical Exam Vital Signs Temp Pulse Resp BP Pulse Ox 36.9 C 73 16 101/67 96 07/26/18 13:11 07/26/18 13:11 07/26/18 13:11 07/26/18 13:11 07/26/18 13:11 Oxygen Flow Rate (L/min) 2 Oxygen Delivery Method Nasal Cannula Weight: 51.8 kg Body Mass Index (BMI) 17.9 Intake and Output for Last 24 Hours 07/24/18 07/25/18 07/26/18 23:59 23:59 23:59 Intake Total 959 / 959 3400 / 3400 Output Total 700 / 700 535 / 535 Balance 259 / 259 2865 / 2865 Microbiology Past 72 Hours 07/25/18 09:40 Stool Occult Blood (WENDY) - Final Stool Occult Blood Positive Laboratory Tests Past 24 Hrs 07/25/18 07/25/18 07/25/18 13:20 16:30 18:39 WBC RBC Hgb Hct MCV MCH MCHC RDW RDW Differential Plt Count MPV Immature Gran % (Auto) Neut % (Auto) Lymph % (Auto) Kent % (Auto) Eos % (Auto) Baso % (Auto) Absolute Neuts (auto) Absolute Lymphs (auto) Total Counted PT INR Sodium Potassium Chloride Carbon Dioxide Anion Gap BUN Creatinine Estim Creat Clear Calc Est GFR (MDRD) Af Amer Est GFR (MDRD) Non-Af BUN/Creatinine Ratio Glucose Calcium Troponin I 0.057 H 0.052 H Crossmatch See Detail 07/26/18 07/26/18 07/26/18 05:50 05:50 05:50 WBC 5.9 RBC 3.20 L Hgb 8.9 L Hct 27.2 L MCV 85.0 MCH 27.8 MCHC 32.7 RDW 17.4 H RDW Differential 53.4 H Plt Count 102 L MPV 10.1 Immature Gran % (Auto) 0.200 Neut % (Auto) 70.5 H Lymph % (Auto) 18.1 L Kent % (Auto) 11.0 H Eos % (Auto) 0.2 Baso % (Auto) 0.0 Absolute Neuts (auto) 4.2 Absolute Lymphs (auto) 1.07 Total Counted Not Reportable PT 17.7 H INR 1.5 Sodium 135 L Potassium 3.7 Chloride 104 Carbon Dioxide 27.0 Anion Gap 4 L BUN 30 H Creatinine 0.78 Estim Creat Clear Calc 81.17 Est GFR (MDRD) Af Amer 135 Est GFR (MDRD) Non-Af 112 BUN/Creatinine Ratio 38.7 H Glucose 77 Calcium 7.6 L Troponin I Crossmatch Discharge Diet: Low fat/ Low Cholesterol Call your doctor if you observe: Shortness of breath, Dizziness, Fainting spells, Chest pain Disposition: Home Patient Condition:: Stable Medical Necessity - Tobacco Use Smoking Status: Former smoker Tobacco Use: Cigarettes Meaningful Use Info Meaningful Use Diagnoses (Choose all that apply): None applicable Code Visit Inpatient E&M: 55245 Disch Hosp
--- NOTE | 2018-07-27 14:25 | CASEMGMT ---
ESTIVEN MITCHELL Discharge F/U Phone Call LACE: 13 Strata: 4 Discharge date: 07/26/18 Call date: 07/27/18 Call time: [id number] Duration: 3 minutes Admission dx: GI Bleed Pt states has been doing 'alright' since discharge. Pt states no questions regarding discharge instructions/medications at this time. Pt did question Potassium po and per chart, it is once daily, pt voices understanding. Pt states has f/u appts and plans to keep them. Pt states no suggestions for [facility] at this time. Pt voices no further questions/concerns/needs at this time. SStaten ESTIVEN MITCHELL
== END 2018-07-26 17:35 | disposition home or self-care (01) | DRG 243 ==
LOC: ED 10:59 → PCU 14:23
PROVIDERS: Nurse Practitioner Family; Surgery; Emergency Provider Emergency Medicine; Family Provider Student in an Organized Health Care Education/Training Program; PCP Student in an Organized Health Care Education/Training Program
PROC: 0DJD8ZZ Inspection of Lower Intestinal Tract, Via Natural or Artificial Opening Endoscopic (ICD-10-PCS; CPT 45378; principal; 2018-07-26 10:55)
DX: K21.0 Gastro-esophageal reflux disease with esophagitis (principal); K29.81 Duodenitis with bleeding; K29.71 Gastritis, unspecified, with bleeding; K22.8 Other specified diseases of esophagus; D62 Acute posthemorrhagic anemia; K57.30 Diverticulosis of large intestine without perforation or abscess without bleeding; K63.5 Polyp of colon; I25.10 Atherosclerotic heart disease of native coronary artery without angina pectoris; E87.6 Hypokalemia; E78.5 Hyperlipidemia, unspecified; I42.9 Cardiomyopathy, unspecified; I10 Essential (primary) hypertension; J44.9 Chronic obstructive pulmonary disease, unspecified; K21.9 Gastro-esophageal reflux disease without esophagitis; F10.11 Alcohol abuse, in remission; R79.89 Other specified abnormal findings of blood chemistry; I25.2 Old myocardial infarction; Z87.891 Personal history of nicotine dependence; Z95.5 Presence of coronary angioplasty implant and graft; Z79.02 Long term (current) use of antithrombotics/antiplatelets
CPT/HCPCS: 43239; 45385; 36415; 36430; 51702; 74022; 80048; 80053; 81001; 82274; 83880; 84484; 85025; 85610; 86850; 86900; 86920; 86922; 88305; 88312; 88342; 93005; 97802; 99218; 99285; 99406; J7030; J7040; J7120; P9016; A4216; G0378; J2405

== ENCOUNTER 2018-07-27 18:12 | Emergency (ER) | payer MEDICAID, SELFPAY ==
[2018-07-26 10:35] VITALS: BMI 17.9
[2018-07-27 18:13] VITALS: BP 111/60; PULSE 78; RESP 20; TEMP 36.8; O2SAT 90; BMI 18.0
--- NOTE | 2018-07-27 18:50 | ED.VISSUMM ---
- ER Visit Summary Date of Service: 07/27/18 Chief Complaint: Facial swelling History of Present Illness: The patient is a 53 M who tells me has a history of congestive heart failure and COPD. Recently has had a GI bleed and yesterday underwent EGD and colonoscopy. This demonstrated what sounds like gastritis/esophagitis. He was told to start pantoprazole and Carafate. He was already taking omeprazole. Tells me he took those medicines around 9:00 this morning and laid down for nap. When he awoke he had swelling of his face. He also notes noted swelling of his hands and his feet. He states that his breathing is unchanged. He has had no hives no itching. Called his doctor's office and they told him that those 2 medications been in the same type of antacids can cause this reaction that he should come right to the hospital because he is in danger of losing his airway. Patient states that he had heart failure before and this does not seem like it. He notes his facial swelling is better. Physical Examination: Afebrile vital signs are stable Gen: Well-nourished well-developed Head: Normocephalic atraumatic Eyes: Perrl EOMI ENT: TMs clear no rhinorrhea moist mucous membranes no significant facial edema was seen. No uvular swelling. Handling secretions normally. No stridor. Neck: Supple no lymphadenopathy no JVD nontender CVS: Regular rate rhythm no murmurs normal S1-S2 Respiratory: No distress clear to auscultation bilaterally chest nontender Abdomen: Soft nontender nondistended normal bowel sounds no masses Back: Nontender Extremity: Nontender there is some edema of the hands and feet. Skin: Normal color no rash Neuro: alert orientated ?3 CN II-XII intact normal strength sensation reflexes gait cerebellar Psych: Normal affect normal mood Emergency Department Course and Treatment: Spoke with the patient candidly. I am not sure that this is represented an acute allergic reaction to his medicines. And not sure that the omeprazole and pantoprazole taken together will cause this. I wonder if he has some degree of fluid retention from the procedure and taking a nap. Patient states he will take an extra dose of Lasix tonight. He will hold the pantoprazole. He will try another dose of Carafate to see if that causes any symptoms. He will follow-up with his doctors return if worsening or concerns. I did speak to him his significant other about doing labs and imaging. They declined at this time and are comfortable with the aforementioned plans. Impression: Edema This note was generated with [employer] dictation software. It may contain incorrect words, spelling, and punctuation that were not noted in review of the chart prior to signing ED Disposition - Plan for ED Patient: Disposition: Home or Assisted Living Instructions: ED Lymphedema Referrals: Cesar Arcos DO [Primary Care Provider] - 1 Week Additional Instructions: 1. Return to emergency department if you have any worsening symptoms 2. Stop the pantoprazole. 3. Take an extra dose of Lasix tonight and tomorrow. 4. If you are feeling better tomorrow add in the Carafate. If any symptoms develop stop that medication as well..
== END 2018-07-27 19:09 | disposition home or self-care (01) ==
LOC: ED 18:56
PROVIDERS: Emergency Provider Emergency Medicine; Family Provider Student in an Organized Health Care Education/Training Program; PCP Student in an Organized Health Care Education/Training Program
DX: I89.0 Lymphedema, not elsewhere classified (principal); I50.9 Heart failure, unspecified; J44.9 Chronic obstructive pulmonary disease, unspecified; I25.10 Atherosclerotic heart disease of native coronary artery without angina pectoris; I25.2 Old myocardial infarction; Z87.19 Personal history of other diseases of the digestive system; Z95.5 Presence of coronary angioplasty implant and graft; Z79.82 Long term (current) use of aspirin; Z79.899 Other long term (current) drug therapy; Z87.891 Personal history of nicotine dependence
CPT/HCPCS: 99282

== ENCOUNTER 2018-09-03 07:44 | Inpatient (IN) | payer MEDICAID, SELFPAY ==
[2018-09-03] VITALS (39 sets, daily range): BP systolic 78–136; BP diastolic 49–107; PULSE 74–197; RESP 12–38; TEMP 35.4–37.3; O2SAT 89–100; BMI 23.8; BMI 23.4; BMI 23.9
[2018-09-03] MEDS: Adenosine 6 MG/2 ML Syringe IV (07:53)
[2018-09-03] MEDS: Adenosine 6 MG/2 ML Syringe 12 MG IV ×2 (07:54→07:56)
--- NOTE | 2018-09-03 07:59 | RAD_ITS ---
STUDY: X-RAY CHEST REASON FOR EXAM: Male, 53 years old. Shortness of breath and chest pain. TECHNIQUE: Single AP portable view of the chest. COMPARISON: 07/25/2018 and 01/13/2018. FINDINGS: The lungs again are severely hyperinflated with large bullous changes in the upper lobes. Moderate stranding in the lung bases are again seen likely due to scarring. There is small to moderate right pleural effusion new since the previous examination. There is borderline cardiomegaly. Normal mediastinum and denise. Normal visualized pulmonary arteries. There is atherosclerotic calcification of the aortic arch with tortuosity. The bony structures are unchanged. There is no demonstrated abnormality of the visualized soft tissue structures of the upper abdomen. RAD/Chest 1 View (Portable) IMPRESSION: Small to moderate right pleural effusion new since previous examination. Otherwise no significant change previous exam. Severe emphysematous and bullous changes unchanged. Persistent bibasilar stranding likely scarring. Electronically Signed: Zach Mcfadden MD at 8:49 EDT Tel , Service support ,
--- NOTE | 2018-09-03 07:59 | EKG12_ITS ---
Test Reason : REPEAT Blood Pressure : / mmHG Vent. Rate : 078 BPM Atrial Rate : 078 BPM P-R Int : 128 ms QRS Dur : 104 ms QT Int : 388 ms P-R-T Axes : 075 093 -89 degrees QTc Int : 442 ms Normal sinus rhythm Rightward axis Pulmonary disease pattern Nonspecific T wave abnormality Abnormal ECG Confirmed by GEORGIANA VARMA, ANTONIETTA ([id number]), graphic editor CALLIE ZAPIEN ([id number]) on 09/06/2018 7:53:47 AM Referred By: ANA M Confirmed By:ANTONIETTA STONER MD
[2018-09-03] MEDS: Ipratropium/Albuterol Sulfate 3 ML AMPUL.NEB INHALATION (08:00)
[2018-09-03] MEDS: 0.9% Normal Saline 1,000 ML 150 ML IV (08:06)
[2018-09-03 08:18] LABS: Absolute Lymphocyte Count 1.56 X10^3/ul (0.83-4.51); Absolute Neutrophil Count 8.3 X10^3/uL (2.0-7.7); Basophil# 0.01 X10^3/uL; Basophil% 0.1 % (0-1); Eosinophil# 0.02 X10^3/uL; Eosinophils% 0.2 % (0-5); Hemoglobin 11.9 g/dl (13.0-16.5); Lymphocyte # 1.56 X10^3/ul (4.0); Lymphocyte % 14.9 % (19-41); Mean Corp Hgb Conc 30.5 g/gl (32-36); Mean Corpuscular Hgb 25.6 pg (27.0-32.0); Mean Corpuscular Volume 83.9 fL (80-94); Mean Platelet Vol. 9.9 fl (6.2-12.0); Monocyte# 0.54 X10^3/uL; Monocyte% 5.2 % (0-10); Neutrophil # 8.32 X10^3/uL (2.7-7.7); Neutrophil % 79.5 % (47-70); Platelet Count 186 K/mm3 (150-450); RBC Distribution Width CV 19.1 % (11.6-14.6); RBC Distribution Width SD 57.4 fl (35.1-43.9); Red Blood Count 4.65 M/mm3 (4.6-6.2); White Blood Count 10.5 K/mm3 (4.4-11.0)
[2018-09-03 08:19] LABS: POSITIVE COUNT NO; POSITIVE DIFFERENTIAL NO; POSITIVE MORPHOLOGY NO
--- NOTE | 2018-09-03 08:21 | EKG12_ITS ---
Test Reason : REPEAT Blood Pressure : / mmHG Vent. Rate : 113 BPM Atrial Rate : 113 BPM P-R Int : 132 ms QRS Dur : 098 ms QT Int : 360 ms P-R-T Axes : 081 083 267 degrees QTc Int : 493 ms Sinus tachycardia with frequent and consecutive Premature ventricular complexes Pulmonary disease pattern ST & T wave abnormality, consider inferior ischemia Abnormal ECG Confirmed by GEORGIANA VARMA, ANTONIETTA ([id number]), features editor CALLIE ZAPIEN ([id number]) on 09/06/2018 7:54:12 AM Referred By: ANA M Confirmed By:ANTONIETTA STONER MD
[2018-09-03 08:31] LABS: Base Excess -5 mmol/L (-2 to +2); Bicarbonate 22.1 mmol/L (22-26); Blood Gas Specimen Type ART; EPAP 8; FI02 75; IPAP 14; PO2 246 mmHG (75-100); RR 12; SITE L Brachial; SO2 100 % (95-99); Time Given 823; Total Carbon Dioxide 23 mmol/L; pCO2 46.7 mmHg (35-45); pH 7.28 (7.35-7.45)
--- NOTE | 2018-09-03 08:31 | EKG12_ITS ---
Test Reason : SVT Blood Pressure : / mmHG Vent. Rate : 192 BPM Atrial Rate : 197 BPM P-R Int : 000 ms QRS Dur : 102 ms QT Int : 262 ms P-R-T Axes : 000 089 -75 degrees QTc Int : 468 ms Supraventricular tachycardia Low voltage QRS Cannot rule out Anterior infarct , age undetermined ST & T wave abnormality, consider inferior ischemia Abnormal ECG Confirmed by GEORGIANA VARMA, ANTONIETTA ([id number]), editorial project manager CALLIE ZAPIEN ([id number]) on 09/06/2018 7:54:51 AM Referred By: ANA M Confirmed By:ANTONIETTA STONER MD
[2018-09-03 08:32] LABS: AST(SGOT) 41 U/L (15-37); Alanine Aminotransfer ALT/SGPT 52 U/L (16-61); Albumin, Serum 2.4 g/dL (3.2-5.0); Alkaline Phosphatase 101 U/L (45-117); Anion Gap 7 (5-15); BUN 41 mg/dL (7-18); BUN/Creat Ratio 34.2 RATIO (10-20); Bilirubin, Direct 0.33 mg/dL (0.00-0.30); Calcium,Total 7.9 mg/dL (8.5-10.1); Chloride 105 mmol/L (98-107); EST Glomerular Filtration Rate 67 mL/min (>60); Est Glom Filt Rate - Afr Amer 82 mL/min (>60); Estimated Creatinine Clearance 67.32 ml/min; Globulin 3.7 g/dL (2.2-4.2); Glucose 135 mg/dL (74-106); Protein, Total 6.1 g/dL (6.4-8.2); Sodium Level 135 mmol/L (136-145)
--- NOTE | 2018-09-03 08:44 | ED.VISSUMM ---
- ER Visit Summary Date of Service: 09/03/18 Chief Complaint: Short of breath, abdominal pain History of Present Illness: The patient is a 53 M with history of coronary disease receiving a stent in May, CHF, COPD, hypertension, recent GI bleed. Patient reports short of breath and heart racing sensation along with abdominal pain over the past couple of days. Today he was too weak to walk. He does report a history of SVT. Physical Examination: Blood pressure is 108/82, temperature 96.8, heart rate 193, respiratory rate 38, pulse ox 92% on nonrebreather. Patient cachectic appearing male who appears older than his stated age. Head and neck examination reveals some periorbital edema. Heart is tachycardic. Lung sounds are diminished. Abdomen is soft with mild lower abdominal tenderness. No guarding or rebound. Skin is pale. Test Results: EKG is SVT at 192. CBC normal. Chemistry studies grossly unremarkable. LFTs significant only for AST of 41 and direct bili 0.33. Troponin 0 0.057. ABG reveals a pH of 7.28, PO2 246, PCO2 of 46.7, sat 100%. Portable chest x-ray shows large bilateral blebs that are unchanged when compared to prior chest x-ray. Emergency Department Course and Treatment: Patient was placed on BiPAP on arrival. He is awake and answering questions. He does report history of SVT that converts with the IV medication. He was given adenosine 6 mg, 12 mg, 12 mg without change. I spoke with cardiology. They recommended cardioverting the patient. He was given 5 mg of IV etomidate. He was cardioverted with 100 J with no change in rhythm. He was then given 200 J shock. He converted to a sinus rhythm with frequent PVCs and PACs. He began having frequent short runs of V. tach. He was given 150 mg slow push amiodarone. Patient became hypotensive following this that has slowly improved. Ectopy has greatly improved. Patient will be admitted for further treatment. Treatment Plan: [] Disposition: Admit Impression: 1. SVT status post cardioversion 2. V. tach, improved This note was generated with [employer] dictation software. It may contain incorrect words, spelling, and punctuation that were not noted in review of the chart prior to signing ED Disposition - Plan for ED Patient: Referrals: Cesar Arcos, [Primary Care Provider] -
--- NOTE | 2018-09-03 08:53 | CT_ITS ---
STUDY: CT ABDOMEN AND PELVIS WITH CONTRAST REASON FOR EXAM: Male, 53 years old. Abdominal pain. RADIATION DOSAGE (If Supplied By Facility): CTDIvol = ( 27.92 ) mGy, DLP = ( 1771.13 ) mGycm TECHNIQUE: Transaxial images were obtained from the dome of the diaphragm to the symphysis pubis with oral contrast. 100 IV Isovue 370 was administered. Sagittal and coronal images were reconstructed. Individualized dose optimization techniques were used for this CT. COMPARISON: 07/07/2016. FINDINGS: The visualized lung bases demonstrate again bilateral pleural effusions with collapse of the right lower lobe. The epididymis is change is and the stranding/scarring are again seen. Superimposed mild infiltrate in the left lower lobe cannot be excluded. The heart is enlarged. Mild lobulation of the liver contour which could be due to early cirrhosis. The gallbladder is suboptimally visualized. There is no definite gallstones. Normal spleen. Normal pancreas. Normal bilateral adrenal glands. Normal right kidney. There are small cysts in the lower pole of the right kidney. The stomach is distended. The small bowel loops are fluid-filled but normal in caliber. There is no evidence of bowel obstruction. There are multiple colonic diverticula consistent with diverticulosis. There is no evidence of acute diverticulitis. The appendix is visualized and appears normal. There is diffuse atherosclerotic calcification of the abdominal aorta with elongation and tortuosity, but without a demonstrated aneurysm. Normal inferior vena cava. Normal retroperitoneum. There is moderate ascites in the abdomen and pelvis. Normal urinary bladder. There is diffuse anasarca. There are degenerative changes of the visualized lumbar spine. CT/Abdomen/Pelvis W IV Cont ONLY IMPRESSION: 1. Bilateral pleural effusions larger on the right side with collapse of the right lower lobe. 2. Emphysematous changes and stranding/scarring in the lower lungs. Superimposed mild left lower lobe infiltrate cannot excluded. 3. Cirrhosis of the liver. 4. Ascites. 5. No evidence of small bowel obstruction. 6. Diverticulosis without evidence of acute diverticulitis. 7. Anasarca. Electronically Signed: Zach Mcfadden MD at 10:22 EDT Tel , Service support ,
--- NOTE | 2018-09-03 09:15 | CT_ITS ---
STUDY: CTA CHEST REASON FOR EXAM: Male, 53 years old. Shortness of breath. RADIATION DOSAGE (If Supplied By Facility): CTDIvol = ( 27.92 ) mGy, DLP = ( 1771.13 ) mGycm TECHNIQUE: The examination was performed with the intravenous administration of 100 IV Isovue 370. Post-processing of the angiographic images was performed, with multiplanar reformation and 3D reconstruction. Individualized dose optimization techniques were used for this CT. COMPARISON: 01/13/2018. FINDINGS: Normal enhancement of the main pulmonary artery and right and left pulmonary arteries. Normal enhancement of the bilateral peripheral pulmonary arteries. There is no demonstrated pulmonary embolism. There is mild atherosclerotic calcification of the aortic arch with tortuosity. The aorta otherwise is not enhanced. The heart is mildly enlarged. There is no evidence of pericardial effusion. Normal mediastinum. Normal hilar regions. Normal visualized trachea and bronchi. The lungs are under expanded. Severe emphysematous changes and large bullous changes are again seen in the upper lobes. There is moderate stranding in both lower lungs likely due to scarring. There is large right and moderate left pleural effusions increased on the right side since the previous examination associated with collapse of the right lower lobe. Normal chest wall structures. The osseous structures are essentially unremarkable. There is limited evaluation of the upper abdomen. There is ascites. The liver is somewhat irregular in contour which may reflect cirrhosis. CT/CTA Chest W/WO Contrast IMPRESSION: 1. No evidence of pulmonary embolism. 2. Bilateral pleural effusions larger on the right side increased since previous examination associated with collapsed right lower lobe. 3. Severe emphysematous and bullous changes with scarring in the lower lungs. Superimposed mild infiltrate is difficult to exclude. 4. Mild ascites. Electronically Signed: Zach Mcfadden MD at 10:07 EDT Tel , Service support ,
--- NOTE | 2018-09-03 09:19 | HP.PCM_ITS ---
History of Present Illness Date of Admission: 09/03/18 Chief Complaint: Shortness of breath, rapid heartbeat. The patient is a 53 year old M with an extensive past medical history as listed. He was admitted through the ED on 09/03/2018 with a complaint of shortness of breath and rapid heart rate. He also complained of abdominal pain. Patient has a history of CAD and received a stent in May 2018. He also has heart failure with reduced ejection fraction with EF of around 10%, COPD, hypertension and was recently admitted for an upper GI bleed. Complained of feeling short of breath as well as having racing heart for the past few days as well as abdominal pain. Patient admitted to not being compliant with his medications. He denied any fever or chills, chest pain, diarrhea vomiting. On admission the ED, blood pressure was 108/82 and heart rate was 193 with a respiratory rate of 38 and he was saturating at 92% on a nonrebreather mask. EKG done showed that he was in SVT with heart rate of 192. Initial troponin was 0.057 and ABG showed pH of 7.28 with PO2 of 246 and PCO2 of 46.7. Potable chest x-ray showed bilateral large blebs. ABG was done was was on BiPAP. Patient was given adenosine 3 times which did not help. Cardiology therefore recommended cardioverting patient and he was cardioverted with 200 J shock. He converted to sinus rhythm with numerous PVCs and PACs and also has short beat runs of V. tach. He was therefore given a bolus of IV amiodarone 150 mg after which he became slightly hypotensive. He was admitted to the ICU to be managed for SVT. [] Past Medical History Past Medical History (Chronic Problems): Chronic Problems (Last Reviewed 07/25/18 @ 16:12 by Piyush Nick DO) Stented coronary artery (Chronic 06/15/18) Successful PTCA/CARLOZ of mid RCA with a 3.5 x 38 Promus Synergy 06/15/2018 per ROLDANN @ [facility] Abnormal EKG (Chronic) Hyperlipidemia (Chronic) Lower leg edema (Chronic) Bilateral pleural effusion (Chronic 01/13/18) Per chest CT 01/13/2018 Alcohol abuse, in remission (Chronic) Patient stopped in 2013 Hypertension (Chronic) GERD (gastroesophageal reflux disease) (Chronic) Premature ventricular contractions (Chronic) Left ventricular hypertrophy (Chronic) Tobacco abuse (Chronic) Hx of supraventricular tachycardia (Chronic) History of left heart catheterization (Chronic 01/24/18) 09/09/2011 @ [facility] per Dr. Garces; 01/24/18 @ [facility] per Dr. Nassar Atherosclerotic heart disease of [place] coronary artery without angina pectoris (Chronic) per [facility] 01/24/18: 50% stenosis mid RCA, all other coronaries normal. Pulmonary hypertension Successful PTCA/CARLOZ of mid RCA with a 3.5 x 38 Promus Synergy 06/15/2018 per DJDarrian @ [facility] NSTEMI (non-ST elevated myocardial infarction) (Chronic 01/24/18) Cardiomyopathy (Chronic) EF 10% per echo December 2017:possibly alcoholic CMP, not likely ischemic. COPD (chronic obstructive pulmonary disease) (Chronic) Valvular heart disease (Chronic) Medical History: Medical History (Last Reviewed 07/25/18 @ 16:12 by Piyush Nick DO) Abnormal EKG (Chronic) R94.31 Hyperlipidemia (Chronic) E78.5 Lower leg edema (Chronic) R60.0 Bilateral pleural effusion (Chronic) Onset Date: 01/13/[address] 01/13/2018 Alcohol abuse, in remission (Chronic) F10.11 Patient stopped in 2013 Hypertension (Chronic) I10 GERD (gastroesophageal reflux disease) (Chronic) K21.9 Premature ventricular contractions (Chronic) I49.3 Left ventricular hypertrophy (Chronic) I51.7 Tobacco abuse (Chronic) Z72.0 Hx of supraventricular tachycardia (Chronic) Z86.79 Atherosclerotic heart disease of [place] coronary artery without angina pectoris (Chronic) I25.10 per [facility] 01/24/18: 50% stenosis mid RCA, all other coronaries normal. Pulmonary hypertension Successful PTCA/CARLOZ of mid RCA with a 3.5 x 38 Promus Synergy 06/15/2018 per Audrey HENRY @ 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 COPD (chronic obstructive pulmonary disease) (Chronic) J44.9 Allergies ibuprofen Adverse Reaction (Verified 07/25/18 09:27) Nausea naproxen [From Naprosyn] Adverse Reaction (Verified 07/25/18 09:27) Nausea naproxen sodium [From Aleve] Adverse Reaction (Verified 07/25/18 09:27) Nausea tramadol Adverse Reaction (Verified 07/25/18 09:27) Nausea Home Medications: Ambulatory Orders Medication Instructions Recorded Furosemide [Lasix] 40 mg PO DAILY 06/15/18 Aspirin E.C. [Ecotrin] 81 mg PO DAILY@0800 07/25/18 Nitroglycerin (INPATIENT USE) 0.4 mg PO PRN PRN 07/25/18 [Nitrostat] Ticagrelor [Brilinta] 90 mg PO BID 07/25/18 Pantoprazole Sodium [Protonix] 40 mg PO BID 09/03/18 Sucralfate [Carafate] 1 gm PO 4X/DAY 09/03/18 Surgical History: Surgical History (Last Reviewed 07/25/18 @ 16:12 by Piyush Nick DO) Stented coronary artery (Chronic) Onset Date: 06/15/18 Z95.5 Successful PTCA/CARLOZ of mid RCA with a 3.5 x 38 Promus Synergy 06/15/2018 per DJN @ [facility] History of left heart catheterization (Chronic) Onset Date: 01/24/18 Z98.890 09/09/2011 @ [facility] per Dr. Garces; 01/24/18 @ [facility] per Dr. Nassar H/O wisdom tooth extraction K08.409 History of mandibular surgery Z98.890 Surgical History: - Psychiatric History: No pertinent psych hx Smoking Status: Current every day smoker - *Family History Maternal Family History: Family History (Last Reviewed 07/25/18 @ 16:12 by Piyush Nick DO) Other COPD (chronic obstructive pulmonary disease) Heart disease Hypertension History Items: Cancer, Heart Disease, Hypertension Paternal Family History: Family History (Last Reviewed 07/25/18 @ 16:12 by Piyush Nick DO) Other COPD (chronic obstructive pulmonary disease) Heart disease Hypertension History Items: COPD Review of Systems Constitutional: Reports: Malaise, Weakness, Fatigue. Denies: Chills, Fever, Weight Change Eyes: Denies: Blurred vision HEENT: Denies: Head Aches, Sinus Congestion, Sinus Drainage Cardiovascular: Reports: Orthopnea, Palpitations. Denies: Chest Pain, Chest Pressure, Chest Tightness, Edema, Heaviness, Light Headedness, Syncope Respiratory: Reports: Cough Gastrointestinal: Reports: Abdominal Pain. Denies: Diarrhea, Dyspepsia, Hematemesis, Hematochezia, Nausea, Vomiting Genitourinary: Denies: Dysuria Musculoskeletal: Denies: Joint Pain, Joint Tenderness Skin: Denies: Rash, Wounds Neurological: Denies: Numbness, Tingling, Focal weakness Psychiatric: Denies: Anxiety, Depression, Homicidal Ideations, Suicidal Ideations Hematologic/ Lymphatic: Denies: Easy Bruising, Easy Bleeding VTE Information - Inpt Only VTE Present on Admission: No VTE Pharm Prophylaxis ordered?: Yes - Physical Exam General: Alert, Oriented x3, Cooperative HEENT: Atraumatic, PERRLA, EOMI, Normocephalic, - - has moderate infraorbital edema Oral: Moist Mucosa Neck: Supple, No JVD, Negative Carotid Bruits Lungs: - - decreased breath sounds bibasally, no wheezes or crackles Cardiovascular: Regular rate, Regular Rhythm, Normal S1, Normal S2, No murmurs Abdomen: Bowel Sounds Present, Soft, Non-Distended, No Hepato-splenomegaly, - - mild epigastric tenderness, no guarding or rebound tenderness. Extremities: No clubbing, No cyanosis, Capillary Refill Less than 3 Seconds, - - bilateral 1+ edema Skin: No rashes, No breakdown, - Musculoskeletal: No Tenderness to Palpation of Joints or Extremities Lymphatic: No Cervical, Supraclavicular, or Inguinal Adenopathy Neurological: Cranial nerves II-XII grossly intact, Neuro grossly intact, Motor Exam 5/5 strength throughout Psych/Mental Status: Normal Affect, Appropriate, Alert and oriented to time, place, person, mood and affect Vital Signs Temp Pulse Resp BP Pulse Ox 97.2 F L 90 26 H 125/86 H 96 09/03/18 09:14 09/03/18 09:14 09/03/18 09:14 09/03/18 09:14 09/03/18 09:14 Oxygen Flow Rate (L/min) 5 Oxygen Delivery Method Nasal Cannula Weight: 152 lb 8.958 oz Body Mass Index (BMI) 23.8 Laboratory Tests Past 24 Hrs 09/03/18 09/03/18 09/03/18 07:56 07:56 08:28 WBC 10.5 RBC 4.65 Hgb 11.9 L Hct 39.0 L MCV 83.9 MCH 25.6 L MCHC 30.5 L RDW 19.1 H RDW Differential 57.4 H Plt Count 186 MPV 9.9 Immature Gran % (Auto) 0.100 Neut % (Auto) 79.5 H Lymph % (Auto) 14.9 L Louis[place] % (Auto) 5.2 Eos % (Auto) 0.2 Baso % (Auto) 0.1 Absolute Neuts (auto) 8.3 H Absolute Lymphs (auto) 1.56 Total Counted Not Reportable Specimen Type ART Sample Site L Brachial pH 7.28 L Bicarbonate Actual 22.1 POC Total CO2 23 Base Excess -5 L O2 Saturation 100 H O2 % 75 ABG pCO2 46.7 H ABG pO2 246 H Vick Test NA Respiration Rate 12 O2 Delivery Device Bi / C PAP EPAP 8 IPAP 14 Blood Gas Notified Whom ED MD Blood Gas Notified Time 823 Sodium 135 L Potassium 5.0 Chloride 105 Carbon Dioxide 23.0 Anion Gap 7 BUN 41 H Creatinine 1.20 Estim Creat Clear Calc 67.32 Est GFR (MDRD) Af Amer 82 Est GFR (MDRD) Non-Af 67 BUN/Creatinine Ratio 34.2 H Glucose 135 H Lactic Acid Calcium 7.9 L Total Bilirubin 0.60 Direct Bilirubin 0.33 H AST 41 H ALT 52 Alkaline Phosphatase 101 Troponin I 0.057 H Total Protein 6.1 L Albumin 2.4 L Globulin 3.7 09/03/18 08:46 WBC RBC Hgb Hct MCV MCH MCHC RDW RDW Differential Plt Count MPV Immature Gran % (Auto) Neut % (Auto) Lymph % (Auto) Louisa % (Auto) Eos % (Auto) Baso % (Auto) Absolute Neuts (auto) Absolute Lymphs (auto) Total Counted Specimen Type Sample Site pH Bicarbonate Actual POC Total CO2 Base Excess O2 Saturation O2 % ABG pCO2 ABG pO2 Vick Test Respiration Rate O2 Delivery Device EPAP IPAP Blood Gas Notified Whom Blood Gas Notified Time Sodium Potassium Chloride Carbon Dioxide Anion Gap BUN Creatinine Estim Creat Clear Calc Est GFR (MDRD) Af Amer Est GFR (MDRD) Non-Af BUN/Creatinine Ratio Glucose Lactic Acid Pending Calcium Total Bilirubin Direct Bilirubin AST ALT Alkaline Phosphatase Troponin I Total Protein Albumin Globulin Assessment/Plan All Active Problems (Last Reviewed 07/25/18 @ 16:12 by Piyush Nick DO) GI bleed (Acute) Acute blood loss anemia (Acute) 53 y/o admitted with a complaint of SOB and rapid heart rate. 1. SVT due to noncompliance and acute systolic heart failure * Heart rate was 193 on admission. Converted to sinus rhythm after he was cardioverted with 200 J. Adenosine was unsuccessful in cardioverting him. * Admit to ICU. * Cardiology on board. Initial troponin was 0.057. will cycle. * 2. Acute exacerbation of systolic heart failure * Patient admits to not being compliant with his medications at all. * BNP is over 5000. * 2D echo (6.8.19): EF is 15%, with severe global hypokinesis of left ventricle, left atrium mildly enlarged, right atrium moderately enlarged. PA SP is 28mmhg. * CTA: this was done to rule out PE> Bilateral pleural effusions large on the right side and increased since previous examination. Events of eczematous and bullous changes with scarring in the lower lungs. Mild ascites. * cardiology consulted * will diurese with IV lasix 40mg bid * fluid restriction to 1500cc daily * strict intake output chart * 3. lactic acidosis: lactic acid is 2.9. Likely due to decreased perfusion from severe heart failure. should improve with diuresis. 4. CAD s/ps tents: on aspirin and brilinta. Not on statin; reason is unclear as patient is not allergic. 5. Hisotyr of duodenitis, gastritis and esophagitis * Was recently admitted on 07/25/2018 for acute GI bleed. EGD done showed duodenitis and gastritis and moderately severe reflux esophagitis which was biopsied. Colonoscopy showed 5 small polyps at rectosigmoid colon and in the descending colon which were removed. * Was discharged on p.o. Protonix 40 mg twice daily and sucralfate. However he admits to not being compliant with his medication. * now complains of epigastric pain. * WIll continue p.o. Protonix 40 mg twice daily and continue sucralfate. * DVT prophylaxis: heparin CODE STATUS: * Patient counseled extensively about different types of CODE STATUS including full code, DNR CCA and DNR CCA. * Patient elects to be full code. * Total gtnm-yr-cird time 16 minutes. Code Visit Inpatient E&M: 81719 Init Hosp L3 Procedures: 98506 Advncd Care Plan 30 Min
[2018-09-03 09:56] LABS: Lactic Acid 2.9 mmol/L (0.4-2.0)
--- NOTE | 2018-09-03 10:20 | ECHOD_ITS ---
Version 2 Reason For Study: CHF Procedure This was a 2D Doppler, Color Flow transthoracic echocardiogram. Pt unable to lay in LLD position due to SOB. Exam performed portable in ICU/CCU. Left Ventricle Moderately dilated left ventricle. The estimated ejection fraction is 15 %. There is severe global hypokinesis of the left ventricle. Right Ventricle Mildly dilated right ventricle. Mild global right ventricular systolic dysfunction. Atria The left atrium is mildly enlarged. The right atrium is moderately enlarged. Mitral Valve Normal mitral valve. Mild (1+) eccentric mitral valve insufficiency. Tricuspid Valve Normal tricuspid valve. Mild (1+) tricuspid valve insufficiency. Pulmonary artery systolic pressure is 28 mmHg. Aortic Valve Normal aortic valve. Trisinus/trileaflet aortic valve. Pulmonic Valve Normal pulmonic valve. Great Vessels Normal aortic root. The pulmonary artery is normal size. Normal inferior vena cava. Pericardium/Pleural Small pericardial effusion. MMode/2D Measurements & Calculations LVIDd: 6.4 cm IVSd: 0.67 cm Ao root diam: 3.7 cm LVIDs: 6.2 cm LVPWd: 0.73 cm RVDd: 4.1 cm FS: 2.6 % LAV(MOD-bp): 92.6 ml EDV(MOD-sp4): 207.9 ml EDV(MOD-sp2): 251.1 ml LAV(MOD-bp) Indexed: 51.4 ml/m2 ESV(MOD-sp4): 176.7 ml EF(MOD-sp2): 10.5 % LAV(MOD-sp2): 90.6 ml EF(MOD-sp4): 15.0 % LAV(MOD-sp4): 80.7 ml SV(MOD-sp4): 31.2 ml SV(MOD-sp2): 26.3 ml LA A4 area: 26.1 cm2 LA dimension(2D): 4.2 cm RA A4 area: 28.6 cm2 Time Measurements MV dec time: 0.34 sec Doppler Measurements & Calculations MV E max bunny: 32.1 cm/sec Ao V2 max: 85.8 cm/sec LV V1 max: 55.7 cm/sec MV A max bunny: 31.1 cm/sec Ao max P.2 mmHg LV V1 max P.3 mmHg MV E/A: 1.0 TR max bunny: 241.6 cm/sec TR max P.5 mmHg Interpretation Summary Moderately dilated left ventricle. The estimated ejection fraction is 15 %. There is severe global hypokinesis of the left ventricle. The left atrium is mildly enlarged. Pulmonary artery systolic pressure is 28 mmHg. Small pericardial effusion. Compared to prior study, there is no significant change. Ordering Physician: Ree Jarvis Referring Physician: STACY CALDWELL Performed By: Mendez, Gunjan, RDCS, RVT
[2018-09-03 11:05] LABS: Magnesium 2.3 mg/dL (1.6-2.6)
[2018-09-03] MEDS: Furosemide 40 MG/4 ML Vial IV (11:11)
[2018-09-03 11:14] LABS: BNP,B-Type NATRIURETIC PEPTIDE > 5000.0 pg/mL (0-100)
[2018-09-03 12:49] LABS: Reflex Lactate? Y
--- NOTE | 2018-09-03 12:53 | PCM.CONS.C ---
Reason for Consult Date of Consultation: 09/03/18 Reason for Consultation: Fast heartbeat and shortness of breath History of Present Illness: The patient is a 53 year old M who was initially seen in the hospital in December 2017 for shortness of breath abdominal discomfort and abnormal troponins. At that time an echocardiogram performed demonstrated an ejection fraction of 10% and he was offered cardiac catheterization but declined. He subsequently presented to the hospital later in December 2017 and underwent a cardiac catheterization by Dr. Nassar which demonstrated essentially normal coronary arteries except for lesion in the mid right coronary artery for which she underwent FFR evaluation which was noted to be unremarkable. No intervention was performed. He did present to the hospital in May of this year and underwent a cardiac catheterization and subsequently underwent angioplasty and stenting of the right coronary artery. His ejection fraction stated at that time was 10 to 15%. It appears he was placed on medical therapy for which she has not been particularly compliant. He has been seen in the office but presented today to the emergency room complaining of palpitations and not feeling well. In the emergency room his electrocardiogram demonstrated a narrow complex tachycardia with a rate of 190 bpm. He was given intravenous adenosine with no significant improvement. I was contacted by the ER physician and instructed to DC cardiovert the patient emergently. This was successfully done with the patient currently in sinus rhythm. The patient was admitted to the intensive care unit. He denies any chest pain or paroxysmal nocturnal dyspnea he has had pedal edema. [] Past Medical History Allergies/Adverse Reactions: Allergies ibuprofen Adverse Reaction (Verified 07/25/18 09:27) Nausea naproxen [From Naprosyn] Adverse Reaction (Verified 07/25/18 09:27) Nausea naproxen sodium [From Aleve] Adverse Reaction (Verified 07/25/18 09:27) Nausea tramadol Adverse Reaction (Verified 07/25/18 09:27) Nausea Home Medications: Ambulatory Orders Medication Instructions Recorded Furosemide [Lasix] 40 mg PO DAILY 06/15/18 Aspirin E.C. [Ecotrin] 81 mg PO DAILY@0800 07/25/18 Nitroglycerin (INPATIENT USE) 0.4 mg PO PRN PRN 07/25/18 [Nitrostat] Ticagrelor [Brilinta] 90 mg PO BID 07/25/18 Pantoprazole Sodium [Protonix] 40 mg PO BID 09/03/18 Sucralfate [Carafate] 1 gm PO 4X/DAY 09/03/18 Past Medical History (Chronic Problems): Chronic Problems (Last Reviewed 07/25/18 @ 16:12 by Piyush Nick DO) Stented coronary artery (Chronic 06/15/18) Successful PTCA/CARLOZ of mid RCA with a 3.5 x 38 Promus Synergy 06/15/2018 per [facility] @ [facility] Abnormal EKG (Chronic) Hyperlipidemia (Chronic) Lower leg edema (Chronic) Bilateral pleural effusion (Chronic 01/13/18) Per chest CT 01/13/2018 Alcohol abuse, in remission (Chronic) Patient stopped in 2013 Hypertension (Chronic) GERD (gastroesophageal reflux disease) (Chronic) Premature ventricular contractions (Chronic) Left ventricular hypertrophy (Chronic) Tobacco abuse (Chronic) Hx of supraventricular tachycardia (Chronic) History of left heart catheterization (Chronic 01/24/18) 09/09/2011 @ [facility] per Dr. Garces; 01/24/18 @ [facility] per Dr. Nassar Atherosclerotic heart disease of [place] coronary artery without angina pectoris (Chronic) per [facility] 01/24/18: 50% stenosis mid RCA, all other coronaries normal. 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 COPD (chronic obstructive pulmonary disease) (Chronic) Valvular heart disease (Chronic) Surgical History: - Psychiatric History: No pertinent psych hx - *Family History Maternal Family History: Family History (Last Reviewed 07/25/18 @ 16:12 by Piyush Nick DO) Other COPD (chronic obstructive pulmonary disease) Heart disease Hypertension History Items: Cancer, Heart Disease, Hypertension Paternal Family History: Family History (Last Reviewed 07/25/18 @ 16:12 by Piyush Nick DO) Other COPD (chronic obstructive pulmonary disease) Heart disease Hypertension History Items: COPD Smoking Status: Current every day smoker Alcohol: None Drugs: None Review of Systems - Review of Systems General: Reports: Fatigue, Malaise. Denies: Fever, Night Sweats HEENT: Denies: Vision Change Cardiovascular: Reports: Shortness of Breath, Shortness of Breath at Rest, Shortness of Breath with Exertion, PND, Peripheral Edema, Palpitations, Lightheadedness. Denies: Chest Discomfort, Orthopnea, Dizziness, Near Syncope, Syncope Respiratory: Denies: Cough, Sputum Production, Hemoptysis Gastrointestinal: Denies: Hematemesis, Hematochezia, Melena Genitourinary: Denies: Dysuria, Hematuria Muscoloskeletal: Denies: Myalgias Skin: Denies: Rash Neurological: Denies: Dizziness Psychiatric: Denies: Anxiety Endocrine: Denies: Heat Intolerance Hematologic/ Lymphatic: Denies: Lymph Node Enlargement, Anemia Subjectve: Middle-aged man looks rather unkempt Objective: Vital Signs Temp Pulse Resp BP Pulse Ox 97.2 F L 90 26 H 125/86 H 96 09/03/18 09:14 09/03/18 09:14 09/03/18 09:14 09/03/18 09:14 09/03/18 09:14 Oxygen Flow Rate (L/min) 5 Oxygen Delivery Method Nasal Cannula Weight: 152 lb 8.958 oz Body Mass Index (BMI) 23.8 General: Awake, Alert, Oriented x 3 HEENT: PERRL, EOMI, Sclera Non Icteric Oral: Moist Mucosa Neck: Supple, Good ROM, No Lymph Node Enlargement, Positive JVD Lungs: Diminished Vinnie Bases Cardiovascular: Regular Rhythm, Normal S1, Normal S2, No Murmurs, No Rubs, No Gallops Vascular: No Carotid Bruits, Normal Femoral Pulses, Normal Radial Pulses, Normal Dorsalis Pedal Pulse, Normal Posterior Tibial Pulses Abdomen: Bowel Sounds Present, Soft, Non Tender, No HSM, No Organomegaly Extremities: No Cyanosis, No Clubbing, Bilateral Edema +2 Musculoskeletal: No Erythema Skin: No Rashes Lymphatic: No Lymph Node Enlargement Neurological: No Focal Motor or Sensory Deficit Psych/Mental Status: Appropriate 09/03/18 07:56: WBC 10.5, RBC 4.65, Hgb 11.9 L, Hct 39.0 L, MCV 83.9, MCH 25.6 L, MCHC 30.5 L, RDW 19.1 H, RDW Differential 57.4 H, Plt Count 186, MPV 9.9, Immature Gran % (Auto) 0.100, Neut % (Auto) 79.5 H, Lymph % (Auto) 14.9 L, [place] % (Auto) 5.2, Eos % (Auto) 0.2, Baso % (Auto) 0.1, Absolute Neuts (auto) 8.3 H, Total Counted Not Reportable 09/03/18 07:56: Sodium 135 L, Potassium 5.0, Chloride 105, Carbon Dioxide 23.0, Anion Gap 7, BUN 41 H, Creatinine 1.20, Est GFR (MDRD) Af Amer 82, Est GFR (MDRD) Non-Af 67, BUN/Creatinine Ratio 34.2 H, Glucose 135 H, Calcium 7.9 L, Total Bilirubin 0.60, Direct Bilirubin 0.33 H, Troponin I 0.057 H 09/03/18 07:56: B-Natriuretic Peptide > 5000.0 H 09/03/18 07:56: Magnesium 2.3 09/03/18 08:28: pH 7.28 L, Bicarbonate Actual 22.1, POC Total CO2 23, Base Excess -5 L, O2 Saturation 100 H, ABG pCO2 46.7 H, ABG pO2 246 H, Vick Test NA 09/03/18 08:46: Lactic Acid 2.9 H 09/03/18 11:15: Troponin I 0.046 H Rhythm: EKG: Initial EKG demonstrated narrow complex tachycardia with a rate of 190 bpm. Follow-up EKG demonstrates normal sinus rhythm with no acute changes. ECHO: Global severe reduction in ejection fraction estimated at 10 to 15%. Assessment/Plan 1. Supraventricular tachycardia Patient presents with a supraventricular tachycardia. He was successfully cardioverted into sinus rhythm. At this time with his severe left ventricular systolic dysfunction it may not be unreasonable to start him on amiodarone orally. He should also be started on a beta-roxana and I attempt to improve his heart rate and heart function. At this time I do not think that he needs to go for an ablation however. 2. Congestive heart failure-acute on chronic systolic He has had severe left ventricular systolic dysfunction and congestive heart failure dating back to December 2017. He has not been very compliant with his medications. Strict dietary maneuvers have been emphasized I would like to start him on carvedilol 3.125 mg twice a day Aggressive diuresis with intravenous Lasix Will add LAVERN inhibitor as tolerated and I will consider Entresto 3. Left ventricular systolic dysfunction He has severe left ventricular systolic dysfunction out of proportion to the extent of the coronary artery disease. His diagnosis was in December 2017 and he was revascularized in May 2018. At this juncture I would say that he be strongly considered for primary defibrillator implantation. This can be arranged as an outpatient after he has been appropriately tuned up. 4. Coronary artery disease He does have coronary artery disease status post previous angioplasty and stenting. He has not been compliant with his Brilinta I would suggest that we put him on Plavix in addition to his beta-roxana and LAVERN inhibitor I do not think that his present symptomatology is related to coronary ischemia Thank you for allowing me to participate in the care of your patient. Please don't hesitate to call if any issues arise.
[2018-09-03] MEDS: Pantoprazole Sodium 40 MG Tablet PO (12:54)
[2018-09-03] MEDS: Enoxaparin 40 MG/0.4 ML Syringe SC (12:54)
[2018-09-03] MEDS: Acetaminophen 325 MG Tablet 650 MG PO (12:55)
--- NOTE | 2018-09-03 12:56 | CON.PCM_ITS ---
Reason for Consult Date of Consultation: 09/03/18 Reason for Consultation: Fast heartbeat and shortness of breath History of Present Illness: The patient is a 53 year old M who was initially seen in the hospital in December 2017 for shortness of breath abdominal discomfort and abnormal troponins. At that time an echocardiogram performed demonstrated an ejection fraction of 10% and he was offered cardiac catheterization but declined. He subsequently presented to the hospital later in December 2017 and underwent a cardiac catheterization by Dr. Nassar which demonstrated essentially normal coronary arteries except for lesion in the mid right coronary artery for which she underwent FFR evaluation which was noted to be unremarkable. No intervention was performed. He did present to the hospital in May of this year and underwent a cardiac catheterization and subsequently underwent angioplasty and stenting of the right coronary artery. His ejection fraction stated at that time was 10 to 15%. It appears he was placed on medical therapy for which she has not been particularly compliant. He has been seen in the office but presented today to the emergency room complaining of palpitations and not feeling well. In the emergency room his electrocardiogram demonstrated a narrow complex tachycardia with a rate of 190 bpm. He was given intravenous adenosine with no significant improvement. I was contacted by the ER physician and instructed to DC cardiovert the patient emergently. This was successfully done with the patient currently in sinus rhythm. The patient was admitted to the intensive care unit. He denies any chest pain or paroxysmal nocturnal dyspnea he has had pedal edema. [] Past Medical History Allergies/Adverse Reactions: Allergies ibuprofen Adverse Reaction (Verified 07/25/18 09:27) Nausea naproxen [From Naprosyn] Adverse Reaction (Verified 07/25/18 09:27) Nausea naproxen sodium [From Aleve] Adverse Reaction (Verified 07/25/18 09:27) Nausea tramadol Adverse Reaction (Verified 07/25/18 09:27) Nausea Home Medications: Ambulatory Orders Medication Instructions Recorded Furosemide [Lasix] 40 mg PO DAILY 06/15/18 Aspirin E.C. [Ecotrin] 81 mg PO DAILY@0800 07/25/18 Nitroglycerin (INPATIENT USE) 0.4 mg PO PRN PRN 07/25/18 [Nitrostat] Ticagrelor [Brilinta] 90 mg PO BID 07/25/18 Pantoprazole Sodium [Protonix] 40 mg PO BID 09/03/18 Sucralfate [Carafate] 1 gm PO 4X/DAY 09/03/18 Past Medical History (Chronic Problems): Chronic Problems (Last Reviewed 07/25/18 @ 16:12 by Piyush Nick DO) Stented coronary artery (Chronic 06/15/18) Successful PTCA/CARLOZ of mid RCA with a 3.5 x 38 Promus Synergy 06/15/2018 per [facility] @ [facility] Abnormal EKG (Chronic) Hyperlipidemia (Chronic) Lower leg edema (Chronic) Bilateral pleural effusion (Chronic 01/13/18) Per chest CT 01/13/2018 Alcohol abuse, in remission (Chronic) Patient stopped in 2013 Hypertension (Chronic) GERD (gastroesophageal reflux disease) (Chronic) Premature ventricular contractions (Chronic) Left ventricular hypertrophy (Chronic) Tobacco abuse (Chronic) Hx of supraventricular tachycardia (Chronic) History of left heart catheterization (Chronic 01/24/18) 09/09/2011 @ [facility] per Dr. Garces; 01/24/18 @ [facility] per Dr. Nassar Atherosclerotic heart disease of [place] coronary artery without angina pectoris (Chronic) per [facility] 01/24/18: 50% stenosis mid RCA, all other coronaries normal. 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 COPD (chronic obstructive pulmonary disease) (Chronic) Valvular heart disease (Chronic) Surgical History: - Psychiatric History: No pertinent psych hx - *Family History Maternal Family History: Family History (Last Reviewed 07/25/18 @ 16:12 by Piyush Nick DO) Other COPD (chronic obstructive pulmonary disease) Heart disease Hypertension History Items: Cancer, Heart Disease, Hypertension Paternal Family History: Family History (Last Reviewed 07/25/18 @ 16:12 by Piyush Nick DO) Other COPD (chronic obstructive pulmonary disease) Heart disease Hypertension History Items: COPD Smoking Status: Current every day smoker Alcohol: None Drugs: None Review of Systems - Review of Systems General: Reports: Fatigue, Malaise. Denies: Fever, Night Sweats HEENT: Denies: Vision Change Cardiovascular: Reports: Shortness of Breath, Shortness of Breath at Rest, Shortness of Breath with Exertion, PND, Peripheral Edema, Palpitations, Lightheadedness. Denies: Chest Discomfort, Orthopnea, Dizziness, Near Syncope, Syncope Respiratory: Denies: Cough, Sputum Production, Hemoptysis Gastrointestinal: Denies: Hematemesis, Hematochezia, Melena Genitourinary: Denies: Dysuria, Hematuria Muscoloskeletal: Denies: Myalgias Skin: Denies: Rash Neurological: Denies: Dizziness Psychiatric: Denies: Anxiety Endocrine: Denies: Heat Intolerance Hematologic/ Lymphatic: Denies: Lymph Node Enlargement, Anemia Subjectve: Middle-aged man looks rather unkempt Objective: Vital Signs Temp Pulse Resp BP Pulse Ox 97.2 F L 90 26 H 125/86 H 96 09/03/18 09:14 09/03/18 09:14 09/03/18 09:14 09/03/18 09:14 09/03/18 09:14 Oxygen Flow Rate (L/min) 5 Oxygen Delivery Method Nasal Cannula Weight: 152 lb 8.958 oz Body Mass Index (BMI) 23.8 General: Awake, Alert, Oriented x 3 HEENT: PERRL, EOMI, Sclera Non Icteric Oral: Moist Mucosa Neck: Supple, Good ROM, No Lymph Node Enlargement, Positive JVD Lungs: Diminished Vinnie Bases Cardiovascular: Regular Rhythm, Normal S1, Normal S2, No Murmurs, No Rubs, No Gallops Vascular: No Carotid Bruits, Normal Femoral Pulses, Normal Radial Pulses, Normal Dorsalis Pedal Pulse, Normal Posterior Tibial Pulses Abdomen: Bowel Sounds Present, Soft, Non Tender, No HSM, No Organomegaly Extremities: No Cyanosis, No Clubbing, Bilateral Edema +2 Musculoskeletal: No Erythema Skin: No Rashes Lymphatic: No Lymph Node Enlargement Neurological: No Focal Motor or Sensory Deficit Psych/Mental Status: Appropriate 09/03/18 07:56: WBC 10.5, RBC 4.65, Hgb 11.9 L, Hct 39.0 L, MCV 83.9, MCH 25.6 L , MCHC 30.5 L, RDW 19.1 H, RDW Differential 57.4 H, Plt Count 186, MPV 9.9, Immature Gran % (Auto) 0.100, Neut % (Auto) 79.5 H, Lymph % (Auto) 14.9 L, [place] % (Auto) 5.2, Eos % (Auto) 0.2, Baso % (Auto) 0.1, Absolute Neuts (auto) 8.3 H, Total Counted Not Reportable 09/03/18 07:56: Sodium 135 L, Potassium 5.0, Chloride 105, Carbon Dioxide 23.0, Anion Gap 7, BUN 41 H, Creatinine 1.20, Est GFR (MDRD) Af Amer 82, Est GFR (MDRD) Non-Af 67, BUN/Creatinine Ratio 34.2 H, Glucose 135 H, Calcium 7.9 L, Total Bilirubin 0.60, Direct Bilirubin 0.33 H, Troponin I 0.057 H 09/03/18 07:56: B-Natriuretic Peptide > 5000.0 H 09/03/18 07:56: Magnesium 2.3 09/03/18 08:28: pH 7.28 L, Bicarbonate Actual 22.1, POC Total CO2 23, Base Excess -5 L, O2 Saturation 100 H, ABG pCO2 46.7 H, ABG pO2 246 H, Vick Test NA 09/03/18 08:46: Lactic Acid 2.9 H 09/03/18 11:15: Troponin I 0.046 H Rhythm: EKG: Initial EKG demonstrated narrow complex tachycardia with a rate of 190 bpm. Follow-up EKG demonstrates normal sinus rhythm with no acute changes. ECHO: Global severe reduction in ejection fraction estimated at 10 to 15%. Assessment/Plan 1. Supraventricular tachycardia * Patient presents with a supraventricular tachycardia. He was successfully cardioverted into sinus rhythm. At this time with his severe left ventricular systolic dysfunction it may not be unreasonable to start him on amiodarone orally. He should also be started on a beta-roxana and I attempt to improve his heart rate and heart function. At this time I do not think that he needs to go for an ablation however. * 2. Congestive heart failure-acute on chronic systolic * He has had severe left ventricular systolic dysfunction and congestive heart failure dating back to December 2017. He has not been very compliant with his medications. * Strict dietary maneuvers have been emphasized * I would like to start him on carvedilol 3.125 mg twice a day * Aggressive diuresis with intravenous Lasix * Will add LAVERN inhibitor as tolerated and I will consider Entresto * 3. Left ventricular systolic dysfunction * He has severe left ventricular systolic dysfunction out of proportion to the extent of the coronary artery disease. His diagnosis was in December 2017 and he was revascularized in May 2018. At this juncture I would say that he be strongly considered for primary defibrillator implantation. * This can be arranged as an outpatient after he has been appropriately tuned up. * 4. Coronary artery disease He does have coronary artery disease status post previous angioplasty and stenting. He has not been compliant with his Brilinta I would suggest that we put him on * Plavix in addition to his beta-roxana and LAVERN inhibitor * I do not think that his present symptomatology is related to coronary ischemia * * Thank you for allowing me to participate in the care of your patient. Please don't hesitate to call if any issues arise.
--- NOTE | 2018-09-03 13:41 | EKG12_ITS ---
Test Reason : SVT Blood Pressure : / mmHG Vent. Rate : 176 BPM Atrial Rate : 176 BPM P-R Int : 000 ms QRS Dur : 100 ms QT Int : 292 ms P-R-T Axes : 000 096 -88 degrees QTc Int : 499 ms Atrial Fibrillation with occasional PVC's Low voltage QRS (Limb Leads) Poor R-Wave Progression Anterior NE, age undetermined, cannot be excluded Nonspecific T-Wave abnormality Confirmed by JONATHAN VARMA, JILLIAN ([id number]), school photograph editor KIMBERLY MADDOX ([id number]) on 09/07/2018 3:22:27 PM Referred By: GEORGIANA Confirmed By:JILLIAN CASTILLO MD
[2018-09-03] MEDS: Furosemide 500 MG in Empty Viaflex 50 mL 1 EACH CONT INF (13:52)
--- NOTE | 2018-09-03 14:04 | NURSING ---
At 1340 sudden onset SVT sustained 170's. Pt denied chest pain, increased shortness of breath. Pt was not diaphoretic. EKG obtained and image sent to Dr. Aquino. Orders received to dc po amiodarone, give amio bolus and then start a continuous infusion per protocol. See vital signs and MAR for details.
--- NOTE | 2018-09-03 15:22 | EKG12_ITS ---
Test Reason : [facility] Blood Pressure : / mmHG Vent. Rate : 080 BPM Atrial Rate : 080 BPM P-R Int : 126 ms QRS Dur : 098 ms QT Int : 366 ms P-R-T Axes : 059 083 257 degrees QTc Int : 422 ms Sinus rhythm with sinus arrhythmia with occasional and consecutive Premature ventricular complexes Low voltage QRS (Limb Leads) Nonspecific T wave abnormality Poor R-Wave Progression Abnormal ECG Confirmed by JONATHAN VARMA, JILLIAN ([id number]), news videotape editor KIMBERLY MADDOX ([id number] on 09/07/2018 3:21:39 PM Referred By: Confirmed By:JILLIAN CASTILLO MD
[2018-09-03] MEDS: Clopidogrel Bisulfate 75 MG Tablet PO (18:31)
[2018-09-03] MEDS: Sucralfate 1 GM Tablet PO ×2 (18:34→20:52)
--- NOTE | 2018-09-03 20:20 | CCHN_ITS ---
Hospitalist Note Contacted per senior staff specialized employment. Patient with abdominal discomfort and distention, tylenol not effective and having difficulties maintaining on BIPAP. Will add oral/IV pain regimen. Recent CT A/P without acute findings upon admission recently. Noted very poor air movement, no specific wheezing but minimal movement. COPD notable history. Will administer x 1 solumedrol now and consideration continuation with Pulmonary review of patient additionally.
[2018-09-03] MEDS: MethylPREDNISolone 125 MG/2 ML Vial IV (20:51)
[2018-09-03] MEDS: oxyCODONE 5 MG Tablet PO (20:51)
[2018-09-03] MEDS: Carvedilol 3.125 MG TABLET PO (20:52)
[2018-09-03] MEDS: Morphine 2 MG/ML Syringe IV (23:37)
[2018-09-03] MEDS: 0.9% NaCl Peripheral Flush Adult/Peds IV (23:38)
[2018-09-04] VITALS (32 sets, daily range): BP systolic 92–143; BP diastolic 50–97; PULSE 54–85; RESP 12–30; TEMP 36.4–37.2; O2SAT 84–100
[2018-09-04] MEDS: 0.9% NaCl Peripheral Flush Adult/Peds IV (04:48)
[2018-09-04] MEDS: Morphine 2 MG/ML Syringe IV (04:48)
[2018-09-04 04:51] LABS: Absolute Lymphocyte Count 0.24 X10^3/ul (0.83-4.51); Absolute Neutrophil Count 6.8 X10^3/uL (2.0-7.7); Differential Indicated SCAN CRITERIA MET; Hematocrit 37.7 % (40-54); Hemoglobin 11.7 g/dl (13.0-16.5); Lymphocyte # 0.24 X10^3/ul (4.0); Lymphocyte % 3.4 % (19-41); Mean Corpuscular Hgb 25.4 pg (27.0-32.0); Mean Corpuscular Volume 81.8 fL (80-94); Mean Platelet Vol. 10.6 fl (6.2-12.0); Monocyte# 0.06 X10^3/uL; Monocyte% 0.8 % (0-10); Neutrophil # 6.76 X10^3/uL (2.7-7.7); Neutrophil % 95.7 % (47-70); POSITIVE COUNT NO; POSITIVE DIFFERENTIAL YES; POSITIVE MORPHOLOGY NO; Platelet Count 192 K/mm3 (150-450); RBC Distribution Width CV 18.9 % (11.6-14.6); RBC Distribution Width SD 55.8 fl (35.1-43.9); Red Blood Count 4.61 M/mm3 (4.6-6.2); White Blood Count 7.1 K/mm3 (4.4-11.0)
[2018-09-04 05:19] LABS: Anion Gap 10 (5-15); BUN 40 mg/dL (7-18); BUN/Creat Ratio 34.2 RATIO (10-20); Calcium,Total 7.8 mg/dL (8.5-10.1); Chloride 104 mmol/L (98-107); Creatinine, Serum 1.17 mg/dL (0.70-1.30); EST Glomerular Filtration Rate 69 mL/min (>60); Est Glom Filt Rate - Afr Amer 84 mL/min (>60); Estimated Creatinine Clearance 66.65 ml/min; Glucose 156 mg/dL (74-106); Magnesium 1.8 mg/dL (1.6-2.6); Sodium Level 137 mmol/L (136-145)
[2018-09-04] MEDS: oxyCODONE 5 MG Tablet PO ×5 (05:40→21:03)
[2018-09-04] MEDS: Sucralfate 1 GM Tablet PO ×4 (05:42→20:57)
--- NOTE | 2018-09-04 06:39 | PCM.CON.CC ---
Reason for Consult Date of Consultation: 09/04/18 Reason for Consultation: Respiratory failure History of Present Illness: The patient is a 53-year-old male, with a history as outlined below, who presented to the emergency department on September 03 with complaints of shortness of breath and abdominal pain. The patient has a reported history of COPD of unknown severity, coronary artery disease status post PCI in May 2018, chronic systolic heart failure, supraventricular tachycardia, GERD, prior alcohol dependency (12 pack beer daily, Quit 4 years ago) and continuous daily tobacco dependence (upwards of 2 ppd). The patient does not currently utilize any inhalers in his home environment. He does not currently follow with a proofer. He has a history of medical noncompliance. With regard to the patient's abdominal pain, he claims that a work-up has been done and that no etiology has ever been identified. On presentation to the emergency department, the patient was noted to be afebrile, profoundly tachycardic and a bit hypotensive. He was additionally noted to be tachypneic and hypoxemic. Laboratory evaluation revealed no evidence of a leukocytosis. Chemistry profile was largely unremarkable. Lactate was mildly elevated to 2.9. AST was increased to 41. Troponin was elevated to 0.057. BNP was elevated to greater than 5000. Plain film chest x-ray revealed evidence of a moderate-sized right-sided pleural effusion. CT abdomen/pelvis revealed bilateral pleural effusions along with emphysematous changes, ascites and cirrhosis of the liver. CTA chest revealed no evidence of pulmonary embolism. The patient was placed on BiPAP upon his arrival to the ED. Patient was noted to be in SVT and did receive adenosine x3. There was no change in his underlying rhythm. Cardiology was contacted who advised to proceed with cardioversion. The patient was cardioverted at 200 J and converted to sinus rhythm. He was then transferred to the medical intensive care unit for ongoing management. Surface echocardiogram completed on September 03 revealed a moderately dilated LV with an ejection fraction of 15%. There was global severe hypokinesis of the LV. The patient was subsequently placed on a continuous Lasix drip. Per overnight nursing staff, the patient has been intermittently refusing medical therapies. Past Medical History Past Medical History (Chronic Problems): Chronic Problems (Last Reviewed 07/25/18 @ 16:12 by Piyush Nick DO) Stented coronary artery (Chronic 06/15/18) Successful PTCA/CARLOZ of mid RCA with a 3.5 x 38 Promus Synergy 06/15/2018 per [facility] @ [facility] Abnormal EKG (Chronic) Hyperlipidemia (Chronic) Lower leg edema (Chronic) Bilateral pleural effusion (Chronic 01/13/18) Per chest CT 01/13/2018 Alcohol abuse, in remission (Chronic) Patient stopped in 2013 Hypertension (Chronic) GERD (gastroesophageal reflux disease) (Chronic) Premature ventricular contractions (Chronic) Left ventricular hypertrophy (Chronic) Tobacco abuse (Chronic) Hx of supraventricular tachycardia (Chronic) History of left heart catheterization (Chronic 01/24/18) 09/09/2011 @ [facility] per Dr. Garces; 01/24/[address] [facility] per Dr. Nassar Atherosclerotic heart disease of [place] coronary artery without angina pectoris (Chronic) per [facility] 01/24/18: 50% stenosis mid RCA, all other coronaries normal. Pulmonary hypertension Successful PTCA/CARLOZ of mid RCA with a 3.5 x 38 Promus Synergy 06/15/2018 per [facility] @ 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 COPD (chronic obstructive pulmonary disease) (Chronic) Valvular heart disease (Chronic) Medical History: Medical History (Last Reviewed 07/25/18 @ 16:12 by Piyush Nick DO) Abnormal EKG (Chronic) R94.31 Hyperlipidemia (Chronic) E78.5 Lower leg edema (Chronic) R60.0 Bilateral pleural effusion (Chronic) Onset Date: 01/13/[address] 01/13/2018 Alcohol abuse, in remission (Chronic) F10.11 Patient stopped in 2013 Hypertension (Chronic) I10 GERD (gastroesophageal reflux disease) (Chronic) K21.9 Premature ventricular contractions (Chronic) I49.3 Left ventricular hypertrophy (Chronic) I51.7 Tobacco abuse (Chronic) Z72.0 Hx of supraventricular tachycardia (Chronic) Z86.79 Atherosclerotic heart disease of [place] coronary artery without angina pectoris (Chronic) I25.10 per [facility] 01/24/18: 50% stenosis mid RCA, all other coronaries normal. Pulmonary hypertension Successful PTCA/CARLOZ of mid RCA with a 3.5 x 38 Promus Synergy 06/15/2018 per [facility] @ 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 COPD (chronic obstructive pulmonary disease) (Chronic) J44.9 Allergies ibuprofen Adverse Reaction (Verified 07/25/18 09:27) Nausea naproxen [From Naprosyn] Adverse Reaction (Verified 07/25/18 09:27) Nausea naproxen sodium [From Aleve] Adverse Reaction (Verified 07/25/18 09:27) Nausea tramadol Adverse Reaction (Verified 07/25/18 09:27) Nausea Home Medications: Ambulatory Orders Medication Instructions Recorded Furosemide [Lasix] 40 mg PO DAILY 06/15/18 Aspirin E.C. [Ecotrin] 81 mg PO DAILY@0800 07/25/18 Nitroglycerin (INPATIENT USE) 0.4 mg PO PRN PRN 07/25/18 [Nitrostat] Ticagrelor [Brilinta] 90 mg PO BID 07/25/18 Pantoprazole Sodium [Protonix] 40 mg PO BID 09/03/18 Sucralfate [Carafate] 1 gm PO 4X/DAY 09/03/18 Surgical History: Surgical History (Last Reviewed 07/25/18 @ 16:12 by Piyush Nick DO) Stented coronary artery (Chronic) Onset Date: 06/15/18 Z95.5 Successful PTCA/CARLOZ of mid RCA with a 3.5 x 38 Promus Synergy 06/15/2018 per [facility] @ [facility] History of left heart catheterization (Chronic) Onset Date: 01/24/18 Z98.890 09/09/2011 @ [facility] per Dr. Garces; 01/24/[address] [facility] per Dr. Nassar H/O wisdom tooth extraction K08.409 History of mandibular surgery Z98.890 Surgical History: - Psychiatric History: No pertinent psych hx Smoking Status: Current every day smoker Alcohol: None Drugs: None - *Family History Maternal Family History: Family History (Last Reviewed 07/25/18 @ 16:12 by Piyush Nick DO) Other COPD (chronic obstructive pulmonary disease) Heart disease Hypertension History Items: Cancer, Heart Disease, Hypertension Paternal Family History: Family History (Last Reviewed 07/25/18 @ 16:12 by Piyush Nick DO) Other COPD (chronic obstructive pulmonary disease) Heart disease Hypertension History Items: COPD Review of Systems Constitutional: Denies: Chills, Fever Eyes: Denies: Blurred vision, Double vision HEENT: Denies: Head Aches, Sinus Congestion, Sinus Drainage Cardiovascular: Reports: Edema Respiratory: Reports: Shortness of Breath Gastrointestinal: Reports: Abdominal Pain. Denies: Nausea, Vomiting Genitourinary: Denies: Dysuria Musculoskeletal: Denies: Joint Pain, Joint Tenderness Skin: Denies: Rash, Wounds Neurological: Denies: Numbness, Tingling, Focal weakness Psychiatric: Denies: Anxiety, Depression, Homicidal Ideations, Suicidal Ideations Hematologic/ Lymphatic: Denies: Easy Bruising, Easy Bleeding Objective: The patient's most recent lab work, culture data and imaging studies have all been personally reviewed. - Physical Exam General: Alert, Cooperative, No apparent distress HEENT: Atraumatic, PERRLA, Normocephalic Oral: No Gingival or Mucosal Lesions/ Ulcerations Neck: Supple, No Nodes, Trachea Midline Lungs: No rhonchi, No wheeze, No rales, Diminished, Tachypneic Cardiovascular: Regular rate, Regular Rhythm, Normal S1, Normal S2, No murmurs Abdomen: Bowel Sounds Present, Soft, Non-Distended, Tender Extremities: No clubbing, No cyanosis, Edema - b/l pedal Skin: No breakdown Musculoskeletal: No Tenderness to Palpation of Joints or Extremities Lymphatic: No Cervical, Supraclavicular, or Inguinal Adenopathy Neurological: Cranial nerves II-XII grossly intact, Neuro grossly intact Psych/Mental Status: Normal Affect, Appropriate Vital Signs Temp Pulse Resp BP Pulse Ox 97.5 F L 69 24 H 109/94 H 98 09/04/18 06:00 09/04/18 06:00 09/04/18 06:00 09/04/18 06:00 09/04/18 06:00 Oxygen Flow Rate (L/min) 2 Oxygen Delivery Method Bi-pap Weight: 152 lb 5.431 oz Body Mass Index (BMI) 23.4 Intake and Output for Last 24 Hours 09/02/18 09/03/18 09/04/18 23:59 23:59 23:59 Intake Total 1278.1 / 1278.1 446.3 / 446.3 Output Total 1225 / 1225 100 / 100 Balance 53.1 / 53.1 346.3 / 346.3 Laboratory Tests Past 24 Hrs 09/03/18 09/03/18 09/03/18 07:56 07:56 07:56 WBC 10.5 RBC 4.65 Hgb 11.9 L Hct 39.0 L MCV 83.9 MCH 25.6 L MCHC 30.5 L RDW 19.1 H RDW Differential 57.4 H Plt Count 186 MPV 9.9 Immature Gran % (Auto) 0.100 Neut % (Auto) 79.5 H Lymph % (Auto) 14.9 L Dawes % (Auto) 5.2 Eos % (Auto) 0.2 Baso % (Auto) 0.1 Absolute Neuts (auto) 8.3 H Absolute Lymphs (auto) 1.56 Total Counted Not Reportable Differential Comment Specimen Type Sample Site pH Bicarbonate Actual POC Total CO2 Base Excess O2 Saturation O2 % ABG pCO2 ABG pO2 Vick Test Respiration Rate O2 Delivery Device EPAP IPAP Blood Gas Notified Whom Blood Gas Notified Time Sodium 135 L Potassium 5.0 Chloride 105 Carbon Dioxide 23.0 Anion Gap 7 BUN 41 H Creatinine 1.20 Estim Creat Clear Calc 67.32 Est GFR (MDRD) Af Amer 82 Est GFR (MDRD) Non-Af 67 BUN/Creatinine Ratio 34.2 H Glucose 135 H Lactic Acid Calcium 7.9 L Magnesium Total Bilirubin 0.60 Direct Bilirubin 0.33 H AST 41 H ALT 52 Alkaline Phosphatase 101 Troponin I 0.057 H B-Natriuretic Peptide > 5000.0 H Total Protein 6.1 L Albumin 2.4 L Globulin 3.7 09/03/18 09/03/18 09/03/18 07:56 08:28 08:46 WBC RBC Hgb Hct MCV MCH MCHC RDW RDW Differential Plt Count MPV Immature Gran % (Auto) Neut % (Auto) Lymph % (Auto) Dawes % (Auto) Eos % (Auto) Baso % (Auto) Absolute Neuts (auto) Absolute Lymphs (auto) Total Counted Differential Comment Specimen Type ART Sample Site L Brachial pH 7.28 L Bicarbonate Actual 22.1 POC Total CO2 23 Base Excess -5 L O2 Saturation 100 H O2 % 75 ABG pCO2 46.7 H ABG pO2 246 H Vick Test NA Respiration Rate 12 O2 Delivery Device Bi / C PAP EPAP 8 IPAP 14 Blood Gas Notified Whom ED MD Blood Gas Notified Time 823 Sodium Potassium Chloride Carbon Dioxide Anion Gap BUN Creatinine Estim Creat Clear Calc Est GFR (MDRD) Af Amer Est GFR (MDRD) Non-Af BUN/Creatinine Ratio Glucose Lactic Acid 2.9 H Calcium Magnesium 2.3 Total Bilirubin Direct Bilirubin AST ALT Alkaline Phosphatase Troponin I B-Natriuretic Peptide Total Protein Albumin Globulin 09/03/18 09/03/18 09/03/18 11:15 14:15 14:15 WBC RBC Hgb Hct MCV MCH MCHC RDW RDW Differential Plt Count MPV Immature Gran % (Auto) Neut % (Auto) Lymph % (Auto) Dawes % (Auto) Eos % (Auto) Baso % (Auto) Absolute Neuts (auto) Absolute Lymphs (auto) Total Counted Differential Comment Specimen Type Sample Site pH Bicarbonate Actual POC Total CO2 Base Excess O2 Saturation O2 % ABG pCO2 ABG pO2 Vick Test Respiration Rate O2 Delivery Device EPAP IPAP Blood Gas Notified Whom Blood Gas Notified Time Sodium Potassium Chloride Carbon Dioxide Anion Gap BUN Creatinine Estim Creat Clear Calc Est GFR (MDRD) Af Amer Est GFR (MDRD) Non-Af BUN/Creatinine Ratio Glucose Lactic Acid 1.0 Calcium Magnesium Total Bilirubin Direct Bilirubin AST ALT Alkaline Phosphatase Troponin I 0.046 H 0.060 H B-Natriuretic Peptide Total Protein Albumin Globulin 09/04/18 09/04/18 04:40 04:40 WBC 7.1 RBC 4.61 Hgb 11.7 L Hct 37.7 L MCV 81.8 MCH 25.4 L MCHC 31.0 L RDW 18.9 H RDW Differential 55.8 H Plt Count 192 MPV 10.6 Immature Gran % (Auto) 0.100 Neut % (Auto) 95.7 H Lymph % (Auto) 3.4 L Dawes % (Auto) 0.8 Eos % (Auto) 0.0 Baso % (Auto) 0.0 Absolute Neuts (auto) 6.8 Absolute Lymphs (auto) 0.24 L Total Counted Not Reportable Differential Comment Specimen Type Sample Site pH Bicarbonate Actual POC Total CO2 Base Excess O2 Saturation O2 % ABG pCO2 ABG pO2 Vick Test Respiration Rate O2 Delivery Device EPAP IPAP Blood Gas Notified Whom Blood Gas Notified Time Sodium 137 Potassium 4.0 Chloride 104 Carbon Dioxide 23.0 Anion Gap 10 BUN 40 H Creatinine 1.17 Estim Creat Clear Calc 66.65 Est GFR (MDRD) Af Amer 84 Est GFR (MDRD) Non-Af 69 BUN/Creatinine Ratio 34.2 H Glucose 156 H Lactic Acid Calcium 7.8 L Magnesium 1.8 Total Bilirubin Direct Bilirubin AST ALT Alkaline Phosphatase Troponin I B-Natriuretic Peptide Total Protein Albumin Globulin Clinical Impression(s) from Imaging Studies Chest X-Ray 09/03/18 07:59 IMPRESSION: Small to moderate right pleural effusion new since previous examination. Otherwise no significant change previous exam. Severe emphysematous and bullous changes unchanged. Persistent bibasilar stranding likely scarring. Electronically Signed: Zach Mcfadden MD at 8:49 EDT Tel , Service support , Abdomen/Pelvis CT 09/03/18 08:53 IMPRESSION: 1. Bilateral pleural effusions larger on the right side with collapse of the right lower lobe. 2. Emphysematous changes and stranding/scarring in the lower lungs. Superimposed mild left lower lobe infiltrate cannot excluded. 3. Cirrhosis of the liver. 4. Ascites. 5. No evidence of small bowel obstruction. 6. Diverticulosis without evidence of acute diverticulitis. 7. Anasarca. Electronically Signed: Zach Mcfadden MD at 10:22 EDT Tel , Service support , Chest CTA 09/03/18 09:15 IMPRESSION: 1. No evidence of pulmonary embolism. 2. Bilateral pleural effusions larger on the right side increased since previous examination associated with collapsed right lower lobe. 3. Severe emphysematous and bullous changes with scarring in the lower lungs. Superimposed mild infiltrate is difficult to exclude. 4. Mild ascites. Electronically Signed: Zach Mcfadden MD at 10:07 EDT Tel , Service support , Assessment/Plan RECOMMENDATIONS: 1. Continue current supportive measures with Lasix drip and amiodarone, per cardiology recommendations. 2. Continue PPI therapy. 3. Continue current pain control regimen. 4. Utilize BiPAP as needed. 5. Wean supplemental oxygen to maintain saturations at or above 90%. 6. Continue bronchodilators. 7. Smoking cessation and outpatient pulmonary follow-up would be recommended. IMPRESSIONS: 1. Acute combined respiratory failure The patient denies a baseline supplemental oxygen need. In addition to his new supplemental oxygen requirement, he did also have evidence of mild CO2 retention on ABG. The patient has responded to the use of BiPAP. The etiology for the patient's respiratory decompensation is likely his underlying heart failure exacerbation. The patient is on appropriate medical therapy for the aforementioned. He has been weaned from continuous BiPAP support and is maintaining oxygen saturations at the current time on room air. Given the patient's presumptive history of COPD, agree with continuing bronchodilators. I do not see an indication for corticosteroids at the current time. If the patient wishes, he can follow-up with us in the pulmonary medicine clinic so that baseline PFTs can be completed. 2. Acute decompensated heart failure/supraventricular tachycardia/history of coronary artery disease Continue supportive measures per cardiology recommendations. 3. Abdominal pain Unclear etiology. Will check lipase level. Continue PPI therapy. CT abdomen/pelvis did reveal evidence of liver cirrhosis and ascites. 4. Questionable COPD/continuous tobacco dependency/alcohol dependency, now in remission/GERD/medical noncompliance Complicates care, management, recovery and prognosis. Nicotine replacement therapy can be offered to the patient, if needed. This note was generated with [employer] dictation software. It may contain incorrect words, spelling, and punctuation that were not noted in checking the note before signing. Code Visit Inpatient E&M: 08822 Init Hosp L3
[2018-09-04] MEDS: Ipratropium/Albuterol Sulfate 3 ML AMPUL.NEB INHALATION (06:40)
--- NOTE | 2018-09-04 06:46 | CON.PCM_ITS ---
Reason for Consult Date of Consultation: 09/04/18 Reason for Consultation: Respiratory failure History of Present Illness: The patient is a 53-year-old male, with a history as outlined below, who presented to the emergency department on September 03 with complaints of shortness of breath and abdominal pain. The patient has a reported history of COPD of unknown severity, coronary artery disease status post PCI in May 2018, chronic systolic heart failure, supraventricular tachycardia, GERD, prior alcohol dependency (12 pack beer daily, Quit 4 years ago) and continuous daily tobacco dependence (upwards of 2 ppd). The patient does not currently utilize any inhalers in his home environment. 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 He has a history of medical noncompliance. With regard to the patient's abdominal pain, he claims that a work-up has been done and that no etiology has ever been identified. On presentation to the emergency department, the patient was noted to be afebrile, profoundly tachycardic and a bit hypotensive. He was additionally noted to be tachypneic and hypoxemic. Laboratory evaluation revealed no evidence of a leukocytosis. Chemistry profile was largely unremarkable. Lactate was mildly elevated to 2.9. AST was increased to 41. Troponin was e levated to 0.057. BNP was elevated to greater than 5000. Plain film chest x- ray revealed evidence of a moderate-sized right-sided pleural effusion. CT abdomen/pelvis revealed bilateral pleural effusions along with emphysematous changes, ascites and cirrhosis of the liver. CTA chest revealed no evidence of pulmonary embolism. The patient was placed on BiPAP upon his arrival to the ED. Patient was noted to be in SVT and did receive adenosine x3. There was no change in his underlying rhythm. Cardiology was contacted who advised to proceed with cardioversion. The patient was cardioverted at 200 J and converted to sinus rhythm. He was then transferred to the medical intensive care unit for ongoing management. Surface echocardiogram completed on September 03 revealed a moderately dilated LV with an ejection fraction of 15%. There was global severe hypokinesis of the LV. The patient was subsequently placed on a continuous Lasix drip. Per overnight nursing staff, the patient has been intermittently refusing medical therapies. Past Medical History Past Medical History (Chronic Problems): Chronic Problems (Last Reviewed 07/25/18 @ 16:12 by Piyush Nick DO) Stented coronary artery (Chronic 06/15/18) Successful PTCA/CARLOZ of mid RCA with a 3.5 x 38 Promus Synergy 06/15/2018 per [facility] @ [facility] Abnormal EKG (Chronic) Hyperlipidemia (Chronic) Lower leg edema (Chronic) Bilateral pleural effusion (Chronic 01/13/18) Per chest CT 01/13/2018 Alcohol abuse, in remission (Chronic) Patient stopped in 2013 Hypertension (Chronic) GERD (gastroesophageal reflux disease) (Chronic) Premature ventricular contractions (Chronic) Left ventricular hypertrophy (Chronic) Tobacco abuse (Chronic) Hx of supraventricular tachycardia (Chronic) History of left heart catheterization (Chronic 01/24/18) 09/09/2011 @ [facility] per Dr. Garces; 01/24/18 @ [facility] per Dr. Nassar Atherosclerotic heart disease of [place] coronary artery without angina pectoris (Chronic) per [facility] 01/24/18: 50% stenosis mid RCA, all other coronaries normal. 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 COPD (chronic obstructive pulmonary disease) (Chronic) Valvular heart disease (Chronic) Medical History: Medical History (Last Reviewed 07/25/18 @ 16:12 by Piyush Nick DO) Abnormal EKG (Chronic) R94.31 Hyperlipidemia (Chronic) E78.5 Lower leg edema (Chronic) R60.0 Bilateral pleural effusion (Chronic) Onset Date: 01/13/[address] 01/13/2018 Alcohol abuse, in remission (Chronic) F10.11 Patient stopped in 2013 Hypertension (Chronic) I10 GERD (gastroesophageal reflux disease) (Chronic) K21.9 Premature ventricular contractions (Chronic) I49.3 Left ventricular hypertrophy (Chronic) I51.7 Tobacco abuse (Chronic) Z72.0 Hx of supraventricular tachycardia (Chronic) Z86.79 Atherosclerotic heart disease of [place] coronary artery without angina pectoris (Chronic) I25.10 per [facility] 01/24/18: 50% stenosis mid RCA, all other coronaries normal. 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 COPD (chronic obstructive pulmonary disease) (Chronic) J44.9 Allergies ibuprofen Adverse Reaction (Verified 07/25/18 09:27) Nausea naproxen [From Naprosyn] Adverse Reaction (Verified 07/25/18 09:27) Nausea naproxen sodium [From Aleve] Adverse Reaction (Verified 07/25/18 09:27) Nausea tramadol Adverse Reaction (Verified 07/25/18 09:27) Nausea Home Medications: Ambulatory Orders Medication Instructions Recorded Furosemide [Lasix] 40 mg PO DAILY 06/15/18 Aspirin E.C. [Ecotrin] 81 mg PO DAILY@0800 07/25/18 Nitroglycerin (INPATIENT USE) 0.4 mg PO PRN PRN 07/25/18 [Nitrostat] Ticagrelor [Brilinta] 90 mg PO BID 07/25/18 Pantoprazole Sodium [Protonix] 40 mg PO BID 09/03/18 Sucralfate [Carafate] 1 gm PO 4X/DAY 09/03/18 Surgical History: Surgical History (Last Reviewed 07/25/18 @ 16:12 by Piyush Nick DO) Stented coronary artery (Chronic) Onset Date: 06/15/18 Z95.5 Successful PTCA/CARLOZ of mid RCA with a 3.5 x 38 Promus Synergy 06/15/2018 per [facility] @ [facility] History of left heart catheterization (Chronic) Onset Date: 01/24/18 Z98.890 09/09/2011 @ [facility] per Dr. Garces; 01/24/18 @ [facility] per Dr. Nassar H/O wisdom tooth extraction K08.409 History of mandibular surgery Z98.890 Surgical History: - Psychiatric History: No pertinent psych hx Smoking Status: Current every day smoker Alcohol: None Drugs: None - *Family History Maternal Family History: Family History (Last Reviewed 07/25/18 @ 16:12 by Piyush Nick DO) Other COPD (chronic obstructive pulmonary disease) Heart disease Hypertension History Items: Cancer, Heart Disease, Hypertension Paternal Family History: Family History (Last Reviewed 07/25/18 @ 16:12 by Piyush Nick DO) Other COPD (chronic obstructive pulmonary disease) Heart disease Hypertension History Items: COPD Review of Systems Constitutional: Denies: Chills, Fever Eyes: Denies: Blurred vision, Double vision HEENT: Denies: Head Aches, Sinus Congestion, Sinus Drainage Cardiovascular: Reports: Edema Respiratory: Reports: Shortness of Breath Gastrointestinal: Reports: Abdominal Pain. Denies: Nausea, Vomiting Genitourinary: Denies: Dysuria Musculoskeletal: Denies: Joint Pain, Joint Tenderness Skin: Denies: Rash, Wounds Neurological: Denies: Numbness, Tingling, Focal weakness Psychiatric: Denies: Anxiety, Depression, Homicidal Ideations, Suicidal Ideations Hematologic/ Lymphatic: Denies: Easy Bruising, Easy Bleeding Objective: The patient's most recent lab work, culture data and imaging studies have all been personally reviewed. - Physical Exam General: Alert, Cooperative, No apparent distress HEENT: Atraumatic, PERRLA, Normocephalic Oral: No Gingival or Mucosal Lesions/ Ulcerations Neck: Supple, No Nodes, Trachea Midline Lungs: No rhonchi, No wheeze, No rales, Diminished, Tachypneic Cardiovascular: Regular rate, Regular Rhythm, Normal S1, Normal S2, No murmurs Abdomen: Bowel Sounds Present, Soft, Non-Distended, Tender Extremities: No clubbing, No cyanosis, Edema - b/l pedal Skin: No breakdown Musculoskeletal: No Tenderness to Palpation of Joints or Extremities Lymphatic: No Cervical, Supraclavicular, or Inguinal Adenopathy Neurological: Cranial nerves II-XII grossly intact, Neuro grossly intact Psych/Mental Status: Normal Affect, Appropriate Vital Signs Temp Pulse Resp BP Pulse Ox 97.5 F L 69 24 H 109/94 H 98 09/04/18 06:00 09/04/18 06:00 09/04/18 06:00 09/04/18 06:00 09/04/18 06:00 Oxygen Flow Rate (L/min) 2 Oxygen Delivery Method Bi-pap Weight: 152 lb 5.431 oz Body Mass Index (BMI) 23.4 Intake and Output for Last 24 Hours 09/02/18 09/03/18 09/04/18 23:59 23:59 23:59 Intake Total 1278.1 / 1278.1 446.3 / 446.3 Output Total 1225 / 1225 100 / 100 Balance 53.1 / 53.1 346.3 / 346.3 Laboratory Tests Past 24 Hrs 09/03/18 09/03/18 09/03/18 07:56 07:56 07:56 WBC 10.5 RBC 4.65 Hgb 11.9 L Hct 39.0 L MCV 83.9 MCH 25.6 L MCHC 30.5 L RDW 19.1 H RDW Differential 57.4 H Plt Count 186 MPV 9.9 Immature Gran % (Auto) 0.100 Neut % (Auto) 79.5 H Lymph % (Auto) 14.9 L [place] % (Auto) 5.2 Eos % (Auto) 0.2 Baso % (Auto) 0.1 Absolute Neuts (auto) 8.3 H Absolute Lymphs (auto) 1.56 Total Counted Not Reportable Differential Comment Specimen Type Sample Site pH Bicarbonate Actual POC Total CO2 Base Excess O2 Saturation O2 % ABG pCO2 ABG pO2 Vick Test Respiration Rate O2 Delivery Device EPAP IPAP Blood Gas Notified Whom Blood Gas Notified Time Sodium 135 L Potassium 5.0 Chloride 105 Carbon Dioxide 23.0 Anion Gap 7 BUN 41 H Creatinine 1.20 Estim Creat Clear Calc 67.32 Est GFR (MDRD) Af Amer 82 Est GFR (MDRD) Non-Af 67 BUN/Creatinine Ratio 34.2 H Glucose 135 H Lactic Acid Calcium 7.9 L Magnesium Total Bilirubin 0.60 Direct Bilirubin 0.33 H AST 41 H ALT 52 Alkaline Phosphatase 101 Troponin I 0.057 H B-Natriuretic Peptide > 5000.0 H Total Protein 6.1 L Albumin 2.4 L Globulin 3.7 09/03/18 09/03/18 09/03/18 07:56 08:28 08:46 WBC RBC Hgb Hct MCV MCH MCHC RDW RDW Differential Plt Count MPV Immature Gran % (Auto) Neut % (Auto) Lymph % (Auto) [place] % (Auto) Eos % (Auto) Baso % (Auto) Absolute Neuts (auto) Absolute Lymphs (auto) Total Counted Differential Comment Specimen Type ART Sample Site L Brachial pH 7.28 L Bicarbonate Actual 22.1 POC Total CO2 23 Base Excess -5 L O2 Saturation 100 H O2 % 75 ABG pCO2 46.7 H ABG pO2 246 H Vick Test NA Respiration Rate 12 O2 Delivery Device Bi / C PAP EPAP 8 IPAP 14 Blood Gas Notified Whom ED MD Blood Gas Notified Time 823 Sodium Potassium Chloride Carbon Dioxide Anion Gap BUN Creatinine Estim Creat Clear Calc Est GFR (MDRD) Af Amer Est GFR (MDRD) Non-Af BUN/Creatinine Ratio Glucose Lactic Acid 2.9 H Calcium Magnesium 2.3 Total Bilirubin Direct Bilirubin AST ALT Alkaline Phosphatase Troponin I B-Natriuretic Peptide Total Protein Albumin Globulin 09/03/18 09/03/18 09/03/18 11:15 14:15 14:15 WBC RBC Hgb Hct MCV MCH MCHC RDW RDW Differential Plt Count MPV Immature Gran % (Auto) Neut % (Auto) Lymph % (Auto) [place] % (Auto) Eos % (Auto) Baso % (Auto) Absolute Neuts (auto) Absolute Lymphs (auto) Total Counted Differential Comment Specimen Type Sample Site pH Bicarbonate Actual POC Total CO2 Base Excess O2 Saturation O2 % ABG pCO2 ABG pO2 Vick Test Respiration Rate O2 Delivery Device EPAP IPAP Blood Gas Notified Whom Blood Gas Notified Time Sodium Potassium Chloride Carbon Dioxide Anion Gap BUN Creatinine Estim Creat Clear Calc Est GFR (MDRD) Af Amer Est GFR (MDRD) Non-Af BUN/Creatinine Ratio Glucose Lactic Acid 1.0 Calcium Magnesium Total Bilirubin Direct Bilirubin AST ALT Alkaline Phosphatase Troponin I 0.046 H 0.060 H B-Natriuretic Peptide Total Protein Albumin Globulin 09/04/18 09/04/18 04:40 04:40 WBC 7.1 RBC 4.61 Hgb 11.7 L Hct 37.7 L MCV 81.8 MCH 25.4 L MCHC 31.0 L RDW 18.9 H RDW Differential 55.8 H Plt Count 192 MPV 10.6 Immature Gran % (Auto) 0.100 Neut % (Auto) 95.7 H Lymph % (Auto) 3.4 L [place] % (Auto) 0.8 Eos % (Auto) 0.0 Baso % (Auto) 0.0 Absolute Neuts (auto) 6.8 Absolute Lymphs (auto) 0.24 L Total Counted Not Reportable Differential Comment Specimen Type Sample Site pH Bicarbonate Actual POC Total CO2 Base Excess O2 Saturation O2 % ABG pCO2 ABG pO2 Vick Test Respiration Rate O2 Delivery Device EPAP IPAP Blood Gas Notified Whom Blood Gas Notified Time Sodium 137 Potassium 4.0 Chloride 104 Carbon Dioxide 23.0 Anion Gap 10 BUN 40 H Creatinine 1.17 Estim Creat Clear Calc 66.65 Est GFR (MDRD) Af Amer 84 Est GFR (MDRD) Non-Af 69 BUN/Creatinine Ratio 34.2 H Glucose 156 H Lactic Acid Calcium 7.8 L Magnesium 1.8 Total Bilirubin Direct Bilirubin AST ALT Alkaline Phosphatase Troponin I B-Natriuretic Peptide Total Protein Albumin Globulin Clinical Impression(s) from Imaging Studies Chest X-Ray 09/03/18 07:59 IMPRESSION: Small to moderate right pleural effusion new since previous examination. Otherwise no significant change previous exam. Severe emphysematous and bullous changes unchanged. Persistent bibasilar stranding likely scarring. Electronically Signed: Zach Mcfadden MD at 8:49 EDT Tel , Service support , Abdomen/Pelvis CT 09/03/18 08:53 IMPRESSION: 1. Bilateral pleural effusions larger on the right side with collapse of the right lower lobe. 2. Emphysematous changes and stranding/scarring in the lower lungs. Superimposed mild left lower lobe infiltrate cannot excluded. 3. Cirrhosis of the liver. 4. Ascites. 5. No evidence of small bowel obstruction. 6. Diverticulosis without evidence of acute diverticulitis. 7. Anasarca. Electronically Signed: Zach Mcfadden MD at 10:22 EDT Tel , Service support , Chest CTA 09/03/18 09:15 IMPRESSION: 1. No evidence of pulmonary embolism. 2. Bilateral pleural effusions larger on the right side increased since previous examination associated with collapsed right lower lobe. 3. Severe emphysematous and bullous changes with scarring in the lower lungs. Superimposed mild infiltrate is difficult to exclude. 4. Mild ascites. Electronically Signed: Zach Mcfadden MD at 10:07 EDT Tel , Service support , Assessment/Plan RECOMMENDATIONS: 1. Continue current supportive measures with Lasix drip and amiodarone, per cardiology recommendations. 2. Continue PPI therapy. 3. Continue current pain control regimen. 4. Utilize BiPAP as needed. 5. Wean supplemental oxygen to maintain saturations at or above 90%. 6. Continue bronchodilators. 7. Smoking cessation and outpatient pulmonary follow-up would be recommended. IMPRESSIONS: 1. Acute combined respiratory failure The patient denies a baseline supplemental oxygen need. In addition to his new supplemental oxygen requirement, he did also have evidence of mild CO2 retention on ABG. The patient has responded to the use of BiPAP. The etiology for the patient's respiratory decompensation is likely his underlying heart failure exacerbation. The patient is on appropriate medical therapy for the aforementioned. He has been weaned from continuous BiPAP support and is maintaining oxygen saturations at the current time on room air. Given the patient's presumptive history of COPD, agree with continuing bronchodilators. I do not see an indication for corticosteroids at the current time. If the patient wishes, he can follow-up with us in the pulmonary medicine clinic so that baseline PFTs can be completed. 2. Acute decompensated heart failure/supraventricular tachycardia/history of coronary artery disease Continue supportive measures per cardiology recommendations. 3. Abdominal pain Unclear etiology. Will check lipase level. Continue PPI therapy. CT abdomen/pelvis did reveal evidence of liver cirrhosis and ascites. 4. Questionable COPD/continuous tobacco dependency/alcohol dependency, now in remission/GERD/medical noncompliance Complicates care, management, recovery and prognosis. Nicotine replacement therapy can be offered to the patient, if needed. This note was generated with [employer] dictation software. It may contain incorrect words, spelling, and punctuation that were not noted in checking the note before signing. Code Visit Inpatient E&M: 52177 Init Hosp L3
--- NOTE | 2018-09-04 07:20 | CPS ---
Pt refusing to wear O2 at this time
--- NOTE | 2018-09-04 07:46 | NURSING ---
Patient was noted to have decreased SPO2 on monitor (86%). When this RN went to assess patient and apply oxygen via nasal cannula the patient refused stating wearing that always makes my lungs bleed. Patient was educated on SPO2 and supplemental oxygen, humidification offered, patient continued to refuse. Dr Esquivel informed of above events and he spoke with patient. Patient continues to refuse oxygen at this time.
[2018-09-04 08:33] LABS: Lipase 191 U/L (73-393)
[2018-09-04] MEDS: Pantoprazole Sodium 40 MG Tablet PO (08:36)
[2018-09-04] MEDS: Aspirin E.C. 81 MG Tablet PO (08:37)
[2018-09-04] MEDS: Carvedilol 3.125 MG TABLET PO ×2 (08:37→20:57)
[2018-09-04] MEDS: Clopidogrel Bisulfate 75 MG Tablet PO (08:37)
[2018-09-04] MEDS: Docusate Sodium 100 MG Capsule PO ×2 (08:39→20:56)
[2018-09-04] MEDS: Polyethylene Glycol 3350 17 GM PACKET PO (08:40)
--- NOTE | 2018-09-04 09:05 | PCM.PN.HOSP ---
Subjective: Patient seen and examined this morning. Amiodarone drip and Lasix drip was started yesterday as he became more tachycardic. He complains of feeling short of breath and been unable to have a bowel movement this morning. He denies any palpitations or dizziness, chest pain, diarrhea or vomiting. Review of systems otherwise negative. Cardiology is on board. Vitals/I&O's: Vital Signs Temp Pulse Resp BP Pulse Ox 97.5 F L 54 L 26 H 105/83 H 96 09/04/18 06:00 09/04/18 08:00 09/04/18 08:00 09/04/18 08:00 09/04/18 08:00 Oxygen Flow Rate (L/min) 2 Oxygen Delivery Method Nasal Cannula Weight: 152 lb 5.431 oz Body Mass Index (BMI) 23.4 Intake and Output for Last 24 Hours 09/02/18 09/03/18 09/04/18 23:59 23:59 23:59 Intake Total 1278.1 / 1278.1 446.3 / 446.3 Output Total 1225 / 1225 100 / 100 Balance 53.1 / 53.1 346.3 / 346.3 General: Alert, Oriented x3, Cooperative HEENT: Atraumatic, PERRLA, EOMI, Normocephalic, - -infraorbital edema has improved significantly. Oral: Moist Mucosa Neck: Supple, No JVD, Negative Carotid Bruits Lungs: - - decreased breath sounds bibasally, no wheezes or crackles Cardiovascular: Regular rate, Regular Rhythm, Normal S1, Normal S2, No murmurs Abdomen: Bowel Sounds Present, Soft, Non-Distended, No Hepato-splenomegaly, - - mild epigastric tenderness, no guarding or rebound tenderness. Extremities: No clubbing, No cyanosis, Capillary Refill Less than 3 Seconds, - - bilateral 1+ edema Skin: No rashes, No breakdown, - Musculoskeletal: No Tenderness to Palpation of Joints or Extremities Lymphatic: No Cervical, Supraclavicular, or Inguinal Adenopathy Neurological: Cranial nerves II-XII grossly intact, Neuro grossly intact, Motor Exam 5/5 strength throughout Psych/Mental Status: Normal Affect, Appropriate, Alert and oriented to time, place, person, mood and affect Laboratory Results 09/03/18 07:56: B-Natriuretic Peptide > 5000.0 H 09/03/18 07:56: Magnesium 2.3 09/03/18 08:46: Lactic Acid 2.9 H 09/03/18 11:15: Troponin I 0.046 H 09/03/18 14:15: Troponin I 0.060 H 09/03/18 14:15: Lactic Acid 1.0 09/04/18 04:40: WBC 7.1, RBC 4.61, Hgb 11.7 L, Hct 37.7 L, MCV 81.8, MCH 25.4 L, MCHC 31.0 L, RDW 18.9 H, RDW Differential 55.8 H, Plt Count 192, MPV 10.6, Immature Gran % (Auto) 0.100, Neut % (Auto) 95.7 H, Lymph % (Auto) 3.4 L, [place] % (Auto) 0.8, Eos % (Auto) 0.0, Baso % (Auto) 0.0, Absolute Neuts (auto) 6.8, Absolute Lymphs (auto) 0.24 L, Total Counted Not Reportable, Differential Comment 09/04/18 04:40: Sodium 137, Potassium 4.0, Chloride 104, Carbon Dioxide 23.0, Anion Gap 10, BUN 40 H, Creatinine 1.17, Estim Creat Clear Calc 66.65, Est GFR (MDRD) Af Amer 84, Est GFR (MDRD) Non-Af 69, BUN/Creatinine Ratio 34.2 H, Glucose 156 H, Calcium 7.8 L, Magnesium 1.8 09/04/18 08:00: Lipase 191 09/04/18 08:00: Ethyl Alcohol 8.0 09/04/18 08:45: Urine Opiates Screen Pending, Urine Methadone Screen Pending, Ur Barbiturates Screen Pending, Ur Phencyclidine Scrn Pending, Ur Amphetamines Screen Pending, U Methamphetamin-MDMA Pending, U Benzodiazepines Scrn Pending, Urine Cocaine Screen Pending, U Cannabinoids Screen Pending, Ur Drug Screen Comment Diagnostic Data Chest X-Ray 09/03/18 07:59 IMPRESSION: Small to moderate right pleural effusion new since previous examination. Otherwise no significant change previous exam. Severe emphysematous and bullous changes unchanged. Persistent bibasilar stranding likely scarring. Electronically Signed: Zach Mcfadden MD at 8:49 EDT Tel , Service support , Abdomen/Pelvis CT 09/03/18 08:53 IMPRESSION: 1. Bilateral pleural effusions larger on the right side with collapse of the right lower lobe. 2. Emphysematous changes and stranding/scarring in the lower lungs. Superimposed mild left lower lobe infiltrate cannot excluded. 3. Cirrhosis of the liver. 4. Ascites. 5. No evidence of small bowel obstruction. 6. Diverticulosis without evidence of acute diverticulitis. 7. Anasarca. Electronically Signed: Zach Mcfadden MD at 10:22 EDT Tel , Service support , Chest CTA 09/03/18 09:15 IMPRESSION: 1. No evidence of pulmonary embolism. 2. Bilateral pleural effusions larger on the right side increased since previous examination associated with collapsed right lower lobe. 3. Severe emphysematous and bullous changes with scarring in the lower lungs. Superimposed mild infiltrate is difficult to exclude. 4. Mild ascites. Electronically Signed: Zach Mcfadden MD at 10:07 EDT Tel , Service support , Current Medications Acetaminophen (Tylenol) 650 mg PO Q6H PRN PRN PRN Reason: PAIN Last Admin: 09/03/18 12:55 Dose: 650 mg Albuterol/Ipratropium (Duoneb) 3 ml INHALATION Q6HWA.RT [facility] Last Admin: 09/04/18 06:40 Dose: 3 ml Aspirin (Ecotrin) 81 mg PO DAILY@0800 [facility] Last Admin: 09/04/18 08:37 Dose: 81 mg Carvedilol (Coreg) 3.125 mg PO BID [facility] Last Admin: 09/04/18 08:37 Dose: 3.125 mg Clopidogrel Bisulfate (Plavix) 75 mg PO DAILY [facility] Last Admin: 09/04/18 08:37 Dose: 75 mg Docusate Sodium (Colace) 100 mg PO BID [facility] Last Admin: 09/04/18 08:39 Dose: 100 mg Enoxaparin Sodium (Lovenox) 40 mg SC DAILY@1000 [facility] Last Admin: 09/03/18 12:54 Dose: 40 mg Glucagon () 1 mg IM .X1 PRN PRN Reason: Hypoglycemia Furosemide 500 mg/ N/A 50 mls @ 1 mls/hr CONT INF .Q50H [facility] Last Admin: 09/03/18 13:52 Dose: 1 mls/hr Amiodarone HCl 360 mg/ (Dextrose) 200 mls @ 16.67 mls/hr CONT INF .Q12H1M [facility] Stop: 09/04/18 14:59 Last Admin: 09/03/18 20:51 Dose: 16.67 mls/hr Sodium Chloride () 250 mls @ 15 mls/hr IV .[id number] PRN PRN Reason: SALINE FLUSH Nitroglycerin (Nitrostat) 0.4 mg SUBLINGUAL PRN PRN PRN Reason: chest pain Nutritional Formula (Lactose Free) (Ensure Enlive) 120 ml PO 4X/DAY [facility] Last Admin: 09/03/18 20:51 Dose: 120 ml Oxycodone HCl (Oxyir) 5 mg PO Q4H PRN PRN PRN Reason: SEVERE PAIN (6-10/10) Last Admin: 09/04/18 08:36 Dose: 5 mg Pantoprazole Sodium (Protonix) 40 mg PO DAILY [facility] Last Admin: 09/04/18 08:36 Dose: 40 mg Polyethylene Glycol (Miralax) 17 gm PO BID [facility] Last Admin: 09/04/18 08:40 Dose: 17 gm Sodium Chloride () 5 - 15 ml IV UD PRN PRN Reason: SALINE FLUSH Last Admin: 09/04/18 04:48 Dose: 10 ml Sucralfate (Carafate) 1 gm PO 1HR_ACHS [facility] Last Admin: 09/04/18 05:42 Dose: 1 gm Medical Necessity - Tobacco Use Smoking Status: Current every day smoker Assessment/Plan All Active Problems (Last Reviewed 07/25/18 @ 16:12 by Piyush Nick DO) GI bleed (Acute) Acute blood loss anemia (Acute) 53 y/o admitted with a complaint of SOB and rapid heart rate. 1. SVT due to noncompliance and acute systolic heart failure Had to be started on amiodarone drip overnight. Heart rate now better controlled. Required cardioversion at time of admission. Troponins were minimally elevated at 0.057 and peaked at 0.060. This was likely due to demand ischemia because of heart failure. Currently on IV amiodarone drip and Lasix drip. Cardiology on board. 2. Acute exacerbation of systolic heart failure due to noncompliance. BNP is over 5000. 2D echo (6.11.14): EF is 15%, with severe global hypokinesis of left ventricle, left atrium mildly enlarged, right atrium moderately enlarged. PA SP is 28mmhg. CTA: Bilateral pleural effusions large on the right side and increased since previous examination. Events of eczematous and bullous changes with scarring in the lower lungs. Mild ascites. On IV Lasix drip. Urine output since admission is approximately 1.3 to 5 L. Paradoxically, weight appears to have gone up from 149 pounds on admission to 152 pounds but clinically patient looks less edematous. cardiology on board. fluid restriction to 1500cc daily strict intake output chart 3. lactic acidosis: Resolved. Lactic acid trended down from 2.9 to 1. 4. CAD s/ps tents: on aspirin and brilinta. Not on statin; reason is unclear as patient is not allergic. 5. Hisotyr of duodenitis, gastritis and esophagitis Also has recent history of GI bleed. On p.o. Protonix 40 mg twice daily. Also on sucralfate. DVT prophylaxis: heparin CODE STATUS: Full code Code Visit Inpatient E&M: 07009 Subs Hosp L3
--- NOTE | 2018-09-04 09:10 | PN_ITS ---
Subjective: Patient seen and examined this morning. Amiodarone drip and Lasix drip was started yesterday as he became more tachycardic. He complains of feeling short of breath and been unable to have a bowel movement this morning. He denies any palpitations or dizziness, chest pain, diarrhea or vomiting. Review of systems otherwise negative. Cardiology is on board. Vitals/I&O's: Vital Signs Temp Pulse Resp BP Pulse Ox 97.5 F L 54 L 26 H 105/83 H 96 09/04/18 06:00 09/04/18 08:00 09/04/18 08:00 09/04/18 08:00 09/04/18 08:00 Oxygen Flow Rate (L/min) 2 Oxygen Delivery Method Nasal Cannula Weight: 152 lb 5.431 oz Body Mass Index (BMI) 23.4 Intake and Output for Last 24 Hours 09/02/18 09/03/18 09/04/18 23:59 23:59 23:59 Intake Total 1278.1 / 1278.1 446.3 / 446.3 Output Total 1225 / 1225 100 / 100 Balance 53.1 / 53.1 346.3 / 346.3 General: Alert, Oriented x3, Cooperative HEENT: Atraumatic, PERRLA, EOMI, Normocephalic, - -infraorbital edema has improved significantly. Oral: Moist Mucosa Neck: Supple, No JVD, Negative Carotid Bruits Lungs: - - decreased breath sounds bibasally, no wheezes or crackles Cardiovascular: Regular rate, Regular Rhythm, Normal S1, Normal S2, No murmurs Abdomen: Bowel Sounds Present, Soft, Non-Distended, No Hepato-splenomegaly, - - mild epigastric tenderness, no guarding or rebound tenderness. Extremities: No clubbing, No cyanosis, Capillary Refill Less than 3 Seconds, - - bilateral 1+ edema Skin: No rashes, No breakdown, - Musculoskeletal: No Tenderness to Palpation of Joints or Extremities Lymphatic: No Cervical, Supraclavicular, or Inguinal Adenopathy Neurological: Cranial nerves II-XII grossly intact, Neuro grossly intact, Motor Exam 5/5 strength throughout Psych/Mental Status: Normal Affect, Appropriate, Alert and oriented to time, place, person, mood and affect Laboratory Results 09/03/18 07:56: B-Natriuretic Peptide > 5000.0 H 09/03/18 07:56: Magnesium 2.3 09/03/18 08:46: Lactic Acid 2.9 H 09/03/18 11:15: Troponin I 0.046 H 09/03/18 14:15: Troponin I 0.060 H 09/03/18 14:15: Lactic Acid 1.0 09/04/18 04:40: WBC 7.1, RBC 4.61, Hgb 11.7 L, Hct 37.7 L, MCV 81.8, MCH 25.4 L, MCHC 31.0 L, RDW 18.9 H, RDW Differential 55.8 H, Plt Count 192, MPV 10.6, Immature Gran % (Auto) 0.100, Neut % (Auto) 95.7 H, Lymph % (Auto) 3.4 L, [place] % (Auto) 0.8, Eos % (Auto) 0.0, Baso % (Auto) 0.0, Absolute Neuts (auto) 6.8, Absolute Lymphs (auto) 0.24 L, Total Counted Not Reportable, Differential Comment 09/04/18 04:40: Sodium 137, Potassium 4.0, Chloride 104, Carbon Dioxide 23.0, Anion Gap 10, BUN 40 H, Creatinine 1.17, Estim Creat Clear Calc 66.65, Est GFR (MDRD) Af Amer 84, Est GFR (MDRD) Non-Af 69, BUN/Creatinine Ratio 34.2 H, Glucose 156 H, Calcium 7.8 L, Magnesium 1.8 09/04/18 08:00: Lipase 191 09/04/18 08:00: Ethyl Alcohol 8.0 09/04/18 08:45: Urine Opiates Screen Pending, Urine Methadone Screen Pending, Ur Barbiturates Screen Pending, Ur Phencyclidine Scrn Pending, Ur Amphetamines Screen Pending, U Methamphetamin-MDMA Pending, U Benzodiazepines Scrn Pending, Urine Cocaine Screen Pending, U Cannabinoids Screen Pending, Ur Drug Screen Comment Diagnostic Data Chest X-Ray 09/03/18 07:59 IMPRESSION: Small to moderate right pleural effusion new since previous examination. Otherwise no significant change previous exam. Severe emphysematous and bullous changes unchanged. Persistent bibasilar stranding likely scarring. Electronically Signed: Zach Mcfadden MD at 8:49 EDT Tel , Service support , Abdomen/Pelvis CT 09/03/18 08:53 IMPRESSION: 1. Bilateral pleural effusions larger on the right side with collapse of the right lower lobe. 2. Emphysematous changes and stranding/scarring in the lower lungs. Superimposed mild left lower lobe infiltrate cannot excluded. 3. Cirrhosis of the liver. 4. Ascites. 5. No evidence of small bowel obstruction. 6. Diverticulosis without evidence of acute diverticulitis. 7. Anasarca. Electronically Signed: Zach Mcfadden MD at 10:22 EDT Tel , Service support , Chest CTA 09/03/18 09:15 IMPRESSION: 1. No evidence of pulmonary embolism. 2. Bilateral pleural effusions larger on the right side increased since previous examination associated with collapsed right lower lobe. 3. Severe emphysematous and bullous changes with scarring in the lower lungs. Superimposed mild infiltrate is difficult to exclude. 4. Mild ascites. Electronically Signed: Zach Mcfadden MD at 10:07 EDT Tel , Service support , Current Medications Acetaminophen (Tylenol) 650 mg PO Q6H PRN PRN PRN Reason: PAIN Last Admin: 09/03/18 12:55 Dose: 650 mg Albuterol/Ipratropium (Duoneb) 3 ml INHALATION Q6HWA.RT [facility] Last Admin: 09/04/18 06:40 Dose: 3 ml Aspirin (Ecotrin) 81 mg PO DAILY@0800 [facility] Last Admin: 09/04/18 08:37 Dose: 81 mg Carvedilol (Coreg) 3.125 mg PO BID [facility] Last Admin: 09/04/18 08:37 Dose: 3.125 mg Clopidogrel Bisulfate (Plavix) 75 mg PO DAILY [facility] Last Admin: 09/04/18 08:37 Dose: 75 mg Docusate Sodium (Colace) 100 mg PO BID [facility] Last Admin: 09/04/18 08:39 Dose: 100 mg Enoxaparin Sodium (Lovenox) 40 mg SC DAILY@1000 [facility] Last Admin: 09/03/18 12:54 Dose: 40 mg Glucagon () 1 mg IM .X1 PRN PRN Reason: Hypoglycemia Furosemide 500 mg/ N/A 50 mls @ 1 mls/hr CONT INF .Q50H [facility] Last Admin: 09/03/18 13:52 Dose: 1 mls/hr Amiodarone HCl 360 mg/ (Dextrose) 200 mls @ 16.67 mls/hr CONT INF .Q12H1M [facility] Stop: 09/04/18 14:59 Last Admin: 09/03/18 20:51 Dose: 16.67 mls/hr Sodium Chloride () 250 mls @ 15 mls/hr IV .[id number] PRN PRN Reason: SALINE FLUSH Nitroglycerin (Nitrostat) 0.4 mg SUBLINGUAL PRN PRN PRN Reason: chest pain Nutritional Formula (Lactose Free) (Ensure Enlive) 120 ml PO 4X/DAY [facility] Last Admin: 09/03/18 20:51 Dose: 120 ml Oxycodone HCl (Oxyir) 5 mg PO Q4H PRN PRN PRN Reason: SEVERE PAIN (6-10/10) Last Admin: 09/04/18 08:36 Dose: 5 mg Pantoprazole Sodium (Protonix) 40 mg PO DAILY [facility] Last Admin: 09/04/18 08:36 Dose: 40 mg Polyethylene Glycol (Miralax) 17 gm PO BID [facility] Last Admin: 09/04/18 08:40 Dose: 17 gm Sodium Chloride () 5 - 15 ml IV UD PRN PRN Reason: SALINE FLUSH Last Admin: 09/04/18 04:48 Dose: 10 ml Sucralfate (Carafate) 1 gm PO 1HR_ACHS [facility] Last Admin: 09/04/18 05:42 Dose: 1 gm Medical Necessity - Tobacco Use Smoking Status: Current every day smoker Assessment/Plan All Active Problems (Last Reviewed 07/25/18 @ 16:12 by Piyush Nick DO) GI bleed (Acute) Acute blood loss anemia (Acute) 53 y/o admitted with a complaint of SOB and rapid heart rate. 1. SVT due to noncompliance and acute systolic heart failure * Had to be started on amiodarone drip overnight. Heart rate now better controlled. * Required cardioversion at time of admission. * Troponins were minimally elevated at 0.057 and peaked at 0.060. This was likely due to demand ischemia because of heart failure. * Currently on IV amiodarone drip and Lasix drip. * Cardiology on board. * * 2. Acute exacerbation of systolic heart failure due to noncompliance. * BNP is over 5000. * 2D echo (6.8.): EF is 15%, with severe global hypokinesis of left ventricle, left atrium mildly enlarged, right atrium moderately enlarged. PA SP is 28mmhg. * CTA: Bilateral pleural effusions large on the right side and increased since previous examination. Events of eczematous and bullous changes with scarring in the lower lungs. Mild ascites. * On IV Lasix drip. Urine output since admission is approximately 1.3 to 5 L. Paradoxically, weight appears to have gone up from 149 pounds on admission to 152 pounds but clinically patient looks less edematous. * cardiology on board. * fluid restriction to 1500cc daily * strict intake output chart * 3. lactic acidosis: Resolved. Lactic acid trended down from 2.9 to 1. 4. CAD s/ps tents: on aspirin and brilinta. Not on statin; reason is unclear as patient is not allergic. 5. Hisotyr of duodenitis, gastritis and esophagitis * Also has recent history of GI bleed. * On p.o. Protonix 40 mg twice daily. Also on sucralfate. * DVT prophylaxis: heparin CODE STATUS: Full code Code Visit Inpatient E&M: 93542 Subs Hosp L3
[2018-09-04 09:21] LABS: Amphetamine Urine VISTA NEGATIVE (<1000 ng/mL); Barbiturate Urine VISTA NEGATIVE (< 200 ng/mL); Benzodiazepine Urine VISTA NEGATIVE (< 200 ng/mL); Cocaine Urine VISTA NEGATIVE (< 300 ng/mL); Ecstacy Urine VISTA NEGATIVE (< 500 ng/mL); Methadone Urine VISTA NEGATIVE (< 300 ng/mL); PCP Urine VISTA NEGATIVE (< 25 ng/mL); THC Urine VISTA POSITIVE (< 50 ng/mL); Vista UDS pH Range 5
--- NOTE | 2018-09-04 09:31 | PN.CARD_ITS ---
Subjectve: Patient seen and evaluated. Appears to be doing better this morning. Objective: Vital Signs Temp Pulse Resp BP Pulse Ox 97.5 F L 77 23 H 115/90 H 87 09/04/18 06:00 09/04/18 09:00 09/04/18 09:00 09/04/18 09:00 09/04/18 09:00 Oxygen Flow Rate (L/min) 2 Oxygen Delivery Method Room Air Weight: 152 lb 5.431 oz Body Mass Index (BMI) 23.4 Intake and Output for Last 24 Hours 09/02/18 09/03/18 09/04/18 23:59 23:59 23:59 Intake Total 1278.1 / 1278.1 446.3 / 446.3 Output Total 1225 / 1225 100 / 100 Balance 53.1 / 53.1 346.3 / 346.3 General: Awake, Alert, Oriented x 3, Ill Appearing HEENT: PERRL, EOMI, Sclera Non Icteric Neck: Supple, Good ROM, No Lymph Node Enlargement Lungs: Clear to auscultation Cardiovascular: Regular Rhythm, Normal S1, Normal S2, No Murmurs, No Rubs, No Gallops Vascular: No Carotid Bruits, Normal Femoral Pulses, Normal Radial Pulses, Normal Dorsalis Pedal Pulse, Normal Posterior Tibial Pulses Abdomen: Bowel Sounds Present, Soft, Non Tender, No HSM, No Organomegaly Extremities: No Cyanosis, No Clubbing, Bilateral Edema +1 Musculoskeletal: No Erythema Skin: No Rashes Lymphatic: No Lymph Node Enlargement Neurological: No Focal Motor or Sensory Deficit Psych/Mental Status: Appropriate 09/03/18 07:56: B-Natriuretic Peptide > 5000.0 H 09/03/18 07:56: Magnesium 2.3 09/03/18 08:46: Lactic Acid 2.9 H 09/03/18 11:15: Troponin I 0.046 H 09/03/18 14:15: Troponin I 0.060 H 09/03/18 14:15: Lactic Acid 1.0 09/04/18 04:40: WBC 7.1, RBC 4.61, Hgb 11.7 L, Hct 37.7 L, MCV 81.8, MCH 25.4 L, MCHC 31.0 L, RDW 18.9 H, RDW Differential 55.8 H, Plt Count 192, MPV 10.6, Immature Gran % (Auto) 0.100, Neut % (Auto) 95.7 H, Lymph % (Auto) 3.4 L, [place] % (Auto) 0.8, Eos % (Auto) 0.0, Baso % (Auto) 0.0, Absolute Neuts (auto) 6.8, Total Counted Not Reportable 09/04/18 04:40: Sodium 137, Potassium 4.0, Chloride 104, Carbon Dioxide 23.0, Anion Gap 10, BUN 40 H, Creatinine 1.17, Est GFR (MDRD) Af Amer 84, Est GFR (MDRD) Non-Af 69, BUN/Creatinine Ratio 34.2 H, Glucose 156 H, Calcium 7.8 L, Magnesium 1.8 Rhythm: EKG: ECHO: Stress Test: Cardiac Cath: PCI: CT Surgery: Holter monitor: EPS: PPM: CXR: Chest CT Scan: Medical Necessity - Tobacco Use Smoking Status: Current every day smoker Assessment/Plan 1. Supraventricular tachycardia * Patient presents with a supraventricular tachycardia. He was successfully cardioverted into sinus rhythm. At this time with his severe left ventricular systolic dysfunction it may not be unreasonable to start him on amiodarone orally. He has completed a bag of intravenous amiodarone after he went into an SVT again yesterday. He should also be started on a beta-roxana and I attempt to improve his heart rate and heart function. At this time I do not think that he needs to go for an ablation however. * 2. Congestive heart failure-acute on chronic systolic * He has had severe left ventricular systolic dysfunction and congestive heart failure dating back to December 2017. He has not been very compliant with his medications. * Strict dietary maneuvers have been emphasized * I would like to start him on carvedilol 3.125 mg twice a day * Aggressive diuresis with intravenous Lasix * Will add LAVERN inhibitor as tolerated and I will consider Entresto * We should watch him for a few hours before transferring him down to the progressive care unit. 3. Left ventricular systolic dysfunction * He has severe left ventricular systolic dysfunction out of proportion to the extent of the coronary artery disease. His diagnosis was in December 2017 and he was revascularized in May 2018. At this juncture I would say that he be strongly considered for primary defibrillator implantation. * This can be arranged as an outpatient after he has been appropriately tuned up. * 4. Coronary artery disease He does have coronary artery disease status post previous angioplasty and stenting. He has not been compliant with his Brilinta I would suggest that we put him on * Plavix in addition to his beta-roxana and LAVERN inhibitor * I do not think that his present symptomatology is related to coronary ischemia * * Thank you for allowing me to participate in the care of your patient. Please don't hesitate to call if any issues arise.
[2018-09-04] MEDS: Amiodarone 200 MG Tablet PO ×2 (10:26→20:56)
--- NOTE | 2018-09-04 16:57 | CPS ---
PT CONTINUES TO REFUSE BIPAP.
[2018-09-04] MEDS: Furosemide 500 MG in Empty Viaflex 50 mL 1 EACH CONT INF (18:36)
[2018-09-04] MEDS: Nicotine Polacrilex 2 MG GUM PO (20:54)
[2018-09-05] VITALS (18 sets, daily range): BP systolic 92–122; BP diastolic 56–95; PULSE 78–100; RESP 18–24; TEMP 36.4–36.7; O2SAT 91–96
[2018-09-05] MEDS: oxyCODONE 5 MG Tablet PO ×6 (01:13→22:27)
[2018-09-05] MEDS: 0.9% NaCl Peripheral Flush Adult/Peds IV (01:14)
--- NOTE | 2018-09-05 01:24 | NURSING ---
Pt having difficulty breathing, using accessory muscles, tachypneic, shallow respirations, with audible wheezes, upon entering room. Pulse ox 74% on Room Air. Educated pt on the need for supplemental O2. Pt states understanding and agreed to wear nasal canula throughout rest of night. NC 2L applied. Pt pulse ox readily improved to 92% and rate decreased from 30's to low 20's.
[2018-09-05] MEDS: Sucralfate 1 GM Tablet PO ×4 (05:57→21:19)
[2018-09-05] MEDS: Nicotine Polacrilex 2 MG GUM PO ×3 (06:01→18:15)
[2018-09-05 06:39] LABS: Absolute Lymphocyte Count 0.54 X10^3/ul (0.83-4.51); Absolute Neutrophil Count 10.7 X10^3/uL (2.0-7.7); Hematocrit 31.6 % (40-54); Hemoglobin 9.8 g/dl (13.0-16.5); Lymphocyte # 0.54 X10^3/ul (4.0); Lymphocyte % 4.5 % (19-41); Mean Corpuscular Hgb 25.5 pg (27.0-32.0); Mean Corpuscular Volume 82.3 fL (80-94); Mean Platelet Vol. 9.8 fl (6.2-12.0); Monocyte# 0.78 X10^3/uL; Monocyte% 6.5 % (0-10); Neutrophil # 10.73 X10^3/uL (2.7-7.7); Neutrophil % 88.8 % (47-70); Platelet Count 174 K/mm3 (150-450); RBC Distribution Width CV 18.8 % (11.6-14.6); RBC Distribution Width SD 55.8 fl (35.1-43.9); Red Blood Count 3.84 M/mm3 (4.6-6.2); White Blood Count 12.1 K/mm3 (4.4-11.0)
[2018-09-05 06:47] LABS: Anion Gap 8 (5-15); BUN 43 mg/dL (7-18); BUN/Creat Ratio 35.8 RATIO (10-20); Chloride 101 mmol/L (98-107); EST Glomerular Filtration Rate 67 mL/min (>60); Est Glom Filt Rate - Afr Amer 82 mL/min (>60); Estimated Creatinine Clearance 64.98 ml/min; Glucose 103 mg/dL (74-106); Sodium Level 136 mmol/L (136-145)
[2018-09-05 07:24] LABS: Differential Indicated SCAN CRITERIA MET; POSITIVE COUNT NO; POSITIVE DIFFERENTIAL YES; POSITIVE MORPHOLOGY YES
[2018-09-05 07:25] LABS: Absolute Nucleated RBC Count 0.14 10^3/uL (0-5); Acanthocytes 1+; Hypochromasia 3+; NRBC Flagged by Analyzer 1.2 % (0-5); Schistocytes 1+; Target Cells 1+
--- NOTE | 2018-09-05 07:35 | PN.CARD_ITS ---
Subjectve: Patient seen and evaluated. Appears to be doing well. Objective: Vital Signs Temp Pulse Resp BP Pulse Ox 97.6 F L 81 24 H 119/88 H 96 09/05/18 07:00 09/05/18 07:10 09/05/18 07:00 09/05/18 07:00 09/05/18 07:00 Oxygen Flow Rate (L/min) 2 Oxygen Delivery Method Nasal Cannula Weight: 151 lb 3.794 oz Body Mass Index (BMI) 23.4 Intake and Output for Last 24 Hours 09/03/18 09/04/18 09/05/18 23:59 23:59 23:59 Intake Total 1278.1 / 1278.1 1948.2 / 1948.2 96.7 / 96.7 Output Total 1225 / 1225 2425 / 2425 675 / 675 Balance 53.1 / 53.1 -476.8 / -476.8 -578.3 / -578.3 General: Awake, Alert, Oriented x 3 HEENT: PERRL, EOMI, Sclera Non Icteric Neck: Supple, Good ROM, No Lymph Node Enlargement Lungs: Clear to auscultation Cardiovascular: Regular Rhythm, Normal S1, Normal S2, No Murmurs, No Rubs, No Gallops Vascular: No Carotid Bruits, Normal Femoral Pulses, Normal Radial Pulses, Normal Dorsalis Pedal Pulse, Normal Posterior Tibial Pulses Abdomen: Bowel Sounds Present, Soft, Non Tender, No HSM, No Organomegaly Extremities: No Cyanosis, No Clubbing, No edema Skin: No Rashes Lymphatic: No Lymph Node Enlargement Neurological: No Focal Motor or Sensory Deficit Psych/Mental Status: Appropriate 09/05/18 05:50: WBC 12.1 H, RBC 3.84 L, Hgb 9.8 L, Hct 31.6 L, MCV 82.3, MCH 25.5 L, MCHC 31.0 L, RDW 18.8 H, RDW Differential 55.8 H, Plt Count 174, MPV 9.8, Immature Gran % (Auto) 0.200, Neut % (Auto) 88.8 H, Lymph % (Auto) 4.5 L, [place] % (Auto) 6.5, Eos % (Auto) 0.0, Baso % (Auto) 0.0, Absolute Neuts (auto) 10.7 H, Nucleated RBC % 1.2 09/05/18 05:50: Sodium 136, Potassium 4.0, Chloride 101, Carbon Dioxide 27.0, Anion Gap 8, BUN 43 H, Creatinine 1.20, Est GFR (MDRD) Af Amer 82, Est GFR (MDRD) Non-Af 67, BUN/Creatinine Ratio 35.8 H, Glucose 103, Calcium 8.0 L Rhythm: EKG: ECHO: Stress Test: Cardiac Cath: PCI: CT Surgery: Holter monitor: EPS: PPM: CXR: Chest CT Scan: Medical Necessity - Tobacco Use Smoking Status: Current every day smoker Assessment/Plan 1. Supraventricular tachycardia * Patient presents with a supraventricular tachycardia. He was successfully cardioverted into sinus rhythm. At this time with his severe left ventricular systolic dysfunction it may not be unreasonable to start him on amiodarone orally. He has completed a bag of intravenous amiodarone after he went into an SVT again yesterday. He should also be started on a beta-roxana and I attempt to improve his heart rate and heart function. At this time I do not think that he needs to go for an ablation however. * 2. Congestive heart failure-acute on chronic systolic * He has had severe left ventricular systolic dysfunction and congestive heart failure dating back to December 2017. He has not been very compliant with his medications. * Strict dietary maneuvers have been emphasized * I would like to start him on carvedilol 3.125 mg twice a day * Aggressive diuresis with intravenous Lasix * Will add LAVERN inhibitor as tolerated and I will consider Entresto * We should watch him for a few hours before transferring him down to the progressive care unit. 3. Left ventricular systolic dysfunction * He has severe left ventricular systolic dysfunction out of proportion to the extent of the coronary artery disease. His diagnosis was in December 2017 and he was revascularized in May 2018. At this juncture I would say that he be strongly considered for primary defibrillator implantation. * This can be arranged as an outpatient after he has been appropriately tuned up. * 4. Coronary artery disease He does have coronary artery disease status post previous angioplasty and stenting. He has not been compliant with his Brilinta I would suggest that we put him on * Plavix in addition to his beta-roxana and LAVERN inhibitor * I do not think that his present symptomatology is related to coronary ischemia * * * Like to watch him another day before making any further decisions. * Thank you for allowing me to participate in the care of your patient. Please don't hesitate to call if any issues arise.
--- NOTE | 2018-09-05 09:28 | PCM.PN.HOSP ---
Subjective: Patient seen and examined. He still is short of breath and was refusing BiPAP throughout the night. He states he does not want to get used to the BiPAP because used to the good use of the oxygen and he now needs oxygen all the time. He denies any chest pain or palpitations, dizziness, diarrhea vomiting. He does still complain of some mild abdominal pain which is not in the suprapubic region. He has no urinary symptoms. Labs and vitals reviewed. Urine output over last 24 hours was 2.4 L. He is negative balance by about 476 mils. Vitals/I&O's: Vital Signs Temp Pulse Resp BP Pulse Ox 97.6 F L 81 24 H 119/88 H 96 09/05/18 07:00 09/05/18 07:10 09/05/18 07:00 09/05/18 07:00 09/05/18 07:00 Oxygen Flow Rate (L/min) 2 Oxygen Delivery Method Nasal Cannula Weight: 151 lb 3.794 oz Body Mass Index (BMI) 23.4 Intake and Output for Last 24 Hours 09/03/18 09/04/18 09/05/18 23:59 23:59 23:59 Intake Total 1278.1 / 1278.1 1948.2 / 1948.2 96.7 / 96.7 Output Total 1225 / 1225 2425 / 2425 675 / 675 Balance 53.1 / 53.1 -476.8 / -476.8 -578.3 / -578.3 General: Alert, Oriented x3, Cooperative HEENT: Atraumatic, PERRLA, EOMI, Normocephalic, Oral: Moist Mucosa Neck: Supple, No JVD, Negative Carotid Bruits Lungs: - - decreased breath sounds bibasally, no wheezes or crackles. on 2L of oxygen. Cardiovascular: Regular rate, Regular Rhythm, Normal S1, Normal S2, No murmurs Abdomen: Bowel Sounds Present, Soft, Non-Distended, No Hepato-splenomegaly, - - mild epigastric and suprapubic tenderness, no guarding or rebound tenderness. Extremities: No clubbing, No cyanosis, Capillary Refill Less than 3 Seconds, - - bilateral 1+ edema Skin: No rashes, No breakdown, - Musculoskeletal: No Tenderness to Palpation of Joints or Extremities Lymphatic: No Cervical, Supraclavicular, or Inguinal Adenopathy Neurological: Cranial nerves II-XII grossly intact, Neuro grossly intact, Motor Exam 5/5 strength throughout Psych/Mental Status: Normal Affect, Appropriate, Alert and oriented to time, place, person, mood and affect Laboratory Results 09/05/18 05:50: WBC 12.1 H, RBC 3.84 L, Hgb 9.8 L, Hct 31.6 L, MCV 82.3, MCH 25.5 L, MCHC 31.0 L, RDW 18.8 H, RDW Differential 55.8 H, Plt Count 174, MPV 9.8, Immature Gran % (Auto) 0.200, Neut % (Auto) 88.8 H, Lymph % (Auto) 4.5 L, [place] % (Auto) 6.5, Eos % (Auto) 0.0, Baso % (Auto) 0.0, Absolute Neuts (auto) 10.7 H, Absolute Lymphs (auto) 0.54 L, Total Counted Pending, Nucleated RBC % 1.2, Diff Path Review May foll, Hypochromasia 3+, Target Cells 1+, Acanthocytes (Spur) 1+, Schistocytes 1+, Absolute Retic 0.14 09/05/18 05:50: Sodium 136, Potassium 4.0, Chloride 101, Carbon Dioxide 27.0, Anion Gap 8, BUN 43 H, Creatinine 1.20, Estim Creat Clear Calc 64.98, Est GFR (MDRD) Af Amer 82, Est GFR (MDRD) Non-Af 67, BUN/Creatinine Ratio 35.8 H, Glucose 103, Calcium 8.0 L Current Medications Acetaminophen (Tylenol) 650 mg PO Q6H PRN PRN PRN Reason: PAIN Last Admin: 09/03/18 12:55 Dose: 650 mg Albuterol/Ipratropium (Duoneb) 3 ml INHALATION Q6HWA.RT [facility] Last Admin: 09/05/18 06:55 Dose: Not Given Amiodarone HCl (Cordarone) 200 mg PO BID [facility] Last Admin: 09/04/18 20:56 Dose: 200 mg Aspirin (Ecotrin) 81 mg PO DAILY@0800 [facility] Last Admin: 09/04/18 08:37 Dose: 81 mg Carvedilol (Coreg) 3.125 mg PO BID [facility] Last Admin: 09/04/18 20:57 Dose: 3.125 mg Clopidogrel Bisulfate (Plavix) 75 mg PO DAILY [facility] Last Admin: 09/04/18 08:37 Dose: 75 mg Docusate Sodium (Colace) 100 mg PO BID [facility] Last Admin: 09/04/18 20:56 Dose: 100 mg Enoxaparin Sodium (Lovenox) 40 mg SC DAILY@1000 [facility] Last Admin: 09/04/18 10:29 Dose: Not Given Glucagon () 1 mg IM .X1 PRN PRN Reason: Hypoglycemia Furosemide 500 mg/ N/A 50 mls @ 1 mls/hr CONT INF .Q50H [facility] Last Admin: 09/04/18 18:36 Dose: 1 mls/hr Sodium Chloride () 250 mls @ 15 mls/hr IV .[id number] PRN PRN Reason: SALINE FLUSH Lisinopril (Zestril) 2.5 mg PO DAILY [facility] Nicotine Polacrilex (Rugby Nicotine (Bkc)) 2 mg PO Q2H PRN PRN PRN Reason: tobacco craving Last Admin: 09/05/18 06:01 Dose: 2 mg Nitroglycerin (Nitrostat) 0.4 mg SUBLINGUAL PRN PRN PRN Reason: chest pain Nutritional Formula (Lactose Free) (Ensure Enlive) 120 ml PO 4X/DAY [facility] Last Admin: 09/04/18 20:54 Dose: 120 ml Oxycodone HCl (Oxyir) 5 mg PO Q4H PRN PRN PRN Reason: SEVERE PAIN (6-10/10) Last Admin: 09/05/18 05:57 Dose: 5 mg Pantoprazole Sodium (Protonix) 40 mg PO DAILY [facility] Last Admin: 09/04/18 08:36 Dose: 40 mg Polyethylene Glycol (Miralax) 17 gm PO BID [facility] Last Admin: 09/04/18 20:53 Dose: Not Given Sodium Chloride () 5 - 15 ml IV UD PRN PRN Reason: SALINE FLUSH Last Admin: 09/05/18 01:14 Dose: 10 ml Sodium Chloride () 5 - 15 ml IV UD PRN PRN Reason: SALINE FLUSH Sucralfate (Carafate) 1 gm PO 1HR_ACHS [facility] Last Admin: 09/05/18 05:57 Dose: 1 gm Medical Necessity - Tobacco Use Smoking Status: Current every day smoker Assessment/Plan All Active Problems (Last Reviewed 07/25/18 @ 16:12 by Piyush Nick DO) GI bleed (Acute) Acute blood loss anemia (Acute) 53 y/o admitted with a complaint of SOB and rapid heart rate. 1. SVT due to noncompliance and acute systolic heart failure now off amiodarone drip. HR is better controlled. on PO admiodarone. still on lasix drip; cardiology on board 2. Acute exacerbation of systolic heart failure due to noncompliance. BNP was over 5000 on admisison 2D echo (6..): EF is 15%, with severe global hypokinesis of left ventricle, left atrium mildly enlarged, right atrium moderately enlarged. PA SP is 28mmhg. CTA: Bilateral pleural effusions large on the right side and increased since previous examination. emphysematous and bullous changes with scarring in the lower lungs. Mild ascites. On IV Lasix drip. urine output over last 24 hours was ~ 2.4L/. Patient looks less edematous cardiology on board. per cardiology, patient to be considered for primary defibrillator implantation on outpatient basis once he is better. fluid restriction to 1500cc daily strict intake output chart 3. lactic acidosis: Resolved. 4. CAD s/ps tents: on aspirin and brilinta. Not on statin; 5. History of duodenitis, gastritis and esophagitis Also has recent history of GI bleed. On p.o. Protonix 40 mg twice daily. Also on sucralfate. still has abdominal pain in epigastric and suprapubic region. will check UA DVT prophylaxis: heparin CODE STATUS: Full code Code Visit Inpatient E&M: 26567 Subs Hosp L3
--- NOTE | 2018-09-05 09:32 | PN_ITS ---
Subjective: Patient seen and examined. He still is short of breath and was refusing BiPAP throughout the night. He states he does not want to get used to the BiPAP because used to the good use of the oxygen and he now needs oxygen all the time. He denies any chest pain or palpitations, dizziness, diarrhea vomiting. He does still complain of some mild abdominal pain which is not in the suprapubic region. He has no urinary symptoms. Labs and vitals reviewed. Urine output over last 24 hours was 2.4 L. He is negative balance by about 476 mils. Vitals/I&O's: Vital Signs Temp Pulse Resp BP Pulse Ox 97.6 F L 81 24 H 119/88 H 96 09/05/18 07:00 09/05/18 07:10 09/05/18 07:00 09/05/18 07:00 09/05/18 07:00 Oxygen Flow Rate (L/min) 2 Oxygen Delivery Method Nasal Cannula Weight: 151 lb 3.794 oz Body Mass Index (BMI) 23.4 Intake and Output for Last 24 Hours 09/03/18 09/04/18 09/05/18 23:59 23:59 23:59 Intake Total 1278.1 / 1278.1 1948.2 / 1948.2 96.7 / 96.7 Output Total 1225 / 1225 2425 / 2425 675 / 675 Balance 53.1 / 53.1 -476.8 / -476.8 -578.3 / -578.3 General: Alert, Oriented x3, Cooperative HEENT: Atraumatic, PERRLA, EOMI, Normocephalic, Oral: Moist Mucosa Neck: Supple, No JVD, Negative Carotid Bruits Lungs: - - decreased breath sounds bibasally, no wheezes or crackles. on 2L of oxygen. Cardiovascular: Regular rate, Regular Rhythm, Normal S1, Normal S2, No murmurs Abdomen: Bowel Sounds Present, Soft, Non-Distended, No Hepato-splenomegaly, - - mild epigastric and suprapubic tenderness, no guarding or rebound tenderness. Extremities: No clubbing, No cyanosis, Capillary Refill Less than 3 Seconds, - - bilateral 1+ edema Skin: No rashes, No breakdown, - Musculoskeletal: No Tenderness to Palpation of Joints or Extremities Lymphatic: No Cervical, Supraclavicular, or Inguinal Adenopathy Neurological: Cranial nerves II-XII grossly intact, Neuro grossly intact, Motor Exam 5/5 strength throughout Psych/Mental Status: Normal Affect, Appropriate, Alert and oriented to time, place, person, mood and affect Laboratory Results 09/05/18 05:50: WBC 12.1 H, RBC 3.84 L, Hgb 9.8 L, Hct 31.6 L, MCV 82.3, MCH 25.5 L, MCHC 31.0 L, RDW 18.8 H, RDW Differential 55.8 H, Plt Count 174, MPV 9.8, Immature Gran % (Auto) 0.200, Neut % (Auto) 88.8 H, Lymph % (Auto) 4.5 L, [place] % (Auto) 6.5, Eos % (Auto) 0.0, Baso % (Auto) 0.0, Absolute Neuts (auto) 10.7 H, Absolute Lymphs (auto) 0.54 L, Total Counted Pending, Nucleated RBC % 1.2, Diff Path Review May foll, Hypochromasia 3+, Target Cells 1+, Acanthocytes (Spur) 1+, Schistocytes 1+, Absolute Retic 0.14 09/05/18 05:50: Sodium 136, Potassium 4.0, Chloride 101, Carbon Dioxide 27.0, Anion Gap 8, BUN 43 H, Creatinine 1.20, Estim Creat Clear Calc 64.98, Est GFR (MDRD) Af Amer 82, Est GFR (MDRD) Non-Af 67, BUN/Creatinine Ratio 35.8 H, Glucose 103, Calcium 8.0 L Current Medications Acetaminophen (Tylenol) 650 mg PO Q6H PRN PRN PRN Reason: PAIN Last Admin: 09/03/18 12:55 Dose: 650 mg Albuterol/Ipratropium (Duoneb) 3 ml INHALATION Q6HWA.RT [facility] Last Admin: 09/05/18 06:55 Dose: Not Given Amiodarone HCl (Cordarone) 200 mg PO BID [facility] Last Admin: 09/04/18 20:56 Dose: 200 mg Aspirin (Ecotrin) 81 mg PO DAILY@0800 [facility] Last Admin: 09/04/18 08:37 Dose: 81 mg Carvedilol (Coreg) 3.125 mg PO BID [facility] Last Admin: 09/04/18 20:57 Dose: 3.125 mg Clopidogrel Bisulfate (Plavix) 75 mg PO DAILY [facility] Last Admin: 09/04/18 08:37 Dose: 75 mg Docusate Sodium (Colace) 100 mg PO BID [facility] Last Admin: 09/04/18 20:56 Dose: 100 mg Enoxaparin Sodium (Lovenox) 40 mg SC DAILY@1000 [facility] Last Admin: 09/04/18 10:29 Dose: Not Given Glucagon () 1 mg IM .X1 PRN PRN Reason: Hypoglycemia Furosemide 500 mg/ N/A 50 mls @ 1 mls/hr CONT INF .Q50H [facility] Last Admin: 09/04/18 18:36 Dose: 1 mls/hr Sodium Chloride () 250 mls @ 15 mls/hr IV .[id number] PRN PRN Reason: SALINE FLUSH Lisinopril (Zestril) 2.5 mg PO DAILY [facility] Nicotine Polacrilex (Rugby Nicotine (Bkc)) 2 mg PO Q2H PRN PRN PRN Reason: tobacco craving Last Admin: 09/05/18 06:01 Dose: 2 mg Nitroglycerin (Nitrostat) 0.4 mg SUBLINGUAL PRN PRN PRN Reason: chest pain Nutritional Formula (Lactose Free) (Ensure Enlive) 120 ml PO 4X/DAY [facility] Last Admin: 09/04/18 20:54 Dose: 120 ml Oxycodone HCl (Oxyir) 5 mg PO Q4H PRN PRN PRN Reason: SEVERE PAIN (6-10/10) Last Admin: 09/05/18 05:57 Dose: 5 mg Pantoprazole Sodium (Protonix) 40 mg PO DAILY [facility] Last Admin: 09/04/18 08:36 Dose: 40 mg Polyethylene Glycol (Miralax) 17 gm PO BID [facility] Last Admin: 09/04/18 20:53 Dose: Not Given Sodium Chloride () 5 - 15 ml IV UD PRN PRN Reason: SALINE FLUSH Last Admin: 09/05/18 01:14 Dose: 10 ml Sodium Chloride () 5 - 15 ml IV UD PRN PRN Reason: SALINE FLUSH Sucralfate (Carafate) 1 gm PO 1HR_ACHS [facility] Last Admin: 09/05/18 05:57 Dose: 1 gm Medical Necessity - Tobacco Use Smoking Status: Current every day smoker Assessment/Plan All Active Problems (Last Reviewed 07/25/18 @ 16:12 by Piyush Nick DO) GI bleed (Acute) Acute blood loss anemia (Acute) 53 y/o admitted with a complaint of SOB and rapid heart rate. 1. SVT due to noncompliance and acute systolic heart failure * now off amiodarone drip. HR is better controlled. * on PO admiodarone. * still on lasix drip; cardiology on board * * * 2. Acute exacerbation of systolic heart failure due to noncompliance. * BNP was over 5000 on admisison * 2D echo (6.8.19): EF is 15%, with severe global hypokinesis of left ventricle, left atrium mildly enlarged, right atrium moderately enlarged. PA SP is 28mmhg. * CTA: Bilateral pleural effusions large on the right side and increased since previous examination. emphysematous and bullous changes with scarring in the lower lungs. Mild ascites. * On IV Lasix drip. * urine output over last 24 hours was ~ 2.4L/. Patient looks less edematous * cardiology on board. per cardiology, patient to be considered for primary defibrillator implantation on outpatient basis once he is better. * fluid restriction to 1500cc daily * strict intake output chart * 3. lactic acidosis: Resolved. 4. CAD s/ps tents: on aspirin and brilinta. Not on statin; 5. History of duodenitis, gastritis and esophagitis * Also has recent history of GI bleed. * On p.o. Protonix 40 mg twice daily. Also on sucralfate. * still has abdominal pain in epigastric and suprapubic region. will check UA * DVT prophylaxis: heparin CODE STATUS: Full code Code Visit Inpatient E&M: 55827 Subs Hosp L3
[2018-09-05] MEDS: Carvedilol 3.125 MG TABLET PO ×2 (09:59→21:19)
[2018-09-05] MEDS: Polyethylene Glycol 3350 17 GM PACKET PO (09:59)
[2018-09-05] MEDS: Pantoprazole Sodium 40 MG Tablet PO (09:59)
[2018-09-05] MEDS: Aspirin E.C. 81 MG Tablet PO (09:59)
[2018-09-05] MEDS: Clopidogrel Bisulfate 75 MG Tablet PO (09:59)
[2018-09-05] MEDS: Docusate Sodium 100 MG Capsule PO ×2 (09:59→21:19)
[2018-09-05] MEDS: Amiodarone 200 MG Tablet PO ×2 (09:59→21:19)
[2018-09-05] MEDS: Lisinopril 2.5 MG Tablet PO (09:59)
[2018-09-05] MEDS: Enoxaparin 40 MG/0.4 ML Syringe SC (10:00)
--- NOTE | 2018-09-05 12:33 | PCM.PN.PUL ---
Subjective: Patient did okay overnight. Nursing does report that patient has been intermittently noncompliant with therapy as demonstrated by removal of oxygen and getting up without assistance. Patient reports subjective improvement in overall condition. Patient did desaturate with ambulation while working with physical therapy to the mid 80s on 3 L nasal cannula. Patient denies any productive cough. Objective: Patient currently in normal sinus rhythm. - Physical Exam General: Alert, Oriented x3, Cooperative, No apparent distress, - - Appears older than stated age. Speaking in full sentences. HEENT: Atraumatic, PERRLA, EOMI, Normocephalic, - - No scleral icterus or injection noted. Oral: Moist Mucosa, No Gingival or Mucosal Lesions/ Ulcerations Neck: Supple, No Nodes, Trachea Midline, JVD, Right Lungs: No rhonchi, No wheeze, Diminished, Rales, - - Symmetric expansion. No dullness to percussion. Cardiovascular: Regular rate, Regular Rhythm, Normal S1, Normal S2, No murmurs, No rub noted, No Gallop Abdomen: Bowel Sounds Present, Soft, Non Tender, Non-Distended Extremities: No clubbing, No cyanosis, Edema - Right upper extremity greater than left Skin: No rashes, No breakdown Musculoskeletal: No Tenderness to Palpation of Joints or Extremities Lymphatic: No Cervical, Supraclavicular, or Inguinal Adenopathy Neurological: Cranial nerves II-XII grossly intact, Neuro grossly intact, Motor Exam 5/5 strength throughout Psych/Mental Status: Impulsive, Restless Vital Signs Temp Pulse Resp BP Pulse Ox 36.4 C L 78 18 110/76 95 09/05/18 10:28 09/05/18 10:28 09/05/18 10:28 09/05/18 10:28 09/05/18 10:28 Oxygen Flow Rate (L/min) 2 Oxygen Delivery Method Nasal Cannula Weight: 68.6 kg Body Mass Index (BMI) 23.4 Intake and Output for Last 24 Hours 09/03/18 09/04/18 09/05/18 23:59 23:59 23:59 Intake Total 1278.1 / 1278.1 1948.2 / 1948.2 96.7 / 96.7 Output Total 1225 / 1225 2425 / 2425 675 / 675 Balance 53.1 / 53.1 -476.8 / -476.8 -578.3 / -578.3 Laboratory Tests Past 24 Hrs 09/05/18 09/05/18 05:50 05:50 WBC 12.1 H RBC 3.84 L Hgb 9.8 L Hct 31.6 L MCV 82.3 MCH 25.5 L MCHC 31.0 L RDW 18.8 H RDW Differential 55.8 H Plt Count 174 MPV 9.8 Immature Gran % (Auto) 0.200 Neut % (Auto) 88.8 H Lymph % (Auto) 4.5 L [place] % (Auto) 6.5 Eos % (Auto) 0.0 Baso % (Auto) 0.0 Absolute Neuts (auto) 10.7 H Absolute Lymphs (auto) 0.54 L Total Counted Not Reportable Nucleated RBC % 1.2 Diff Path Review May foll Hypochromasia 3+ Target Cells 1+ Acanthocytes (Spur) 1+ Schistocytes 1+ Absolute Retic 0.14 Sodium 136 Potassium 4.0 Chloride 101 Carbon Dioxide 27.0 Anion Gap 8 BUN 43 H Creatinine 1.20 Estim Creat Clear Calc 64.98 Est GFR (MDRD) Af Amer 82 Est GFR (MDRD) Non-Af 67 BUN/Creatinine Ratio 35.8 H Glucose 103 Calcium 8.0 L Medical Necessity - Tobacco Use Smoking Status: Current every day smoker Assessment/Plan All Active Problems (Last Reviewed 07/25/18 @ 16:12 by Piyush Nick DO) GI bleed (Acute) Acute blood loss anemia (Acute) RECOMMENDATIONS: 1. Continue current supportive measures with Lasix drip and amiodarone, per cardiology recommendations. 2. Continue PPI therapy. 3. Continue current pain control regimen. 4. Utilize BiPAP as needed. 5. Wean supplemental oxygen to maintain saturations at or above 90%. 6. Continue bronchodilators. 7. Smoking cessation and outpatient pulmonary follow-up would be recommended. IMPRESSIONS: 1. Acute combined respiratory failure secondary to acute on chronic systolic congestive heart failure Patient has had some improvement compared to yesterday. Patient does have a Lasix drip going. Stressed to the patient the importance of maintaining supplemental oxygen to avoid complications. Continue with diuresis as patient tolerates. Patient does understand that failure to comply with supplemental oxygen may lead to decompensation. Patient may have an element of cor pulmonale secondary to fluid overload and probable COPD. However, patient does not appear to be in acute exacerbation of COPD at this time, so bronchodilators alone are reasonable. Patient will need outpatient pulmonary function test for evaluation of COPD. 2. Acute decompensated heart failure/supraventricular tachycardia/history of coronary artery disease Continue supportive measures per cardiology recommendations. Patient is currently in normal sinus rhythm. Cardiology is recommending continued amiodarone. I believe this is reasonable. 3. Abdominal pain Unclear etiology. Will check lipase level. Continue PPI therapy. CT abdomen/pelvis did reveal evidence of liver cirrhosis and ascites. 4. Questionable COPD/continuous tobacco dependency/alcohol dependency, now in remission/GERD/medical noncompliance Complicates care, management, recovery and prognosis. Nicotine replacement therapy can be offered to the patient, if needed. Poor baseline status and insight into disease process. Code Visit Inpatient E&M: 23707 Subs Hosp L2
[2018-09-05 13:07] LABS: Bacteria 0 SEEN /hpf (None Seen); Mucous, Urine 0 SEEN /hpf (<or=2+); Squamous Epithelial Cells - UA 0 SEEN /hpf (0-5); White Blood Cells 0 SEEN /hpf (0-5)
[2018-09-05 13:10] LABS: Color, Urine Yellow (Yellow); Glucose, Dipstick Normal (Normal); Ketone-Dipstick Negative (Negative); Leukocyte Esterase-Dipstick Negative /ul (Negative); Nitrite-Dipstick Negative (Negative); Occult Blood-Urine 50 /ul (Negative); Protein-Dipstick Negative (Negative); Urine Bilirubin Dipstick Negative (Negative); Urine Clarity Clear (Clear); Urine Urobilinogen Normal (Normal)
--- NOTE | 2018-09-05 13:15 | CASEMGMT ---
ESTIVEN MITCHELL BAND BUILDER CM to room to meet with patient for initial transition planning/care coordination assessment. ESTIVEN MITCHELL introduced self and role at [facility]. Pt's mom in room visiting. Pt voices understanding and consents to assessment at this time. Pt sitting up in chair beside bed. O2 in place via n/c in no distress. Pt is A/O at this time and answers all questions appropriately. Care providers, pharmacy, and demographics verified/updated at this time. PCP: [facility] Specialists: Cesario--cardiology Preferred Pharmacy: [facility] Insurance: [employer]. does not have a Sheet Manager. [facility] to [facility] and referral made for Sheet Manager for pt. They stated they would call pt and offer these services to pt. Prescription Benefit: Yes Living Will/HPOA: Does not currently have AD. [facility] would like to talk to LAQUITA to complete paperwork. LAQUITA Hardy, notified. LNOK: Brother Aftab, Mom Rhonda Living Arrangements: Lives in mother's basement. Home is a ranch-style home and has 10 steps down to the basement. Per pt's mother, pt has been needing assistance with meals, cleaning, and groceries lately, especially over the past week since he has become more ill. Mother also states pt has not been showering/has been staying on his couch mostly. She states she has always managed his bills/finances. Transportation: Pt does not drive. His mother does not drive either. Pt states he used to drive but his car needs fixed and he also has been too weak to go anywhere. Inquired if pt has used [employer] for transportation to doctor's appts and he stated he did not know they provide that service. Pt instructed to call the number on his [facility] [employer] card to make arrangements for transportation for future doctor appts. He was also made aware this does need to be arranged in advance and instructed to call them as soon as he has an appt to schedule transportation. Pt voices understanding. DME: States has the following DME: cane, Oxygen thru [employer]. Wears 2 L/M @ [facility]. Pt states no need for further DME at this time. HHC/SNF: No history of either. PT/OT evals have been reviewed. Pt only able to ambulate 4 ft before becoming SOB and fatigued. Discussed discharge planning with pt. Pt states he is interested in going to a SNF and pt's mother states she thinks this is a good idea as well. Pt and mother requesting [facility] Hayley COELHO, made aware. Pt voices no further concerns/needs at this time. Advised pt to ask for CM if any further questions/concerns/needs arise. Voices understanding. PLAN: SNF. Bao GREEN RN CM
[2018-09-05 13:17] LABS: Red Blood Cells-Urine 0-5 SEEN /hpf (0-5)
--- NOTE | 2018-09-05 14:18 | CASEMGMT ---
As per CM, pt is interested in completing advance directives, and also would benefit form SNF placement. SW met w/pt and pt's mother, pt completed POA form w/SW assist. Pt put his brother as POA. SW gave pt original and copy and placed copy on chart. Pt did not want to complete LW at this time. SW reviewed [facility] options w/pt, he would like referral faxed to [facility]. SW called [facility], faxed referral. SW will continue to follow. RAE Cox
[2018-09-06] VITALS (14 sets, daily range): BP systolic 94–118; BP diastolic 58–88; PULSE 71–100; RESP 19–22; TEMP 36.4–37.2; O2SAT 92–98
[2018-09-06] MEDS: oxyCODONE 5 MG Tablet PO ×5 (02:39→20:19)
[2018-09-06 06:05] LABS: Absolute Lymphocyte Count 0.55 X10^3/ul (0.83-4.51); Absolute Neutrophil Count 6.5 X10^3/uL (2.0-7.7); Eosinophil# 0.01 X10^3/uL; Eosinophils% 0.1 % (0-5); Hematocrit 33.4 % (40-54); Lymphocyte # 0.55 X10^3/ul (4.0); Lymphocyte % 7.1 % (19-41); Mean Corp Hgb Conc 29.9 g/gl (32-36); Mean Corpuscular Volume 83.5 fL (80-94); Mean Platelet Vol. 10.5 fl (6.2-12.0); Monocyte# 0.67 X10^3/uL; Monocyte% 8.7 % (0-10); Neutrophil # 6.47 X10^3/uL (2.7-7.7); Platelet Count 136 K/mm3 (150-450); RBC Distribution Width CV 18.6 % (11.6-14.6); RBC Distribution Width SD 56.5 fl (35.1-43.9); White Blood Count 7.7 K/mm3 (4.4-11.0)
[2018-09-06] MEDS: Sucralfate 1 GM Tablet PO ×4 (06:08→22:06)
--- NOTE | 2018-09-06 06:12 | PCA ---
09/06/18 0600 change in weight discussed with Maddie JEAN-BAPTISTE
[2018-09-06 06:13] LABS: Differential Indicated SCAN CRITERIA MET; POSITIVE COUNT NO; POSITIVE DIFFERENTIAL YES; POSITIVE MORPHOLOGY NO
[2018-09-06 06:18] LABS: Anion Gap 7 (5-15); BUN 32 mg/dL (7-18); BUN/Creat Ratio 38.3 RATIO (10-20); Calcium,Total 7.9 mg/dL (8.5-10.1); Chloride 97 mmol/L (98-107); Creatinine, Serum 0.84 mg/dL (0.70-1.30); EST Glomerular Filtration Rate 102 mL/min (>60); Est Glom Filt Rate - Afr Amer 124 mL/min (>60); Estimated Creatinine Clearance 92.83 ml/min; Glucose 82 mg/dL (74-106); Magnesium 1.5 mg/dL (1.6-2.6); Potassium 3.2 mmol/L (3.5-5.1); Sodium Level 136 mmol/L (136-145)
[2018-09-06 06:40] LABS: Differential Comment SCANNED; Hypochromasia 2+; Schistocytes 1+
[2018-09-06 06:41] LABS: Target Cells 2+
--- NOTE | 2018-09-06 07:21 | PCM.PN.CARD ---
Subjectve: Patient seen and evaluated. Appears to be doing much better. Has lost most of his pedal edema. Continues to have some scrotal edema Objective: Vital Signs Temp Pulse Resp BP Pulse Ox 97.6 F L 71 19 H 113/83 H 92 09/06/18 02:39 09/06/18 07:15 09/06/18 02:39 09/06/18 07:15 09/06/18 02:40 Oxygen Flow Rate (L/min) 4 Oxygen Delivery Method Nasal Cannula Weight: 141 lb 15.643 oz Body Mass Index (BMI) 23.4 Intake and Output for Last 24 Hours 09/04/18 09/05/18 09/06/18 23:59 23:59 23:59 Intake Total 1948.2 / 1948.2 1269.6 / 1269.6 245.8 / 245.8 Output Total 2425 / 2425 4000 / 4000 2425 / 2425 Balance -476.8 / -476.8 -2730.4 / -2730.4 -2179.2 / -2179.2 General: Awake, Alert, Oriented x 3 HEENT: PERRL, EOMI, Sclera Non Icteric Neck: Supple, Good ROM, No Lymph Node Enlargement Lungs: Diminished Vinnie Bases Cardiovascular: Regular Rhythm, Normal S1, Normal S2, No Murmurs, No Rubs, No Gallops Vascular: No Carotid Bruits, Normal Femoral Pulses, Normal Radial Pulses, Normal Dorsalis Pedal Pulse, Normal Posterior Tibial Pulses Abdomen: Bowel Sounds Present, Soft, Non Tender, No HSM, No Organomegaly Genitalia: Scrotal Edema Extremities: No Cyanosis, No Clubbing, No edema Skin: No Rashes Lymphatic: No Lymph Node Enlargement Neurological: No Focal Motor or Sensory Deficit Psych/Mental Status: Appropriate 09/05/18 05:50: WBC 12.1 H, RBC 3.84 L, Hgb 9.8 L, Hct 31.6 L, MCV 82.3, MCH 25.5 L, MCHC 31.0 L, RDW 18.8 H, RDW Differential 55.8 H, Plt Count 174, MPV 9.8, Immature Gran % (Auto) 0.200, Neut % (Auto) 88.8 H, Lymph % (Auto) 4.5 L, [place] % (Auto) 6.5, Eos % (Auto) 0.0, Baso % (Auto) 0.0, Absolute Neuts (auto) 10.7 H, Total Counted Not Reportable, Nucleated RBC % 1.2 09/05/18 11:38: Urine Color Yellow, Urine Clarity Clear, Urine pH 6.0, Ur Specific [place] 1.010, Urine Protein Negative, Urine Glucose (UA) Normal, Urine Ketones Negative, Urine Occult Blood 50 H, Urine Nitrite Negative, Urine Bilirubin Negative, Urine Urobilinogen Normal, Ur Leukocyte Esterase Negative, Urine RBC 0-5 SEEN, Urine WBC 0 SEEN 09/06/18 05:45: WBC 7.7, RBC 4.00 L, Hgb 10.0 L, Hct 33.4 L, MCV 83.5, MCH 25.0 L, MCHC 29.9 L, RDW 18.6 H, RDW Differential 56.5 H, Plt Count 136 L, MPV 10.5, Immature Gran % (Auto) 0.100, Neut % (Auto) 84.0 H, Lymph % (Auto) 7.1 L, [place] % (Auto) 8.7, Eos % (Auto) 0.1, Baso % (Auto) 0.0, Absolute Neuts (auto) 6.5, Total Counted Not Reportable 09/06/18 05:45: Sodium 136, Potassium 3.2 L, Chloride 97 L, Carbon Dioxide 32.0, Anion Gap 7, BUN 32 H, Creatinine 0.84, Est GFR (MDRD) Af Amer 124, Est GFR (MDRD) Non-Af 102, BUN/Creatinine Ratio 38.3 H, Glucose 82, Calcium 7.9 L, Magnesium 1.5 L 09/06/18 05:45: Magnesium Cancelled Rhythm: EKG: ECHO: Stress Test: Cardiac Cath: PCI: CT Surgery: Holter monitor: EPS: PPM: CXR: Chest CT Scan: Medical Necessity - Tobacco Use Smoking Status: Current every day smoker Assessment/Plan 1. Supraventricular tachycardia Patient presents with a supraventricular tachycardia. He was successfully cardioverted into sinus rhythm. At this time with his severe left ventricular systolic dysfunction it may not be unreasonable to start him on amiodarone orally. He will continue with the same for now 2. Congestive heart failure-acute on chronic systolic He has had severe left ventricular systolic dysfunction and congestive heart failure dating back to December 2017. He has not been very compliant with his medications. Strict dietary maneuvers have been emphasized I would like to continue him on carvedilol 3.125 mg twice a day Aggressive diuresis with intravenous Lasix. I think he needs 1 more day. Will continue LAVERN inhibitor as tolerated and I will consider Entresto 3. Left ventricular systolic dysfunction He has severe left ventricular systolic dysfunction out of proportion to the extent of the coronary artery disease. His diagnosis was in December 2017 and he was revascularized in May 2018. At this juncture I would say that he be strongly considered for primary defibrillator implantation. This can be arranged as an outpatient after he has been appropriately tuned up. 4. Coronary artery disease He does have coronary artery disease status post previous angioplasty and stenting. He has not been compliant with his Brilinta I would suggest that we put him on Plavix in addition to his beta-roxana and LAVERN inhibitor I do not think that his present symptomatology is related to coronary ischemia Like to watch him another day before making any further decisions. I am not sure how well he can take care of himself at home. We may need to make alternative arrangements for him. Thank you for allowing me to participate in the care of your patient. Please don't hesitate to call if any issues arise.
--- NOTE | 2018-09-06 07:26 | PN.CARD_ITS ---
Subjectve: Patient seen and evaluated. Appears to be doing much better. Has lost most of his pedal edema. Continues to have some scrotal edema Objective: Vital Signs Temp Pulse Resp BP Pulse Ox 97.6 F L 71 19 H 113/83 H 92 09/06/18 02:39 09/06/18 07:15 09/06/18 02:39 09/06/18 07:15 09/06/18 02:40 Oxygen Flow Rate (L/min) 4 Oxygen Delivery Method Nasal Cannula Weight: 141 lb 15.643 oz Body Mass Index (BMI) 23.4 Intake and Output for Last 24 Hours 09/04/18 09/05/18 09/06/18 23:59 23:59 23:59 Intake Total 1948.2 / 1948.2 1269.6 / 1269.6 245.8 / 245.8 Output Total 2425 / 2425 4000 / 4000 2425 / 2425 Balance -476.8 / -476.8 -2730.4 / -2730.4 -2179.2 / -2179.2 General: Awake, Alert, Oriented x 3 HEENT: PERRL, EOMI, Sclera Non Icteric Neck: Supple, Good ROM, No Lymph Node Enlargement Lungs: Diminished Vinnie Bases Cardiovascular: Regular Rhythm, Normal S1, Normal S2, No Murmurs, No Rubs, No Gallops Vascular: No Carotid Bruits, Normal Femoral Pulses, Normal Radial Pulses, Normal Dorsalis Pedal Pulse, Normal Posterior Tibial Pulses Abdomen: Bowel Sounds Present, Soft, Non Tender, No HSM, No Organomegaly Genitalia: Scrotal Edema Extremities: No Cyanosis, No Clubbing, No edema Skin: No Rashes Lymphatic: No Lymph Node Enlargement Neurological: No Focal Motor or Sensory Deficit Psych/Mental Status: Appropriate 09/05/18 05:50: WBC 12.1 H, RBC 3.84 L, Hgb 9.8 L, Hct 31.6 L, MCV 82.3, MCH 25.5 L, MCHC 31.0 L, RDW 18.8 H, RDW Differential 55.8 H, Plt Count 174, MPV 9.8, Immature Gran % (Auto) 0.200, Neut % (Auto) 88.8 H, Lymph % (Auto) 4.5 L, [place] % (Auto) 6.5, Eos % (Auto) 0.0, Baso % (Auto) 0.0, Absolute Neuts (auto) 10.7 H, Total Counted Not Reportable, Nucleated RBC % 1.2 09/05/18 11:38: Urine Color Yellow, Urine Clarity Clear, Urine pH 6.0, Ur Specific [place] 1.010, Urine Protein Negative, Urine Glucose (UA) Normal, Urine Ketones Negative, Urine Occult Blood 50 H, Urine Nitrite Negative, Urine Bilirubin Negative, Urine Urobilinogen Normal, Ur Leukocyte Esterase Negative, Urine RBC 0-5 SEEN, Urine WBC 0 SEEN 09/06/18 05:45: WBC 7.7, RBC 4.00 L, Hgb 10.0 L, Hct 33.4 L, MCV 83.5, MCH 25.0 L, MCHC 29.9 L, RDW 18.6 H, RDW Differential 56.5 H, Plt Count 136 L, MPV 10.5, Immature Gran % (Auto) 0.100, Neut % (Auto) 84.0 H, Lymph % (Auto) 7.1 L, [place] % (Auto) 8.7, Eos % (Auto) 0.1, Baso % (Auto) 0.0, Absolute Neuts (auto) 6.5, To yao Counted Not Reportable 09/06/18 05:45: Sodium 136, Potassium 3.2 L, Chloride 97 L, Carbon Dioxide 32.0, Anion Gap 7, BUN 32 H, Creatinine 0.84, Est GFR (MDRD) Af Amer 124, Est GFR (MDRD) Non-Af 102, BUN/Creatinine Ratio 38.3 H, Glucose 82, Calcium 7.9 L, Magnesium 1.5 L 09/06/18 05:45: Magnesium Cancelled Rhythm: EKG: ECHO: Stress Test: Cardiac Cath: PCI: CT Surgery: Holter monitor: EPS: PPM: CXR: Chest CT Scan: Medical Necessity - Tobacco Use Smoking Status: Current every day smoker Assessment/Plan 1. Supraventricular tachycardia * Patient presents with a supraventricular tachycardia. He was successfully cardioverted into sinus rhythm. At this time with his severe left ventricular systolic dysfunction it may not be unreasonable to start him on amiodarone orally. * He will continue with the same for now * 2. Congestive heart failure-acute on chronic systolic * He has had severe left ventricular systolic dysfunction and congestive heart failure dating back to December 2017. He has not been very compliant with his medications. * Strict dietary maneuvers have been emphasized * I would like to continue him on carvedilol 3.125 mg twice a day * Aggressive diuresis with intravenous Lasix. I think he needs 1 more day. * Will continue LAVERN inhibitor as tolerated and I will consider Entresto * 3. Left ventricular systolic dysfunction * He has severe left ventricular systolic dysfunction out of proportion to the extent of the coronary artery disease. His diagnosis was in December 2017 and he was revascularized in May 2018. At this juncture I would say that he be strongly considered for primary defibrillator implantation. * This can be arranged as an outpatient after he has been appropriately tuned up. * 4. Coronary artery disease He does have coronary artery disease status post previous angioplasty and stenting. He has not been compliant with his Brilinta I would suggest that we put him on * Plavix in addition to his beta-roxana and LAVERN inhibitor * I do not think that his present symptomatology is related to coronary ischemia * * * Like to watch him another day before making any further decisions. I am not sure how well he can take care of himself at home. We may need to make alternative arrangements for him. * Thank you for allowing me to participate in the care of your patient. Please don't hesitate to call if any issues arise.
[2018-09-06] MEDS: Carvedilol 3.125 MG TABLET PO ×2 (08:43→22:07)
[2018-09-06] MEDS: Lisinopril 5 MG Tablet PO (08:43)
[2018-09-06] MEDS: Enoxaparin 40 MG/0.4 ML Syringe SC (08:43)
[2018-09-06] MEDS: Nicotine Polacrilex 2 MG GUM PO (08:43)
[2018-09-06] MEDS: Docusate Sodium 100 MG Capsule PO ×2 (08:44→22:06)
[2018-09-06] MEDS: Pantoprazole Sodium 40 MG Tablet PO (08:44)
[2018-09-06] MEDS: Clopidogrel Bisulfate 75 MG Tablet PO (08:44)
[2018-09-06] MEDS: Polyethylene Glycol 3350 17 GM PACKET PO (08:44)
[2018-09-06] MEDS: Amiodarone 200 MG Tablet PO ×2 (08:44→22:06)
[2018-09-06] MEDS: Aspirin E.C. 81 MG Tablet PO (08:44)
[2018-09-06] MEDS: Magnesium Sulfate 4gm/100mL 4 GM/100 ML IV.SOLN. IV (08:44)
[2018-09-06 09:10] LABS: Pathologist Review Reviewed
--- NOTE | 2018-09-06 10:01 | CASEMGMT ---
Received a voice mail from Alicia at [facility]. She was not able to read patient's social security number on demographics. LAQUITA called [facility] and spoke with Frank. LAQUITA read off patient's social security number. Await their response. Leslie PIPER MSW
--- NOTE | 2018-09-06 10:14 | PCM.PN.HOSP ---
Subjective: Patient seen and examined. He denies any fever or chills, palpitations or dizziness, chest pain, diarrhea vomiting. He still complains of suprapubic pain but states this pain is chronic. Review of systems otherwise negative. Labs and vitals reviewed. Hospitalist discussed concerns about patient's inability to take care of himself at home with him. Per case management notes, patient was okay with referral being faxed to [facility]. However today patient tells me that he wants to go home and that if he is to he would want to at home. Patient counseled that it would be important for him to go to a rehab facility to get his strength back and recuperate better. He remains on 4 L of oxygen. Potassium noted to be 3.2 today and magnesium is also 1.5. Vitals/I&O's: Vital Signs Temp Pulse Resp BP Pulse Ox 97.6 F L 84 20 H 106/84 H 96 09/06/18 08:39 09/06/18 08:39 09/06/18 08:39 09/06/18 08:39 09/06/18 08:39 Oxygen Flow Rate (L/min) 4 Oxygen Delivery Method Nasal Cannula Weight: 141 lb 15.643 oz Body Mass Index (BMI) 23.4 Intake and Output for Last 24 Hours 09/04/18 09/05/18 09/06/18 23:59 23:59 23:59 Intake Total 1948.2 / 1948.2 1269.6 / 1269.6 245.8 / 245.8 Output Total 2425 / 2425 4000 / 4000 2425 / 2425 Balance -476.8 / -476.8 -2730.4 / -2730.4 -2179.2 / -2179.2 General: Alert, Oriented x3, Cooperative HEENT: Atraumatic, PERRLA, EOMI, Normocephalic, Oral: Moist Mucosa Neck: Supple, No JVD, Negative Carotid Bruits Lungs: - - decreased breath sounds bibasally, no wheezes or crackles. on 4L of oxygen. Cardiovascular: Regular rate, Regular Rhythm, Normal S1, Normal S2, No murmurs Abdomen: Bowel Sounds Present, Soft, Non-Distended, No Hepato-splenomegaly, - - mild epigastric and suprapubic tenderness, no guarding or rebound tenderness. Extremities: No clubbing, No cyanosis, Capillary Refill Less than 3 Seconds, - - minimal LE edema Skin: No rashes, No breakdown, - Musculoskeletal: No Tenderness to Palpation of Joints or Extremities Lymphatic: No Cervical, Supraclavicular, or Inguinal Adenopathy Neurological: Cranial nerves II-XII grossly intact, Neuro grossly intact, Motor Exam 5/5 strength throughout Psych/Mental Status: Normal Affect, Appropriate, Alert and oriented to time, place, person, mood and affect Laboratory Results 09/05/18 05:50: Diff Path Review Reviewed 09/05/18 11:38: Urine Color Yellow, Urine Clarity Clear, Urine pH 6.0, Ur Specific [place] 1.010, Urine Protein Negative, Urine Glucose (UA) Normal, Urine Ketones Negative, Urine Occult Blood 50 H, Urine Nitrite Negative, Urine Bilirubin Negative, Urine Urobilinogen Normal, Ur Leukocyte Esterase Negative, Urine RBC 0-5 SEEN, Urine WBC 0 SEEN, Ur Squamous Epith Cells 0 SEEN, Urine Bacteria 0 SEEN, Urine Mucus 0 SEEN 09/06/18 05:45: WBC 7.7, RBC 4.00 L, Hgb 10.0 L, Hct 33.4 L, MCV 83.5, MCH 25.0 L, MCHC 29.9 L, RDW 18.6 H, RDW Differential 56.5 H, Plt Count 136 L, MPV 10.5, Immature Gran % (Auto) 0.100, Neut % (Auto) 84.0 H, Lymph % (Auto) 7.1 L, [place] % (Auto) 8.7, Eos % (Auto) 0.1, Baso % (Auto) 0.0, Absolute Neuts (auto) 6.5, Absolute Lymphs (auto) 0.55 L, Total Counted Not Reportable, Differential Comment SCANNED, Hypochromasia 2+, Target Cells 2+, Schistocytes 1+ 09/06/18 05:45: Sodium 136, Potassium 3.2 L, Chloride 97 L, Carbon Dioxide 32.0, Anion Gap 7, BUN 32 H, Creatinine 0.84, Estim Creat Clear Calc 92.83, Est GFR (MDRD) Af Amer 124, Est GFR (MDRD) Non-Af 102, BUN/Creatinine Ratio 38.3 H, Glucose 82, Calcium 7.9 L, Magnesium 1.5 L 09/06/18 05:45: Magnesium Cancelled Diagnostic Data Chest X-Ray 09/03/18 07:59 IMPRESSION: Small to moderate right pleural effusion new since previous examination. Otherwise no significant change previous exam. Severe emphysematous and bullous changes unchanged. Persistent bibasilar stranding likely scarring. Electronically Signed: Zach Mcfadden MD at 8:49 EDT Tel , Service support , Abdomen/Pelvis CT 09/03/18 08:53 IMPRESSION: 1. Bilateral pleural effusions larger on the right side with collapse of the right lower lobe. 2. Emphysematous changes and stranding/scarring in the lower lungs. Superimposed mild left lower lobe infiltrate cannot excluded. 3. Cirrhosis of the liver. 4. Ascites. 5. No evidence of small bowel obstruction. 6. Diverticulosis without evidence of acute diverticulitis. 7. Anasarca. Electronically Signed: Zach Mcfadden MD at 10:22 EDT Tel , Service support , Chest CTA 09/03/18 09:15 IMPRESSION: 1. No evidence of pulmonary embolism. 2. Bilateral pleural effusions larger on the right side increased since previous examination associated with collapsed right lower lobe. 3. Severe emphysematous and bullous changes with scarring in the lower lungs. Superimposed mild infiltrate is difficult to exclude. 4. Mild ascites. Electronically Signed: Zach Mcfadden MD at 10:07 EDT Tel , Service support , Current Medications Acetaminophen (Tylenol) 650 mg PO Q6H PRN PRN PRN Reason: PAIN Last Admin: 09/03/18 12:55 Dose: 650 mg Albuterol/Ipratropium (Duoneb) 3 ml INHALATION Q6HWA.RT REILLY Last Admin: 09/06/18 06:38 Dose: Not Given Amiodarone HCl (Cordarone) 200 mg PO BID [facility] Last Admin: 09/06/18 08:44 Dose: 200 mg Aspirin (Ecotrin) 81 mg PO DAILY@0800 [facility] Last Admin: 09/06/18 08:44 Dose: 81 mg Carvedilol (Coreg) 3.125 mg PO BID [facility] Last Admin: 09/06/18 08:43 Dose: 3.125 mg Clopidogrel Bisulfate (Plavix) 75 mg PO DAILY [facility] Last Admin: 09/06/18 08:44 Dose: 75 mg Docusate Sodium (Colace) 100 mg PO BID [facility] Last Admin: 09/06/18 08:44 Dose: 100 mg Enoxaparin Sodium (Lovenox) 40 mg SC DAILY@1000 [facility] Last Admin: 09/06/18 08:43 Dose: 40 mg Glucagon () 1 mg IM .X1 PRN PRN Reason: Hypoglycemia Furosemide 500 mg/ N/A 50 mls @ 1 mls/hr CONT INF .Q50H [facility] Last Admin: 09/04/18 18:36 Dose: 1 mls/hr Sodium Chloride () 250 mls @ 15 mls/hr IV .[id number] PRN PRN Reason: SALINE FLUSH Magnesium Sulfate () 4 gm in 100 mls @ 25 mls/hr IV X1 ONE Stop: 09/06/18 11:29 Last Admin: 09/06/18 08:44 Dose: 25 mls/hr Lisinopril (Zestril) 5 mg PO DAILY [facility] Last Admin: 09/06/18 08:43 Dose: 5 mg Nicotine Polacrilex (Rug[place] Nicotine (Bkc)) 2 mg PO Q2H PRN PRN PRN Reason: tobacco craving Last Admin: 09/06/18 08:43 Dose: 2 mg Nitroglycerin (Nitrostat) 0.4 mg SUBLINGUAL PRN PRN PRN Reason: chest pain Nutritional Formula (Lactose Free) (Ensure Enlive) 120 ml PO 4X/DAY [facility] Last Admin: 09/06/18 08:43 Dose: Not Given Oxycodone HCl (Oxyir) 5 mg PO Q4H PRN PRN PRN Reason: SEVERE PAIN (6-10/10) Last Admin: 09/06/18 07:15 Dose: 5 mg Pantoprazole Sodium (Protonix) 40 mg PO DAILY [facility] Last Admin: 09/06/18 08:44 Dose: 40 mg Polyethylene Glycol (Miralax) 17 gm PO BID [facility] Last Admin: 09/06/18 08:44 Dose: 17 gm Sodium Chloride () 5 - 15 ml IV UD PRN PRN Reason: SALINE FLUSH Last Admin: 09/05/18 01:14 Dose: 10 ml Sodium Chloride () 5 - 15 ml IV UD PRN PRN Reason: SALINE FLUSH Sucralfate (Carafate) 1 gm PO 1HR_ACHS [facility] Last Admin: 09/06/18 06:08 Dose: 1 gm Medical Necessity - Tobacco Use Smoking Status: Current every day smoker Assessment/Plan All Active Problems (Last Reviewed 07/25/18 @ 16:12 by Piyush Nick DO) GI bleed (Acute) Acute blood loss anemia (Acute) 53 y/o admitted with a complaint of SOB and rapid heart rate. 1. SVT due to noncompliance and acute systolic heart failure now off amiodarone drip. HR is better controlled. on PO amiodarone. HR remains well controlled still on lasix drip; cardiology on board 2. Acute exacerbation of systolic heart failure due to noncompliance. BNP was over 5000 on admisison 2D echo (6.8.19): EF is 15%, with severe global hypokinesis of left ventricle, left atrium mildly enlarged, right atrium moderately enlarged. PA SP is 28mmhg. still On IV Lasix drip. urine output over last 24 hours was ~ 2.4L/. in cumulative negative balance by 5.3L since admission. cardiology on board. per cardiology, patient to be considered for primary defibrillator implantation on outpatient basis once he is better. fluid restriction to 1500cc daily strict intake output chart 3. Acute hypoxic respiratory failure due to acute on chronic heart failure with reduced EF. patient now requiring up to 4L of oxygen, doesnt wear oxygen at home titrate oxygen to maintain sats>90% will need walking pulse ox prior to discharge, as he may need home oxygen 4. Hypokalemia and hypomagnesemia: Potassium is 3.2 magnesium is 1.5. We will replace and monitor. 5. lactic acidosis: Resolved. 6. CAD s/ps tents: on aspirin and brilinta. Not on statin; 7. History of duodenitis, gastritis and esophagitis Also has recent history of GI bleed. On p.o. Protonix 40 mg twice daily. Also on sucralfate. still has abdominal pain in epigastric and suprapubic region. UA was negative for UTI. says pain is chronic DVT prophylaxis: heparin CODE STATUS: Full code Disposition: patient likely unable to care for himself at home. Says he lives with his mother. Per case management note, patient asked for referral to be faxed to [facility] but he is now saying that he would want to go home. Plan is for discharge to SNF when medically stable. Patient counselled about importance of going to rehab. Code Visit Inpatient E&M: 80836 Subs Hosp L3
--- NOTE | 2018-09-06 10:19 | PN_ITS ---
Subjective: Patient seen and examined. He denies any fever or chills, palpitations or dizziness, chest pain, diarrhea vomiting. He still complains of suprapubic pain but states this pain is chronic. Review of systems otherwise negative. Labs and vitals reviewed. Hospitalist discussed concerns about patient's inability to take care of himself at home with him. Per case management notes, patient was okay with referral being faxed to [facility]. However today patient tells me that he wants to go home and that if he is to he would want to at home. Patient counseled that it would be important for him to go to a rehab facility to get his strength back and recuperate better. He remains on 4 L of oxygen. Potassium noted to be 3.2 today and magnesium is also 1.5. Vitals/I&O's: Vital Signs Temp Pulse Resp BP Pulse Ox 97.6 F L 84 20 H 106/84 H 96 09/06/18 08:39 09/06/18 08:39 09/06/18 08:39 09/06/18 08:39 09/06/18 08:39 Oxygen Flow Rate (L/min) 4 Oxygen Delivery Method Nasal Cannula Weight: 141 lb 15.643 oz Body Mass Index (BMI) 23.4 Intake and Output for Last 24 Hours 09/04/18 09/05/18 09/06/18 23:59 23:59 23:59 Intake Total 1948.2 / 1948.2 1269.6 / 1269.6 245.8 / 245.8 Output Total 2425 / 2425 4000 / 4000 2425 / 2425 Balance -476.8 / -476.8 -2730.4 / -2730.4 -2179.2 / -2179.2 General: Alert, Oriented x3, Cooperative HEENT: Atraumatic, PERRLA, EOMI, Normocephalic, Oral: Moist Mucosa Neck: Supple, No JVD, Negative Carotid Bruits Lungs: - - decreased breath sounds bibasally, no wheezes or crackles. on 4L of oxygen. Cardiovascular: Regular rate, Regular Rhythm, Normal S1, Normal S2, No murmurs Abdomen: Bowel Sounds Present, Soft, Non-Distended, No Hepato-splenomegaly, - - mild epigastric and suprapubic tenderness, no guarding or rebound tenderness. Extremities: No clubbing, No cyanosis, Capillary Refill Less than 3 Seconds, - - minimal LE edema Skin: No rashes, No breakdown, - Musculoskeletal: No Tenderness to Palpation of Joints or Extremities Lymphatic: No Cervical, Supraclavicular, or Inguinal Adenopathy Neurological: Cranial nerves II-XII grossly intact, Neuro grossly intact, Motor Exam 5/5 strength throughout Psych/Mental Status: Normal Affect, Appropriate, Alert and oriented to time, place, person, mood and affect Laboratory Results 09/05/18 05:50: Diff Path Review Reviewed 09/05/18 11:38: Urine Color Yellow, Urine Clarity Clear, Urine pH 6.0, Ur Specific [place] 1.010, Urine Protein Negative, Urine Glucose (UA) Normal, Urine Ketones Negative, Urine Occult Blood 50 H, Urine Nitrite Negative, Urine Bilirubin Negative, Urine Urobilinogen Normal, Ur Leukocyte Esterase Negative, Urine RBC 0-5 SEEN, Urine WBC 0 SEEN, Ur Squamous Epith Cells 0 SEEN, Urine Bacteria 0 SEEN, Urine Mucus 0 SEEN 09/06/18 05:45: WBC 7.7, RBC 4.00 L, Hgb 10.0 L, Hct 33.4 L, MCV 83.5, MCH 25.0 L, MCHC 29.9 L, RDW 18.6 H, RDW Differential 56.5 H, Plt Count 136 L, MPV 10.5, Immature Gran % (Auto) 0.100, Neut % (Auto) 84.0 H, Lymph % (Auto) 7.1 L, [place] % (Auto) 8.7, Eos % (Auto) 0.1, Baso % (Auto) 0.0, Absolute Neuts (auto) 6.5, Absolute Lymphs (auto) 0.55 L, Total Counted Not Reportable, Differential Comment SCANNED, Hypochromasia 2+, Target Cells 2+, Schistocytes 1+ 09/06/18 05:45: Sodium 136, Potassium 3.2 L, Chloride 97 L, Carbon Dioxide 32.0, Anion Gap 7, BUN 32 H, Creatinine 0.84, Estim Creat Clear Calc 92.83, Est GFR (MDRD) Af Amer 124, Est GFR (MDRD) Non-Af 102, BUN/Creatinine Ratio 38.3 H, Glucose 82, Calcium 7.9 L, Magnesium 1.5 L 09/06/18 05:45: Magnesium Cancelled Diagnostic Data Chest X-Ray 09/03/18 07:59 IMPRESSION: Small to moderate right pleural effusion new since previous examination. Otherwise no significant change previous exam. Severe emphysematous and bullous changes unchanged. Persistent bibasilar stranding likely scarring. Electronically Signed: Zach Mcfadden MD at 8:49 EDT Tel , Service support , Abdomen/Pelvis CT 09/03/18 08:53 IMPRESSION: 1. Bilateral pleural effusions larger on the right side with collapse of the right lower lobe. 2. Emphysematous changes and stranding/scarring in the lower lungs. Superimposed mild left lower lobe infiltrate cannot excluded. 3. Cirrhosis of the liver. 4. Ascites. 5. No evidence of small bowel obstruction. 6. Diverticulosis without evidence of acute diverticulitis. 7. Anasarca. Electronically Signed: Zach Mcfadden MD at 10:22 EDT Tel , Service support , Chest CTA 09/03/18 09:15 IMPRESSION: 1. No evidence of pulmonary embolism. 2. Bilateral pleural effusions larger on the right side increased since previous examination associated with collapsed right lower lobe. 3. Severe emphysematous and bullous changes with scarring in the lower lungs. Superimposed mild infiltrate is difficult to exclude. 4. Mild ascites. Electronically Signed: Zach Mcfadden MD at 10:07 EDT Tel , Service support , Current Medications Acetaminophen (Tylenol) 650 mg PO Q6H PRN PRN PRN Reason: PAIN Last Admin: 09/03/18 12:55 Dose: 650 mg Albuterol/Ipratropium (Duoneb) 3 ml INHALATION Q6HWA.RT REILLY Last Admin: 09/06/18 06:38 Dose: Not Given Amiodarone HCl (Cordarone) 200 mg PO BID [facility] Last Admin: 09/06/18 08:44 Dose: 200 mg Aspirin (Ecotrin) 81 mg PO DAILY@0800 [facility] Last Admin: 09/06/18 08:44 Dose: 81 mg Carvedilol (Coreg) 3.125 mg PO BID [facility] Last Admin: 09/06/18 08:43 Dose: 3.125 mg Clopidogrel Bisulfate (Plavix) 75 mg PO DAILY [facility] Last Admin: 09/06/18 08:44 Dose: 75 mg Docusate Sodium (Colace) 100 mg PO BID [facility] Last Admin: 09/06/18 08:44 Dose: 100 mg Enoxaparin Sodium (Lovenox) 40 mg SC DAILY@1000 [facility] Last Admin: 09/06/18 08:43 Dose: 40 mg Glucagon () 1 mg IM .X1 PRN PRN Reason: Hypoglycemia Furosemide 500 mg/ N/A 50 mls @ 1 mls/hr CONT INF .Q50H [facility] Last Admin: 09/04/18 18:36 Dose: 1 mls/hr Sodium Chloride () 250 mls @ 15 mls/hr IV .[id number] PRN PRN Reason: SALINE FLUSH Magnesium Sulfate () 4 gm in 100 mls @ 25 mls/hr IV X1 ONE Stop: 09/06/18 11:29 Last Admin: 09/06/18 08:44 Dose: 25 mls/hr Lisinopril (Zestril) 5 mg PO DAILY [facility] Last Admin: 09/06/18 08:43 Dose: 5 mg Nicotine Polacrilex (Rugby Nicotine (Bkc)) 2 mg PO Q2H PRN PRN PRN Reason: tobacco craving Last Admin: 09/06/18 08:43 Dose: 2 mg Nitroglycerin (Nitrostat) 0.4 mg SUBLINGUAL PRN PRN PRN Reason: chest pain Nutritional Formula (Lactose Free) (Ensure Enlive) 120 ml PO 4X/DAY [facility] Last Admin: 09/06/18 08:43 Dose: Not Given Oxycodone HCl (Oxyir) 5 mg PO Q4H PRN PRN PRN Reason: SEVERE PAIN (6-10/10) Last Admin: 09/06/18 07:15 Dose: 5 mg Pantoprazole Sodium (Protonix) 40 mg PO DAILY [facility] Last Admin: 09/06/18 08:44 Dose: 40 mg Polyethylene Glycol (Miralax) 17 gm PO BID [facility] Last Admin: 09/06/18 08:44 Dose: 17 gm Sodium Chloride () 5 - 15 ml IV UD PRN PRN Reason: SALINE FLUSH Last Admin: 09/05/18 01:14 Dose: 10 ml Sodium Chloride () 5 - 15 ml IV UD PRN PRN Reason: SALINE FLUSH Sucralfate (Carafate) 1 gm PO 1HR_ACHS [facility] Last Admin: 09/06/18 06:08 Dose: 1 gm Medical Necessity - Tobacco Use Smoking Status: Current every day smoker Assessment/Plan All Active Problems (Last Reviewed 07/25/18 @ 16:12 by Piyush Nick DO) GI bleed (Acute) Acute blood loss anemia (Acute) 53 y/o admitted with a complaint of SOB and rapid heart rate. 1. SVT due to noncompliance and acute systolic heart failure * now off amiodarone drip. HR is better controlled. * on PO amiodarone. HR remains well controlled * still on lasix drip; cardiology on board * 2. Acute exacerbation of systolic heart failure due to noncompliance. * BNP was over 5000 on admisison * 2D echo (6.8.19): EF is 15%, with severe global hypokinesis of left ventricle, left atrium mildly enlarged, right atrium moderately enlarged. PA SP is 28mmhg. * still On IV Lasix drip. * urine output over last 24 hours was ~ 2.4L/. in cumulative negative balance by 5.3L since admission. * cardiology on board. per cardiology, patient to be considered for primary defibrillator implantation on outpatient basis once he is better. * fluid restriction to 1500cc daily * strict intake output chart * 3. Acute hypoxic respiratory failure due to acute on chronic heart failure with reduced EF. * patient now requiring up to 4L of oxygen, doesnt wear oxygen at home * titrate oxygen to maintain sats>90% * will need walking pulse ox prior to discharge, as he may need home oxygen * 4. Hypokalemia and hypomagnesemia: Potassium is 3.2 magnesium is 1.5. We will replace and monitor. 5. lactic acidosis: Resolved. 6. CAD s/ps tents: on aspirin and brilinta. Not on statin; 7. History of duodenitis, gastritis and esophagitis * Also has recent history of GI bleed. * On p.o. Protonix 40 mg twice daily. Also on sucralfate. * still has abdominal pain in epigastric and suprapubic region. UA was negative for UTI. * says pain is chronic * DVT prophylaxis: heparin CODE STATUS: Full code Disposition: * patient likely unable to care for himself at home. Says he lives with his mother. Per case management note, patient asked for referral to be faxed to [facility] but he is now saying that he would want to go home. * Plan is for discharge to SNF when medically stable. Patient counselled about importance of going to rehab. Code Visit Inpatient E&M: 45630 Subs Hosp L3
--- NOTE | 2018-09-06 11:16 | PCM.PN.PUL ---
Subjective: Patient did okay overnight. Patient continues to require nasal cannula oxygen, but is diuresing well. Patient overall feels subjectively unchanged compared to previous. However, patient does admit that his right upper extremity swelling is much improved compared to previous when this is pointed out. Discussed with physical therapy and patient did desaturate to 86% on 6 L with ambulation. - Physical Exam General: Alert, Oriented x3, Cooperative, No apparent distress, - - Appears older than stated age. Mild conversational dyspnea. HEENT: Atraumatic, PERRLA, EOMI, Normocephalic, - - Slight scleral injection Oral: Moist Mucosa, No Gingival or Mucosal Lesions/ Ulcerations Neck: Supple, No Nodes, Trachea Midline, JVD, Right Lungs: No rhonchi, No wheeze, Diminished, Rales, - - Symmetric expansion. No dullness to percussion. Cardiovascular: Regular rate, Regular Rhythm, Normal S1, Normal S2, No murmurs, No rub noted, No Gallop Abdomen: Bowel Sounds Present, Soft, Non Tender, Non-Distended Extremities: No clubbing, No cyanosis, Edema - Improved Skin: - - No change from previous Musculoskeletal: No Tenderness to Palpation of Joints or Extremities Lymphatic: No Cervical, Supraclavicular, or Inguinal Adenopathy Neurological: Cranial nerves II-XII grossly intact, Neuro grossly intact, Motor Exam 5/5 strength throughout Psych/Mental Status: Alert and oriented to time, place, person, mood and affect Vital Signs Temp Pulse Resp BP Pulse Ox 36.4 C L 84 20 H 106/84 H 96 09/06/18 08:39 09/06/18 08:39 09/06/18 08:39 09/06/18 08:39 09/06/18 08:39 Oxygen Flow Rate (L/min) 6 Oxygen Delivery Method Nasal Cannula Weight: 64.4 kg Body Mass Index (BMI) 23.4 Intake and Output for Last 24 Hours 09/04/18 09/05/18 09/06/18 23:59 23:59 23:59 Intake Total 1948.2 / 1948.2 1269.6 / 1269.6 245.8 / 245.8 Output Total 2425 / 2425 4000 / 4000 2425 / 2425 Balance -476.8 / -476.8 -2730.4 / -2730.4 -2179.2 / -2179.2 Laboratory Tests Past 24 Hrs 09/05/18 09/05/18 09/06/18 05:50 11:38 05:45 WBC 7.7 RBC 4.00 L Hgb 10.0 L Hct 33.4 L MCV 83.5 MCH 25.0 L MCHC 29.9 L RDW 18.6 H RDW Differential 56.5 H Plt Count 136 L MPV 10.5 Immature Gran % (Auto) 0.100 Neut % (Auto) 84.0 H Lymph % (Auto) 7.1 L [place] % (Auto) 8.7 Eos % (Auto) 0.1 Baso % (Auto) 0.0 Absolute Neuts (auto) 6.5 Absolute Lymphs (auto) 0.55 L Total Counted Not Reportable Differential Comment SCANNED Diff Path Review Reviewed Hypochromasia 2+ Target Cells 2+ Schistocytes 1+ Sodium Potassium Chloride Carbon Dioxide Anion Gap BUN Creatinine Estim Creat Clear Calc Est GFR (MDRD) Af Amer Est GFR (MDRD) Non-Af BUN/Creatinine Ratio Glucose Calcium Magnesium Urine Color Yellow Urine Clarity Clear Urine pH 6.0 Ur Specific [place] 1.010 Urine Protein Negative Urine Glucose (UA) Normal Urine Ketones Negative Urine Occult Blood 50 H Urine Nitrite Negative Urine Bilirubin Negative Urine Urobilinogen Normal Ur Leukocyte Esterase Negative Urine RBC 0-5 SEEN Urine WBC 0 SEEN Ur Squamous Epith Cells 0 SEEN Urine Bacteria 0 SEEN Urine Mucus 0 SEEN 09/06/18 09/06/18 05:45 05:45 WBC RBC Hgb Hct MCV MCH MCHC RDW RDW Differential Plt Count MPV Immature Gran % (Auto) Neut % (Auto) Lymph % (Auto) [place] % (Auto) Eos % (Auto) Baso % (Auto) Absolute Neuts (auto) Absolute Lymphs (auto) Total Counted Differential Comment Diff Path Review Hypochromasia Target Cells Schistocytes Sodium 136 Potassium 3.2 L Chloride 97 L Carbon Dioxide 32.0 Anion Gap 7 BUN 32 H Creatinine 0.84 Estim Creat Clear Calc 92.83 Est GFR (MDRD) Af Amer 124 Est GFR (MDRD) Non-Af 102 BUN/Creatinine Ratio 38.3 H Glucose 82 Calcium 7.9 L Magnesium 1.5 L Cancelled Urine Color Urine Clarity Urine pH Ur Specific [place] Urine Protein Urine Glucose (UA) Urine Ketones Urine Occult Blood Urine Nitrite Urine Bilirubin Urine Urobilinogen Ur Leukocyte Esterase Urine RBC Urine WBC Ur Squamous Epith Cells Urine Bacteria Urine Mucus Medical Necessity - Tobacco Use Smoking Status: Current every day smoker Assessment/Plan All Active Problems (Last Reviewed 07/25/18 @ 16:12 by Piyush Nick DO) GI bleed (Acute) Acute blood loss anemia (Acute) RECOMMENDATIONS: 1. Continue current supportive measures with Lasix drip and amiodarone, per cardiology recommendations. 2. Continue PPI therapy. 3. Continue current pain control regimen. 4. Utilize BiPAP as needed. 5. Wean supplemental oxygen to maintain saturations at or above 90%. 6. Continue bronchodilators. 7. Smoking cessation and outpatient pulmonary follow-up would be recommended. IMPRESSIONS: 1. Acute combined respiratory failure secondary to acute on chronic systolic congestive heart failure Patient has had some improvement compared to yesterday. Patient has remained on the Lasix drip and is responding well clinically. Patient's creatinine is improving indicating patient is fluid overloaded is off his [place] curve. Patient is still reporting some dyspnea on exertion and desaturates despite 6 L of nasal cannula oxygen. Patient likely has a significant component of cor pulmonale secondary to fluid overload. Patient likely also has concomitant pulmonary pathology such as COPD, but this is not been verified with pulmonary function testing. Would recommend continuing Lasix drip until saturations improved with ambulation. 2. Acute decompensated heart failure/supraventricular tachycardia/history of coronary artery disease Continue supportive measures per cardiology recommendations. Patient is currently in normal sinus rhythm. Cardiology is recommending continued amiodarone. I believe this is reasonable. 3. Abdominal pain Unclear etiology. Will check lipase level. Continue PPI therapy. CT abdomen/pelvis did reveal evidence of liver cirrhosis and ascites. 4. Questionable COPD/continuous tobacco dependency/alcohol dependency, now in remission/GERD/medical noncompliance Complicates care, management, recovery and prognosis. Nicotine replacement therapy can be offered to the patient, if needed. Poor baseline status and insight into disease process. Code Visit Inpatient E&M: 13199 Subs Hosp L2
--- NOTE | 2018-09-06 13:12 | CASEMGMT ---
[facility] is able to accept patient. They have started the process to obtain insurance authorization. Plan: [facility] pending pre-cert Leslie PIPER MSW
--- NOTE | 2018-09-06 14:56 | CASEMGMT ---
LAQUITA spoke with patient's mom. She was concerned as patient told her physician said he has to go to a fdc forever. SW told her that the physician spoke with him this am and he told her he wants to go home. She told him that he needs to go somewhere for rehab. SW assured patient's mom that right now the plan is [facility] short term for rehab. LAQUITA explained that we are waiting on insurance to approve him and for him to be medically ready. She thanked LAQUITA for the clarification. Leslie PIPER MSW
[2018-09-06] MEDS: 0.9% NaCl Peripheral Flush Adult/Peds IV (16:10)
[2018-09-07] VITALS (13 sets, daily range): BP systolic 99–118; BP diastolic 65–84; PULSE 70–92; RESP 19–22; TEMP 36.6–36.8; O2SAT 93–96
[2018-09-07] MEDS: oxyCODONE 5 MG Tablet PO ×6 (00:44→22:54)
[2018-09-07] MEDS: Furosemide 500 MG in Empty Viaflex 50 mL 1 EACH CONT INF (04:07)
[2018-09-07 05:18] LABS: Absolute Lymphocyte Count 0.48 X10^3/ul (0.83-4.51); Absolute Neutrophil Count 8.1 X10^3/uL (2.0-7.7); Eosinophil# 0.01 X10^3/uL; Eosinophils% 0.1 % (0-5); Hemoglobin 9.9 g/dl (13.0-16.5); Lymphocyte # 0.48 X10^3/ul (4.0); Lymphocyte % 5.2 % (19-41); Mean Corpuscular Volume 83.3 fL (80-94); Mean Platelet Vol. 10.2 fl (6.2-12.0); Monocyte# 0.57 X10^3/uL; Monocyte% 6.2 % (0-10); Neutrophil # 8.13 X10^3/uL (2.7-7.7); Neutrophil % 88.4 % (47-70); Platelet Count 128 K/mm3 (150-450); RBC Distribution Width CV 18.8 % (11.6-14.6); RBC Distribution Width SD 56.6 fl (35.1-43.9); Red Blood Count 3.96 M/mm3 (4.6-6.2); White Blood Count 9.2 K/mm3 (4.4-11.0)
[2018-09-07 05:19] LABS: Differential Indicated SCAN CRITERIA MET; POSITIVE COUNT NO; POSITIVE DIFFERENTIAL YES; POSITIVE MORPHOLOGY NO
[2018-09-07 05:33] LABS: Anion Gap 7 (5-15); BUN 23 mg/dL (7-18); BUN/Creat Ratio 33.9 RATIO (10-20); Calcium,Total 7.6 mg/dL (8.5-10.1); Chloride 95 mmol/L (98-107); Creatinine, Serum 0.68 mg/dL (0.70-1.30); EST Glomerular Filtration Rate 130 mL/min (>60); Est Glom Filt Rate - Afr Amer 158 mL/min (>60); Estimated Creatinine Clearance 114.67 ml/min; Glucose 122 mg/dL (74-106); Magnesium 1.6 mg/dL (1.6-2.6); Potassium 2.7 mmol/L (3.5-5.1); Sodium Level 138 mmol/L (136-145)
--- NOTE | 2018-09-07 06:11 | PCA ---
09/07/18 0610 Discussed weight change with Maddie JEAN-BAPTISTE
[2018-09-07 06:23] LABS: Differential Comment SCANNED; Hypochromasia 2+
[2018-09-07] MEDS: Sucralfate 1 GM Tablet PO ×3 (06:31→16:17)
[2018-09-07] MEDS: Potassium Chloride 10mEq/100mL 10 MEQ/100 ML IV.SOLN. 100 MEQ IV BOLUS ×2 (06:31→07:42)
[2018-09-07] MEDS: Magnesium Sulfate 4gm/100mL 4 GM/100 ML IV.SOLN. IV (06:31)
[2018-09-07] MEDS: 0.9% NaCl Peripheral Flush Adult/Peds IV ×3 (06:32→18:21)
--- NOTE | 2018-09-07 08:23 | PN.CARD_ITS ---
Subjectve: Patient seen and evaluated. Appears to be doing much better. Objective: Vital Signs Temp Pulse Resp BP Pulse Ox 98.1 F 76 19 H 116/69 95 09/07/18 04:03 09/07/18 07:04 09/07/18 04:03 09/07/18 05:03 09/07/18 04:03 Oxygen Flow Rate (L/min) 5 Oxygen Delivery Method Nasal Cannula Weight: 138 lb 3.677 oz Body Mass Index (BMI) 23.4 Intake and Output for Last 24 Hours 09/05/18 09/06/18 09/07/18 23:59 23:59 23:59 Intake Total 1269.6 / 1269.6 1773.1 / 1773.1 614 / 614 Output Total 4000 / 4000 5195 / 5195 850 / 850 Balance -2730.4 / -2730.4 -3421.9 / -3421.9 -236 / -236 General: Awake, Alert, Oriented x 3 HEENT: PERRL, EOMI, Sclera Non Icteric Neck: Supple, Good ROM, No Lymph Node Enlargement Lungs: Clear to auscultation Cardiovascular: Regular Rhythm, Normal S1, Normal S2, No Murmurs, No Rubs, No Gallops Vascular: No Carotid Bruits, Normal Femoral Pulses, Normal Radial Pulses, Normal Dorsalis Pedal Pulse, Normal Posterior Tibial Pulses Abdomen: Bowel Sounds Present, Soft, Non Tender, No HSM, No Organomegaly Genitalia: Scrotal Edema Extremities: No Cyanosis, No Clubbing, Trace LLE Edema Musculoskeletal: No Erythema Skin: No Rashes Lymphatic: No Lymph Node Enlargement Neurological: No Focal Motor or Sensory Deficit Psych/Mental Status: Appropriate 09/07/18 04:54: WBC 9.2, RBC 3.96 L, Hgb 9.9 L, Hct 33.0 L, MCV 83.3, MCH 25.0 L , MCHC 30.0 L, RDW 18.8 H, RDW Differential 56.6 H, Plt Count 128 L, MPV 10.2, Immature Gran % (Auto) 0.100, Neut % (Auto) 88.4 H, Lymph % (Auto) 5.2 L, [place] % (Auto) 6.2, Eos % (Auto) 0.1, Baso % (Auto) 0.0, Absolute Neuts (auto) 8.1 H, Total Counted Not Reportable 09/07/18 04:54: Sodium 138, Potassium 2.7 L*, Chloride 95 L, Carbon Dioxide 36.0 H, Anion Gap 7, BUN 23 H, Creatinine 0.68 L, Est GFR (MDRD) Af Amer 158, Est GFR (MDRD) Non-Af 130, BUN/Creatinine Ratio 33.9 H, Glucose 122 H, Calcium 7.6 L, Magnesium 1.6 Rhythm: EKG: ECHO: Stress Test: Cardiac Cath: PCI: CT Surgery: Holter monitor: EPS: PPM: CXR: Chest CT Scan: Medical Necessity - Tobacco Use Smoking Status: Current every day smoker Assessment/Plan 1. Supraventricular tachycardia * Patient presents with a supraventricular tachycardia. He was successfully cardioverted into sinus rhythm. At this time with his severe left ventricular systolic dysfunction it may not be unreasonable to start him on amiodarone orally. * He will continue with the same for now * 2. Congestive heart failure-acute on chronic systolic * He has had severe left ventricular systolic dysfunction and congestive heart failure dating back to December 2017. He has not been very compliant with his medications. * Strict dietary maneuvers have been emphasized * I would like to continue him on carvedilol 3.125 mg twice a day * Aggressive diuresis with oral Lasix. * Will continue LAVERN inhibitor as tolerated and I will consider Entresto as an outpatient * 3. Left ventricular systolic dysfunction * He has severe left ventricular systolic dysfunction out of proportion to the extent of the coronary artery disease. His diagnosis was in December 2017 and he was revascularized in May 2018. At this juncture I would say that he be strongly considered for primary defibrillator implantation. * This can be arranged as an outpatient after he has been appropriately tuned up. * 4. Coronary artery disease He does have coronary artery disease status post previous angioplasty and stenting. He has not been compliant with his Brilinta I would suggest that we put him on * Plavix in addition to his beta-roxana and LAVERN inhibitor * I do not think that his present symptomatology is related to coronary ischemia * * * Like to watch him another day before making any further decisions. I am not sure how well he can take care of himself at home. We may need to make alternative arrangements for him. * Thank you for allowing me to participate in the care of your patient. Please don't hesitate to call if any issues arise. After his discharge she will follow-up with Dr. Terell Nassar.
[2018-09-07] MEDS: Aspirin E.C. 81 MG Tablet PO (09:30)
[2018-09-07] MEDS: Polyethylene Glycol 3350 17 GM PACKET PO (09:30)
[2018-09-07] MEDS: Pantoprazole Sodium 40 MG Tablet PO (09:30)
[2018-09-07] MEDS: Enoxaparin 40 MG/0.4 ML Syringe SC (09:30)
[2018-09-07] MEDS: Docusate Sodium 100 MG Capsule PO ×2 (09:30→22:54)
[2018-09-07] MEDS: Carvedilol 3.125 MG TABLET PO ×2 (09:30→22:54)
[2018-09-07] MEDS: Clopidogrel Bisulfate 75 MG Tablet PO (09:30)
[2018-09-07] MEDS: Lisinopril 5 MG Tablet PO (09:30)
[2018-09-07] MEDS: Amiodarone 200 MG Tablet PO ×2 (09:31→22:54)
--- NOTE | 2018-09-07 11:22 | PN_ITS ---
Subjective: Patient did okay overnight. Patient reports subjective improvement in dyspnea on exertion. However, patient was found to have a significantly low potassium this morning and has been receiving potassium peripherally. Patient states this does burn. Patient denies any nausea from the p.o. potassium. - Physical Exam General: Alert, Oriented x3, Cooperative, No apparent distress, - - Appears older than stated age. No conversational dyspnea. HEENT: Atraumatic, PERRLA, EOMI, Normocephalic, - - No scleral icterus or injection noted. Oral: Moist Mucosa, No Gingival or Mucosal Lesions/ Ulcerations Neck: Supple, No JVD, No Nodes, Trachea Midline Lungs: No rhonchi, No wheeze, No rales, Diminished, - - Symmetric expansion. No dullness to percussion. Cardiovascular: Regular rate, Regular Rhythm, Normal S1, Normal S2, No murmurs, No rub noted, No Gallop Abdomen: Bowel Sounds Present, Soft, Non Tender, Non-Distended Extremities: No clubbing, No cyanosis, Edema - Improving Skin: - - No change from previous Musculoskeletal: No Tenderness to Palpation of Joints or Extremities Lymphatic: No Cervical, Supraclavicular, or Inguinal Adenopathy Neurological: Cranial nerves II-XII grossly intact, Neuro grossly intact, Motor Exam 5/5 strength throughout Psych/Mental Status: Anxious, Restless Vital Signs Temp Pulse Resp BP Pulse Ox 36.8 C 75 22 H 118/68 94 09/07/18 09:30 09/07/18 09:30 09/07/18 09:30 09/07/18 09:30 09/07/18 10:34 Oxygen Flow Rate (L/min) 2 Oxygen Delivery Method Nasal Cannula Weight: 62.7 kg Body Mass Index (BMI) 23.4 Intake and Output for Last 24 Hours 09/05/18 09/06/18 09/07/18 23:59 23:59 23:59 Intake Total 1269.6 / 1269.6 1773.1 / 1773.1 1654.7 / 1654.7 Output Total 4000 / 4000 5195 / 5195 2325 / 2325 Balance -2730.4 / -2730.4 -3421.9 / -3421.9 -670.3 / -670.3 Laboratory Tests Past 24 Hrs 09/07/18 09/07/18 04:54 04:54 WBC 9.2 RBC 3.96 L Hgb 9.9 L Hct 33.0 L MCV 83.3 MCH 25.0 L MCHC 30.0 L RDW 18.8 H RDW Differential 56.6 H Plt Count 128 L MPV 10.2 Immature Gran % (Auto) 0.100 Neut % (Auto) 88.4 H Lymph % (Auto) 5.2 L [place] % (Auto) 6.2 Eos % (Auto) 0.1 Baso % (Auto) 0.0 Absolute Neuts (auto) 8.1 H Absolute Lymphs (auto) 0.48 L Total Counted Not Reportable Differential Comment SCANNED Hypochromasia 2+ Sodium 138 Potassium 2.7 L* Chloride 95 L Carbon Dioxide 36.0 H Anion Gap 7 BUN 23 H Creatinine 0.68 L Estim Creat Clear Calc 114.67 Est GFR (MDRD) Af Amer 158 Est GFR (MDRD) Non-Af 130 BUN/Creatinine Ratio 33.9 H Glucose 122 H Calcium 7.6 L Magnesium 1.6 Medical Necessity - Tobacco Use Smoking Status: Current every day smoker Assessment/Plan All Active Problems (Last Reviewed 07/25/18 @ 16:12 by Piyush Nick DO) GI bleed (Acute) Acute blood loss anemia (Acute) RECOMMENDATIONS: 1. Continue current supportive measures with Lasix drip and amiodarone, per cardiology recommendations. 2. Continue PPI therapy. 3. Continue current pain control regimen. 4. Walking oximetry prior to discharge 5. Wean supplemental oxygen to maintain saturations at or above 90%. 6. Continue bronchodilators. 7. Smoking cessation and outpatient pulmonary follow-up would be recommended. IMPRESSIONS: 1. Acute combined respiratory failure secondary to acute on chronic systolic congestive heart failure Patient has had some improvement compared to yesterday. Patient has remained on the Lasix drip and is responding well clinically. Patient's creatinine is improving indicating patient is fluid overloaded is off his Starling curve. Hypokalemia has been addressed aggressively. Patient will stay on Lasix drip today, but may be transition to p.o. tomorrow. Patient would need to have a walking oximetry prior to discharge and show acceptable saturations with ambulation on 6 L nasal cannula before discharge can occur from a pulmonary perspective. This was discussed with the hospitalist. 2. Acute decompensated heart failure/supraventricular tachycardia/history of coronary artery disease Continue supportive measures per cardiology recommendations. Patient is currently in normal sinus rhythm. Cardiology is recommending continued amiodarone. I believe this is reasonable. 3. Abdominal pain Unclear etiology. Will check lipase level. Continue PPI therapy. CT abdomen/pelvis did reveal evidence of liver cirrhosis and ascites. 4. Questionable COPD/continuous tobacco dependency/alcohol dependency, now in remission/GERD/medical noncompliance Complicates care, management, recovery and prognosis. Nicotine repla cement therapy can be offered to the patient, if needed. Poor baseline status and insight into disease process. Code Visit Inpatient E&M: 47576 Subs Hosp L2
--- NOTE | 2018-09-07 15:19 | CASEMGMT ---
Updates were faxed to [facility]. Leslie PIPER GRUBBER
--- NOTE | 2018-09-07 15:47 | CASEMGMT ---
Per physician patient does not want to go to fpc now. LAQUITA spoke with patient, introduced self and role at [facility]. Patient said he is going home and not to a fpc. He said he just got off the phone with his mom and she is upset with him. SW asked him if he feels he is able to care for himself and go up and down steps to get to his living quarters. He said he will be fine once he gets moving. SW told him that tomorrow when therapy comes to see him he needs to get up and walk to show us he is able to do it. He said he wants to do cardiac rehab, but not stay in a fpc for rehab. SW will continue to follow and see how patient does with therapy tomorrow. Leslie CUENCA
--- NOTE | 2018-09-07 17:53 | RAD_ITS ---
HISTORY: Shortness of breath XR Chest 1 View TECHNIQUE: Single frontal view of chest. # of images incl. paperwork: 1 COMPARISON: 09/03/2018 FINDINGS: Severe emphysematous with large bilateral upper lobe bullous changes. Bilateral lower lobe parenchymal scarring. Upper limits of normal heart size. Moderate size right pleural effusion and small left pleural effusion. Right lower lobe and left basilar subsegmental atelectasis. Patchy interstitial and alveolar opacities bilateral lower lobes and right middle lobe may be chronic in nature versus superimposed pneumonitis. The lungs are clear. No pleural effusions or pneumothorax. No acute osseous abnormality of the thorax. RAD/Chest 1 View (Portable) IMPRESSION: 1. Severe emphysematous large bilateral upper lobe bullous changes, stable. 2. Moderate-sized right and small left pleural effusion. There is associated compressive subsegmental atelectasis. 3. Patchy interstitial and alveolar opacities bilateral lower lobes which may represent chronic interstitial changes plus or minus superimposed pneumonitis. 4. No significant interval change of cardiopulmonary status. at 0024 Reported and signed by: Landry Resendiz MD Electronically Signed: Landry Resendiz MD at 0:23 EDT Tel , Service support ,
--- NOTE | 2018-09-07 17:55 | PN_ITS ---
Subjective: Patient was seen and examined today, I discussed discharge plans with him and he denied ever consenting going to a correction. I talked with cardiology about his care, cardiology stated that it was okay to change him over to oral Lasix, patient's potassium was low this morning at 2.7. Patient is currently on 3 L/min via nasal cannula at rest, pulmonary medicine stated that they would like him to undergo a walking pulse oximetry before he is discharged home. I have ordered a chest x-ray on the patient today as he has not had a chest x-ray in several days. - Physical Exam General: Alert, Oriented x3, Cooperative, No apparent distress, Well developed HEENT: Atraumatic, PERRLA, EOMI, Normocephalic Oral: Moist Mucosa Neck: Supple, No JVD, Trachea Midline, Thyroid Normal Size and Texture Lungs: Normal air movement, No rhonchi, No wheeze, Diminished Cardiovascular: Regular rate, Regular Rhythm, Normal S1, Normal S2, No murmurs Abdomen: Bowel Sounds Present, Soft, Non Tender, Non-Distended, No hernias noted Extremities: No clubbing, No cyanosis, No edema, Capillary Refill Less than 3 Seconds Skin: No rashes, No breakdown Musculoskeletal: No Tenderness to Palpation of Joints or Extremities Neurological: Cranial nerves II-XII grossly intact, Neuro grossly intact, Sensory exam intact to light touch and pain, Coordination normal Psych/Mental Status: Normal Affect, Appropriate, Alert and oriented to time, place, person, mood and affect Vital Signs Temp Pulse Resp BP Pulse Ox 97.8 F 87 20 H 99/65 96 09/07/18 15:30 09/07/18 15:30 09/07/18 15:30 09/07/18 15:30 09/07/18 15:30 Oxygen Flow Rate (L/min) 3 Oxygen Delivery Method Nasal Cannula Weight: 62.7 kg Body Mass Index (BMI) 23.4 Intake and Output for Last 24 Hours 09/05/18 09/06/18 09/07/18 23:59 23:59 23:59 Intake Total 1269.6 / 1269.6 1773.1 / 1773.1 1911.2 / 1911.2 Output Total 4000 / 4000 5195 / 5195 2825 / 2825 Balance -2730.4 / -2730.4 -3421.9 / -3421.9 -913.8 / -913.8 Laboratory Tests Past 24 Hrs 09/07/18 09/07/18 04:54 04:54 WBC 9.2 RBC 3.96 L Hgb 9.9 L Hct 33.0 L MCV 83.3 MCH 25.0 L MCHC 30.0 L RDW 18.8 H RDW Differential 56.6 H Plt Count 128 L MPV 10.2 Immature Gran % (Auto) 0.100 Neut % (Auto) 88.4 H Lymph % (Auto) 5.2 L [place] % (Auto) 6.2 Eos % (Auto) 0.1 Baso % (Auto) 0.0 Absolute Neuts (auto) 8.1 H Absolute Lymphs (auto) 0.48 L Total Counted Not Reportable Differential Comment SCANNED Hypochromasia 2+ Sodium 138 Potassium 2.7 L* Chloride 95 L Carbon Dioxide 36.0 H Anion Gap 7 BUN 23 H Creatinine 0.68 L Estim Creat Clear Calc 114.67 Est GFR (MDRD) Af Amer 158 Est GFR (MDRD) Non-Af 130 BUN/Creatinine Ratio 33.9 H Glucose 122 H Calcium 7.6 L Magnesium 1.6 Medical Necessity - Tobacco Use Smoking Status: Current every day smoker Assessment/Plan All Active Problems (Last Reviewed 07/25/18 @ 16:12 by Piyush Nick DO) GI bleed (Resolved) Acute blood loss anemia (Resolved) #1 SVT-resolved, secondary to noncompliance and congestive heart failure, continue present medications, Lasix was converted to oral. Cardiology is participating in his care #2 acute on chronic systolic congestive heart failure-again patient will remain on diuretic #3 hypokalemia-patient was given potassium supplementation-BMP will be rechecked #4 nonischemic cardiomyopathy-severe #5 noncompliance with medical regimen #6 coronary artery disease #7 generalized debility-patient initially had agreed to go to an extended care facility for rehab services, today he denies this, I will talk with him tomorrow about this, continue PT and OT #8 acute combined respiratory failure secondary to acute on chronic systolic congestive heart failure-pulmonary medicine is seeing patient, continue to wean oxygen if possible, patient will need a walking pulse oximetry prior to discharge #9 chronic obstructive pulmonary disease I have decided to take the patient off Carafate, I do not think this adds anything to his present medical care, he will remain on Protonix Code Visit Inpatient E&M: 24538 Subs Hosp L2
[2018-09-07] MEDS: Furosemide 40 MG Tablet PO (18:20)
[2018-09-08] VITALS (7 sets, daily range): BP systolic 98–118; BP diastolic 76–80; PULSE 71–79; RESP 19–25; TEMP 36.7–36.9; O2SAT 82–98
[2018-09-08] MEDS: oxyCODONE 5 MG Tablet PO ×3 (02:52→11:23)
--- NOTE | 2018-09-08 03:50 | CPS ---
pt refuses to wear bipap
[2018-09-08 05:50] LABS: Anion Gap 5 (5-15); BUN 22 mg/dL (7-18); BUN/Creat Ratio 31.3 RATIO (10-20); Calcium,Total 7.9 mg/dL (8.5-10.1); Chloride 95 mmol/L (98-107); EST Glomerular Filtration Rate 125 mL/min (>60); Est Glom Filt Rate - Afr Amer 151 mL/min (>60); Estimated Creatinine Clearance 109.48 ml/min; Glucose 117 mg/dL (74-106); Potassium 3.6 mmol/L (3.5-5.1); Sodium Level 139 mmol/L (136-145)
[2018-09-08] MEDS: Docusate Sodium 100 MG Capsule PO (09:19)
[2018-09-08] MEDS: Carvedilol 3.125 MG TABLET PO (09:19)
[2018-09-08] MEDS: Aspirin E.C. 81 MG Tablet PO (09:19)
[2018-09-08] MEDS: Amiodarone 200 MG Tablet PO (09:19)
[2018-09-08] MEDS: Enoxaparin 40 MG/0.4 ML Syringe SC (09:20)
[2018-09-08] MEDS: Pantoprazole Sodium 40 MG Tablet PO (09:20)
[2018-09-08] MEDS: Clopidogrel Bisulfate 75 MG Tablet PO (09:20)
[2018-09-08] MEDS: Polyethylene Glycol 3350 17 GM PACKET PO (09:38)
--- NOTE | 2018-09-08 10:22 | CASEMGMT ---
Addendum entered by Hayley Duarte 09/08/18 11:11: SW spoke w/OT, pt is okay to go home. SW spoke w/pt, he is still in agreement w/going home. Pt needs walker, as per OT, pt agreeable to this. Pt will also need increased O2 at home and a tank to go home. SW explained we will work on this, and pt to work on finding a ride. Pt just got off the phone with his mother and she is aware pt will be going home. SW let CM know pt can now go home, will need walker, increased O2, and home health at discharge. SW called [facility], spoke w/Frank, let her know pt is going home now. RAE Cox Original Note: SW spoke w/Alicia at [facility], precert is still pending. SW spoke w/pt in room in regard to discharge plan. Pt states he plans to go home, does not want to go to [facility]. He states that he can manage at home, states his mother is aware and is fine with him going home. Initially pt spoke about going to cardiac rehab. SW explained that starting w/home health may make more sense, pt is agreeable to home health. SW explained it may be good to see how pt does with PT/OT today, but can start looking at home health for pt. Pt agreeable to this. Pt states should have a ride home today, explained that someone will need to bring in an O2 tank and if that cannot happen we may be able to get him a tank to go home. Pt states understanding. SW will follow up w/pt once more after PT/OT to make sure that home is the plan. RAE Cox
--- NOTE | 2018-09-08 11:46 | CASEMGMT ---
Addendum entered by Tootie López 09/08/18 14:07: Pt also would like wheeled walker at discharge, script signed and faxed to [facility]. Call to Analy at [facility] and she is aware of walker and states all oxygen info received. Analy states that they will get equipment and bring it over. Zeke JEAN-BAPTISTE CM Original Note: Per Analy at [facility], pt's order for home oxygen is 2 liters continuous currently. Pt is currently on 4 liters at this time at rest and requires 6 liters with ambulation. New order/referral to be sent to [facility] for increased oxygen need and they are aware that pt will need a tank when discharged today, voice understanding. Pt was also set up with HHC by William COELHO previously and pt is declining SNF at this time. Zeke JEAN-BAPTISTE CM
--- NOTE | 2018-09-08 11:55 | DCINST_ITS ---
You will use the following diet at home:: No restrictions Your food should be the consistency of: Regular Your liquids should be the consistency of: Regular/Thin Discharge Activity: Return to Normal Activity Weight Bearing Status: Full weight bearing Allergies/Adverse Reactions: Allergies ibuprofen Adverse Reaction (Verified 07/25/18 09:27) Nausea naproxen [From Naprosyn] Adverse Reaction (Verified 07/25/18 09:27) Nausea naproxen sodium [From Aleve] Adverse Reaction (Verified 07/25/18 09:27) Nausea tramadol Adverse Reaction (Verified 07/25/18 09:27) Nausea Medications to take at Discharge Aspirin E.C. [Ecotrin] 81 mg PO DAILY@0800 07/25/18 Nitroglycerin (INPATIENT USE) [Nitrostat] 0.4 mg PO PRN PRN 07/25/18 Pantoprazole Sodium [Protonix] 40 mg PO BID 09/03/18 Amiodarone HCl [Cordarone] 200 mg PO BID #60 tablet 09/08/18 Carvedilol [Coreg (Beta Ngoc)] 3.125 mg PO BID #60 tablet 09/08/18 Clopidogrel Bisulfate [Plavix] 75 mg PO DAILY #60 tablet 09/08/18 Furosemide [Lasix] 40 mg PO BID@1000,1800 #60 tablet 09/08/18 Lisinopril [Zestril] 5 mg PO DAILY #30 tablet 09/08/18 Potassium Chloride [K-Dur] 20 meq PO BIDCM #60 tablet 09/08/18 The following prescriptions were given: Clopidogrel Bisulfate [Plavix] 75 mg PO DAILY #60 tablet Furosemide [Lasix] 40 mg PO BID@1000,1800 #60 tablet Lisinopril [Zestril] 5 mg PO DAILY #30 tablet Amiodarone HCl [Cordarone] 200 mg PO BID #60 tablet Carvedilol [Coreg (Beta Ngoc)] 3.125 mg PO BID #60 tablet Potassium Chloride [K-Dur] 20 meq PO BIDCM #60 tablet Primary Care Physician: Cesar Arcos DO [Primary Care Provider] - Please follow up with your Primary Care Physician in: in two weeks Test Results: Test results from this visit will be discussed in further detail at your follow- up appointment, if applicable. Please Follow Up With: Vernon Nassar MD When: in 3 weeks
--- NOTE | 2018-09-08 12:04 | NURSING ---
PATIENT AMBULATED ON ROOM AIR AND PULSE OX DROPPED TO 82%. O2 APPLIED AT 2L NC AND PATIENT PULSE OX 85%. OXYGEN TITRATED UP TO 4L AND PATIENT PULSE OX 88%. OXYGEN THEN TITRATED TO 6L NC AND PULSE OX 90%-91%.
--- NOTE | 2018-09-08 12:20 | CASEMGMT ---
Addendum entered by Hayley Duarte 09/08/18 12:50: [facility]. SW gave pt the number for [facility]. No further needs in regard to home health care. RAE Cox Original Note: SW made referral to [facility] for [facility], waiting for call back to see if they can take pt. RAE Cox
--- NOTE | 2018-09-08 15:09 | CASEMGMT ---
Mery pt's home health care social worker from [facility] called in regard to discharge plan as pt was approved for SNF. LAQUITA explained that pt is going home w/home health, walker, and increased O2. Pt was just assigned to Mery and she will follow up w/pt once he is home. RAE Cox
--- NOTE | 2018-09-09 13:49 | CASEMGMT ---
RN CM DC PHONE CALL DC DATE: 09/09/18 DC Disposition: Home LACE/STRATA: 16/4 Intro role of CM to patient via phone. Pt states he does not have questions re: prescriptions, f/u or instructions. No care improvement suggestions given. Radha MOTAN RN ACM
--- NOTE | 2018-09-10 14:16 | CASEMGMT ---
SW received call from Juju at [facility]. She was inquiring if pt was discharged as they cannot reach pt. SW let her know he was indeed discharged on 09/08/18. RAE Cox
--- NOTE | 2018-09-10 15:45 | PCM.DC.SUM ---
Discharge Date and Diagnosis Date of Admission: 09/03/18 Date of Discharge: 09/08/18 - Primary Discharge Diagnosis #1 SVT-resolved, secondary to noncompliance and congestive heart failure #2 acute on chronic systolic congestive heart failure #3 hypokalemia #4 nonischemic cardiomyopathy-severe #5 noncompliance with medical regimen #6 coronary artery disease #7 generalized debilityT #8 acute combined respiratory failure secondary to acute on chronic systolic congestive heart failure #9 chronic obstructive pulmonary disease - Secondary Discharge Diagnosis Chronic Problems (Last Reviewed 07/25/18 @ 16:12 by Piyush Nick DO) Stented coronary artery (Chronic 06/15/18) Successful PTCA/CARLOZ of mid RCA with a 3.5 x 38 Promus Synergy 06/15/2018 per [facility] Abnormal EKG (Chronic) Hyperlipidemia (Chronic) Lower leg edema (Chronic) Bilateral pleural effusion (Chronic 01/13/18) Per chest CT 01/13/2018 Alcohol abuse, in remission (Chronic) Patient stopped in 2013 Hypertension (Chronic) GERD (gastroesophageal reflux disease) (Chronic) Premature ventricular contractions (Chronic) Left ventricular hypertrophy (Chronic) Tobacco abuse (Chronic) Hx of supraventricular tachycardia (Chronic) History of left heart catheterization (Chronic 01/24/18) 09/09/2011 @ [facility] per Dr. Garces; 01/24/18 @ [facility] per Dr. Nassar Atherosclerotic heart disease of [place] coronary artery without angina pectoris (Chronic) per [facility] 01/24/18: 50% stenosis mid RCA, all other coronaries normal. 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 COPD (chronic obstructive pulmonary disease) (Chronic) Valvular heart disease (Chronic) Hospital Course and Treatment Operations: None Procedures: 2-D Echocardiogram Summary of Care Provided: The patient is a 53 year old M who was seen in the emergency room at [facility] with a chief complaint of shortness of breath and abdominal discomfort. Patient had been noncompliant with taking medications at home for cardiac issues. Evaluation in the emergency room included an EKG which showed the patient to be in SVT at a rate of 192 bpm, CBC was unremarkable, Taran studies were unremarkable. LFTs were significant for an AST of 41, troponin was 0.057. Arterial blood gas revealed a pH of 7.28, PCO2 of 246, PCO2 of 46.7 on a BiPAP 14/8 on 75% O2. Chest x-ray showed evidence of chronic obstructive lung disease with bilateral bleb formation. Patient was given adenosine 6 mg, 12 mg, and then 12 mg again without change in his rhythm, cardiology was contacted and recommended a cardioversion on the patient, he was given 5 mg of etomidate and cardioverted with 100 J with no change in the rhythm. He was then given another cardioversion with 200 J at which time he converted to sinus rhythm with frequent PACs and PACs. He also began having frequent short runs of V. tach and was given 150 mg of amiodarone IV. Patient was admitted to the ICU and seen in consultation by cardiology and pulmonary medicine. Echocardiogram was obtained which showed an EF of 15%. CTA was performed to rule out PE, bilateral pleural effusions were noted to be present large on the right side, otherwise bullous emphysematous changes with scarring of the lower lungs were noted bilaterally. Patient underwent diuresis with IV Lasix, lactic acid was elevated but this was felt due to increased perfusion from severe heart failure. Patient improved slowly in the ICU and was transferred out to PCU and seen by PT and OT, initially patient agreed to go to an extended care facility for rehab services but then recanted. On 09/08/2018, patient was seen and examined: On examination he appeared in good health and spirits. Vital signs as documented. Skin warm and dry and without overt rashes. Neck without JVD. Lungs-inspiratory rales at the bases bilaterally, decreased lung sounds were noted. Heart exam notable for regular rhythm, normal sounds and absence of murmurs, rubs or gallops. Abdomen unremarkable and without evidence of organomegaly, masses, or abdominal aortic enlargement. Extremities nonedematous. Neuro: Cranial nerves II through XII are grossly intact, no focal motor deficits were noted, sensation to light touch and pinprick intact. Psych: Patient is alert and oriented x3, he does not appear anxious or depressed Patient's oxygen saturation on 09/08/2018 on ambulating was 82% on room air, ambulating with 4 L his oxygen saturation was 88%. At rest on 4 L his saturation 94%. Finally, oxygen was titrated up to 6 L on ambulation to maintain his pulse ox at 90 to 91%. Patient was expected to use his oxygen as instructed at rest and when ambulating. On 09/08/2018, patient was seen and examined felt to be in stable condition for discharge home - Physical Exam Vital Signs Temp Pulse Resp BP Pulse Ox 98.1 F 72 25 H 100/80 94 09/08/18 15:29 09/08/18 15:29 09/08/18 15:29 09/08/18 15:29 09/08/18 15:29 Oxygen Flow Rate (L/min) [ 4 AMBULATION with Oxygen] Oxygen Flow Rate (L/min) 4 Oxygen Delivery Method Nasal Cannula Weight: 63.2 kg Body Mass Index (BMI) 23.4 Intake and Output for Last 24 Hours 09/08/18 09/09/18 09/10/18 23:59 23:59 23:59 Intake Total 900 / 900 Output Total 220 / 220 Balance 680 / 680 Discharge Activity: Return to Normal Activity Weight Bearing Status: Full weight bearing Home Medications: Medications to take at Discharge Aspirin E.C. [Ecotrin] 81 mg PO DAILY@0800 07/25/18 Nitroglycerin (INPATIENT USE) [Nitrostat] 0.4 mg PO PRN PRN 07/25/18 Pantoprazole Sodium [Protonix] 40 mg PO BID 09/03/18 Amiodarone HCl [Cordarone] 200 mg PO BID #60 tablet 09/08/18 Carvedilol [Coreg (Beta Ngoc)] 3.125 mg PO BID #60 tablet 09/08/18 Clopidogrel Bisulfate [Plavix] 75 mg PO DAILY #60 tablet 09/08/18 Furosemide [Lasix] 40 mg PO BID@1000,1800 #60 tablet 09/08/18 Lisinopril [Zestril] 5 mg PO DAILY #30 tablet 09/08/18 Potassium Chloride [K-Dur] 20 meq PO BIDCM #60 tablet 09/08/18 Following Prescrptions Were Given to Patient: Clopidogrel Bisulfate [Plavix] 75 mg PO DAILY #60 tablet Furosemide [Lasix] 40 mg PO BID@1000,1800 #60 tablet Lisinopril [Zestril] 5 mg PO DAILY #30 tablet Amiodarone HCl [Cordarone] 200 mg PO BID #60 tablet Carvedilol [Coreg (Beta Ngoc)] 3.125 mg PO BID #60 tablet Potassium Chloride [K-Dur] 20 meq PO BIDCM #60 tablet Primary Care Physician: Cesar Arcos DO [Primary Care Provider] - Please follow up with your Primary Care Physician in: in two weeks Please Follow Up With: Vernon Nassar MD When: in 3 weeks Please Follow Up With: Cesar Arcos DO Disposition: Home with Home Health Minutes spent on discharge:: 32 Patient Condition:: Stable Medical Necessity - Tobacco Use Smoking Status: Current every day smoker Meaningful Use Info Meaningful Use Diagnoses (Choose all that apply): CHF - CHF LAVERN/ARB ordered at discharge?: Yes Documented LVEF (%): 15 Code Visit Inpatient E&M: 48205 Disch Hosp
--- NOTE | 2018-09-10 15:56 | DS.PCM_ITS ---
Discharge Date and Diagnosis Date of Admission: 09/03/18 Date of Discharge: 09/08/18 - Primary Discharge Diagnosis #1 SVT-resolved, secondary to noncompliance and congestive heart failure #2 acute on chronic systolic congestive heart failure #3 hypokalemia #4 nonischemic cardiomyopathy-severe #5 noncompliance with medical regimen #6 coronary artery disease #7 generalized debilityT #8 acute combined respiratory failure secondary to acute on chronic systolic congestive heart failure #9 chronic obstructive pulmonary disease - Secondary Discharge Diagnosis Chronic Problems (Last Reviewed 07/25/18 @ 16:12 by Piyush Nick DO) Stented coronary artery (Chronic 06/15/18) Successful PTCA/CARLOZ of mid RCA with a 3.5 x 38 Promus Synergy 06/15/2018 per [facility] Abnormal EKG (Chronic) Hyperlipidemia (Chronic) Lower leg edema (Chronic) Bilateral pleural effusion (Chronic 01/13/18) Per chest CT 01/13/2018 Alcohol abuse, in remission (Chronic) Patient stopped in 2013 Hypertension (Chronic) GERD (gastroesophageal reflux disease) (Chronic) Premature ventricular contractions (Chronic) Left ventricular hypertrophy (Chronic) Tobacco abuse (Chronic) Hx of supraventricular tachycardia (Chronic) History of left heart catheterization (Chronic 01/24/18) 09/09/2011 @ [facility] per Dr. Garces; 01/24/18 @ [facility] per Dr. Nassar Atherosclerotic heart disease of [place] coronary artery without angina pectoris (Chronic) per [facility] 01/24/18: 50% stenosis mid RCA, all other coronaries normal. Pulmonary hypertension Successful PTCA/CARLOZ of mid RCA with a 3.5 x 38 Promus Synergy 06/15/2018 per [facility] NSTEMI (non-ST elevated myocardial infarction) (Chronic 01/24/18) Cardiomyopathy (Chronic) EF 10% per echo December 2017:possibly alcoholic CMP, not likely ischemic. COPD (chronic obstructive pulmonary disease) (Chronic) Valvular heart disease (Chronic) Hospital Course and Treatment Operations: None Procedures: 2-D Echocardiogram Summary of Care Provided: The patient is a 53 year old M who was seen in the emergency room at [facility] with a chief complaint of shortness of breath and abdominal discomfort. Patient had been noncompliant with taking medications at home for cardiac issues. Evaluation in the emergency room included an EKG which showed the patient to be in SVT at a rate of 192 bpm, CBC was unremarkable, Taran studies were unremarkable. LFTs were significant for an AST of 41, troponin was 0.057. Arterial blood gas revealed a pH of 7.28, PCO2 of 246, PCO2 of 46.7 on a BiPAP 14/8 on 75% O2. Chest x-ray showed evidence of chronic obstructive lung disease with bilateral bleb formation. Patient was given adenosine 6 mg, 12 mg, and then 12 mg again without change in his rhythm, cardiology was contacted and recommended a cardioversion on the patient, he was given 5 mg of etomidate and cardioverted with 100 J with no change in the rhythm. He was then given another cardioversion with 200 J at which time he converted to sinus rhythm with frequent PACs and PACs. He also began having frequent short runs of V. tach and was given 150 mg of amiodarone IV. Patient was admitted to the ICU and seen in consultation by cardiology and pulmonary medicine. Echocardiogram was obtained which showed an EF of 15%. CTA was performed to rule out PE, bilateral pleural effusions were noted to be present large on the right side, otherwise bullous emphysematous changes with scarring of the lower lungs were noted bilaterally. Patient underwent diuresis with IV Lasix, lactic acid was elevated but this was felt due to increased perfusion from severe heart failure. Patient improved slowly in the ICU and was transferred out to PCU and seen by PT and OT, initially patient agreed to go to an extended care facility for rehab services but then recanted. On 09/08/2018, patient was seen and examined: On examination he appeared in good health and spirits. Vital signs as documented. Skin warm and dry and without overt rashes. Neck without JVD. Lungs-inspiratory rales at the bases bilaterally, decreased lung sounds were noted. Heart exam notable for regular rhythm, normal sounds and absence of murmurs, rubs or gallops. Abdomen unremarkable and without evidence of organomegaly, masses, or abdominal aortic enlargement. Extremities nonedematous. Neuro: Cranial nerves II through XII are grossly intact, no focal motor deficits were noted, sensation to light touch and pinprick intact. Psych: Patient is alert and oriented x3, he does not appear anxious or depressed Patient's oxygen saturation on 09/08/2018 on ambulating was 82% on room air, ambulating with 4 L his oxygen saturation was 88%. At rest on 4 L his saturation 94%. Finally, oxygen was titrated up to 6 L on ambulation to maintain his pulse ox at 90 to 91%. Patient was expected to use his oxygen as instructed at rest and when ambulating. On 09/08/2018, patient was seen and examined felt to be in stable condition for discharge home - Physical Exam Vital Signs Temp Pulse Resp BP Pulse Ox 98.1 F 72 25 H 100/80 94 09/08/18 15:29 09/08/18 15:29 09/08/18 15:29 09/08/18 15:29 09/08/18 15:29 Oxygen Flow Rate (L/min) [ 4 AMBULATION with Oxygen] Oxygen Flow Rate (L/min) 4 Oxygen Delivery Method Nasal Cannula Weight: 63.2 kg Body Mass Index (BMI) 23.4 Intake and Output for Last 24 Hours 09/08/18 09/09/18 09/10/18 23:59 23:59 23:59 Intake Total 900 / 900 Output Total 220 / 220 Balance 680 / 680 Discharge Activity: Return to Normal Activity Weight Bearing Status: Full weight bearing Home Medications: Medications to take at Discharge Aspirin E.C. [Ecotrin] 81 mg PO DAILY@0800 07/25/18 Nitroglycerin (INPATIENT USE) [Nitrostat] 0.4 mg PO PRN PRN 07/25/18 Pantoprazole Sodium [Protonix] 40 mg PO BID 09/03/18 Amiodarone HCl [Cordarone] 200 mg PO BID #60 tablet 09/08/18 Carvedilol [Coreg (Beta Ngoc)] 3.125 mg PO BID #60 tablet 09/08/18 Clopidogrel Bisulfate [Plavix] 75 mg PO DAILY #60 tablet 09/08/18 Furosemide [Lasix] 40 mg PO BID@1000,1800 #60 tablet 09/08/18 Lisinopril [Zestril] 5 mg PO DAILY #30 tablet 09/08/18 Potassium Chloride [K-Dur] 20 meq PO BIDCM #60 tablet 09/08/18 Following Prescrptions Were Given to Patient: Clopidogrel Bisulfate [Plavix] 75 mg PO DAILY #60 tablet Furosemide [Lasix] 40 mg PO BID@1000,1800 #60 tablet Lisinopril [Zestril] 5 mg PO DAILY #30 tablet Amiodarone HCl [Cordarone] 200 mg PO BID #60 tablet Carvedilol [Coreg (Beta Ngoc)] 3.125 mg PO BID #60 tablet Potassium Chloride [K-Dur] 20 meq PO BIDCM #60 tablet Primary Care Physician: Cesar Arcos DO [Primary Care Provider] - Please follow up with your Primary Care Physician in: in two weeks Please Follow Up With: Venron Nassar MD When: in 3 weeks Please Follow Up With: Cesar Arcos DO Disposition: Home with Home Health Minutes spent on discharge:: 32 Patient Condition:: Stable Medical Necessity - Tobacco Use Smoking Status: Current every day smoker Meaningful Use Info Meaningful Use Diagnoses (Choose all that apply): CHF - CHF LAVERN/ARB ordered at discharge?: Yes Documented LVEF (%): 15 Code Visit Inpatient E&M: 68604 Disch Hosp
== END 2018-09-08 17:08 | disposition home or self-care (01) | DRG 194 ==
LOC: ED 08:02 → ICU 09:27 → PCU 09-04 17:34
PROVIDERS: Internal Medicine Critical Care Medicine; Admitting Provider Student in an Organized Health Care Education/Training Program; Emergency Provider Emergency Medicine; Family Provider Student in an Organized Health Care Education/Training Program; PCP Student in an Organized Health Care Education/Training Program; Visit Provider Internal Medicine
DX: I11.0 Hypertensive heart disease with heart failure (principal); I47.1 Supraventricular tachycardia; I47.2 Ventricular tachycardia; I50.23 Acute on chronic systolic (congestive) heart failure; E87.2 Acidosis; J96.01 Acute respiratory failure with hypoxia; I25.10 Atherosclerotic heart disease of native coronary artery without angina pectoris; F17.200 Nicotine dependence, unspecified, uncomplicated; F10.11 Alcohol abuse, in remission; E83.42 Hypomagnesemia; E87.6 Hypokalemia; Z79.82 Long term (current) use of aspirin; Z95.5 Presence of coronary angioplasty implant and graft; I42.9 Cardiomyopathy, unspecified; Z91.19 Patient's noncompliance with other medical treatment and regimen
CPT/HCPCS: 36415; 36591; 36600; 71045; 71275; 74177; 80048; 80076; 80307; 80320; 81001; 82803; 83605; 83690; 83735; 83880; 84484; 85025; 93005; 93306; 94002; 94003; 94640; 97110; 97162; 97166; 97530; 97802; 99285; 99406; J7030; Q9967; A4216; G0480; J0153; J1940

== ENCOUNTER 2018-09-15 13:17 | Inpatient (IN) | payer MEDICAID, SELFPAY ==
[2018-09-03 10:26] VITALS: BMI 23.4
[2018-09-15] VITALS (15 sets, daily range): BP systolic 86–108; BP diastolic 45–84; PULSE 57–81; RESP 22–42; TEMP 36.5–37.1; O2SAT 91–100; BMI 24.0; BMI 24.1; BMI 23.3
--- NOTE | 2018-09-15 13:41 | RAD_ITS ---
HISTORY: Shortness of breath XR Chest 1 View TECHNIQUE: Single frontal view of chest. # of images incl. paperwork: 1 COMPARISON: 09/07/2018 FINDINGS: No change moderate size right and small left pleural effusion. Right lower lobe and left basilar subsegmental atelectasis. Patchy interstitial and alveolar opacities bilateral lower lobes and right middle lobe which may be chronic in nature versus superimposed pneumonitis. Severe emphysematous changes with large bilateral upper lobe bullous changes. Bilateral lower lobe parenchymal scarring. Upper limits of normal heart size. No pneumothorax. No acute osseous abnormality of the thorax. RAD/Chest 1 View (Portable) IMPRESSION: 1. Moderate size right and small left pleural effusion. Associated compressive subsegmental atelectasis. 2. Patchy interstitial and alveolar opacities bilateral lower lobes which may represent chronic interstitial changes plus or minus superimposed pneumonitis. 3. Severe emphysematous changes with large bilateral upper lobe bullous changes. 4. No significant interval change of cardiopulmonary status. at 1451 Reported and signed by: aLndry Resendiz MD Electronically Signed: Landry Resendiz MD at 14:49 EDT Tel , Service support ,
[2018-09-15] MEDS: Ipratropium/Albuterol Sulfate 3 ML AMPUL.NEB INHALATION (13:47)
--- NOTE | 2018-09-15 13:53 | ED.VIS.GEN ---
History of Present Illness Chief Complaint: Shortness of Breath Informant: Patient Onset: Weeks Current Severity: Moderate Narrative: The patient is here with shortness of breath leg edema. He has a history of CHF COPD other medical problems please see the report, he basically was in the hospital for all of the above and other conditions, he apparently refused admission to a nursing center for rehab then he went home where he could manage to live on his own because of his chronic medical conditions and yesterday he was taken to a local group home rehab facility this morning that facility called and said he was more short of breath they could not manage him and he was sent to the hospital. The patient reports his urine output has been diminished despite taking his Lasix he feels that he has some urinary retention he indicates he is feeling better on the oxygen he denies chest pain complains of chronic whole body weakness worsening lower extremity edema denies any recent trauma or falls Past Medical History - Allergies and Home Meds Allergies/Adverse Reactions: Allergies ibuprofen Adverse Reaction (Verified 09/15/18 13:24) Nausea naproxen [From Naprosyn] Adverse Reaction (Verified 09/15/18 13:24) Nausea naproxen sodium [From Aleve] Adverse Reaction (Verified 09/15/18 13:24) Nausea tramadol Adverse Reaction (Verified 09/15/18 13:24) Nausea Primary Care Physician: Cesar Arcos DO [Primary Care Provider] - Past Medical History: - - See above in the full note Surgical History: - Smoking Status: Former smoker - Family History Maternal Family History: Family History (Last Reviewed 07/25/18 @ 16:12 by Piyush Nick DO) Other COPD (chronic obstructive pulmonary disease) Heart disease Hypertension Family History: Reports: Cancer, Heart Disease, Hypertension Paternal Family History: Family History (Last Reviewed 07/25/18 @ 16:12 by Piyush Nick DO) Other COPD (chronic obstructive pulmonary disease) Heart disease Hypertension Family History: Reports: COPD Review of Systems General: Denies: Chills, Fever, Sweats Eyes: Denies: Visual changes - bilaterally, Diplopia ENT: Denies: Rhinorrhea, Sore throat Cardiovascular: Denies: Chest pain, Palpitations Respiratory: Reports: Dyspnea, Cough, Dyspnea on exertion Gastrointestinal: Denies: Abdominal pain, Nausea, Vomiting, Diarrhea, Melena, Hematochezia Genitourinary: Denies: Dysuria, Hematuria, Frequency Musculoskeletal: Denies: Back pain, Extremity Pain Skin: Denies: Rash, Wounds Neurological: Denies: Headache, Weakness, Numbness Physical Exam Vital Signs/Narrative: Vital Signs Temp Pulse Resp BP Pulse Ox 09/15/18 13:18 98.6 F 81 32 H 104/67 100 General: Well nourished, Well developed, No Acute Distress Head: Normocephalic, Atraumatic Eyes: Perrl, EOMI ENT: Moist mucous membranes, No rhinorrhea Neck: Supple, Nontender Cardiovascular: Regular rate, Regular rhythm, No murmurs Respiratory: No distress, Chest nontender, Rales, Rhonchi, Wheezing, Decreased Air Movement Abdomen: Soft, Nontender, Nondistended, Normal bowel sounds Back: Nontender, Normal Inspection Extremities: Nontender, Edema Skin: Normal color, No rash Neurological: Alert, Oriented x3, Cranial nerves II-XII grossly intact, Normal Strength, Normal Sensation Psychological: Normal affect, Normal Mood Diagnostic/Tx/Re-eval - Medical Decision Making This time clinically he has elevated neck veins he has some rales and rhonchi and wheezing diffusely he speaking full sentences he is on excision therapy aerosol he indicates he would like a Perez as he feels as if he is in urinary retention his suprapubic area is slightly distended but nontender he has 3-4+ lower extremity edema given all the above he will go comprehensive evaluation and treatment The patient's BNP is elevated the chest x-ray shows pleural effusions, please see the other Lab Abnormalities We Did Place, Perez catheter productive about 100 cc the urine he is received Lasix he is on the aerosol mask pulse ox is 96% speaking full sentences no signs of a story failure, at this point time spoke the hospitalist will arrange for admission for further management Admit stable Final impression congestive heart failure with respiratory distress ED Disposition - Plan for ED Patient: Referrals: Cesar Arcos DO [Primary Care Provider] -
[2018-09-15 14:00] LABS: Absolute Neutrophil Count 10.8 X10^3/uL (2.0-7.7); Hematocrit 31.4 % (40-54); Hemoglobin 9.4 g/dl (13.0-16.5); Lymphocyte % 4.2 % (19-41); Mean Corp Hgb Conc 29.9 g/gl (32-36); Mean Corpuscular Hgb 24.7 pg (27.0-32.0); Mean Corpuscular Volume 82.4 fL (80-94); Mean Platelet Vol. 10.6 fl (6.2-12.0); Monocyte# 0.61 X10^3/uL; Monocyte% 5.1 % (0-10); Neutrophil # 10.83 X10^3/uL (2.7-7.7); Neutrophil % 90.5 % (47-70); Platelet Count 198 K/mm3 (150-450); RBC Distribution Width CV 19.9 % (11.6-14.6); RBC Distribution Width SD 59.3 fl (35.1-43.9); Red Blood Count 3.81 M/mm3 (4.6-6.2)
[2018-09-15 14:02] LABS: Differential Indicated SCAN CRITERIA MET; POSITIVE COUNT NO; POSITIVE DIFFERENTIAL YES; POSITIVE MORPHOLOGY YES
[2018-09-15] MEDS: Furosemide 40 MG/4 ML Vial IV ×2 (14:02→21:06)
[2018-09-15 14:27] LABS: Hypochromasia 1+; Target Cells RARE
[2018-09-15 14:28] LABS: Anisocytosis 1+; Spherocyte RARE
[2018-09-15 14:29] LABS: Polychromasia RARE
[2018-09-15 15:14] LABS: Anion Gap 2 (5-15); BUN 44 mg/dL (7-18); BUN/Creat Ratio 23.7 RATIO (10-20); Calcium,Total 8.4 mg/dL (8.5-10.1); Chloride 91 mmol/L (98-107); Creatinine, Serum 1.86 mg/dL (0.70-1.30); EST Glomerular Filtration Rate 41 mL/min (>60); Est Glom Filt Rate - Afr Amer 49 mL/min (>60); Estimated Creatinine Clearance 43.43 ml/min; Glucose 147 mg/dL (74-106); Potassium 5.8 mmol/L (3.5-5.1); Sodium Level 126 mmol/L (136-145)
--- NOTE | 2018-09-15 15:42 | HP.PCM_ITS ---
Problem List (1) Acute respiratory failure with hypoxia Status: Acute (2) Acute exacerbation of CHF (congestive heart failure) Status: Acute Qualifiers: Heart failure type: systolic Qualified Code(s): I50.23 - Acute on chronic systolic (congestive) heart failure (3) Hyperlipidemia Status: Chronic Qualifiers: Hyperlipidemia type: unspecified Qualified Code(s): E78.5 - Hyperlipidemia, unspecified (4) Alcohol abuse, in remission Status: Chronic Comment: Patient stopped in 2013 (5) Hypertension Status: Chronic Qualifiers: Hypertension type: essential hypertension Qualified Code(s): I10 - Essential (primary) hypertension (6) GERD (gastroesophageal reflux disease) Status: Chronic Qualifiers: Esophagitis presence: esophagitis presence not specified Qualified Code(s): K21.9 - Gastro-esophageal reflux disease without esophagitis (7) Tobacco abuse Status: Chronic (8) Atherosclerotic heart disease of teller coronary artery without angina pectoris Status: Chronic Comment: per [facility] [place] 01/24/18: 50% stenosis mid RCA, all other coronaries normal. Pulmonary hypertension Successful PTCA/CARLOZ of mid RCA with a 3.5 x 38 Promus Synergy 06/15/2018 per MER @ [facility] (9) Cardiomyopathy Status: Chronic Qualifiers: Cardiomyopathy type: unspecified Qualified Code(s): I42.9 - Cardiomyopathy, unspecified Comment: EF 10% per echo December 2017:possibly alcoholic CMP, not likely ischemic. 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) who presents to the [facility] ED on 09/15/18 with history of recent discharge with recommendation to penitentiary facility however declined and return to home on 09/08/18 following treatment for history of SVT secondary to noncompliance with acute on chronic systolic congestive heart failure with notable debility and inability to take care of himself prompting family to transition him to a penitentiary facility day prior to current presentation with since transition to penitentiary facility progressively worsening dyspnea, notable 10 pound weight gain as well as worsened bilateral lower extremity pitting edema since discharge. Work-up in the ED included T 98.6, heart rate 81, BP 104/67, respiratory rate 32, 100% on a nonrebreather--> 99% on a Ventimask, the CBC with W BC 12, hemoglobin 9.4, platelet 198 with left shift, BMP with sodium 126, potassium 5.8, chloride 91, carbon dioxide 33, BUN/Cr 44/1.86, glucose 147, troponin 0 0.026, BNP 3491.3, chest x-ray with moderate size right and small left pleural effusions with associated compressive segment segmental atelectasis, patchy interstitial and alveolar opacities bilateral lower lobes which may represent chronic interstitial changes plus or minus possible superimposed pneumonitis, severe emphysematous changes with large bilateral upper lobe bullous changes. In the ED patient administered IV Lasix as well as DuoNeb therapy. Past Medical History Past Medical History (Chronic Problems): Chronic Problems (Last Reviewed 07/25/18 @ 16:12 by Piyush Nick DO) Stented coronary artery (Chronic 06/15/18) Successful PTCA/CARLOZ of mid RCA with a 3.5 x 38 Promus Synergy 06/15/2018 per Moya OkrugaN @ [facility] Abnormal EKG (Chronic) Hyperlipidemia (Chronic) Lower leg edema (Chronic) Bilateral pleural effusion (Chronic 01/13/18) Per chest CT 01/13/2018 Alcohol abuse, in remission (Chronic) Patient stopped in 2013 Hypertension (Chronic) GERD (gastroesophageal reflux disease) (Chronic) Premature ventricular contractions (Chronic) Left ventricular hypertrophy (Chronic) Tobacco abuse (Chronic) Hx of supraventricular tachycardia (Chronic) History of left heart catheterization (Chronic 01/24/18) 09/09/2011 @ [facility] per Dr. Garces; 01/24/18 @ [facility] per Dr. Nassar Atherosclerotic heart disease of teller coronary artery without angina pectoris (Chronic) per [facility] [place] 01/24/18: 50% stenosis mid RCA, all other coronaries normal. Pulmonary hypertension Successful PTCA/CARLOZ of mid RCA with a 3.5 x 38 Promus Synergy 06/15/2018 per DJN @ [facility] NSTEMI (non-ST elevated myocardial infarction) (Chronic 01/24/18) Cardiomyopathy (Chronic) EF 10% per echo December 2017:possibly alcoholic CMP, not likely ischemic. COPD (chronic obstructive pulmonary disease) (Chronic) Valvular heart disease (Chronic) Medical History: Medical History (Last Reviewed 07/25/18 @ 16:12 by Piyush Nick DO) Abnormal EKG (Chronic) R94.31 Hyperlipidemia (Chronic) E78.5 Lower leg edema (Chronic) R60.0 Bilateral pleural effusion (Chronic) Onset Date: 01/13/[address] 01/13/2018 Alcohol abuse, in remission (Chronic) F10.11 Patient stopped in 2013 Hypertension (Chronic) I10 GERD (gastroesophageal reflux disease) (Chronic) K21.9 Premature ventricular contractions (Chronic) I49.3 Left ventricular hypertrophy (Chronic) I51.7 Tobacco abuse (Chronic) Z72.0 Hx of supraventricular tachycardia (Chronic) Z86.79 Atherosclerotic heart disease of teller coronary artery without angina pectoris (Chronic) I25.10 per [facility] [place] 01/24/18: 50% stenosis mid RCA, all other coronaries normal. Pulmonary hypertension Successful PTCA/CARLOZ of mid RCA with a 3.5 x 38 Promus Synergy 06/15/2018 per DJN @ [facility] NSTEMI (non-ST elevated myocardial infarction) (Chronic) Onset Date: 01/24/18 I21.4 Cardiomyopathy (Chronic) I42.9 EF 10% per echo December 2017:possibly alcoholic CMP, not likely ischemic. COPD (chronic obstructive pulmonary disease) (Chronic) J44.9 Allergies ibuprofen Adverse Reaction (Verified 09/15/18 13:24) Nausea naproxen [From Naprosyn] Adverse Reaction (Verified 09/15/18 13:24) Nausea naproxen sodium [From Aleve] Adverse Reaction (Verified 09/15/18 13:24) Nausea tramadol Adverse Reaction (Verified 09/15/18 13:24) Nausea Home Medications: Ambulatory Orders Medication Instructions Recorded Aspirin E.C. [Ecotrin] 81 mg PO DAILY@0800 07/25/18 Nitroglycerin (INPATIENT USE) 0.4 mg PO PRN PRN 07/25/18 [Nitrostat] Pantoprazole Sodium [Protonix] 40 mg PO BID 09/03/18 Amiodarone HCl [Cordarone] 200 mg PO BID 09/15/18 Carvedilol [Coreg (Beta Ngoc)] 3.125 mg PO BID 09/15/18 Clopidogrel Bisulfate [Plavix] 75 mg PO DAILY 09/15/18 Furosemide [Lasix] 40 mg PO BID@1000,1800 09/15/18 Ipratropium/Albuterol Sulfate 3 ml INHALATION Q4H PRN PRN 09/15/18 [Duoneb] Lisinopril [Zestril] 5 mg PO DAILY 09/15/18 Potassium Chloride [K-Dur] 20 meq PO BIDCM 09/15/18 Surgical History: Surgical History (Last Reviewed 07/25/18 @ 16:12 by Piyush Nick DO) Stented coronary artery (Chronic) Onset Date: 06/15/18 Z95.5 Successful PTCA/CARLOZ of mid RCA with a 3.5 x 38 Promus Synergy 06/15/2018 per DJN @ [facility] History of left heart catheterization (Chronic) Onset Date: 01/24/18 Z98.890 09/09/2011 @ [facility] per Dr. Garces; 01/24/18 @ [facility] per Dr. Nassar H/O wisdom tooth extraction K08.409 History of mandibular surgery Z98.890 Surgical History: - - PCI, wisdom teeth extraction. Psychiatric History: No pertinent psych hx Lives: [facility] Smoking Status: Current every day smoker Tobacco Use: Cigarettes Alcohol: Sober Drugs: None - *Family History Maternal Family History: Family History (Last Reviewed 07/25/18 @ 16:12 by Piyush Nick DO) Other COPD (chronic obstructive pulmonary disease) Heart disease Hypertension History Items: Cancer, Heart Disease, Hypertension Paternal Family History: Family History (Last Reviewed 07/25/18 @ 16:12 by Piyush Nick DO) Other COPD (chronic obstructive pulmonary disease) Heart disease Hypertension History Items: COPD Review of Systems Constitutional: Reports: Malaise, Weakness, Fatigue. Denies: Chills, Fever, Weight Change HEENT: Denies: Head Aches, Sinus Congestion, Sinus Drainage Cardiovascular: Reports: Edema, Orthopnea, Palpitations. Denies: Chest Pain Respiratory: Reports: Cough, Shortness of Breath, Shortness of breath at rest, Shortness of breath upon exertion. Denies: Sputum production Gastrointestinal: Denies: Abdominal Pain, Nausea, Vomiting Genitourinary: Denies: Dysuria Musculoskeletal: Reports: Joint Pain. Denies: Joint Tenderness Skin: Denies: Rash, Wounds Neurological: Denies: Numbness, Tingling, Focal weakness Psychiatric: Denies: Anxiety, Depression, Homicidal Ideations, Suicidal Ideations Hematologic/ Lymphatic: Reports: Anemia, Easy Bruising, Easy Bleeding VTE Information - Inpt Only VTE Present on Admission: No VTE Mechan Device Prophylaxis: SCD's VTE Pharm Prophylaxis ordered?: Yes Patient Problems: Active and Suspected Problems (Last Reviewed 07/25/18 @ 16:12 by Piyush Nick DO) Acute respiratory failure with hypoxia (Acute) Acute exacerbation of CHF (congestive heart failure) (Acute) Subjective: Seated upright in the ED, Ventimask in place, still increased work of breathing and some accessory muscle usage however notes improved since initial presentation with diuresis, Perez catheter currently in place. Objective: Physical Examination: General: awake, alert, oriented x 3 and cooperative, seated upright in the ED bed, fatigued appearance, mildly increased work of breathing and some accessory muscle usage, facemask in place, does note he feels less dyspneic than initial presentation. Skin: normal color, turgor, no icterus, cyanosis. HEENT: AT/NC, EOMI, PERRLA, moderately dry MM, no carotid bruits, + JVD noted. Lungs: Diminished breath sounds throughout, greater bilateral bases, increased work of breathing with some accessory muscle usage, Ventimask in place, rales bases, no wheezing. Heart: Regular rate and rhythm; no gallop, rub audible. Abdomen: soft, mild discomfort, nonsevere, bilateral lower quadrants, ND, normal BS, + HM. Extremities: no cyanosis, clubbing, severe, 3+ pitting pedal to proximal bilateral thighs. Neurological: patient awake, alert, oriented x 3; cognitive function improved since initial presentation, nearing baseline intact; pupils equally reactive to light and accomodation; cranial nerves II-XII grossly normal, moving all 4 extremities, no focal deficits, strength severely global decrease secondary to acute presentation. Psychiatric: affect appears fatigued, no acute evidence of depressive or anxiety feelings. - Physical Exam Vital Signs Temp Pulse Resp BP Pulse Ox 98.6 F 74 25 H 104/84 H 99 09/15/18 13:18 09/15/18 15:36 09/15/18 15:36 09/15/18 15:36 09/15/18 15:36 Oxygen Flow Rate (L/min) 12 Oxygen Delivery Method Venturi Mask Weight: 153 lb 10.595 oz Body Mass Index (BMI) 24.0 Laboratory Tests Past 24 Hrs 09/15/18 09/15/18 09/15/18 13:30 13:30 13:30 WBC 12.0 H RBC 3.81 L Hgb 9.4 L Hct 31.4 L MCV 82.4 MCH 24.7 L MCHC 29.9 L RDW 19.9 H RDW Differential 59.3 H Plt Count 198 MPV 10.6 Immature Gran % (Auto) 0.200 Neut % (Auto) 90.5 H Lymph % (Auto) 4.2 L [place] % (Auto) 5.1 Eos % (Auto) 0.0 Baso % (Auto) 0.0 Absolute Neuts (auto) 10.8 H Absolute Lymphs (auto) 0.50 L Total Counted Not Reportable Diff Path Review May foll Polychromasia RARE Hypochromasia 1+ Anisocytosis 1+ Spherocytes RARE H Target Cells RARE Sodium Cancelled Potassium Cancelled Chloride Cancelled Carbon Dioxide Cancelled Anion Gap Cancelled BUN Cancelled Creatinine Cancelled Estim Creat Clear Calc Cancelled Est GFR (MDRD) Af Amer Cancelled Est GFR (MDRD) Non-Af Cancelled BUN/Creatinine Ratio Cancelled Glucose Cancelled Calcium Cancelled Troponin I Cancelled B-Natriuretic Peptide 3491.3 H 09/15/18 14:50 WBC RBC Hgb Hct MCV MCH MCHC RDW RDW Differential Plt Count MPV Immature Gran % (Auto) Neut % (Auto) Lymph % (Auto) [place] % (Auto) Eos % (Auto) Baso % (Auto) Absolute Neuts (auto) Absolute Lymphs (auto) Total Counted Diff Path Review Polychromasia Hypochromasia Anisocytosis Spherocytes Target Cells Sodium 126 L Potassium 5.8 H Chloride 91 L Carbon Dioxide 33.0 H Anion Gap 2 L BUN 44 H Creatinine 1.86 H Estim Creat Clear Calc 43.43 Est GFR (MDRD) Af Amer 49 L Est GFR (MDRD) Non-Af 41 L BUN/Creatinine Ratio 23.7 H Glucose 147 H Calcium 8.4 L Troponin I 0.026 B-Natriuretic Peptide Assessment/Plan All Active Problems (Last Reviewed 07/25/18 @ 16:12 by Piyush Nick DO) Acute respiratory failure with hypoxia (Acute) Acute exacerbation of CHF (congestive heart failure) (Acute) GI bleed (Resolved) Acute blood loss anemia (Resolved) The patient is a 53 y/o M w/ PMHx: PAF, CAD s/p PCI, Hx EtOH Abuse, HTN, HLD, Chronic COPD, Tobacco use, GERD, Hx DVT, Cardiomyopathy, 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) who presents to the [facility] ED on 09/15/18 with history of recent discharge with recommendation to penitentiary facility however declined and return to home on 09/08/18 following treatment for history of SVT secondary to noncompliance with acute on chronic systolic congestive heart failure with notable debility and inability to take care of himself prompting family to transition him to a penitentiary facility day prior to current presentation with since transition to penitentiary facility progressively worsening dyspn ea, notable 10 pound weight gain as well as worsened bilateral lower extremity pitting edema since discharge. (1) Acute Hypoxic Respiratory Failure secondary to Acute Decompensated Systolic CHF, Cardiomyopathy (EtOH CMP): Work-up in the ED included T 98.6, heart rate 81, BP 104/67, respiratory rate 32, 100% on a nonrebreather--> 99% on a Ventimask, the CBC with WBC 12, hemoglobin 9.4, platelet 198 with left shift, BMP with sodium 126, potassium 5.8, chloride 91, carbon dioxide 33, BUN/Cr 44/1.86, glucose 147, troponin 0 0.026, BNP 3491.3, chest x-ray with moderate size right and small left pleural effusions with associated compressive segment segmental atelectasis, patchy interstitial and alveolar opacities bilateral lower lobes which may represent chronic interstitial changes plus or minus possible superimposed pneumonitis, severe emphysematous changes with large bilateral upper lobe bullous changes. Will admit to PCU, maintain on cardiac telemetry, obtain cardiac enzyme series, obtain serial EKGs, continue IV lasix diuresis, monitor I/Os, maintain on intake restriction, continue medical therapy w/ asa, plavix, not on statin w/ AM FLP, BB, holding aside lasix other nephrotoxic regimen given acute kidney injury. Will obtain TSH and magnesium level. Most recent ECHO noted 6/8/19 w/ moderately dilated LV, EF 50%, severe global hypokinesis LV, mildly enlarged LA, pulmonary artery systolic pressure 28 mmHg, small pericardial effusion, similar study to prior. Cardiology consulted, pending. PRN morphine to decrease afterload, continue oxygen supplementation, if necessary will position w/ upright position with legs off bed to decrease preload. (2) Hyperkalemia: Admission potassium 5.8, given aggressive IV lasix diuresis will continue to trend BMP. (3) Hyponatremia, hypervolemic: Secondary to acute presentation #1, admission sodium 126, will continue to trend. (4) Acute kidney injury: Secondary to acute presentation, #1. Admission BUN/Cr 44/1.86, prior baseline creatinine noted to be 0.7. Given acute presentation #1 deferring any hydration, continue Lasix diuresis, repeat BMP in a.m. (5) Chronic COPD: ATC duonebs, PRN albuterol, HOB, IS parameters. (6) Hypertension: Continue home regimen including IV Lasix diuresis as noted, Coreg, holding nephrotoxic regimen otherwise, PRN hydralazine. (7) Hyperlipidemia: Not on statin, possible intolerance prior, FLP in AM. (8) PAF: Not anticoagulated likely secondary to fall history, maintained on aspirin, Plavix, amiodarone, Coreg. (9) Chronic normocytic anemia: Admission hemoglobin 9.4, baseline 8-10, stable, trend. (10) Former alcohol abuse: Encouraged continued sobriety. (11) Tobacco Abuse: Encouraged cessation, inpatient consultation per RT, NR if desired. (12) GERD w/ GI bleed Hx: PPI. (13) DVT prophylaxis: SCD, heparin. (14) CODE status: Discussed CODE status at length including difference between FULL code, DNR-CCA and DNR-CC status. Following discussions about the differences in these status, requested Full Code status. Discussed with patient given notable comorbidities and history as well as acute presentation likely aggressive interventions would not yield a good outcome, notes understanding of this and prefers to continue with full CODE STATUS. Advanced Care Planning Face to Face Time: 17 minutes. Code Visit Inpatient E&M: 16659 Init Hosp L3 Procedures: 63862 Advncd Care Plan 30 Min
[2018-09-15] MEDS: Magnesium Hydroxide 30 ML UDC PO (19:10)
[2018-09-15] MEDS: Acetaminophen 325 MG Tablet 650 MG PO (19:10)
[2018-09-15 19:28] LABS: Magnesium 1.6 mg/dL (1.6-2.6); Thyroid Stim Hormone (TSH) 3.56 uIU/mL (0.358-3.74)
[2018-09-15] MEDS: Pantoprazole Sodium 40 MG Tablet PO (21:06)
[2018-09-15] MEDS: Heparin Injection (Vial) 5,000 UNIT/ML VIAL 5000 UNIT SC (21:06)
[2018-09-15] MEDS: 0.9% NaCl Peripheral Flush Adult/Peds IV ×2 (21:12→21:20)
--- NOTE | 2018-09-15 22:22 | NURSING ---
This RN spoke with a nurse from [place]. She called to inquire about the admitting diagnosis of pt. She was informed that pt was admitted with CHF exacerbation. This RN asked the nurse from [place] when pt last BM was, as pt states it has been over a week. The nurse from [place] states pt's last BM was 09/14/17. This RN encouraged her to call with any additional questions.
[2018-09-15] MEDS: Amiodarone 200 MG Tablet PO (22:39)
--- NOTE | 2018-09-15 23:13 | NURSING ---
Addendum entered by Mira Eduardo 09/15/18 23:19: Pt states, I'm about to give up. Original Note: Pt states, I want doped up. He states he feels like he is going to . This RN explained Magnesium Sulfate, pt states this RN can give the Mag Sulfate if we dope him up. This RN explained that the pt Tylenol was increased. Pt states that is makes him sick.
[2018-09-16] VITALS (25 sets, daily range): BP systolic 84–116; BP diastolic 47–71; PULSE 51–98; RESP 20–40; TEMP 36.8–37.1; O2SAT 93–98
--- NOTE | 2018-09-16 00:08 | RAD_ITS ---
STUDY: X-RAY - ABDOMEN/PELVIS REASON FOR EXAM: Male, 53 years old. Abdominal pain TECHNIQUE: Single AP view of the abdomen / pelvis. COMPARISON: CT abdomen and pelvis September 03, 2018. FINDINGS: Right pleural effusion. Right basilar atelectasis/infiltrate. Bullous emphysematous changes. Next Limited evaluation for free air on a supine radiograph. Moderate stool in the colon. Nonspecific bowel gas pattern. There are diffuse degenerative changes of the visualized lumbar spine. Scoliotic curvature to the spine. RAD/Abdomen Single View IMPRESSION: Moderate stool in the colon. Gaseous distention of the colon. Nonspecific bowel gas pattern. Electronically Signed: Isreal Ruano, at 2:31 EDT Tel , Service support ,
[2018-09-16] MEDS: Dicyclomine 10 MG Capsule PO ×2 (01:06→15:05)
--- NOTE | 2018-09-16 01:32 | PCM.PN.BLA ---
Progress Note Nurse reports that patient complained of abdominal pain and prn 650 mg Tylenol was not helping. Initially changed tylenol order to 100mg every 8 hours but patient was refusing. Bentyl order and KUB ordered. Patient was then examined at bedside. He complains of abdominal pain ongoing for more than one month. Abdomen: Distended. Bowel sounds mechanical with high pitch. Tender. Morphine prn ordered. Await results of KUB reading. If KUB negative consider ultrasound or CT to evaluate ascites
[2018-09-16] MEDS: 0.9% NaCl Peripheral Flush Adult/Peds IV ×6 (03:28→21:32)
[2018-09-16] MEDS: Morphine 2 MG/ML Syringe 1 MG IV (03:28)
[2018-09-16] MEDS: Albuterol 2.5 MG/3 ML VIAL.NEB. INHALATION ×2 (05:16→15:55)
--- NOTE | 2018-09-16 05:55 | EKG12_ITS ---
Test Reason : CP Blood Pressure : / mmHG Vent. Rate : 080 BPM Atrial Rate : 071 BPM P-R Int : 188 ms QRS Dur : 116 ms QT Int : 380 ms P-R-T Axes : 080 103 241 degrees QTc Int : 438 ms Sinus rhythm with frequent Premature ventricular complexes Rightward axis Low voltage QRS Cannot rule out Anterior infarct , age undetermined Marked ST abnormality, possible lateral subendocardial injury Abnormal ECG Confirmed by MISTY VARMA, MIRNA ([id number]), online editor SILVER DAVIS ([id number]) on 09/19/2018 11:36:18 AM Referred By: Gloria Morley Confirmed By:TARA JAY MD
[2018-09-16 06:05] LABS: Hematocrit 29.4 % (40-54); Mean Corp Hgb Conc 30.6 g/gl (32-36); Mean Corpuscular Hgb 24.8 pg (27.0-32.0); Mean Platelet Vol. 10.9 fl (6.2-12.0); Platelet Count 164 K/mm3 (150-450); RBC Distribution Width SD 55.6 fl (35.1-43.9); Red Blood Count 3.63 M/mm3 (4.6-6.2); White Blood Count 7.5 K/mm3 (4.4-11.0)
[2018-09-16 06:09] LABS: Scan Indicated on CBC? Y/N NO
[2018-09-16 06:24] LABS: BUN 48 mg/dL (7-18); Creatinine, Serum 1.58 mg/dL (0.70-1.30); Estimated Creatinine Clearance 51.13 ml/min; Glucose 95 mg/dL (74-106)
[2018-09-16 06:25] LABS: Anion Gap 7 (5-15); BUN/Creat Ratio 30.4 RATIO (10-20); Calcium,Total 8.3 mg/dL (8.5-10.1); Chloride 90 mmol/L (98-107); Cholesterol 59 mg/dL (200); EST Glomerular Filtration Rate 49 mL/min (>60); Est Glom Filt Rate - Afr Amer 59 mL/min (>60); High Density Lipoprotein 27 mg/dL; Potassium 5.3 mmol/L (3.5-5.1); Sodium Level 132 mmol/L (136-145); Triglycerides 61 mg/dL; Very Low Density Lipoprotein 12 mg/dL (5-40)
[2018-09-16] MEDS: Ipratropium/Albuterol Sulfate 3 ML AMPUL.NEB INHALATION ×3 (06:55→19:45)
[2018-09-16] MEDS: Furosemide 40 MG/4 ML Vial IV ×3 (07:05→21:19)
--- NOTE | 2018-09-16 08:50 | CASEMGMT ---
Patient has a Healthcare POA on file. He does not have a Healthcare LW. Leslie [employer]
[2018-09-16 09:38] LABS: AST(SGOT) 22 U/L (15-37); Alanine Aminotransfer ALT/SGPT 22 U/L (16-61); Albumin, Serum 2.3 g/dL (3.2-5.0); Alkaline Phosphatase 83 U/L (45-117); Bilirubin, Direct 0.59 mg/dL (0.00-0.30); Globulin 3.3 g/dL (2.2-4.2); Lipase 45 U/L (73-393); Protein, Total 5.6 g/dL (6.4-8.2)
--- NOTE | 2018-09-16 10:26 | CON.PCM_ITS ---
Problem List (1) Acute exacerbation of CHF (congestive heart failure) Status: Acute Qualifiers: Heart failure type: systolic Qualified Code(s): I50.23 - Acute on chronic systolic (congestive) heart failure (2) Stented coronary artery Status: Chronic Comment: Successful PTCA/CARLOZ of mid RCA with a 3.5 x 38 Promus Synergy 06/15/2018 per ROLDANN @ [facility] (3) Abnormal EKG Status: Chronic (4) Hyperlipidemia Status: Chronic Qualifiers: Hyperlipidemia type: unspecified Qualified Code(s): E78.5 - Hyperlipidemia, unspecified (5) Alcohol abuse, in remission Status: Chronic Comment: Patient stopped in 2013 (6) Hypertension Status: Chronic Qualifiers: Hypertension type: essential hypertension Qualified Code(s): I10 - Essential (primary) hypertension Reason for Consult Date of Consultation: 09/16/18 Reason for Consultation: Congestive heart failure, coronary artery disease, shortness of breath, supraventricular tachycardia History of Present Illness: The patient is a 53 year old M, recently seen by Dr. Boni Garces in consultation at [facility] on 01/14/18 for shortness of breath, dyspnea, abdominal discomfort and abnormal troponins. An echocardiogram was performed that demonstrated he had an EF around 10%, and was offered left heart catheterization but declined. His EKG at the time suggested sinus rhythm, left atrial enlargement, possible old anterior wall myocardial infarction and T wave abnormalities possibly consistent with inferolateral ischemia. The patient declined catheterization and was sent home on medical therapy. The patient then developed recurrent substernal chest pressure and shortness of breath and was readmitted to [facility] on 01/13/18. Patient was brought to the emergency room and was found to be in heart failure and placed on IV diuretic therapy. His EKG at that time demonstrated normal sinus rhythm, normal axis, PVC, poor R wave progression across the precordium and nonspecific inferolateral ST segment and T wave changes consistent with previous EKG. He then underwent left and right heart catheterization by myself on 01/24/18 which demonstrated essentially normal coronary arteries except for a long tubular lesion in the mid RCA. The patient underwent FFR evaluation which was found to be 1.0. No intervention was performed. His EF at that time was around 10%, and his pulmonary pressures were around mid 30s consistent with mild pulmonary hypertension. Patient was treated medically and sent home. On further history the patient quit smoking in November 2017, and used to be a very heavy drinker which may explain his cardiomyopathy. Patient still drinks beers on occasion, but it is much less than he used to. He quit drinking around in 2013. Patient was also found to have 3+ mitral regurgitation, and mild aortic regurgitation. He has successfully remain off of alcohol and tobacco as well as illicit medications except for occasional marijuana. He is reportedly compliant with his medicines as well and is recently been living in a rehab center in [facility]. He does use chronic O2 therapy on occasion mostly in the morning and when he exerts himself. He has had no presyncope or syncopal episodes. Repeat echocardiogram dated 09/03/2018 showed the following: Interpretation Summary Moderately dilated left ventricle. The estimated ejection fraction is 15 %. There is severe global hypokinesis of the left ventricle. The left atrium is mildly enlarged. Pulmonary artery systolic pressure is 28 mmHg. Small pericardial effusion. Compared to prior study, there is no significant change. Patient was supposed to engage in cardiac rehab after initial workup, however he has not done so. He complains of significant fatigue, shortness of breath and occasional exertional chest pain and heaviness. Patient was recently admitted to [facility] on 08/30/2018 for what appeared to be SVT refractory to IV adenosine at 6 and 12 mg. Patient was admitted and placed on amiodarone, and subsequently discharged to [facility]. He now returns with acute lower abdominal colicky pain, congestive heart failure, right pleural effusion which is chronic, and shortness of breath. He denies any chest pain or anginal symptoms, but has conversational dyspnea when he is talking with me. He appears to be in some significant abdominal pain. KUB demonstrates dilated loops of colon, as well as stool. His last bowel movement was on Wednesday. He has had no presyncope, syncope. His initial EKG shows normal sinus rhythm with incomplete left bundle branch block, lateral T wave inversion, low voltage. Telemetry showed normal sinus rhythm with some episodes of wide-complex tachycardia. Past Medical History Allergies/Adverse Reactions: Allergies ibuprofen Adverse Reaction (Verified 09/15/18 13:24) Nausea naproxen [From Naprosyn] Adverse Reaction (Verified 09/15/18 13:24) Nausea naproxen sodium [From Aleve] Adverse Reaction (Verified 09/15/18 13:24) Nausea tramadol Adverse Reaction (Verified 09/15/18 13:24) Nausea Home Medications: Ambulatory Orders Medication Instructions Recorded Aspirin E.C. [Ecotrin] 81 mg PO DAILY@0800 07/25/18 Nitroglycerin (INPATIENT USE) 0.4 mg PO PRN PRN 07/25/18 [Nitrostat] Pantoprazole Sodium [Protonix] 40 mg PO BID 09/03/18 Amiodarone HCl [Cordarone] 200 mg PO BID 09/15/18 Carvedilol [Coreg (Beta Ngoc)] 3.125 mg PO BID 09/15/18 Clopidogrel Bisulfate [Plavix] 75 mg PO DAILY 09/15/18 Furosemide [Lasix] 40 mg PO BID@1000,1800 09/15/18 Ipratropium/Albuterol Sulfate 3 ml INHALATION Q4H PRN PRN 09/15/18 [Duoneb] Lisinopril [Zestril] 5 mg PO DAILY 09/15/18 Potassium Chloride [K-Dur] 20 meq PO BIDCM 09/15/18 Past Medical History (Chronic Problems): Chronic Problems (Last Reviewed 07/25/18 @ 16:12 by Piyush Nick DO) Stented coronary artery (Chronic 06/15/18) Successful PTCA/CARLOZ of mid RCA with a 3.5 x 38 Promus Synergy 06/15/2018 per [facility] @ [facility] Abnormal EKG (Chronic) Hyperlipidemia (Chronic) Lower leg edema (Chronic) Bilateral pleural effusion (Chronic 01/13/18) Per chest CT 01/13/2018 Alcohol abuse, in remission (Chronic) Patient stopped in 2013 Hypertension (Chronic) GERD (gastroesophageal reflux disease) (Chronic) Premature ventricular contractions (Chronic) Left ventricular hypertrophy (Chronic) Tobacco abuse (Chronic) Hx of supraventricular tachycardia (Chronic) History of left heart catheterization (Chronic 01/24/18) 09/09/2011 @ [facility] per Dr. Garces; 01/24/18 @ [facility] per Dr. Nassar Atherosclerotic heart disease of [place] coronary artery without angina pectoris (Chronic) per [facility] 01/24/18: 50% stenosis mid RCA, all other coronaries normal. Pulmonary hypertension Successful PTCA/CARLOZ of mid RCA with a 3.5 x 38 Promus Synergy 06/15/2018 per DJN @ [facility] NSTEMI (non-ST elevated myocardial infarction) (Chronic 01/24/18) Cardiomyopathy (Chronic) EF 10% per echo December 2017:possibly alcoholic CMP, not likely ischemic. COPD (chronic obstructive pulmonary disease) (Chronic) Valvular heart disease (Chronic) Surgical History: - - PCI, wisdom teeth extraction. Psychiatric History: No pertinent psych hx - *Family History Maternal Family History: Family History (Last Reviewed 07/25/18 @ 16:12 by Piyush Nick DO) Other COPD (chronic obstructive pulmonary disease) Heart disease Hypertension History Items: Cancer, Heart Disease, Hypertension Paternal Family History: Family History (Last Reviewed 07/25/18 @ 16:12 by Piyush Nick DO) Other COPD (chronic obstructive pulmonary disease) Heart disease Hypertension History Items: COPD Lives: Longterm Smoking Status: Current every day smoker Tobacco Use: Cigarettes Alcohol: Sober Drugs: None Review of Systems - Review of Systems General: Denies: Fever, Night Sweats, Fatigue Cardiovascular: Reports: Shortness of Breath, Shortness of Breath at Rest. Denies: Chest Discomfort, Orthopnea, PND, Peripheral Edema, Palpitations, Lightheadedness, Dizziness, Near Syncope, Syncope Respiratory: Denies: Cough, Sputum Production, Hemoptysis Gastrointestinal: Denies: Hematemesis, Hematochezia, Melena Genitourinary: Denies: Dysuria, Hematuria Skin: Denies: Rash Subjectve: Patient complaining of abdominal pain, Objective: Vital Signs Temp Pulse Resp BP Pulse Ox 98.2 F 78 30 H 84/58 L 93 09/16/18 09:34 09/16/18 09:34 09/16/18 09:34 09/16/18 09:34 09/16/18 09:34 Oxygen Flow Rate (L/min) 4 Oxygen Delivery Method Nasal Cannula Weight: 150 lb 2.157 oz Body Mass Index (BMI) 23.3 Intake and Output for Last 24 Hours 09/14/18 09/15/18 09/16/18 23:59 23:59 23:59 Intake Total 390 / 390 260 / 260 Output Total 650 / 650 375 / 375 Balance -260 / -260 -115 / -115 General: Awake, Alert, Oriented x 3 HEENT: PERRL, EOMI, Sclera Non Icteric Neck: Supple, Good ROM, No Lymph Node Enlargement Lungs: Clear to auscultation, Diminished Right Base, Rales - Right Base Cardiovascular: Regular Rhythm, Normal S2, No Rubs, No Gallops Murmur Murmur: Grade 2/6, Holosystolic Vascular: No Carotid Bruits, Normal Femoral Pulses, Normal Radial Pulses, Normal Dorsalis Pedal Pulse, Normal Posterior Tibial Pulses Abdomen: Bowel Sounds Present, Soft, Non Tender, No HSM, No Organomegaly Extremities: No Cyanosis, No Clubbing, Bilateral Edema +2 Neurological: No Focal Motor or Sensory Deficit 09/15/18 13:30: WBC 12.0 H, RBC 3.81 L, Hgb 9.4 L, Hct 31.4 L, MCV 82.4, MCH 24.7 L, MCHC 29.9 L, RDW 19.9 H, RDW Differential 59.3 H, Plt Count 198, MPV 10.6, Immature Gran % (Auto) 0.200, Neut % (Auto) 90.5 H, Lymph % (Auto) 4.2 L, [place] % (Auto) 5.1, Eos % (Auto) 0.0, Baso % (Auto) 0.0, Absolute Neuts (auto) 10.8 H, Total Counted Not Reportable 09/15/18 13:30: Sodium Cancelled, Potassium Cancelled, Chloride Cancelled, Carbon Dioxide Cancelled, Anion Gap Cancelled, BUN Cancelled, Creatinine Cancelled, Est GFR (MDRD) Af Amer Cancelled, Est GFR (MDRD) Non-Af Cancelled, BUN/Creatinine Ratio Cancelled, Glucose Cancelled, Calcium Cancelled, Troponin I Cancelled 09/15/18 13:30: B-Natriuretic Peptide 3491.3 H 09/15/18 14:50: Sodium 126 L, Potassium 5.8 H, Chloride 91 L, Carbon Dioxide 33.0 H, Anion Gap 2 L, BUN 44 H, Creatinine 1.86 H, Est GFR (MDRD) Af Amer 49 L, Est GFR (MDRD) Non-Af 41 L, BUN/Creatinine Ratio 23.7 H, Glucose 147 H, Calcium 8.4 L, Troponin I 0.026 09/15/18 14:50: Magnesium 1.6 09/15/18 16:44: Troponin I < 0.015 09/15/18 21:36: Troponin I 0.017 09/16/18 05:28: WBC 7.5, RBC 3.63 L, Hgb 9.0 L, Hct 29.4 L, MCV 81.0, MCH 24.8 L , MCHC 30.6 L, RDW 20.0 H, RDW Differential 55.6 H, Plt Count 164, MPV 10.9 09/16/18 05:28: Sodium 132 L, Potassium 5.3 H, Chloride 90 L, Carbon Dioxide 35.0 H, Anion Gap 7, BUN 48 H, Creatinine 1.58 H, Est GFR (MDRD) Af Amer 59 L, Est GFR (MDRD) Non-Af 49 L, BUN/Creatinine Ratio 30.4 H, Glucose 95, Calcium 8.3 L, Triglycerides 61, Cholesterol 59, LDL Cholesterol 20, VLDL Cholesterol 12, HDL Cholesterol 27 L 09/16/18 05:30: Total Bilirubin 0.80, Direct Bilirubin 0.59 H Rhythm: EKG: ECHO: Stress Test: Cardiac Cath: PCI: CT Surgery: Holter monitor: EPS: PPM: CXR: Chest CT Scan: Assessment/Plan 1. Cardiomyopathy: The patient has a known nonischemic cardiomyopathy with recent FFR of his right coronary artery to be negative. His EF is between 10 and 15% with associated right-sided pleural effusion. There is the source of his cardiomyopathy is most likely alcohol induced over many years of drinking. The patient reports that he is effectively quit drinking although he does occasionally have alcohol in the form of beer which is self-limited. Patient now presents with exquisite abdominal pain, shortness of breath, and recent SVT. So far as troponins are negative, I would not recommend repeat catheterization. The patient has chronic renal insufficiency, and evidence of hyponatremia as well. I agree with Lasix IV 40 mg every 8 hours and attempt to diurese the patient. Would also recommend Fidel bandages for his legs, and consider an ultrasound evaluation of his right pleural space to determine if he would benefit from thoracentesis. I do not believe is a good candidate for FIDEL inhibitors or ARB is given his chronic renal insufficiency, not I believe he would be a good candidate for Entresto. I do believe he requires afterload reduction in the form of hydralazine 10 mg p.o. 3 times daily to assist with his LV dysfunction. At this point he is not a good candidate for evaluation of AICD treatment given his medical noncompliance, ongoing alcohol use. I do not believe the patient requires repeat echocardiogram at this time as he just had one on 09/03/2018. 2. Coronary artery disease: The patient had FFR evaluation of a long tubular area in his right coronary artery less than 1 year ago which was negative. Would not repeat catheterization at this time. 3. Supra ventricular tachycardia: Patient appears to have both supraventricular and ventricular arrhythmias which appear to be well controlled with amiodarone therapy. I would be cautious with amiodarone therapy given his history of alcoholism. 4. Thank you very much for the opportunity to participate in the cardiac care of your patient. Consultation time took place between 8 AM and 8:30 AM. Code Visit Inpatient E&M: 57857 Init Hosp L2
--- NOTE | 2018-09-16 10:31 | CASEMGMT ---
LAQUITA called [facility] and asked if they will take patient back at discharge. They will accept him back. Frank asked that SW fax information so she can get the pre-cert started. LAQUITA will fax information when it is available. Plan: d/c back to [facility] pending pre-cert. Leslie PIPER MSW
[2018-09-16 11:55] LABS: Magnesium 1.6 mg/dL (1.6-2.6)
[2018-09-16] MEDS: Heparin Injection (Vial) 5,000 UNIT/ML VIAL 5000 UNIT SC ×2 (12:33→21:19)
[2018-09-16] MEDS: Clopidogrel Bisulfate 75 MG Tablet PO (12:33)
[2018-09-16] MEDS: Aspirin E.C. 81 MG Tablet PO (12:33)
[2018-09-16] MEDS: Amiodarone 200 MG Tablet PO ×2 (12:33→21:19)
[2018-09-16] MEDS: Senna/Docusate Sodium 1 Tablet PO ×2 (12:34→21:20)
[2018-09-16] MEDS: Magnesium Citrate 300 ML 150 ML PO (12:34)
[2018-09-16] MEDS: Pantoprazole Sodium 40 MG Tablet PO ×2 (12:34→21:20)
--- NOTE | 2018-09-16 13:58 | PCM.PROGNOTE ---
<Rafia Wakefield - Last Filed: 09/16/18 14:19> Patient Problems: Active and Suspected Problems (Last Reviewed 07/25/18 @ 16:12 by Piyush Nick DO) Acute respiratory failure with hypoxia (Acute) Acute exacerbation of CHF (congestive heart failure) (Acute) Subjective: Patient seen and examined. Complains of generalized abdominal pain. Demanding narcotic medication. KUB showed moderate stool in the colon, no evidence of bowel obstruction. - Physical Exam General: Alert, Oriented x3, Cooperative HEENT: Atraumatic, PERRLA, EOMI, Normocephalic Neck: Supple, No JVD, Negative Carotid Bruits Lungs: Diminished, Rales - bases Abdomen: Bowel Sounds Present, Soft, Distended - Minimal distention, Tender - Generalized tenderness to palpation Extremities: No clubbing, No cyanosis, Edema - +2 bilateral lower extremities extending to proximal bilateral thighs. Skin: No rashes, No breakdown Musculoskeletal: No Tenderness to Palpation of Joints or Extremities Neurological: Cranial nerves II-XII grossly intact, Neuro grossly intact Psych/Mental Status: Agitated, Anxious, Impulsive Vital Signs Temp Pulse Resp BP Pulse Ox 98.6 F 86 32 H 116/68 94 09/16/18 12:13 09/16/18 13:12 09/16/18 12:13 09/16/18 12:13 09/16/18 12:13 Oxygen Flow Rate (L/min) 4 Oxygen Delivery Method Nasal Cannula Weight: 150 lb 2.157 oz Body Mass Index (BMI) 23.3 Intake and Output for Last 24 Hours 09/14/18 09/15/18 09/16/18 23:59 23:59 23:59 Intake Total 390 / 390 620 / 620 Output Total 650 / 650 1075 / 1075 Balance -260 / -260 -455 / -455 Laboratory Tests Past 24 Hrs 09/15/18 09/15/18 09/15/18 13:30 13:30 13:30 WBC 12.0 H RBC 3.81 L Hgb 9.4 L Hct 31.4 L MCV 82.4 MCH 24.7 L MCHC 29.9 L RDW 19.9 H RDW Differential 59.3 H Plt Count 198 MPV 10.6 Immature Gran % (Auto) 0.200 Neut % (Auto) 90.5 H Lymph % (Auto) 4.2 L Custer % (Auto) 5.1 Eos % (Auto) 0.0 Baso % (Auto) 0.0 Absolute Neuts (auto) 10.8 H Absolute Lymphs (auto) 0.50 L Total Counted Not Reportable Diff Path Review May foll Polychromasia RARE Hypochromasia 1+ Anisocytosis 1+ Spherocytes RARE H Target Cells RARE Sodium Cancelled Potassium Cancelled Chloride Cancelled Carbon Dioxide Cancelled Anion Gap Cancelled BUN Cancelled Creatinine Cancelled Estim Creat Clear Calc Cancelled Est GFR (MDRD) Af Amer Cancelled Est GFR (MDRD) Non-Af Cancelled BUN/Creatinine Ratio Cancelled Glucose Cancelled Calcium Cancelled Magnesium Total Bilirubin Direct Bilirubin AST ALT Alkaline Phosphatase Troponin I Cancelled B-Natriuretic Peptide 3491.3 H Total Protein Albumin Globulin Triglycerides Cholesterol LDL Cholesterol VLDL Cholesterol HDL Cholesterol Lipase TSH 09/15/18 09/15/18 09/15/18 14:50 14:50 16:44 WBC RBC Hgb Hct MCV MCH MCHC RDW RDW Differential Plt Count MPV Immature Gran % (Auto) Neut % (Auto) Lymph % (Auto) Custer % (Auto) Eos % (Auto) Baso % (Auto) Absolute Neuts (auto) Absolute Lymphs (auto) Total Counted Diff Path Review Polychromasia Hypochromasia Anisocytosis Spherocytes Target Cells Sodium 126 L Potassium 5.8 H Chloride 91 L Carbon Dioxide 33.0 H Anion Gap 2 L BUN 44 H Creatinine 1.86 H Estim Creat Clear Calc 43.43 Est GFR (MDRD) Af Amer 49 L Est GFR (MDRD) Non-Af 41 L BUN/Creatinine Ratio 23.7 H Glucose 147 H Calcium 8.4 L Magnesium 1.6 Total Bilirubin Direct Bilirubin AST ALT Alkaline Phosphatase Troponin I 0.026 < 0.015 B-Natriuretic Peptide Total Protein Albumin Globulin Triglycerides Cholesterol LDL Cholesterol VLDL Cholesterol HDL Cholesterol Lipase TSH 3.56 09/15/18 09/16/18 09/16/18 21:36 05:28 05:28 WBC 7.5 RBC 3.63 L Hgb 9.0 L Hct 29.4 L MCV 81.0 MCH 24.8 L MCHC 30.6 L RDW 20.0 H RDW Differential 55.6 H Plt Count 164 MPV 10.9 Immature Gran % (Auto) Neut % (Auto) Lymph % (Auto) Custer % (Auto) Eos % (Auto) Baso % (Auto) Absolute Neuts (auto) Absolute Lymphs (auto) Total Counted Diff Path Review Polychromasia Hypochromasia Anisocytosis Spherocytes Target Cells Sodium 132 L Potassium 5.3 H Chloride 90 L Carbon Dioxide 35.0 H Anion Gap 7 BUN 48 H Creatinine 1.58 H Estim Creat Clear Calc 51.13 Est GFR (MDRD) Af Amer 59 L Est GFR (MDRD) Non-Af 49 L BUN/Creatinine Ratio 30.4 H Glucose 95 Calcium 8.3 L Magnesium Total Bilirubin Direct Bilirubin AST ALT Alkaline Phosphatase Troponin I 0.017 B-Natriuretic Peptide Total Protein Albumin Globulin Triglycerides 61 Cholesterol 59 LDL Cholesterol 20 VLDL Cholesterol 12 HDL Cholesterol 27 L Lipase TSH 09/16/18 09/16/18 05:30 05:30 WBC RBC Hgb Hct MCV MCH MCHC RDW RDW Differential Plt Count MPV Immature Gran % (Auto) Neut % (Auto) Lymph % (Auto) Custer % (Auto) Eos % (Auto) Baso % (Auto) Absolute Neuts (auto) Absolute Lymphs (auto) Total Counted Diff Path Review Polychromasia Hypochromasia Anisocytosis Spherocytes Target Cells Sodium Potassium Chloride Carbon Dioxide Anion Gap BUN Creatinine Estim Creat Clear Calc Est GFR (MDRD) Af Amer Est GFR (MDRD) Non-Af BUN/Creatinine Ratio Glucose Calcium Magnesium 1.6 Total Bilirubin 0.80 Direct Bilirubin 0.59 H AST 22 ALT 22 Alkaline Phosphatase 83 Troponin I B-Natriuretic Peptide Total Protein 5.6 L Albumin 2.3 L Globulin 3.3 Triglycerides Cholesterol LDL Cholesterol VLDL Cholesterol HDL Cholesterol Lipase 45 L TSH Medical Necessity - Tobacco Use Smoking Status: Current every day smoker Tobacco Use: Cigarettes Assessment/Plan All Active Problems (Last Reviewed 07/25/18 @ 16:12 by Piyush Nick DO) Acute respiratory failure with hypoxia (Acute) Acute exacerbation of CHF (congestive heart failure) (Acute) 1. Acute hypoxic respiratory failure secondary to acute on chronic systolic CHF/cardiomyopathy related to ETOH abuse-chest x-ray admission with moderate sized right and left pleural effusions with associated segmental atelectasis. BNP 3491. Initially placed on nonrebreather/Ventimask. Oxygen now stable on 4 L nasal cannula. Continue IV Lasix 40 mg every 8 hours. Strict I&O. Daily weight. Fidel wraps bilateral lower extremities. Recent echo 09/03/2018 showed EF 15%, severe global hypokinesis of the left ventricle, pulmonary artery systolic pressure 28 mmHg, small pericardial effusion. No significant change compared to prior study. Cardiology consulted. No plans for further repeat catheterization. 2. Hyperkalemia-improving with IV Lasix. Trend BMP. 3. Hypervolemic hyponatremia-improving with diuresis. Trend BMP. 4. Hypotension-suspect secondary to diuresis. Hold BP regimen for systolic blood pressure less than 90. 5. Moderate constipation/abdominal discomfort-KUB with moderate stool. Otherwise no acute process. Mag citrate x1. 6. Acute kidney injury-improving with diuresis. Trend BMP. 7. PSVT-mag within normal limits. Monitor telemetry. Continue amiodarone regimen. 8. Chronic COPD-no acute exacerbation. As needed albuterol aerosols. 9. Hypertension-continue home carvedilol regimen. Lisinopril regimen on hold. 10. Paroxysmal atrial fibrillation-not on oral anticoagulation given fall history. Continue aspirin, Plavix, amiodarone, Coreg. 11. Chronic normocytic anemia-at baseline. 12. Former alcohol abuse-denies recent use. Encouraged continued sobriety. 13. Tobacco dependence-encourage cessation. 14. GERD-continue PPI. DVT prophylaxis-heparin subcu Discharge planning: Return to SNF when medically stable and pre-CERT is obtained. This patient was seen by LAKESHA Connor under the supervision of Dr. Minaya. <Gerardo Minaya E - Last Filed: 09/16/18 15:41> - Physical Exam Vital Signs Temp Pulse Resp BP Pulse Ox 98.3 F 89 34 H 115/69 94 09/16/18 14:00 09/16/18 14:00 09/16/18 14:00 09/16/18 14:00 09/16/18 14:00 Oxygen Flow Rate (L/min) 4 Oxygen Delivery Method Nasal Cannula Weight: 150 lb 2.157 oz Body Mass Index (BMI) 23.3 Intake and Output for Last 24 Hours 09/14/18 09/15/18 09/16/18 23:59 23:59 23:59 Intake Total 390 / 390 620 / 620 Output Total 650 / 650 1075 / 1075 Balance -260 / -260 -455 / -455 Laboratory Tests Past 24 Hrs 09/15/18 09/15/18 09/15/18 13:30 14:50 16:44 WBC RBC Hgb Hct MCV MCH MCHC RDW RDW Differential Plt Count MPV Diff Path Review Reviewed Sodium Potassium Chloride Carbon Dioxide Anion Gap BUN Creatinine Estim Creat Clear Calc Est GFR (MDRD) Af Amer Est GFR (MDRD) Non-Af BUN/Creatinine Ratio Glucose Calcium Magnesium 1.6 Total Bilirubin Direct Bilirubin AST ALT Alkaline Phosphatase Troponin I < 0.015 Total Protein Albumin Globulin Triglycerides Cholesterol LDL Cholesterol VLDL Cholesterol HDL Cholesterol Lipase TSH 3.56 09/15/18 09/16/18 09/16/18 21:36 05:28 05:28 WBC 7.5 RBC 3.63 L Hgb 9.0 L Hct 29.4 L MCV 81.0 MCH 24.8 L MCHC 30.6 L RDW 20.0 H RDW Differential 55.6 H Plt Count 164 MPV 10.9 [address] Review Sodium 132 L Potassium 5.3 H Chloride 90 L Carbon Dioxide 35.0 H Anion Gap 7 BUN 48 H Creatinine 1.58 H Estim Creat Clear Calc 51.13 Est GFR (MDRD) Af Amer 59 L Est GFR (MDRD) Non-Af 49 L BUN/Creatinine Ratio 30.4 H Glucose 95 Calcium 8.3 L Magnesium Total Bilirubin Direct Bilirubin AST ALT Alkaline Phosphatase Troponin I 0.017 Total Protein Albumin Globulin Triglycerides 61 Cholesterol 59 LDL Cholesterol 20 VLDL Cholesterol 12 HDL Cholesterol 27 L Lipase TSH 09/16/18 09/16/18 05:30 05:30 WBC RBC Hgb Hct MCV MCH MCHC RDW RDW Differential Plt Count MPV Diff Path Review Sodium Potassium Chloride Carbon Dioxide Anion Gap BUN Creatinine Estim Creat Clear Calc Est GFR (MDRD) Af Amer Est GFR (MDRD) Non-Af BUN/Creatinine Ratio Glucose Calcium Magnesium 1.6 Total Bilirubin 0.80 Direct Bilirubin 0.59 H AST 22 ALT 22 Alkaline Phosphatase 83 Troponin I Total Protein 5.6 L Albumin 2.3 L Globulin 3.3 Triglycerides Cholesterol LDL Cholesterol VLDL Cholesterol HDL Cholesterol Lipase 45 L TSH Assessment/Plan Hospitalist note: I am seeing this patient in conjunction with Rafai Wakefield. I independently seen and examined the patient. Progress note above, laboratory data and imaging studies reviewed and I agree with the above treatment plan. Patient seen and examined. He complained of generalized abdominal pain. He is demanding and insisting for not getting pain medication. Patient was very inappropriate. I informed him that his x-ray of the abdomen revealed moderate amount of stool and he is constipated and does narcotics will make his constipation worse. I informed the patient that his blood pressure is low as well and giving him those narcotic pain medications will worsen his blood pressure. He states that he does not care about all these things. He insisted on getting IV morphine or something narcotic for pain. His LFT was unremarkable. Lipase was normal. Blood pressure this morning was in the 80s systolic, improved later. He is afebrile, pulse ox is 93% on 4 L of oxygen. - Physical Exam General: Alert, Oriented x3, Cooperative, No apparent distress. HEENT: Atraumatic, PERRLA, EOMI. Neck: Supple, No JVD, Negative Carotid Bruits, Trachea Midline, Thyroid Normal. Lungs: Decreased breath sounds bilateral, bilateral fine basal crackles, bilateral rhonchi. Shortness of breath. Cardiovascular: Regular rate, Regular Rhythm, Normal S1, Normal S2, PMI Normal. Abdomen: Bowel Sounds Present, Soft, Tender, Distended, No Hepato-splenomegaly. Extremities: No clubbing, No cyanosis, ++ edema Skin: No rashes, No breakdown Neurological: Cranial nerves are intact, neuro grossly intact. Assessment and plan: #1 acute on chronic systolic CHF: He is on IV Lasix, on hydralazine and Coreg. He has good urine output. On admission, creatinine was 1.86, improved to 1.58 today. Ejection fraction from the previous echocardiogram was 50%. Plan to continue IV diuresis as blood pressure tolerates, fluid restriction, input output chart, repeat CBC and BMP tomorrow morning. #2 acute hypoxic respiratory failure: Secondary to above. Patient is dyspneic and tachypneic, on 4 L of oxygen. Plan as above. #3 acute kidney injury/hyperkalemia: Kidney function is improving with diuresis. Baseline kidney function is normal. Potassium is trending down. Plan to continue same treatment, repeat BMP tomorrow morning. #4 hypervolemic hyponatremia: Secondary to CHF. Sodium level improved with IV diuresis, it is up to 132 today. Plan as above. #5 abdominal pain/constipation: KUB revealed moderate amount of stool. Patient will receive 1 dose of mag citrate. LFT and lipase were normal. Patient is inappropriately asking for narcotic pain medication and he is seeking narcotics. I explained to the patient that narcotics will worsen his constipation and will lower his blood pressure which is already low. Patient does state that he does not care. I informed the patient that we will not be able to give him narcotics at this time. #6 hypotension: Likely because of diuretics. His antihypertensive medications held. This morning, blood pressure was in the 80s systolic, improved Later. #7 other chronic medical problems: Stable, continue current medication as above. This note was generated with boo-box dictation software. It may contain incorrect words, spelling, and punctuation that were not noted in checking the note before signing. Code Visit Inpatient E&M: 72646 Subs Hosp L3
[2018-09-16 14:24] LABS: Pathologist Review Reviewed
[2018-09-16] MEDS: Bisacodyl 10 MG Suppository RECTAL (15:05)
--- NOTE | 2018-09-16 15:15 | RAD_ITS ---
HISTORY: Shortness of breath, dyspnea, follow-up XR Chest 1 View TECHNIQUE: Single frontal view of chest. # of images incl. paperwork: 1 COMPARISON: 09/15/2018 FINDINGS: No change of moderate size right and small left pleural effusion. Right lower lobe and left basilar subsegmental atelectasis. Patchy interstitial and alveolar opacities bilateral lower lobes and right middle lobe which may be chronic in nature versus superimposed pneumonitis is unchanged. Severe emphysematous changes with large bilateral upper lobe bullae. Upper limits of normal heart size. No pneumothorax. No acute osseous abnormality of the thorax. RAD/Chest 1 View (Portable) IMPRESSION: 1. No significant interval change of cardiopulmonary status. at 1602 Reported and signed by: Landry Resendiz MD Electronically Signed: Landry Resendiz MD at 16:01 EDT Tel , Service support ,
--- NOTE | 2018-09-16 15:45 | CHAPLAIN ---
Type of Pastoral Visit _x__ Initial Visit ___ Follow-up Visit ___ On-call Visit ___ General Patient Visit ___ Spiritual Assessment ___ Family Conference ___ Bereavement ___ Rapid Response ___ Code Blue ___ Other (describe below) Pastoral Care Referral From _x__ Patient ___ Family ___ Nurse ___ Physician ___ Math Coach ___ Tube Bender Hand ___ Other (describe below) Sacrament/Intervention ___ Active listening ___ Anointing ___ Rastafarian ___ Bereavement ___ Communion ___ Elsa exploration ___ ___ Life review ___ Prayer ___ Reconciliation ___ Sacrament of Sick _x__ Supportive presence ___ Wedding ___ Other (describe below) Pastoral Comments patient only asked if water pipe installer could find him a fan to cool him down; asked OCCUPATIONAL THERAPIST AIDE about getting a fan for pt
[2018-09-16] MEDS: Carvedilol 3.125 MG TABLET PO (21:19)
[2018-09-16] MEDS: hydrALAZINE 10 MG Tablet PO (21:19)
[2018-09-16] MEDS: Acetaminophen 500 MG Tablet 1000 MG PO (23:06)
[2018-09-17] VITALS (35 sets, daily range): BP systolic 33–158; BP diastolic 13–86; PULSE 54–102; RESP 14–40; TEMP 36.3–36.8; O2SAT 62–100
[2018-09-17] MEDS: Ipratropium/Albuterol Sulfate 3 ML AMPUL.NEB INHALATION ×2 (02:48→07:05)
--- NOTE | 2018-09-17 03:00 | NURSING ---
Pt mentioned suicide to this RN. This RN asked pt if he was wanting to hurt or kill himself. He denies.
[2018-09-17 04:24] LABS: Hematocrit 29.3 % (40-54); Mean Corp Hgb Conc 30.7 g/gl (32-36); Mean Corpuscular Hgb 24.8 pg (27.0-32.0); Mean Corpuscular Volume 80.7 fL (80-94); Mean Platelet Vol. 9.2 fl (6.2-12.0); Platelet Count 150 K/mm3 (150-450); RBC Distribution Width CV 19.7 % (11.6-14.6); RBC Distribution Width SD 57.9 fl (35.1-43.9); Red Blood Count 3.63 M/mm3 (4.6-6.2); White Blood Count 5.7 K/mm3 (4.4-11.0)
[2018-09-17 04:30] LABS: Scan Indicated on CBC? Y/N NO
[2018-09-17 04:48] LABS: Anion Gap 5 (5-15); BUN 46 mg/dL (7-18); BUN/Creat Ratio 35.7 RATIO (10-20); Calcium,Total 8.2 mg/dL (8.5-10.1); Chloride 89 mmol/L (98-107); Creatinine, Serum 1.29 mg/dL (0.70-1.30); EST Glomerular Filtration Rate 62 mL/min (>60); Est Glom Filt Rate - Afr Amer 75 mL/min (>60); Estimated Creatinine Clearance 62.63 ml/min; Glucose 85 mg/dL (74-106); Potassium 4.9 mmol/L (3.5-5.1); Sodium Level 132 mmol/L (136-145)
[2018-09-17] MEDS: 0.9% NaCl Peripheral Flush Adult/Peds IV (06:08)
[2018-09-17] MEDS: Acetaminophen 500 MG Tablet 1000 MG PO ×2 (07:53→14:56)
[2018-09-17] MEDS: Aspirin E.C. 81 MG Tablet PO (07:53)
[2018-09-17] MEDS: Clopidogrel Bisulfate 75 MG Tablet PO (09:25)
[2018-09-17] MEDS: Pantoprazole Sodium 40 MG Tablet PO (09:25)
[2018-09-17] MEDS: Amiodarone 200 MG Tablet PO (09:25)
[2018-09-17] MEDS: Heparin Injection (Vial) 5,000 UNIT/ML VIAL 5000 UNIT SC (09:26)
--- NOTE | 2018-09-17 11:51 | PN.CARD_ITS ---
Subjectve: Complains about abdominal pain and distention, and shortness of breath, especially that he cannot take deep breaths secondary to his abdominal discom fort. Objective: Vital Signs Temp Pulse Resp BP Pulse Ox 97.6 F L 54 L 32 H 92/66 94 09/17/18 11:30 09/17/18 11:30 09/17/18 11:30 09/17/18 11:30 09/17/18 11:30 Oxygen Flow Rate (L/min) 4 Oxygen Delivery Method Nasal Cannula Weight: 149 lb 11.102 oz Body Mass Index (BMI) 23.3 Intake and Output for Last 24 Hours 09/15/18 09/16/18 09/17/18 23:59 23:59 23:59 Intake Total 390 / 390 1465.6 / 1465.6 190 / 190 Output Total 650 / 650 2200 / 2200 75 / 75 Balance -260 / -260 -734.4 / -734.4 115 / 115 General: Alert, Oriented x 3, In Acute Distress HEENT: Atraumatic Oral: Moist Mucosa Neck: Supple Lungs: Clear to auscultation Cardiovascular: Regular Rhythm, No Murmurs Abdomen: Soft, Distended Extremities: Bilateral Edema +2 09/16/18 05:30: Magnesium 1.6 09/17/18 04:00: WBC 5.7, RBC 3.63 L, Hgb 9.0 L, Hct 29.3 L, MCV 80.7, MCH 24.8 L , MCHC 30.7 L, RDW 19.7 H, RDW Differential 57.9 H, Plt Count 150, MPV 9.2 09/17/18 04:00: Sodium 132 L, Potassium 4.9, Chloride 89 L, Carbon Dioxide 38.0 H, Anion Gap 5, BUN 46 H, Creatinine 1.29, Est GFR (MDRD) Af Amer 75, Est GFR (MDRD) Non-Af 62, BUN/Creatinine Ratio 35.7 H, Glucose 85, Calcium 8.2 L Rhythm: EKG: ECHO: Stress Test: Cardiac Cath: PCI: CT Surgery: Holter monitor: EPS: PPM: CXR: Chest CT Scan: Medical Necessity - Tobacco Use Smoking Status: Current every day smoker Tobacco Use: Cigarettes Assessment/Plan Impression: 1. Severe nonischemic cardiomyopathy, with an ejection fraction of 10 to 15%. 2. Respiratory failure secondary to #3 and 4. 3. CHF exacerbation. 4. COPD. 5. CAD with severe RCA disease, treated medically. 6. History of alcohol abuse. 7. Diffuse abdominal pains Plan: His IV diuresis and p.o. hydralazine were both held due to low blood pressures. His main problem currently is his abdominal pain and discomfort. He tells me he cannot take a deep breath due to his abdomen hurting and continues to ask for pain medications. Decrease amiodarone to 200 daily.
--- NOTE | 2018-09-17 12:13 | PCM.PROGNOTE ---
<Rafia Wakefield - Last Filed: 09/17/18 12:18> Patient Problems: Active and Suspected Problems (Last Reviewed 07/25/18 @ 16:12 by Piyush Nick DO) Acute respiratory failure with hypoxia (Acute) Acute exacerbation of CHF (congestive heart failure) (Acute) Subjective: Patient seen and examined. Reports diarrhea following mag citrate yesterday. Reports continued abdominal pain although improved. Patient talking extensively about narcotic medication and requesting morphine. Breathing improved. - Physical Exam General: Alert, Oriented x3, Cooperative HEENT: Atraumatic, PERRLA, EOMI, Normocephalic Neck: Supple, No JVD, Negative Carotid Bruits Lungs: Clear to auscultation, Diminished Cardiovascular: Regular rate, Regular Rhythm, Normal S1, Normal S2, No murmurs Abdomen: Bowel Sounds Present, Soft, Non Tender, Non-Distended Extremities: No clubbing, No cyanosis, Edema - Bilateral lower extremities Skin: No rashes, No breakdown Musculoskeletal: No Tenderness to Palpation of Joints or Extremities Neurological: Cranial nerves II-XII grossly intact, Neuro grossly intact Psych/Mental Status: Anxious, Impulsive Vital Signs Temp Pulse Resp BP Pulse Ox 97.6 F L 54 L 32 H 92/66 94 09/17/18 11:30 09/17/18 11:30 09/17/18 11:30 09/17/18 11:30 09/17/18 11:30 Oxygen Flow Rate (L/min) 4 Oxygen Delivery Method Nasal Cannula Weight: 149 lb 11.102 oz Body Mass Index (BMI) 23.3 Intake and Output for Last 24 Hours 09/15/18 09/16/18 09/17/18 23:59 23:59 23:59 Intake Total 390 / 390 1465.6 / 1465.6 190 / 190 Output Total 650 / 650 2200 / 2200 75 / 75 Balance -260 / -260 -734.4 / -734.4 115 / 115 Laboratory Tests Past 24 Hrs 09/15/18 09/17/18 09/17/18 13:30 04:00 04:00 WBC 5.7 RBC 3.63 L Hgb 9.0 L Hct 29.3 L MCV 80.7 MCH 24.8 L MCHC 30.7 L RDW 19.7 H RDW Differential 57.9 H Plt Count 150 MPV 9.2 Diff Path Review Reviewed Sodium 132 L Potassium 4.9 Chloride 89 L Carbon Dioxide 38.0 H Anion Gap 5 BUN 46 H Creatinine 1.29 Estim Creat Clear Calc 62.63 Est GFR (MDRD) Af Amer 75 Est GFR (MDRD) Non-Af 62 BUN/Creatinine Ratio 35.7 H Glucose 85 Calcium 8.2 L Medical Necessity - Tobacco Use Smoking Status: Current every day smoker Tobacco Use: Cigarettes Assessment/Plan All Active Problems (Last Reviewed 07/25/18 @ 16:12 by Piyush Nick DO) Acute respiratory failure with hypoxia (Acute) Acute exacerbation of CHF (congestive heart failure) (Acute) 1. Acute hypoxic respiratory failure secondary to acute on chronic systolic CHF/cardiomyopathy related to ETOH abuse-chest x-ray admission with moderate sized right and left pleural effusions with associated segmental atelectasis. BNP 3491. Initially placed on nonrebreather/Ventimask. Oxygen now stable on 4 L nasal cannula. Continue IV Lasix 40 mg every 8 hours. Strict I&O. Daily weight. Fidel wraps bilateral lower extremities. Recent echo 09/03/2018 showed EF 15%, severe global hypokinesis of the left ventricle, pulmonary artery systolic pressure 28 mmHg, small pericardial effusion. No significant change compared to prior study. Cardiology consulted. No plans for further repeat catheterization. 2. Hyperkalemia-resolved with IV Lasix. Trend BMP. 3. Hypervolemic hyponatremia-improving with diuresis. Trend BMP. 4. Hypotension-suspect secondary to diuresis. Hold BP regimen for systolic blood pressure less than 90. 5. Moderate constipation/abdominal discomfort-KUB with moderate stool. Otherwise no acute process. Patient received mag citrate x1. Constipation resolved. 6. Acute kidney injury-resolved with diuresis. Trend BMP. 7. PSVT-mag within normal limits. Monitor telemetry. Continue amiodarone regimen. 8. Chronic COPD-no acute exacerbation. As needed albuterol aerosols. 9. Hypertension-continue home carvedilol regimen. Lisinopril regimen on hold. 10. Paroxysmal atrial fibrillation-not on oral anticoagulation given fall history. Continue aspirin, Plavix, amiodarone, Coreg. 11. Chronic normocytic anemia-at baseline. 12. Former alcohol abuse-denies recent use. Encouraged continued sobriety. 13. Tobacco dependence-encourage cessation. 14. GERD-continue PPI. DVT prophylaxis-heparin subcu Discharge planning: Return to SNF when medically stable and pre-CERT is obtained. This patient was seen by LAKESHA Connor under the supervision of Dr. Minaya. <VietlaGerardo gonzales E - Last Filed: 09/17/18 13:02> - Physical Exam Vital Signs Temp Pulse Resp BP Pulse Ox 97.6 F L 54 L 32 H 92/66 94 09/17/18 11:30 09/17/18 11:30 09/17/18 11:30 09/17/18 11:30 09/17/18 11:30 Oxygen Flow Rate (L/min) 4 Oxygen Delivery Method Nasal Cannula Weight: 149 lb 11.102 oz Body Mass Index (BMI) 23.3 Intake and Output for Last 24 Hours 09/15/18 09/16/18 09/17/18 23:59 23:59 23:59 Intake Total 390 / 390 1465.6 / 1465.6 430 / 430 Output Total 650 / 650 2200 / 2200 200 / 200 Balance -260 / -260 -734.4 / -734.4 230 / 230 Laboratory Tests Past 24 Hrs 09/15/18 09/17/18 09/17/18 13:30 04:00 04:00 WBC 5.7 RBC 3.63 L Hgb 9.0 L Hct 29.3 L MCV 80.7 MCH 24.8 L MCHC 30.7 L RDW 19.7 H RDW Differential 57.9 H Plt Count 150 MPV 9.2 Diff Path Review Reviewed Sodium 132 L Potassium 4.9 Chloride 89 L Carbon Dioxide 38.0 H Anion Gap 5 BUN 46 H Creatinine 1.29 Estim Creat Clear Calc 62.63 Est GFR (MDRD) Af Amer 75 Est GFR (MDRD) Non-Af 62 BUN/Creatinine Ratio 35.7 H Glucose 85 Calcium 8.2 L Assessment/Plan Hospitalist note: I am seeing this patient in conjunction with Rafia Wakefield. I independently seen and examined the patient. Progress note above and laboratory data and I agree with the above treatment plan. Patient seen and examined. He is still complaining of lower abdominal pain. He received laxative yesterday and he had multiple bowel movements. He is still requesting narcotic pain medication. He mentioned that his breathing is not bothering him. He remained on 4 L of oxygen. He has been afebrile, blood pressure is borderline, pulse ox is 94% on 4 L of oxygen. - Physical Exam General: Alert, Oriented x3, Cooperative, No apparent distress. HEENT: Atraumatic, PERRLA, EOMI. Neck: Supple, No JVD, Negative Carotid Bruits, Trachea Midline, Thyroid Normal. Lungs: Decreased breath sounds bilateral, bilateral fine basal crackles, bilateral rhonchi. Shortness of breath. Cardiovascular: Regular rate, Regular Rhythm, Normal S1, Normal S2, PMI Normal. Abdomen: Bowel Sounds Present, Soft, Tender, Distended, No Hepato-splenomegaly. Extremities: No clubbing, No cyanosis, ++ edema Skin: No rashes, No breakdown Neurological: Cranial nerves are intact, neuro grossly intact. Assessment and plan: #1 acute on chronic systolic CHF: Remained on IV Lasix, on hydralazine and Coreg. He has good urine output. On admission, creatinine was 1.86, improved to 1.29 today. Ejection fraction from the previous echocardiogram was 50%. Plan to continue IV diuresis as blood pressure tolerates, fluid restriction, input output chart. #2 acute hypoxic respiratory failure: Secondary to above. Patient remained on 4 L of oxygen. Plan as above. #3 acute kidney injury/hyperkalemia: Kidney function is improving with diuresis. Baseline kidney function is normal. Potassium is trending down. Potassium normalized, creatinine is down to 1.29 today. Plan as above. #4 hypervolemic hyponatremia: Secondary to CHF. Sodium level improved with IV diuresis, it is up to 132 today. Plan as above. #5 abdominal pain/constipation: Patient still complaining of abdominal pain, requesting narcotic pain medications. He had multiple bowel movement since yesterday. KUB revealed moderate amount of stool. LFT and lipase were normal. If patient continued to complain of abdominal pain, we may need to get CT scan abdomen to prove that there is no acute findings that need to be treated with IV narcotics. #6 hypotension: Likely because of diuretics. His antihypertensive medications held. This morning, blood pressure was in the 90s systolic, plan for close monitoring. #7 other chronic medical problems: Stable, continue current medication as above. This note was generated with [employer] software. It may contain incorrect words, spelling, and punctuation that were not noted in checking the note before signing. Code Visit Inpatient E&M: 35920 Subs Hosp L2
[2018-09-17] MEDS: Ketorolac 15 MG/ML Vial IV (13:38)
[2018-09-17] MEDS: Furosemide 40 MG/4 ML Vial IV (14:56)
[2018-09-17] MEDS: DOPamine IV 800 MG/250 ML IV.SOLN. 6.366 MG CONT INF (17:00)
--- NOTE | 2018-09-17 17:15 | NURSING ---
pt transferred from PCU to ICU. Upon transfer from PCU bed to ICU bed, became extubated. Reintubated with 7.[address] Morley.
[2018-09-17] MEDS: Epinephrine (1 mg/ml) 1 MG/ML VIAL IV (17:30)
[2018-09-17] MEDS: Sodium Bicarbonate 8.4% 50 ML Syringe 50 MEQ IV ×2 (17:30)
[2018-09-17 17:31] LABS: Base Excess -1 mmol/L (-2 to +2); Bicarbonate 27.5 mmol/L (22-26); Blood Gas Specimen Type ART; FI02 100; Mode A-C; O2 Delivery Device Vent; PEEP 5; PO2 53 mmHG (75-100); RR 14; SITE L Femoral; SO2 75 % (95-99); Time Given 1718; Total Carbon Dioxide 30 mmol/L; Vt 500; pCO2 76.9 mmHg (35-45); pH 7.16 (7.35-7.45)
--- NOTE | 2018-09-17 17:45 | NURSING ---
Addendum entered by Eleni Pierre 09/17/18 19:43: 1700. dopamine gtt started 5 mcg/kg/min per Dr Rivas order. 1729- dopamine gtt increased to 10mcg/kg/min per Dr Morley. 2 amps bicarb and 1 amp epi given per physician order 173-dopamine gtt increased 15mcg/kg/min per physician order 1740-dopamine gtt increased to 20mcg/kg/min per physician order Addendum entered by Eleni Pierre 09/17/18 19:18: 1700- #20 IV inserted to lfa 1715-#18 inserted to rt wrist. Blood gas obtained from femoral artery per Dr. Rivas 1814-Dr Morley attempting central line placement to [facility] 1830- Dr Minaya assisted Dr. Morley with central line placement to [facility]. Femoral pulse palpated. 184- Dr. Morley talking with patient's mother. Decision made to withdraw care 1845-pt extubated per RT. mother at bedside 1905-pt asystole on monitor. Original Note: 174-Epi gtt hung per Dr Minaya order. Infusing at 5 mcg/min. Dr. Morley attempting central line placement 180-Epi gtt increased to 10mcg/min per physician order 180-levo gtt started at 30mcg/min per physician order
[2018-09-17 17:46] LABS: Bedside Glucose 128 mg/dL (70-110)
[2018-09-17] MEDS: 0.9% Normal Saline 1,000 ML 999 ML IV (17:50)
--- NOTE | 2018-09-17 18:00 | CPS ---
Pt intubated in PCU at [address] Morley. When patient brought up to ICU from PCU and transferred to ICU bed, ETT lost, Dr Morley reintubated at that time. A short time later ETT cuff blew, Dr Jennings used cook tube exchanger to switch tube and at that time a 7.5 ETT was switched to 8.0 ETT.
--- NOTE | 2018-09-17 18:07 | CPS ---
ABG was done femoral by Dr. Rivas. Critical results were given to Dr. Rivas at bedside.
--- NOTE | 2018-09-17 18:27 | NURSING ---
1630 pt was on BSC and started vomitting, stated he did not feel well then pt passed out. Pt assisted back to bed and code called. *See documentation under code blue intervention. Pt transferred to ICU room [address] Minaya notified pts mother of pts status. Pts belongings and medication sent to ICU.
[2018-09-17] MEDS: Morphine 2 MG/ML Syringe IV (18:50)
--- NOTE | 2018-09-17 18:58 | CCHN_ITS ---
Hospitalist Note Intubation Note: Patient with evidence of respiratory distress, aspirating, cardiac arrest with ROSC. ETT size: 7.5 x 2 (intubated twice) Patient intubated in standard fashion with visualization of the vocal cords and passage of the ETT with noted copious amounts of aspirate suctioned. Positioning verified with auscultation. Patient with transitioned from PCU to ICU. During transfer from PCU bed to ICU bed the ETT became dislodged and patient was re- intubated in similar fashion with glidescope. Central Line Note: Patient with ongoing hypotension despite aggressive IVF administration attempts, s/p cardiac arrest with ROSC, MAP not maintaining >65. Initially L neck region prepped and draped in standard fashion with US guidance used to obtain access w/ attempted guidewire threading with some difficulty and failed attempt to place central line catheter over guidewire with inability to flush x 2 attempts on the L with then re-set up in similar fashion for R IJ with similar situation with difficulty threading. Dr Minaya present and also attempted R side with similar outcome with difficulty threading despite several attempts. Advanced Care Planning: Mother had initially requested full CODE STATUS following cardiac arrest but given that patient was requiring 3 pressor therapies and not maintaining appropriate MIP with likely poor outcome we discussed CODE status. Discussed that this point patient outcome likely and requested if she would prefer we continue aggressive attempts knowing that they would likely yield no positive results or if she would prefer to spend his last moments with him and transition to comfort measures. Mother noted preference for comfort measures and patient was prepped but maintained on drips and intubated status. Once mother was in the room he was terminally extubated. Patient passed within minutes following. Advanced Care Planning Face to Face Time: 16 minutes. Code Visit Procedures: Other Procedure - See Report - Emergency airway 54120, Advanced Care Planning 49297, Central Line 83517 x 2.
--- NOTE | 2018-09-17 19:14 | PN_ITS ---
Progress Note Around 1630, patient was on a bedside commode, started vomiting, aspirated and then he passed out. Patient became distressed, went into cardiac arrest with PEA, CODE BLUE called, CPR initiated with pentecostalism of spontaneous circulation. He was intubated x2. He was transferred to ICU. During transfer, ET tube dislodged and patient was reintubated. He continued to have pulse, blood pressure was very low. He was started on IV dopamine and IV Levophed continuous infusion. Central line attempted twice on the left and right internal jugular with ultrasound guidance to obtain IV access with some difficulty and failed attempts to place central line over the guidewire. Dr. Morley attempted to place the internal jugular central on the left side and then on the right side. I attempted to put a central line on the right internal jugular in my face the same problem, guidewires kinking. Patient's blood pressure continued to drop. During the process of getting the IV access, I went to the ICU waiting area, spoke with the mother which I spoke with her over the phone during the CPR. I explained to her that her son is in a critical c ondition, had cardiac arrest, resuscitation started and he is moving to ICU. After patient moved to ICU, the mother worked in and I had a chance to talk to her [id number], I explained to her that he has cardiac arrest, we started CPR and we were able to get his pulse back but he is very hypotensive. I explained to her that his chances of recovery would be very low because of his history of cardiomyopathy with very low ejection fraction. After he failed to get IV access on multiple attempts, Dr. Morley spoke with the patient's mother again, discussed that at this point patient outcome is likely very poor prognosis and is most likely. Dr. Morley asked the mother if she would prefer us to continue aggressive attempts knowing that those attempts would likely yield no positive results for the patient. The patient preferred to spend last minutes with her son and she agreed to transition to comfort care. Patient's mother came to the room and patient was then extubated. Asystole noted on quality assurance monitor final and patient was not breathing. His pupils are wide open, dilated and not reactive to light. pronounced at 1905.
--- NOTE | 2018-09-17 19:25 | EXP.PCM_ITS ---
Preliminary Cause of PEA cardiac arrest Date of Admission: 09/15/18 Date of : 09/17/18 - Principle Diagnosis #1 acute on chronic systolic CHF with history of alcoholic cardiomyopathy, very low ejection fraction of 50%. #2 acute hypoxic respiratory failure. #3 acute kidney injury, hyperkalemia, hyponatremia. Problem List: Active and Suspected Problems (Last Reviewed 07/25/18 @ 16:12 by Piyush Nick DO) Acute respiratory failure with hypoxia (Acute) Acute exacerbation of CHF (congestive heart failure) (Acute) Hospital Course This is a 53 years old male patient with multiple medical comorbidities including history of alcohol induced cardiomyopathy with very low ejection fraction, history of chronic systolic CHF presented to the emergency room because of worsening shortness of breath and he was found to have acute hypoxic respiratory failure secondary to acute on chronic decompensated systolic CHF as well as acute kidney injury, hyponatremia and hypokalemia. Patient was started on IV Lasix for diuresis and he was kept on Coreg and hydralazine. He had 2D echocardiogram that was done on September 03, 2018 and revealed ejection fraction 50%, severe global hypokinesis of the left ventricle and small pericardial effusion. With IV diuresis, patient diuresed well and he remained on oxygen of up to 4 L. His creatinine surprisingly improved with IV Lasix as well as his potassium. His EKG revealed no acute ischemic changes. His troponin was negative x3. During this hospital stay, patient complained of lower abdominal pain and according to patient's mother, this pain has been chronic. X-ray of the abdomen done and showed moderate amount of stool with gaseous distention, no bowel obstruction. His LFT and lipase were normal. Patient was inappropriately insisting for IV narcotic pain medication. His blood pressure was borderline and we were able to give him his Lasix IV with close monitoring of his blood pressure. He was given magnesium citrate and he was able to have multiple bowel movements. On the day of , patient went to the bathroom, felt nauseous and started throwing up in the past out. CODE BLUE called, found to be in PEA cardiac arrest and CPR initiated. He was intubated, given multiple rounds of IV epinephrine with return of spontaneous circulation. He did have a pulse. Patient was transferred to ICU. On the way to ICU, ETT dislodged and he was intubated and started on mechanical ventilation. His blood pressure was low. He was started on IV amiodarone and Levophed drip. Multiple attempts was made to insert an internal jugular central line to get a better IV access but we were unable to get the IJ line in. Patient was continued on IV Levophed and will be dropped through the peripheral line and his blood pressure continued to drop. Initially, I spoke with the patient's mother during the CPR, but I informed him that her son coded and he is in a very critical condition. After transfer to ICU, mother came in and I spoke with him for the second time and I informed her that we will be able to regain his circulation in his pulse but his blood pressure still low and we are starting him on 2 medications to bring his blood pressure up. Patient was receiving maximum doses of IV Levophed and dopamine drip and in spite of that, his blood pressure continued to be very low. Dr. Morley spoke with the mother again about the situation, his prognosis based on his previous medical conditions including severe non-ischemic cardiomyopathy with very low ejection fraction and mother was informed that his prognosis of recovery and survival is very low at this time. The mother was given the option to continue aggressive treatment and get the central line and and continued CPR versus stopping all aggressive measures. The mother decided to stop all aggres sive treatments at this time and she wants to spend some time with her son before he passes away. Aggressive measures stopped, patient was terminally extubated. At around 1905, patient has no breathing, no pulse, pupils are widely dilated, fixed and not reacting to light. On the director of cardiac cath lab, he is in asystole. pronounced at 1905. Code Visit Inpatient E&M: 51800 Disch Hosp
--- NOTE | 2018-09-17 19:40 | CASEMGMT ---
Social Work Responding to Code Blue. Met with patient mother, provided verbal and emotional support. Christopher CUENCA, FELIZ
--- NOTE | 2018-09-17 19:49 | CPS ---
Extubation performed by BUGGY MAN per verbal physician order.
== END 2018-09-17 20:48 | DRG 194 ==
LOC: ED 14:30 → PCU 16:53 → ICU 09-17 17:03
PROVIDERS: Nurse Practitioner Family; Admitting Provider Family Medicine; Emergency Provider Emergency Medicine; Family Provider Student in an Organized Health Care Education/Training Program; PCP Student in an Organized Health Care Education/Training Program; Referring Provider Family Medicine; Visit Provider Hospitalist
DX: I11.0 Hypertensive heart disease with heart failure (principal); I46.9 Cardiac arrest, cause unspecified; I50.23 Acute on chronic systolic (congestive) heart failure; J96.01 Acute respiratory failure with hypoxia; N17.9 Acute kidney failure, unspecified; E87.5 Hyperkalemia; E87.1 Hypo-osmolality and hyponatremia; I42.6 Alcoholic cardiomyopathy; F10.11 Alcohol abuse, in remission; Z95.5 Presence of coronary angioplasty implant and graft; I25.10 Atherosclerotic heart disease of native coronary artery without angina pectoris; F17.210 Nicotine dependence, cigarettes, uncomplicated
CPT/HCPCS: 31500; 31720; 36415; 51702; 71045; 74018; 80048; 80061; 80076; 82803; 82962; 83690; 83735; 83880; 84443; 84484; 85025; 85027; 92950; 93005; 94002; 94640; 97162; 97165; 97802; 99251; 99285; J7030; J7050; A4216; C1751; G0463; J1940